=== PATIENT | female | born 1935 | race Caucasian/White ===

== ENCOUNTER 2018-09-28 20:28 | Inpatient (IN) | payer OTHER ==
[2018-09-28] MEDS ORDERED: ALBUTEROL SO4 2.5/IPRATROPIUM 0.5 INH SOL 3 ML VIAL.NEB. NEB ONE (21:10)
--- NOTE | 2018-09-28 21:12 | PDOC ---
History of Present Illness - General Chief Complaint: Respiratory Stated Complaint: DIFFICULTY BREATHING/CELLULITUS Time Seen by Provider: 09/28/18 20:50 History Source: Patient, Family Exam Limitations: No Limitations - History of Present Illness Initial Comments: 09/28/18 21:08 83YOF with h/o COPD, ?CHF (on Lasix 40 mg once every 2 days but states she does not recall the diagnosis of HF), ACS s/p stent 2 years ago, HTN, HLD, hypothyroidism, hip replacement, current bronchitis, and recently diagnosed leg cellulitis (states she is on amoxicillin for the cellulitis) who p/w worsening wet cough and SOB for the past 2 weeks, particularly worse tonight. She has had chills but denies any measured fever, nausea, vomiting, constipation, n/t/w focally, headache, back pain, neck pain, or other symptoms. Her family expresses concern her legs are so swollen she is unable to lift them or even walk. The patient notes her legs are only painful when she tries to weight bear. Past History - Past Medical History Allergies/Adverse Reactions: Allergies Allergy/AdvReac Type Severity Reaction Status Date / Time Penicillins Allergy Verified 09/28/18 22:12 Home Medications: Ambulatory Orders Aspirin [ASA -] 81 mg PO DAILY 11/04/14 Amlodipine Besylate 10 mg PO DAILY 05/04/16 Clopidogrel Bisulfate [Plavix -] 75 mg PO DAILY 05/04/16 L.acidoph,Paracasei, B.lactis [Probiotic] 1 each PO DAILY 05/04/16 Cephalexin [Keflex] 250 mg PO TID 09/28/18 Cholecalciferol (Vitamin D3) [Vitamin D3 -] 50,000 unit PO WEEKLY 09/28/18 Ferrous Sulfate [Feosol] 325 mg PO BID 09/28/18 Levothyroxine [Synthroid -] 50 mcg PO DAILY 09/28/18 Anemia: No Asthma: No Cancer: No Cardiac Disorders: Yes (NE 2014-STENT PLACED) CVA: No COPD: No CHF: No Dementia: No Diabetes: No (STATES HAD DIABETES AND LOST WEIGHT AND WATCHED DIET, NOW WNL) GI Disorders: Yes (HX DIVERTICULOSIS) Disorders: No HTN: Yes Hypercholesterolemia: Yes Liver Disease: No Seizures: No Thyroid Disease: No - Surgical History Abdominal Surgery: Yes Appendectomy: No Cardiac Surgery: Yes (STENT PLACED AFTER NE) Cholecystectomy: Yes (1995) Lung Surgery: No Neurologic Surgery: No Orthopedic Surgery: Yes (TOTAL HIP REPLACEMENT 25 YEARS AGO) - Immunization History Td Vaccination: No - Suicide/Smoking/Psychosocial Hx Smoking Status: Yes Smoking History: Never smoked Have you smoked in the past 12 months: No Number of Cigarettes Smoked Daily: 10 Information on smoking cessation initiated: No Hx Alcohol Use: No Drug/Substance Use Hx: No Substance Use Type: None Hx Substance Use Treatment: No Review of Systems - Review of Systems Able to Perform ROS?: Yes Comments:: 09/28/18 21:13 GEN: chills, malaise, generalized weakness, no fever, or weight change HEENT: no ear pain, sore throat, vision change, or eye pain CV: no chest pain, palpitations, lightheadedness, syncope, or edema RESP: cough, SOB, wheezing GI: decreased appetite, no abdominal pain, nausea, vomiting, constipation, or white/black/bloody stool : no dysuria, hematuria, incontinence, retention, bleeding, or discharge MSK: no neck/back pain, muscle weakness/pain, or joint swelling/pain NEURO: no headache, seizure, vertigo, numbness, tingling, or focal weakness PSYCH: no substance use, no behavior change SKIN: no jaundice, no rash ROS otherwise negative except as noted in HPI *Physical Exam - Vital Signs Last Vital Signs Temp Pulse Resp BP Pulse Ox 97.1 F L 78 22 H 168/57 L 95 09/28/18 20:28 09/28/18 20:28 09/28/18 20:28 09/28/18 20:28 09/28/18 20:28 - Physical Exam Comments: 09/28/18 21:15 GENERAL: alert, very pleasant elderly female, smell of cigarette smoke, a bit ill-appearing, A/Ox4, no distress, answers questions appropriately HEENT: PERRLA, EOMI, moist mucous membranes NECK/BACK: no midline ttp, no spinal stepoff or deformity, no hematoma, full ROM , neck supple CARDIOVASCULAR: regular rate/rhythm, normal S1S2, no MGR, strong peripheral pulses, capillary refill <2 seconds, extremities wwp, 3+ BLE pitting edema and 1 + LUE pitting edema LUNGS/RESPIRATORY: tachypneic, using accessory muscles, lungs with marked diffuse crackles from bases up to apices, diffusely decreased breath sounds GI/ABDOMEN: symmetric [id number], normoactive BS, soft, no ttp, no midline pulsatile masses : no CVA tenderness EXTREMITIES: no muscle atrophy, no acute deformity, edema as noted on CV section, no e/o cellulitis BLE at this time SKIN: warm and dry, no pallor, no jaundice, no rash, no bruising, no skin breakdown, no cuts, no lesions NEUROLOGICAL: GCS 15, CN II-XII grossly intact, 5/5 strength proximally and distally, no facial droop Moderate Sedation - Procedure Monitoring Vital Signs: Procedure Monitoring Vital Signs Temperature 97.1 F L 09/28/18 20:28 Pulse Rate 78 09/28/18 20:28 Respiratory Rate 22 H 09/28/18 20:28 Blood Pressure 168/57 L 09/28/18 20:28 O2 Sat by Pulse Oximetry (%) 95 09/28/18 20:28 Heart Score/ECG Review #1 09/28/18 21:24 NSR, rate 77, TWI in V456 (TWI in V45 are old compared with EKG from 11/03/14), no additional ST-T changes ED Treatment Course - LABORATORY CBC & Chemistry Diagram: 09/28/18 21:20 09/28/18 21:20 - RADIOLOGY Radiology Studies Ordered: Category Date Time Status CXRPORT [CHEST X-RAY PORTABLE*] [RAD] Stat Radiology 09/28/18 21:05 Ordered Medical Decision Making - Medical Decision Making 09/28/18 21:17 Pt with h/o CHF who p/w SOB, cough, orthopnea same as their prior CHF. Initial Vital Signs Temp Pulse Resp BP Pulse Ox 97.1 F L 78 22 H 168/57 L 95 09/28/18 20:28 09/28/18 20:28 09/28/18 20:28 09/28/18 20:28 09/28/18 20:28 Exam: As noted in Physical Exam section. DDX IBNLT: Most likely CHF exacerbation given crackles on lung auscultation, combined with COPD exacerbation picture given the patient's recently diagnosed bronchitis. Other possibilities pulmonary edema (e.g. from ACS), PNA, much less likely any of the following: pericarditis, tamponade, AD, PE, PTX, allergic reaction, malignancy (e.g. causing pericardial effusion or vascular shunt), other infection, pulmonary HTN, etc. W/U ordered: CBCD CMP Mg Phos Troponin CK CKMB BNP Blood Gas UA UCx EKG CXR TX ordered: Lasix IV push, O2, BiPAP, Pt positioned with head of bed up 09/28/18 21:30 Dr. Costa is in the department and sees the patient, has already placed orders. He states that the patient will be admitted to his services. I have placed Decision to Admit order to Dr. Costa. [facility] Will follow w/u then contact [facility] for admitting procedures. EKG: Reviewed; results as noted in ECG Review section. CXR: Pulmonary vascular congestion, small L>R pleural effusions, possible RLL consolidation Laboratory Tests 09/28/18 09/28/18 09/28/18 21:08 21:20 21:20 WBC 8.2 RBC 2.55 L Hgb 8.1 L Hct 24.0 L D MCV 94.3 MCH 31.9 MCHC 33.8 RDW 17.2 H Plt Count 393 D MPV 8.2 D Absolute Neuts (auto) 6.6 Neutrophils % 81.4 Lymphocytes % 7.0 L D Monocytes % 6.9 Eosinophils % 3.9 Basophils % 0.8 Nucleated RBC % 0 VBG pH 7.21 L* POC VBG pCO2 43.1 POC VBG pO2 63.8 H Mixed VBG HCO3 16.7 L Sodium Potassium Chloride Carbon Dioxide Anion Gap BUN Creatinine Creat Clearance w eGFR Random Glucose Hemoglobin A1c % Calcium Phosphorus Magnesium Total Bilirubin AST ALT Alkaline Phosphatase Creatine Kinase Troponin I B-Natriuretic Peptide Total Protein Albumin Influenza A (Rapid) Negative Influenza B (Rapid) Negative 09/28/18 09/28/18 21:20 21:20 WBC RBC Hgb Hct MCV MCH MCHC RDW Plt Count MPV Absolute Neuts (auto) Neutrophils % Lymphocytes % Monocytes % Eosinophils % Basophils % Nucleated RBC % VBG pH POC VBG pCO2 POC VBG pO2 Mixed VBG HCO3 Sodium 137 Potassium 5.7 H Chloride 110 H Carbon Dioxide 18 L Anion Gap 9 BUN 52 H Creatinine 2.7 H Creat Clearance w eGFR 16.87 Random Glucose 175 H Hemoglobin A1c % 5.4 Calcium 7.8 L Phosphorus 5.6 H Magnesium 2.3 Total Bilirubin 0.2 AST 28 ALT 23 Alkaline Phosphatase 105 Creatine Kinase 56 Troponin I 0.03 B-Natriuretic Peptide 9620.8 H Total Protein 6.5 Albumin 2.9 L Influenza A (Rapid) Influenza B (Rapid) Vital Signs Temperature 97.1 F L 09/28/18 20:28 Pulse Rate 81 09/28/18 22:03 Respiratory Rate 19 09/28/18 22:03 Blood Pressure 160/53 L 09/28/18 22:03 O2 Sat by Pulse Oximetry (%) 100 09/28/18 22:03 09/28/18 22:36 Reassessment: Patient less tachypneic on BiPAP. ADMIT The Pt is unsafe for discharge at this time. They require further hospital observation, workup, and treatment. Pt needs IV meds 2/2 likely bowel edema as PO medications likely less effective. Microblog sent to [facility]. 09/28/18 23:17 The patient has been given ceftriaxone instead of Zosyn. She is noting PCN allergy in 1961 which she cannot remember well but states her lips swelled immediately. In 1961 the PCN needed to be stopped. She has tolerated amoxicillin well per her report but there is less cross- reactivity with ceftriaxone. Thus ceftriaxone is given, patient monitored closely. I spoke with Dr. Cooper; H&P to be completed by [facility]. Decision to admit order previously placed to Dr. Costa. 09/28/18 23:25 I have placed order for blood cultures and these are sent. *DC/Admit/Observation/Transfer Diagnosis at time of Disposition: Bilateral lower leg cellulitis CHF exacerbation Qualifiers: Heart failure type: unspecified Qualified Code(s): I50.9 - Heart failure, unspecified COPD (chronic obstructive pulmonary disease) Qualifiers: COPD type: unspecified COPD Qualified Code(s): J44.9 - Chronic obstructive pulmonary disease, unspecified Pneumonia Qualifiers: Pneumonia type: due to unspecified organism Laterality: unspecified laterality Lung location: unspecified part of lung Qualified Code(s): J18.9 - Pneumonia, unspecified organism - Discharge Dispostion Condition at time of disposition: Guarded Decision to Admit order: Yes - Referrals - Patient Instructions - Post Discharge Activity
[2018-09-28] MEDS ORDERED: PIPERACILLIN/TAZOB 3.375 GM 3.375 GM in DEXTROSE 5%-WATER - 50 ML IVPB ONE (21:26)
[2018-09-28] MEDS ORDERED: ACETAMINOPHEN 325 MG TABLET (FP) PO PRN (21:26)
[2018-09-28] MEDS: ALBUTEROL SO4 2.5/IPRATROPIUM 0.5 INH SOL 3 ML VIAL.NEB. NEB PRN (21:29)
[2018-09-28 21:41] LABS: BASO % 0.8 % (0-2.0); EOS % 3.9 % (0-4.5); HEMOGLOBIN 8.1 GM/dL (10.7-15.3); MCH 31.9 pg (25.7-33.7); MCHC 33.8 g/dl (32.0-36.0); MEAN CELL VOLUME 94.3 fl (80-96); MEAN PLT VOLUME 8.2 fl (7.5-11.1); MONO % 6.9 % (3.8-10.2); NEUT % 81.4 % (42.8-82.8); PLATELET COUNT 393 K/MM3 (134-434); RBC 2.55 M/mm3 (3.60-5.2); RDW 17.2 % (11.6-15.6); WHITE BLOOD COUNT 8.2 K/mm3 (4.0-10.0)
[2018-09-28 21:43] LABS: VENOUS PC02 43.1 mmHg (38-52); VENOUS PO2 63.8 mmHg (28-48)
[2018-09-28 21:45] LABS: VENOUS PH 7.21 (7.32-7.42)
[2018-09-28] MEDS ORDERED: FUROSEMIDE 40 MG/4 ML INJECTABLE VIAL ONE (21:47)
[2018-09-28] MEDS: FUROSEMIDE 40 MG/4 ML INJECTABLE VIAL IVPUSH SCH (21:50)
[2018-09-28] MEDS ORDERED: PIPERACILLIN/TAZOB 3.375 GM 3.375 GM/50 ML BAG IVPB ONE (22:04)
[2018-09-28 22:07] LABS: ALBUMIN 2.9 g/dl (3.4-5.0); ALK PHOS 105 U/L (45-117); ANION GAP 9 MMOL/L (8-16); BILIRUBIN,TOTAL 0.2 mg/dL (0.2-1); BLOOD UREA NITROGEN 52 mg/dL (7-18); CALCIUM 7.8 mg/dL (8.5-10.1); CHLORIDE 110 mmol/L (98-107); CO2 18 mmol/L (21-32); CREATININE 2.7 mg/dL (0.55-1.3); GLUCOSE,RANDOM 175 mg/dL (74-106); MAGNESIUM 2.3 mg/dL (1.8-2.4); N-TERMINAL BNP 9620.8 pg/ml (5-450); PHOSPHOROUS 5.6 mg/dL (2.5-4.9); POTASSIUM 5.7 mmol/L (3.5-5.1); SGOT/AST 28 U/L (15-37); SGPT/ALT 23 U/L (13-61); SODIUM 137 mmol/L (136-145); TOT PROT 6.5 g/dl (6.4-8.2)
[2018-09-28 22:16] LABS: URINE APPEARANCE CLOUDY; URINE BILIRUBIN NEGATIVE (<2.0 mg/dL); URINE COLOR YELLOW; URINE GLUCOSE (UA) 2+ (NEGATIVE); URINE KETONE NEGATIVE (NEGATIVE); URINE LEUK ESTERASE NEGATIVE (NEGATIVE); URINE NITRITE NEGATIVE (NEGATIVE); URINE PROTEIN 3+ (NEGATIVE); URINE UROBILINOGEN NEGATIVE mg/dL (0.2-1.0)
[2018-09-28] MEDS ORDERED: CEFTRIAXONE 1,000 MG in DEXTROSE 5%-WATER - 50 ML IVPB ONE ×2 (22:35→22:48)
[2018-09-28 22:47] LABS: URINE BACTERIA FEW /hpf (NONE SEEN); URINE MUCUS RARE
[2018-09-28] MEDS ORDERED: CEFTRIAXONE 1 GM/50 ML BAG ONE (22:55)
--- NOTE | 2018-09-28 23:06 | PDOC ---
Attending Attestation - HPI HPI: 09/28/18 23:12 The patient is an 83 year old female with a past medical history of COPD, possible CHF (patient does not recall diagnosis but takes lasix), polycystic kidneys, HTN, ACS, hypothyroidism, bronchitis, and cellulitis here today for evaluation of worsening shortness of breath and bilateral lower extremity edema. The patient reports that her shortness of breath began 2 weeks ago, has been getting worse, and notes an associated wet cough. The patients family reports that her edema is worst it has ever been and that she has trouble walking and the patient reports that she has leg pain when weight bearing. She also notes chills. Patient denies headache, lightheadedness. Denies fever. Denies chest pain, shortness of breath. Denies nausea, vomiting, diarrhea, abdominal pain. Allergies: penicillins Social history: Patient denies drug and alcohol use but confirms long time tobacco use. Surgical history: hip replacement PCP: Marcus Costa - Medical Decision Making 09/28/18 23:13 Documentation prepared by SVETA Reeder, acting as medical imaging specialist for Kat Sharma MD. <Wayne Jimenes - Last Filed: 09/28/18 23:12> - Resident Resident Name: Jennie Membreno - ED Attending Attestation I have performed the following: I have examined & evaluated the patient, The case was reviewed & discussed with the resident, I agree w/resident's findings & plan, Exceptions are as noted - HPI HPI: 09/28/18 23:06 83 yo female p/w shortness of breath - Physicial Exam PE: 09/28/18 23:41 83 yo female brought in for respiratory distress with accessory muscle use, increased respiratory rate head ncat neck supple cvs tachycardia lung++crackles abd soft,nontender extremities +3 BLE pitting edema neuro aleert psych anxious - Medical Decision Making 09/28/18 23:48 imp pt has chf exacerbation and Dr Marcus Costa wrote orders, pt given lasix IV, started on BIPAP in ER setting 06/20, rr=14 09/28/18 23:50 <Kat Sharma - Last Filed: 09/28/18 23:52>
--- NOTE | 2018-09-28 23:12 | HP ---
CHIEF COMPLAINT: PCP: HISTORY OF PRESENT ILLNESS: ER course was notable for: (1) (2) (3) Recent Travel: PAST MEDICAL HISTORY: PAST SURGICAL HISTORY: Social History: Smoking: Alcohol: Drugs: Family History: Allergies Penicillins Allergy (Verified 09/28/18 22:12) HOME MEDICATIONS: Home Medications Medication Instructions Recorded Aspirin [ASA -] 81 mg PO DAILY 11/04/14 Amlodipine Besylate 10 mg PO DAILY 05/04/16 Clopidogrel Bisulfate [Plavix -] 75 mg PO DAILY 05/04/16 L.acidoph,Paracasei, B.lactis 1 each PO DAILY 05/04/16 [Probiotic] Cephalexin [Keflex] 250 mg PO TID 09/28/18 Cholecalciferol (Vitamin D3) 50,000 unit PO WEEKLY 09/28/18 [Vitamin D3 -] Ferrous Sulfate [Feosol] 325 mg PO BID 09/28/18 Levothyroxine [Synthroid -] 50 mcg PO DAILY 09/28/18 REVIEW OF SYSTEMS CONSTITUTIONAL: Absent: fever, chills, diaphoresis, generalized weakness, malaise, loss of appetite, weight change HEENT: Absent: rhinorrhea, nasal congestion, throat pain, throat swelling, difficulty swallowing, mouth swelling, ear pain, eye pain, visual changes CARDIOVASCULAR: Absent: chest pain, syncope, palpitations, irregular heart rate, lightheadedness , peripheral edema RESPIRATORY: Absent: cough, shortness of breath, dyspnea with exertion, orthopnea, wheezing, stridor, hemoptysis GASTROINTESTINAL: Absent: abdominal pain, abdominal distension, nausea, vomiting, diarrhea, constipation, melena, hematochezia GENITOURINARY: Absent: dysuria, frequency, urgency, hesitancy, hematuria, flank pain, genital pain MUSCULOSKELETAL: Absent: myalgia, arthralgia, joint swelling, back pain, neck pain SKIN: Absent: rash, itching, pallor HEMATOLOGIC/IMMUNOLOGIC: Absent: easy bleeding, easy bruising, lymphadenopathy, frequent infections ENDOCRINE: Absent: unexplained weight gain, unexplained weight loss, heat intolerance, cold intolerance NEUROLOGIC: Absent: headache, focal weakness or paresthesias, dizziness, unsteady gait, seizure, mental status changes, bladder or bowel incontinence PSYCHIATRIC: Absent: anxiety, depression, suicidal or homicidal ideation, hallucinations. PHYSICAL EXAMINATION Vital Signs - 24 hr 09/28/18 09/28/18 09/28/18 20:28 21:50 22:03 Temperature 97.1 F L Pulse Rate 78 Pulse Rate [ 81 Apical] Respiratory 22 H 19 Rate Blood Pressure 168/57 L Blood Pressure 160/53 L [Right Arm] O2 Sat by Pulse 95 100 100 Oximetry (%) GENERAL: Awake, alert, and fully oriented, in no acute distress. HEAD: Normal with no signs of trauma. EYES: Pupils equal, round and reactive to light, extraocular movements intact, sclera anicteric, conjunctiva clear. No lid lag. EARS, NOSE, THROAT: Ears normal, nares patent, oropharynx clear without exudates. Moist mucous membranes. NECK: Normal range of motion, supple without lymphadenopathy, JVD, or masses. LUNGS: Breath sounds equal, clear to auscultation bilaterally. No wheezes, and no crackles. No accessory muscle use. HEART: Regular rate and rhythm, normal S1 and S2 without murmur, rub or gallop. ABDOMEN: Soft, nontender, not distended, normoactive bowel sounds, no guarding, no rebound, no masses. No hepatomegaly or splenomegaly. MUSCULOSKELETAL: Normal range of motion at all joints. No bony deformities or tenderness. No CVA tenderness. UPPER EXTREMITIES: 2+ pulses, warm, well-perfused. No cyanosis. No clubbing. No peripheral edema. LOWER EXTREMITIES: 2+ pulses, warm, well-perfused. No calf tenderness. No peripheral edema. NEUROLOGICAL: Cranial nerves II-XII intact. Normal speech. Normal gait. PSYCHIATRIC: Cooperative. Good eye contact. Appropriate mood and affect. SKIN: Warm, dry, normal turgor, no rashes or lesions noted, normal capillary refill. Laboratory Results - last 24 hr 09/28/18 09/28/18 09/28/18 21:08 21:20 21:20 WBC 8.2 RBC 2.55 L Hgb 8.1 L Hct 24.0 L D MCV 94.3 MCH 31.9 MCHC 33.8 RDW 17.2 H Plt Count 393 D MPV 8.2 D Absolute Neuts (auto) 6.6 Neutrophils % 81.4 Lymphocytes % 7.0 L D Monocytes % 6.9 Eosinophils % 3.9 Basophils % 0.8 Nucleated RBC % 0 VBG pH 7.21 L* POC VBG pCO2 43.1 POC VBG pO2 63.8 H Mixed VBG HCO3 16.7 L Sodium Potassium Chloride Carbon Dioxide Anion Gap BUN Creatinine Creat Clearance w eGFR Random Glucose Hemoglobin A1c % Calcium Phosphorus Magnesium Total Bilirubin AST ALT Alkaline Phosphatase Creatine Kinase Troponin I B-Natriuretic Peptide Total Protein Albumin Urine Color Urine Appearance Urine pH Ur Specific [place] Urine Protein Urine Glucose (UA) Urine Ketones Urine Blood Urine Nitrite Urine Bilirubin Urine Urobilinogen Ur Leukocyte Esterase Urine WBC (Auto) Urine RBC (Auto) Urine Bacteria Urine Mucus Influenza A (Rapid) Negative Influenza B (Rapid) Negative 09/28/18 09/28/18 09/28/18 21:20 21:20 22:00 WBC RBC Hgb Hct MCV MCH MCHC RDW Plt Count MPV Absolute Neuts (auto) Neutrophils % Lymphocytes % Monocytes % Eosinophils % Basophils % Nucleated RBC % VBG pH POC VBG pCO2 POC VBG pO2 Mixed VBG HCO3 Sodium 137 Potassium 5.7 H Chloride 110 H Carbon Dioxide 18 L Anion Gap 9 BUN 52 H Creatinine 2.7 H Creat Clearance w eGFR 16.87 Random Glucose 175 H Hemoglobin A1c % 5.4 Calcium 7.8 L Phosphorus 5.6 H Magnesium 2.3 Total Bilirubin 0.2 AST 28 ALT 23 Alkaline Phosphatase 105 Creatine Kinase 56 Troponin I 0.03 B-Natriuretic Peptide 9620.8 H Total Protein 6.5 Albumin 2.9 L Urine Color Yellow Urine Appearance Cloudy Urine pH 5.0 Ur Specific [place] 1.016 Urine Protein 3+ H Urine Glucose (UA) 2+ H Urine Ketones Negative Urine Blood 1+ H Urine Nitrite Negative Urine Bilirubin Negative Urine Urobilinogen Negative Ur Leukocyte Esterase Negative Urine WBC (Auto) None Urine RBC (Auto) 2 Urine Bacteria Few Urine Mucus Rare Influenza A (Rapid) Influenza B (Rapid) ASSESSMENT/PLAN:
[2018-09-28] MEDS ORDERED: HEPARIN NA (PORCINE) 5,000 UNITS/ML 1ML VIAL ONE (23:31)
[2018-09-28] MEDS: HEPARIN NA (PORCINE) 5,000 UNITS/ML 1ML VIAL SQ SCH (23:35)
--- NOTE | 2018-09-29 01:15 | HP ---
CHIEF COMPLAINT: shortness of breath PCP: Igor HISTORY OF PRESENT ILLNESS: 83 year old woman with chf, chronic cough with whitish sputum c/o worsening SOB and cough for the past several days, associated with + orthopnea and swelling of legs. Denied fever, chills, or bloody sputum. No sick contacts or recent travels. ER course was notable for: (1) bipap (2) Iv furosemide (3) Recent Travel: no PAST MEDICAL HISTORY: COPD, CHF, polycystic kidneys, HTN, cad s/p stent PAST SURGICAL HISTORY: cardiax stent, Cholecystectomy Social History: Smoking: yes, current Alcohol:no Drugs: no Family History: none reported Allergies Penicillins Allergy (Verified 09/28/18 22:12) HOME MEDICATIONS: Home Medications Medication Instructions Recorded Aspirin [ASA -] 81 mg PO DAILY 11/04/14 Amlodipine Besylate 10 mg PO DAILY 05/04/16 Clopidogrel Bisulfate [Plavix -] 75 mg PO DAILY 05/04/16 L.acidoph,Paracasei, B.lactis 1 each PO DAILY 05/04/16 [Probiotic] Cephalexin [Keflex] 250 mg PO TID 09/28/18 Cholecalciferol (Vitamin D3) 50,000 unit PO WEEKLY 09/28/18 [Vitamin D3 -] Ferrous Sulfate [Feosol] 325 mg PO BID 09/28/18 Levothyroxine [Synthroid -] 50 mcg PO DAILY 09/28/18 REVIEW OF SYSTEMS CONSTITUTIONAL: Absent: fever, chills, diaphoresis, generalized weakness, malaise, loss of appetite, weight change HEENT: Absent: rhinorrhea, nasal congestion, throat pain, throat swelling, difficulty swallowing, mouth swelling, ear pain, eye pain, visual changes CARDIOVASCULAR: Absent: chest pain, syncope, palpitations, irregular heart rate, lightheadedness , present- peripheral edema RESPIRATORY: Absent: wheezing, stridor, hemoptysis present- cough, shortness of breath, dyspnea with exertion, orthopnea, GASTROINTESTINAL: Absent: abdominal pain, abdominal distension, nausea, vomiting, diarrhea, constipation, melena, hematochezia GENITOURINARY: Absent: dysuria, frequency, urgency, hesitancy, hematuria, flank pain, genital pain MUSCULOSKELETAL: Absent: myalgia, arthralgia, joint swelling, back pain, neck pain Present- pain in lower ext b/l SKIN: Absent: rash, itching, pallor HEMATOLOGIC/IMMUNOLOGIC: Absent: easy bleeding, easy bruising, lymphadenopathy, frequent infections ENDOCRINE: Absent: unexplained weight gain, unexplained weight loss, heat intolerance, cold intolerance NEUROLOGIC: Absent: headache, focal weakness or paresthesias, dizziness, unsteady gait, seizure, mental status changes, bladder or bowel incontinence PSYCHIATRIC: Absent: anxiety, depression, suicidal or homicidal ideation, hallucinations. PHYSICAL EXAMINATION Vital Signs - 24 hr 09/28/18 09/28/18 09/28/18 20:28 21:50 22:03 Temperature 97.1 F L Pulse Rate 78 Pulse Rate [ 81 Apical] Respiratory 22 H 19 Rate Blood Pressure 168/57 L Blood Pressure 160/53 L [Right Arm] O2 Sat by Pulse 95 100 100 Oximetry (%) 09/28/18 09/29/18 09/29/18 23:29 00:05 00:15 Temperature 98.2 F Pulse Rate 74 Pulse Rate [ 77 Apical] Respiratory 21 H Rate Blood Pressure 145/51 L Blood Pressure [Right Arm] O2 Sat by Pulse 98 100 Oximetry (%) GENERAL: Awake, alert, and fully oriented, in no acute distress, frail, elderly , on bipap HEAD: Normal with no signs of trauma. EYES: Pupils equal, round and reactive to light, extraocular movements intact, sclera anicteric, conjunctiva clear. No lid lag. EARS, NOSE, THROAT: Ears normal, nares patent, oropharynx clear without exudates. Moist mucous membranes. NECK: Normal range of motion, supple without lymphadenopathy, + JVD b/l LUNGS: coarse breath sounds with expiratory wheezing appreciated b/l HEART: Regular rate and rhythm, normal S1 and S2 without murmur, rub or gallop. ABDOMEN: Soft, nontender, not distended, normoactive bowel sounds, no guarding, no rebound, no masses. No hepatomegaly or splenomegaly. MUSCULOSKELETAL: Normal range of motion at all joints. No bony deformities or tenderness. No CVA tenderness. UPPER EXTREMITIES: 2+ pulses, warm, well-perfused. No cyanosis. No clubbing. No peripheral edema. LOWER EXTREMITIES: 3+ pitting edema in b/l lower ext up to knees NEUROLOGICAL: Cranial nerves II-XII intact. Normal speech. Normal gait. PSYCHIATRIC: Cooperative. Good eye contact. Appropriate mood and affect. SKIN: Warm, dry, normal turgor, no rashes or lesions noted, normal capillary refill. Laboratory Results - last 24 hr 09/28/18 09/28/18 09/28/18 21:08 21:20 21:20 WBC 8.2 RBC 2.55 L Hgb 8.1 L Hct 24.0 L D MCV 94.3 MCH 31.9 MCHC 33.8 RDW 17.2 H Plt Count 393 D MPV 8.2 D Absolute Neuts (auto) 6.6 Neutrophils % 81.4 Lymphocytes % 7.0 L D Monocytes % 6.9 Eosinophils % 3.9 Basophils % 0.8 Nucleated RBC % 0 VBG pH 7.21 L* POC VBG pCO2 43.1 POC VBG pO2 63.8 H Mixed VBG HCO3 16.7 L Sodium Potassium Chloride Carbon Dioxide Anion Gap BUN Creatinine Creat Clearance w eGFR Random Glucose Hemoglobin A1c % Calcium Phosphorus Magnesium Total Bilirubin AST ALT Alkaline Phosphatase Creatine Kinase Troponin I B-Natriuretic Peptide Total Protein Albumin Urine Color Urine Appearance Urine pH Ur Specific [place] Urine Protein Urine Glucose (UA) Urine Ketones Urine Blood Urine Nitrite Urine Bilirubin Urine Urobilinogen Ur Leukocyte Esterase Urine WBC (Auto) Urine RBC (Auto) Urine Bacteria Urine Mucus Influenza A (Rapid) Negative Influenza B (Rapid) Negative 09/28/18 09/28/18 09/28/18 21:20 21:20 22:00 WBC RBC Hgb Hct MCV MCH MCHC RDW Plt Count MPV Absolute Neuts (auto) Neutrophils % Lymphocytes % Monocytes % Eosinophils % Basophils % Nucleated RBC % VBG pH POC VBG pCO2 POC VBG pO2 Mixed VBG HCO3 Sodium 137 Potassium 5.7 H Chloride 110 H Carbon Dioxide 18 L Anion Gap 9 BUN 52 H Creatinine 2.7 H Creat Clearance w eGFR 16.87 Random Glucose 175 H Hemoglobin A1c % 5.4 Calcium 7.8 L Phosphorus 5.6 H Magnesium 2.3 Total Bilirubin 0.2 AST 28 ALT 23 Alkaline Phosphatase 105 Creatine Kinase 56 Troponin I 0.03 B-Natriuretic Peptide 9620.8 H Total Protein 6.5 Albumin 2.9 L Urine Color Yellow Urine Appearance Cloudy Urine pH 5.0 Ur Specific [place] 1.016 Urine Protein 3+ H Urine Glucose (UA) 2+ H Urine Ketones Negative Urine Blood 1+ H Urine Nitrite Negative Urine Bilirubin Negative Urine Urobilinogen Negative Ur Leukocyte Esterase Negative Urine WBC (Auto) None Urine RBC (Auto) 2 Urine Bacteria Few Urine Mucus Rare Influenza A (Rapid) Influenza B (Rapid) imaging studies reviewed- ekg, cxr ASSESSMENT/PLAN: #CHF exacerbation - high bnp, pedal edema, orthopnea, JVD -admit to telemetry -cardiac consult -lasix 40mg IV daily -i/o -daily weights -trend troponin -salt restriction -1 liter daily fluid restriction -bblocker -acei #COPD/asthma exacerbation - exp wheezing, -[id number] iv q8hrs ordered -duonebs q6hrs prn if wheezing -smoking cessation -c/w bipap for now #ANASTASIA -avoid nephrotoxins -renal u/s #Lower ext swelling- exam not suggestive of cellulitis but rather chronic venous stasis changes on skin -duplex u/ to r/o dvt -no abx #HYperkalemia - no ekg changes, should improve after lasix and albuterol -monitor K -on cardiac monitoring #metabolic acidosis- uncertain etiology- low bicarb -repeat vbg #high TSH but normal T4 -may be reactive from acute CHF exac -c/w home dose levothyroxine for now -consider endocrine input dvt ppx- heparin sc Visit type - Emergency Visit Emergency Visit: Yes ED Registration Date: 09/28/18 Care time: The patient presented to the Emergency Department on the above date and was hospitalized for further evaluation of their emergent condition. - New Patient This patient is new to me today: Yes Date on this admission: 09/29/18 - Critical Care Critical Care patient: No
[2018-09-29] MEDS: methylPREDNISolone NA SUCC 40 MG/1 ML VIAL IVPUSH SCH ×3 (02:14→17:31)
[2018-09-29] MEDS: ALBUTEROL SO4 2.5/IPRATROPIUM 0.5 INH SOL 3 ML VIAL.NEB. NEB PRN ×2 (06:05→10:41)
[2018-09-29] MEDS: LEVOTHYROXINE NA 75 MCG TABLET (FP) PO SCH (06:35)
[2018-09-29 07:50] LABS: CHOLESTEROL 212 mg/dL (50-200); HDL CHOLESTEROL 78 mg/dL (40-60); TRIGLYCERIDES 108 mg/dL (0-150)
--- NOTE | 2018-09-29 09:50 | EKG ---
Test Reason : Blood Pressure : / mmHG Vent. Rate : 077 BPM Atrial Rate : 077 BPM P-R Int : 140 ms QRS Dur : 088 ms QT Int : 384 ms P-R-T Axes : 077 -24 107 degrees QTc Int : 434 ms NORMAL SINUS RHYTHM POSSIBLE LEFT ATRIAL ENLARGEMENT T WAVE ABNORMALITY, CONSIDER LATERAL ISCHEMIA ABNORMAL ECG WHEN COMPARED WITH ECG OF 03-NOV-2014 23:39, T WAVE VARIATION Confirmed by HERNANDEZ GOETZ, EFREM ([id number]) on 09/29/2018 9:50:03 AM Referred By: Confirmed By:EFREM NG MD
[2018-09-29 10:50] LABS: BASO % 0.4 % (0-2.0); EOS % 0.2 % (0-4.5); HEMATOCRIT 22.8 % (32.4-45.2); HEMOGLOBIN 7.6 GM/dL (10.7-15.3); MCH 31.8 pg (25.7-33.7); MCHC 33.2 g/dl (32.0-36.0); MEAN CELL VOLUME 95.6 fl (80-96); MEAN PLT VOLUME 8.6 fl (7.5-11.1); NEUT % 95.4 % (42.8-82.8); PLATELET COUNT 366 K/MM3 (134-434); RBC 2.38 M/mm3 (3.60-5.2); RDW 17.2 % (11.6-15.6); WHITE BLOOD COUNT 6.7 K/mm3 (4.0-10.0)
[2018-09-29 10:59] LABS: ARTERIAL BLD GAS O2 SATURATION 92.7 % (90-98.9); ARTERIAL BLOOD GAS BASE EXCESS -11.1 meq/l (-2-2); ARTERIAL BLOOD GAS PCO2 32.8 mmHg (35-45); ARTERIAL BLOOD GAS PO2 71.2 mmHg (68-100); ARTERIAL BLOOD GAS pH 7.27 (7.35-7.45)
[2018-09-29 11:01] LABS: ALLENS TEST POSITIVE
[2018-09-29] MEDS: ASPIRIN COATED 81 MG TABLET.EC PO SCH (11:15)
[2018-09-29] MEDS: CLOPIDOGREL BISULFATE 75 MG TABLET (FP) PO SCH (11:15)
[2018-09-29] MEDS: FUROSEMIDE 40 MG/4 ML INJECTABLE VIAL IVPUSH SCH (11:15)
[2018-09-29] MEDS: HEPARIN NA (PORCINE) 5,000 UNITS/ML 1ML VIAL SQ SCH ×2 (11:15→22:02)
--- NOTE | 2018-09-29 11:22 | PN ---
Progress Note (short form) - Note Progress Note: PULMONARY CONSULTATION DICTATED 09/29/18 IMP ACUTE HYPOXEMIC RESPIRATORY FAILURE CHF COPD EXACERBATION ? PNEUMONIA ASHD S/P STENT ACUTE ON CHRONIC KIDNEY DISEASE ANEMIA HTN DM TOBACCO ABUSE PLAN IV LASIX O2/BIPAP ABX STEROIDS INHALED BRONCHODILATORS CHEST CT ECHO NORMAL TRANSFUSION THRESHOLD MONITOR LYES,RENAL FUNCTION,H+H DR MCKENZIE Problem List - Problems (1) Acute hypoxemic respiratory failure Code(s): J96.01 - ACUTE RESPIRATORY FAILURE WITH HYPOXIA (2) Bilateral lower leg cellulitis Code(s): L03.116 - CELLULITIS OF LEFT LOWER LIMB; L03.115 - CELLULITIS OF RIGHT LOWER LIMB (3) CHF exacerbation Code(s): I50.9 - HEART FAILURE, UNSPECIFIED Qualifiers: Heart failure type: unspecified Qualified Code(s): I50.9 - Heart failure, unspecified (4) COPD (chronic obstructive pulmonary disease) Code(s): J44.9 - CHRONIC OBSTRUCTIVE PULMONARY DISEASE, UNSPECIFIED Qualifiers: COPD type: unspecified COPD Qualified Code(s): J44.9 - Chronic obstructive pulmonary disease, unspecified (5) Pneumonia Code(s): J18.9 - PNEUMONIA, UNSPECIFIED ORGANISM Qualifiers: Pneumonia type: due to unspecified organism Laterality: unspecified laterality Lung location: unspecified part of lung Qualified Code(s): J18.9 - Pneumonia, unspecified organism (6) Acute coronary syndrome Code(s): I24.9 - ACUTE ISCHEMIC HEART DISEASE, UNSPECIFIED (7) Anemia Code(s): D64.9 - ANEMIA, UNSPECIFIED (8) Diabetes Code(s): E11.9 - TYPE 2 DIABETES MELLITUS WITHOUT COMPLICATIONS (9) Tobacco abuse Code(s): Z72.0 - TOBACCO USE (10) Tobacco abuse counseling Code(s): Z71.6 - TOBACCO ABUSE COUNSELING
[2018-09-29 11:26] LABS: CREATININE 2.8 mg/dL (0.55-1.3)
[2018-09-29 11:27] LABS: CO2 16 mmol/L (21-32)
[2018-09-29 11:30] LABS: ALBUMIN 2.8 g/dl (3.4-5.0); ALK PHOS 89 U/L (45-117); ANION GAP 9 MMOL/L (8-16); BILIRUBIN,TOTAL 0.2 mg/dL (0.2-1); BLOOD UREA NITROGEN 54 mg/dL (7-18); CHLORIDE 111 mmol/L (98-107); GLUCOSE,RANDOM 118 mg/dL (74-106); SGOT/AST 27 U/L (15-37); SGPT/ALT 24 U/L (13-61); SODIUM 136 mmol/L (136-145); TOT PROT 6.3 g/dl (6.4-8.2)
--- NOTE | 2018-09-29 11:31 | PN ---
Progress Note, Physician Chief Complaint: patient seen and examined dyspneic was off the bipap ,audible wheezing used bipap last night per daughter the leg edema has significantly decreased - Current Medication List Current Medications: Active Medications Acetaminophen (Tylenol -) 650 mg PO Q6H PRN PRN Reason: PAIN OR FEVER Albuterol/Ipratropium (Duoneb -) 1 amp NEB Q6H PRN PRN Reason: SHORTNESS OF BREATH Last Admin: 09/29/18 10:41 Dose: 1 amp Aspirin (Ecotrin -) 81 mg PO DAILY [facility] Last Admin: 09/29/18 11:15 Dose: 81 mg Clopidogrel Bisulfate (Plavix -) 75 mg PO DAILY [facility] Last Admin: 09/29/18 11:15 Dose: 75 mg Furosemide (Lasix Injection -) 40 mg IVPUSH DAILY [facility] Last Admin: 09/29/18 11:15 Dose: 40 mg Heparin Sodium (Porcine) (Heparin -) 5,000 unit SQ BID [facility] Last Admin: 09/29/18 11:15 Dose: 5,000 unit Levothyroxine Sodium (Synthroid -) 75 mcg PO DAILY@0700 [facility] Last Admin: 09/29/18 06:35 Dose: Not Given Methylprednisolone Sodium Succinate (Solu-Medrol -) 40 mg IVPUSH Q8H-IV [facility] Last Admin: 09/29/18 11:15 Dose: 40 mg - Objective Vital Signs: Vital Signs Temperature 98 F 09/29/18 05:53 Pulse Rate 83 09/29/18 10:32 Respiratory Rate 24 H 09/29/18 10:32 Blood Pressure 148/72 09/29/18 10:32 O2 Sat by Pulse Oximetry (%) 95 09/29/18 11:09 Constitutional: Yes: Thin Cardiovascular: Yes: Regular Rate and Rhythm, S1, S2 Respiratory: Yes: Rales, Tachypnea Gastrointestinal: Yes: Normal Bowel Sounds, Soft Edema: Yes Edema: LLE: 2+, RLE: 2+ Neurological: Yes: Alert, Oriented Labs: CBC, BMP 09/29/18 05:30 Problem List - Problems (1) Acute hypoxemic respiratory failure Assessment/Plan: bipap lasix pulm steroids iv Code(s): J96.01 - ACUTE RESPIRATORY FAILURE WITH HYPOXIA (2) CHF exacerbation Assessment/Plan: lasix Code(s): I50.9 - HEART FAILURE, UNSPECIFIED Qualifiers: Heart failure type: unspecified Qualified Code(s): I50.9 - Heart failure, unspecified (3) Anemia Assessment/Plan: check iron panel Code(s): D64.9 - ANEMIA, UNSPECIFIED (4) Hypothyroid Assessment/Plan: tsh is 45 synthroid dose increase from 50 to 75 Code(s): E03.9 - HYPOTHYROIDISM, UNSPECIFIED (5) Hyperkalemia Assessment/Plan: kayxelate renal eval Code(s): E87.5 - HYPERKALEMIA (6) ANASTASIA (acute kidney injury) Assessment/Plan: renal eval renal sono bicarbonate Code(s): N17.9 - ACUTE KIDNEY FAILURE, UNSPECIFIED Assessment/Plan acute CHF bilateral effusion on cxr iv lasix chest ct and abdominal ct ordered i/o acosta in place venous doppler bipap hypothyroid tsh synthroid copd on iv steroids pulm consult anemia check iron panel stool occult
--- NOTE | 2018-09-29 11:32 | PN ---
Progress Note (short form) - Note Progress Note: PULMONARY CONSULTATION DICTATED 09/29/18 IMP ACUTE HYPOXEMIC RESPIRATORY FAILURE CHF COPD EXACERBATION ? PNEUMONIA ASHD S/P STENT ACUTE ON CHRONIC KIDNEY DISEASE PULMONARY HTN ANEMIA HTN DM TOBACCO ABUSE PLAN IV LASIX O2/BIPAP ABX STEROIDS INHALED BRONCHODILATORS CHEST CT ECHO NORMAL TRANSFUSION THRESHOLD MONITOR LYTES,RENAL FUNCTION,H+H SMOKING CESSATION COUNSELED DR MCKENZIE Problem List - Problems (1) Acute hypoxemic respiratory failure Code(s): J96.01 - ACUTE RESPIRATORY FAILURE WITH HYPOXIA (2) Bilateral lower leg cellulitis Code(s): L03.116 - CELLULITIS OF LEFT LOWER LIMB; L03.115 - CELLULITIS OF RIGHT LOWER LIMB (3) CHF exacerbation Code(s): I50.9 - HEART FAILURE, UNSPECIFIED Qualifiers: Heart failure type: unspecified Qualified Code(s): I50.9 - Heart failure, unspecified (4) COPD (chronic obstructive pulmonary disease) Code(s): J44.9 - CHRONIC OBSTRUCTIVE PULMONARY DISEASE, UNSPECIFIED Qualifiers: COPD type: unspecified COPD Qualified Code(s): J44.9 - Chronic obstructive pulmonary disease, unspecified (5) Pneumonia Code(s): J18.9 - PNEUMONIA, UNSPECIFIED ORGANISM Qualifiers: Pneumonia type: due to unspecified organism Laterality: unspecified laterality Lung location: unspecified part of lung Qualified Code(s): J18.9 - Pneumonia, unspecified organism (6) Acute coronary syndrome Code(s): I24.9 - ACUTE ISCHEMIC HEART DISEASE, UNSPECIFIED (7) Anemia Code(s): D64.9 - ANEMIA, UNSPECIFIED (8) Diabetes Code(s): E11.9 - TYPE 2 DIABETES MELLITUS WITHOUT COMPLICATIONS (9) Tobacco abuse Code(s): Z72.0 - TOBACCO USE (10) Tobacco abuse counseling Code(s): Z71.6 - TOBACCO ABUSE COUNSELING
[2018-09-29 11:43] LABS: POTASSIUM 6.2 mmol/L (3.5-5.1)
--- NOTE | 2018-09-29 12:33 | CONS ---
DATE OF CONSULTATION: 09/29/2018 REFERRING PHYSICIAN: Marcus Costa MD HISTORY: The patient is an 83-year-old white female with extensive past medical history, which includes ASHD status post stents, chronic kidney disease, polycystic kidneys, hypertension, hypothyroidism, bronchitis, cellulitis, COPD, possible CHF admitted to [facility] with the complaint of a [id number] of increasing shortness of breath, chest congestion, and lower extremity edema. The patient states that approximately 2 weeks ago she started developing increasing shortness of breath with exertion. It has been progressively getting worse associated with wet cough, productive white-yellow sputum. Denies any hemoptysis. Denies any fever but states that she had chills. Over the past week or so, she started developing increasing lower extremity edema and getting markedly dyspneic with minimal exertion at which time she presented to the emergency room. In the ER, she was noted to be in acute respiratory distress. She was started on supplemental O2, administered Lasix, bronchodilators, and placed on BiPAP, and transferred up to medical floor for further management. The patient denies any recent travel. There is no history of occupational exposure to chemicals or fumes. She has a history of tobacco use for many years and still smokes a few cigarettes a day. There is no history of DVT or pulmonary emboli in the past. PAST MEDICAL HISTORY: Again includes COPD, possible CHF, ASHD status post stents, chronic kidney disease, polycystic kidneys, hypertension, hypothyroidism, and cellulitis. SOCIAL HISTORY: Positive tobacco. No ETOH. No occupational exposures. REVIEW OF SYSTEMS: Positive orthopnea, positive dyspnea, positive chest congestion, positive cough, positive chills. No fever, no hemoptysis, no abdominal pain. Positive lower extremity edema. CURRENT MEDICATIONS: Include Solu-Medrol 40 q.8, Tylenol, heparin, DuoNeb, Lasix, Ecotrin, Plavix, and Synthroid. PHYSICAL EXAMINATION: General: The patient is an elderly white female thin, well developed, awake, alert in moderate respiratory distress, dyspneic, and mildly tachypneic. Vital Signs: Blood pressure is 148/72, respiratory rate is 24, heart rate is 83, O2 saturation is 95% on 2 L. HEENT: Normocephalic and atraumatic. Neck: Supple. Heart: Regular with S1, S2. Chest: Diffuse bilateral rhonchi. Abdomen: Soft. Bowel sounds are positive. Extremities: Bilateral extremity edema. LABORATORIES: Potassium 5.7, BUN 52, creatinine 2.7, PMB 9620, WBC 6.7, hemoglobin 7.6, hematocrit 22.8, platelet count 366,000. There are 95 polys, 3 lymphocytes, and 1 monocyte. Blood gas: PH 7.27, PCO2 of 32, PO2 of 71, bicarbonate of 14, and saturation of 92. That is on 3 L nasal cannula. Chest x-ray: Normal cardiac silhouette, bilateral pleural effusions left greater than right with mild pulmonary vascular congestion. IMPRESSION: 1. Acute hypoxemic respiratory failure most likely secondary to multiple factors. 2. Chronic congestive heart failure. 3. Chronic obstructive pulmonary disease with acute exacerbation. 4. Rule out possible pneumonia. 5. Arteriosclerotic heart disease status post stents. 6. Acute on chronic kidney disease. 7. Anemia. 8. Hypertension. 9. Diabetes. 10. Tobacco abuse. PLAN: IV Lasix. Supplemental O2 alternating with BiPAP to reduced work of breathing. Antibiotic therapy. IV steroids. Inhaled bronchodilators. Follow up chest CT. Echocardiogram. Normal transfusion threshold. Monitor electrolytes, renal function, and hemoglobin and hematocrit. KAI MCKENZIE M.D. [id number]
[2018-09-29 12:37] LABS: ACANTHOCYTES 2+; ANISOCYTOSIS 2+; MACROCYTOSIS 0; OVALOCYTE 2+; PLATELET ESTIMATE NORMAL; TEAR DROP CELLS 1+; TOXIC GRANULATION 1+
[2018-09-29 14:17] LABS: ALBUMIN 2.6 g/dl (3.4-5.0); ALK PHOS 85 U/L (45-117); ANION GAP 10 MMOL/L (8-16); BILIRUBIN,TOTAL 0.2 mg/dL (0.2-1); BLOOD UREA NITROGEN 53 mg/dL (7-18); CALCIUM 8.2 mg/dL (8.5-10.1); CHLORIDE 109 mmol/L (98-107); CO2 16 mmol/L (21-32); CREATININE 2.8 mg/dL (0.55-1.3); GLUCOSE,RANDOM 141 mg/dL (74-106); SGOT/AST 23 U/L (15-37); SGPT/ALT 21 U/L (13-61); SODIUM 135 mmol/L (136-145); TOT PROT 6.4 g/dl (6.4-8.2)
[2018-09-29 14:20] LABS: POTASSIUM 6.1 mmol/L (3.5-5.1)
[2018-09-29] MEDS ORDERED: SODIUM POLYSTYRENE SULFONATE 15 GM/60 ML BOTTLE PO ONE (14:31)
--- NOTE | 2018-09-29 15:39 | ECHO ---
Name: MARISOL ABRAHAM Exam:Adult Echocardiogram Study Date: 09/29/2018 02:27 PM Age: 83 yrs Reason For Study: CHECK EF% Height: 61 in Weight: 102 lb BSA: 1.4 m2 MMode/2D Measurements & Calculations IVSd: 1.3 cm Ao root diam: 2.9 cm LVIDd: 4.4 cm LA dimension: 4.6 cm LVIDs: 2.4 cm ACS: 0.70 cm LVPWd: 0.89 cm IVSs: 1.3 cm LVPWs: 1.2 cm EDV(Teich): 89.8 ml ESV(Teich): 20.9 ml LVOT diam: 1.9 cm Doppler Measurements & Calculations MV E max robbin: 140.4 cm/sec Ao V2 max: 355.8 cm/sec MV A max robbin: 177.9 cm/sec Ao max P.7 mmHg MV E/A: 0.79 Ao V2 mean: 288.5 cm/sec Ao mean P.3 mmHg Ao V2 VTI: 88.3 cm DINA(I,D): 0.64 cm2 AI P1/2t: 318.8 msec DINA(V,D): 0.59 cm2 AI max robbin: 329.1 cm/sec LV V1 max P.4 mmHg AI max P.5 mmHg LV V1 mean P.7 mmHg AI dec slope: 302.3 cm/sec2 LV V1 max: 77.1 cm/sec LV V1 mean: 63.0 cm/sec LV V1 VTI: 20.6 cm MR max robbin: 552.5 cm/sec SV(LVOT): 56.2 ml MR max P.1 mmHg TR max robbin: 296.2 cm/sec Med Peak E' Robbin: 2.8 cm/sec TR max P.1 mmHg Med E/e': 49.7 Lat Peak E' Robbin: 2.6 cm/sec Lat E/e': 53.4 Procedure A complete two-dimensional transthoracic echocardiogram was performed (2D, M-mode, Doppler and color flow Doppler). Left Ventricle The left ventricle is normal in size. There is mild concentric left ventricular hypertrophy. Left shaye tricular systolic function is normal. Ejection Fraction = 65-70%. No regional wall motion abnormalities noted. Right Ventricle The right ventricle is normal size. The right ventricular systolic function is normal. Atria The left atrium is moderately dilated. Right atrial size is normal. Mitral Valve There is severe mitral annular calcification. There is moderate mitral valve thickening. There is mil d to moderate mitral regurgitation. Tricuspid Valve The tricuspid valve is normal in structure and function. Pulmonary artery systolic pressure is at [address] st 40 mmHg assuming RA pressure of 3 mmHg. Aortic Valve There is severe aortic valve thickening. Severe valvular aortic stenosis. The calculated aortic valve area using the continuity equation is 0.6 cm2. Aortic max pressure gradient= 35. DI (dimensionless index) is 0.25. Mild aortic regurgitation. Pulmonic Valve The pulmonic valve is not well visualized. Great Vessels The aortic root is normal size. Pericardium/Pleura There is no pericardial effusion. Interpretation Summary The left ventricle is normal in size. There is mild concentric left ventricular hypertrophy. Left ventricular systolic function is normal. No regional wall motion abnormalities noted. Ejection Fraction = 65-70%. The right ventricular systolic function is normal. The left atrium is moderately dilated. Right atrial size is normal. There is severe mitral annular calcification. There is moderate mitral valve thickening. There is mild to moderate mitral regurgitation. Pulmonary artery systolic pressure is at least 40 mmHg assuming RA pressure of 3 mmHg There is severe aortic valve thickening. Severe valvular aortic stenosis. The calculated aortic valve area using the continuity equation is 0.6 cm2. Aortic max pressure gradient= 35 DI (dimensionless index) is 0.25 Mild aortic regurgitation. There is no pericardial effusion. Liban Lewis MD 09/29/2018 03:39 PM
--- NOTE | 2018-09-29 15:41 | PN ---
Progress Note (short form) - Note Progress Note: ID consult dictated imp/reccd cellulitis chf valvular heart disease ckd pen allergy received ceftriaxone in Ed without problems legs are warm and red would continue short course of rocephin for cellulitis Problem List - Problems (1) Bilateral lower leg cellulitis Code(s): L03.116 - CELLULITIS OF LEFT LOWER LIMB; L03.115 - CELLULITIS OF RIGHT LOWER LIMB (2) CHF exacerbation Code(s): I50.9 - HEART FAILURE, UNSPECIFIED Qualifiers: Heart failure type: unspecified Qualified Code(s): I50.9 - Heart failure, unspecified (3) Aortic stenosis Code(s): I35.0 - NONRHEUMATIC AORTIC (VALVE) STENOSIS (4) Penicillin allergy Code(s): Z88.0 - ALLERGY STATUS TO PENICILLIN
--- NOTE | 2018-09-29 16:07 | CON.CARD ---
Consult Consult Specialty:: Cardiology Reason for Consultation:: SOB and worsening lower extremity edema - History of Present Illness Chief Complaint: Cough and SOB History of Present Illness: This is an 83 year old female with a PMH of COPD, CAD with a coranary stent placed at [facility] 2015, HTN, HLD, hypothyroidism hip replacement, current bronchitis, and recently diagnosed leg cellulitis. She presents with cough with white sputum, SOB, and lower extremity edema. Presently on BiPAP. - Past Medical History Cardio/Vascular: Yes: HTN Pulmonary: Yes: COPD Musculoskeletal: Yes: Osteoarthritis - Past Surgical History Past Surgical History: Yes: Cholecystectomy - Alcohol/Substance Use Hx Alcohol Use: No - Smoking History Smoking history: Never smoked Have you smoked in the past 12 months: No Aproximately how many cigarettes per day: 6 Home Medications - Allergies Allergies/Adverse Reactions: Allergies Allergy/AdvReac Type Severity Reaction Status Date / Time Penicillins Allergy Verified 09/28/18 22:12 - Home Medications Home Medications: Ambulatory Orders Aspirin [ASA -] 81 mg PO DAILY 11/04/14 Amlodipine Besylate 10 mg PO DAILY 05/04/16 Clopidogrel Bisulfate [Plavix -] 75 mg PO DAILY 05/04/16 L.acidoph,Paracasei, B.lactis [Probiotic] 1 each PO DAILY 05/04/16 Cephalexin [Keflex] 250 mg PO TID 09/28/18 Cholecalciferol (Vitamin D3) [Vitamin D3 -] 50,000 unit PO WEEKLY 09/28/18 Ferrous Sulfate [Feosol] 325 mg PO BID 09/28/18 Levothyroxine [Synthroid -] 50 mcg PO DAILY 09/28/18 Vital Signs: Vital Signs Temperature 98.7 F 09/29/18 14:38 Pulse Rate 84 09/29/18 14:38 Respiratory Rate 22 H 09/29/18 14:38 Blood Pressure 137/54 L 09/29/18 14:38 O2 Sat by Pulse Oximetry (%) 95 09/29/18 13:15 Constitutional: Yes: Mild Distress HENT: Yes: WNL Neck: Yes: WNL Respiratory: Yes: Rhonchi (Bilateral rhonchi) Gastrointestinal: Yes: Normal Bowel Sounds Cardiovascular: Yes: Regular Rate and Rhythm (2/6 SARINA RUSB radiating to the caritids.) JVD: No Edema: LLE: Trace, RLE: Trace Neurological: Yes: Alert, Oriented (x3, grossly nonfocal) - Other Data Labs, Other Data: CBC, BMP 09/29/18 05:30 09/29/18 12:10 Troponin, BNP 09/28/18 21:20 Troponin I 0.03 B-Natriuretic Peptide 9620.8 H Troponin, BNP 09/28/18 21:20 Troponin I 0.03 B-Natriuretic Peptide 9620.8 H Assessment/Plan 83 year old female with a PMH of COPD, CAD with a coronary stent placed at [facility] 2014, HTN, HLD, hypothyroidism hip replacement, current bronchitis , and recently diagnosed leg cellulitis. She presents with cough with white sputum, SOB, and lower extremity edema. Presently on BiPAP. Echocardiogram 09/29/18 LVH Severe with an DINA of 0.6 cm^2, peak gradient 35 mmHg PASP 40 mmHg Nomal LV and RV function MAC EKG with NSR and NSSTTW changes similar to 2015 CHF Diastolic acute on chronic secondary to Severe aortic Stenosis, DINA 0.6 cm^2, peak gradient 35 mmHg Continue IV Lasix 40 mg IVSS daily Follow I's/O's/Wt's/Lytes BNP 9620 Hyperkalemic - Renal consult is planned CAD Continue ASA and Plavix Hypothyroidism noted, TSH ^^ Would replete thyroid hormone slowly in this patient given history of CAD and aortic stenosis Aortic Stenosis When medically stable, would favor an evaluation for TAVR which we can arrange
[2018-09-29] MEDS ORDERED: FUROSEMIDE 40 MG/4 ML INJECTABLE VIAL ONE (18:19)
--- NOTE | 2018-09-29 18:19 | CONSULT ---
Consult Consult Specialty:: Nephrology Reason for Consultation:: CKD - History of Present Illness Chief Complaint: cough and shortness of breath. History of Present Illness: Pt is an 83 year old female with pmhx of CKD, COPD, CHF, HTN, and CAD who presents to the ER with worsening shortness of breath. She was found to have elevated creatinine and I was called to evaluate her. She also complains of lower ext edema. She was on abx for cullulitis. She was also found to be hyperkalemic. She denies chest pain or palpitations. She denies nausea or vomiting. - History Source History Provided By: Patient, Medical Record - Past Medical History Cardio/Vascular: Yes: CAD, HTN Pulmonary: Yes: COPD Renal/: Yes: Renal Inusuff Musculoskeletal: Yes: Osteoarthritis - Past Surgical History Past Surgical History: Yes: Cholecystectomy - Alcohol/Substance Use Hx Alcohol Use: No - Smoking History Smoking history: Never smoked Have you smoked in the past 12 months: No Aproximately how many cigarettes per day: 6 Home Medications - Allergies Allergies/Adverse Reactions: Allergies Allergy/AdvReac Type Severity Reaction Status Date / Time Penicillins Allergy Verified 09/28/18 22:12 - Home Medications Home Medications: Ambulatory Orders Aspirin [ASA -] 81 mg PO DAILY 11/04/14 Amlodipine Besylate 10 mg PO DAILY 05/04/16 Clopidogrel Bisulfate [Plavix -] 75 mg PO DAILY 05/04/16 L.acidoph,Paracasei, B.lactis [Probiotic] 1 each PO DAILY 05/04/16 Cephalexin [Keflex] 250 mg PO TID 09/28/18 Cholecalciferol (Vitamin D3) [Vitamin D3 -] 50,000 unit PO WEEKLY 09/28/18 Ferrous Sulfate [Feosol] 325 mg PO BID 09/28/18 Levothyroxine [Synthroid -] 50 mcg PO DAILY 09/28/18 Family Disease History - Family Disease History Family History: Denies Review of Systems - Review of Systems Constitutional: reports: Malaise Eyes: reports: No Symptoms HENT: reports: No Symptoms Neck: reports: No Symptoms Cardiovascular: reports: Edema Respiratory: reports: Cough, SOB Genitourinary: reports: No Symptoms Musculoskeletal: reports: No Symptoms Integumentary: reports: Erythema Endocrine: reports: No Symptoms Hematology/Lymphatic: reports: No Symptoms Psychiatric: reports: No Symptoms Physical Exam Vital Signs: Vital Signs Temperature 98.7 F 09/29/18 14:38 Pulse Rate 84 09/29/18 14:38 Respiratory Rate 22 H 09/29/18 14:38 Blood Pressure 137/54 L 09/29/18 14:38 O2 Sat by Pulse Oximetry (%) 95 09/29/18 13:15 Constitutional: Yes: Calm Eyes: Yes: Conjunctiva Clear HENT: Yes: Atraumatic Neck: Yes: Supple Cardiovascular: Yes: S1, S2 Respiratory: Yes: On BiPap, Rhonchi Gastrointestinal: Yes: Soft Renal/: Yes: Huizar Present Musculoskeletal: Yes: Muscle Weakness Edema: Yes Edema: LLE: 2+, RLE: 2+ Neurological: Yes: Oriented Psychiatric: Yes: Oriented Labs: CBC, BMP 09/29/18 05:30 09/29/18 12:10 Imaging - Results Chest X-ray: Report Reviewed Problem List - Problems (1) Acute hypoxemic respiratory failure Code(s): J96.01 - ACUTE RESPIRATORY FAILURE WITH HYPOXIA (2) Anemia Code(s): D64.9 - ANEMIA, UNSPECIFIED (3) CHF exacerbation Code(s): I50.9 - HEART FAILURE, UNSPECIFIED Qualifiers: Heart failure type: unspecified Qualified Code(s): I50.9 - Heart failure, unspecified (4) COPD (chronic obstructive pulmonary disease) Code(s): J44.9 - CHRONIC OBSTRUCTIVE PULMONARY DISEASE, UNSPECIFIED Qualifiers: COPD type: unspecified COPD Qualified Code(s): J44.9 - Chronic obstructive pulmonary disease, unspecified (5) Hyperkalemia Code(s): E87.5 - HYPERKALEMIA (6) Tobacco abuse Code(s): Z72.0 - TOBACCO USE Assessment/Plan Current Medications Generic Name Dose Route Start Last Admin Trade Name Freq PRN Reason Stop Dose Admin Acetaminophen 650 mg 09/28/18 21:26 Tylenol - PO Q6H PRN PAIN OR FEVER Albuterol/Ipratropium 1 amp 09/28/18 21:26 09/29/18 10:41 Duoneb - NEB 1 amp Q6H PRN Administration SHORTNESS OF BREATH Aspirin 81 mg 09/29/18 10:00 09/29/18 11:15 Ecotrin - PO 81 mg DAILY HARRY Administration Clopidogrel Bisulfate 75 mg 09/29/18 10:00 09/29/18 11:15 Plavix - PO 75 mg DAILY HARRY Administration Furosemide 40 mg 09/28/18 21:30 09/29/18 11:15 Lasix Injection - IVPUSH 40 mg DAILY HARRY Administration Heparin Sodium (Porcine) 5,000 unit 09/28/18 22:00 09/29/18 11:15 Heparin - SQ 5,000 unit BID HARRY Administration Levothyroxine Sodium 75 mcg 09/29/18 07:00 09/29/18 06:35 Synthroid - PO Not Given DAILY@0700 [facility] Methylprednisolone Sodium Succinate 40 mg 09/29/18 02:00 09/29/18 17:31 Solu-Medrol - IVPUSH 40 mg Q8H-IV HARRY Administration Impression 1. hyperkalemia 2. CKD 3. CAD 4. COPD 5. hypothyroidism 6. CHF Plan - pto given kayexylate for hyperkalemia - will order more lasix - will give bicarb - calcium gluconate - keep on tele - monitor urine output Dr Smith
[2018-09-29] MEDS ORDERED: ALBUTEROL SO4 0.083% IH SOL 2.5 MG/3 ML VIAL.NEB. NEB PRN (18:20)
[2018-09-29] MEDS ORDERED: SODIUM BICARBONATE 8.4% 50 MEQ/50 ML VIAL ONE (18:20)
[2018-09-29] MEDS ORDERED: CALCIUM GLUCONATE 10% - 1,000 MG/10 ML VIAL IVPB ONE (18:30)
[2018-09-29] MEDS ORDERED: SODIUM BICARBONATE 8.4% 50 MEQ/50 ML VIAL IVPUSH ONE ×2 (18:30→21:30)
[2018-09-29] MEDS ORDERED: DEXTROSE 50%-WATER - 25 GM/50 ML VIAL IVPUSH ONE (18:30)
[2018-09-29] MEDS ORDERED: INSULIN REGULAR HUMAN 100 UNITS/ML *VIAL SQ ONE (18:30)
[2018-09-29] MEDS ORDERED: FUROSEMIDE 100 MG/10 ML INJECTABLE VIAL IVPB ONE (18:30)
[2018-09-29] MEDS ORDERED: DEXTROSE 50%-WATER 25 GM/50 ML DISP.SYRIN ONE (18:33)
--- NOTE | 2018-09-29 19:40 | CONS ---
INFECTIOUS DISEASE CONSULTATION DATE OF CONSULTATION: DATE OF DICTATION: 09/29/2018 REQUESTING PHYSICIAN: Marcus Costa MD This is an 83-year-old woman who presents to the emergency room with worsening cough and worsening shortness of breath for the last 2 weeks. She has had worsening edema of her legs. She is having trouble walking, and she is unable to sleep because her shortness of breath is so bad. She has no fever. She denies chest pain. She denies nausea, vomiting, diarrhea, or abdominal pain. ALLERGIES: She is allergic to PENICILLIN. PAST MEDICAL HISTORY: Notable for COPD, hypertension, osteoarthritis. SURGICAL HISTORY: Notable for cholecystectomy, total hip replacement in 1994, and she has had a stent placed in 2014 at [facility]. She was recently on antibiotics for cellulitis of the legs. MEDICATIONS AT HOME: Include vitamin D, Synthroid, Feosol, probiotics, Plavix, Keflex, aspirin, amlodipine. FAMILY HISTORY: Noncontributory. SOCIAL HISTORY: She has never smoked. She has 7 kids. She lives with her . She walks with a cane. REVIEW OF SYSTEMS: Notable for worsening leg edema, worsening shortness of breath. PHYSICAL EXAMINATION: General: She is currently on BiPAP. She is alert. Vital Signs: Temperature is 98.7, pulse of 84, blood pressure 137/54, respiratory rate is 22, saturating 95% on 40% FiO2. HEENT: She is normocephalic. Her eyes are anicteric. Neck: Supple. Lungs: Diminished breath sounds at the bases. Heart: She has a harsh 3/6 systolic murmur heard throughout the precordium, most prominently in the upper sternal border. Abdomen: Soft, nontender. Extremities: Notable for bilateral pitting edema with erythema and warmth of both of her legs, extending up to her knees, which she says has been new in the last 2 weeks. DIAGNOSTIC DATA: White count is 6.7, hemoglobin 7.6, platelets are 366. BUN is 53 and creatinine 2.8. LFTs are normal. Urinalysis is negative. Influenza screen is negative. Chest x-ray reveals bilateral effusions, left greater than right. EMERGENCY ROOM COURSE: She had blood cultures drawn and received ceftriaxone without any side effects. In summary, this is an 83-year-old woman with: 1. Cellulitis, CHF, valvular heart disease (echo is pending), , and PENICILLIN allergy. She received ceftriaxone in the ER without any problems. Her legs are warm and red. I would continue a short course of Rocephin at this time for cellulitis. 2. Congestive heart failure and valvular heart disease. Management per Cardiology. VANIA GOODRICH M.D. MONTRELL/[id number]
[2018-09-29] MEDS ORDERED: CEFTRIAXONE 1 GM in DEXTROSE 5%-WATER - 50 ML IVPB SCH (20:00)
[2018-09-29] MEDS ORDERED: METOLAZONE 5 MG TABLET PO ONE (20:30)
[2018-09-29] MEDS ORDERED: cefTRIAXone SODIUM 1 GM VIAL ONE (20:49)
[2018-09-29] MEDS ORDERED: DEXTROSE 5%-WATER - 50 ML IVPB ONE (20:49)
[2018-09-29] MEDS: CEFTRIAXONE 1 GM in DEXTROSE 5%-WATER - 50 ML IVPB SCH (20:52)
[2018-09-29 21:07] LABS: ANION GAP 11 MMOL/L (8-16); BLOOD UREA NITROGEN 59 mg/dL (7-18); CALCIUM 8.6 mg/dL (8.5-10.1); CHLORIDE 109 mmol/L (98-107); CO2 17 mmol/L (21-32); CREATININE 3.4 mg/dL (0.55-1.3); GLUCOSE,RANDOM 169 mg/dL (74-106); POTASSIUM 5.6 mmol/L (3.5-5.1); SODIUM 137 mmol/L (136-145)
[2018-09-29] MEDS: SODIUM BICARBONATE 650 MG TABLET PO SCH (22:02)
[2018-09-30] MEDS: methylPREDNISolone NA SUCC 40 MG/1 ML VIAL IVPUSH SCH ×3 (01:10→17:42)
[2018-09-30] MEDS: LEVOTHYROXINE NA 75 MCG TABLET (FP) PO SCH (06:41)
[2018-09-30] MEDS: SODIUM BICARBONATE 650 MG TABLET PO SCH ×3 (06:41→23:04)
[2018-09-30] MEDS: ALBUTEROL SO4 2.5/IPRATROPIUM 0.5 INH SOL 3 ML VIAL.NEB. NEB PRN (07:28)
[2018-09-30] MEDS ORDERED: cefTRIAXone SODIUM 1 GM VIAL ONE (07:51)
[2018-09-30] MEDS ORDERED: DEXTROSE 5%-WATER - 50 ML IVPB ONE (07:51)
[2018-09-30 08:10] LABS: ALBUMIN 2.4 g/dl (3.4-5.0); ALK PHOS 72 U/L (45-117); ANION GAP 8 MMOL/L (8-16); BILIRUBIN,TOTAL 0.1 mg/dL (0.2-1); BLOOD UREA NITROGEN 63 mg/dL (7-18); CALCIUM 8.3 mg/dL (8.5-10.1); CHLORIDE 108 mmol/L (98-107); CO2 21 mmol/L (21-32); CREATININE 3.3 mg/dL (0.55-1.3); GLUCOSE,RANDOM 141 mg/dL (74-106); POTASSIUM 5.8 mmol/L (3.5-5.1); SGOT/AST 24 U/L (15-37); SGPT/ALT 28 U/L (13-61); SODIUM 138 mmol/L (136-145); TOT PROT 5.6 g/dl (6.4-8.2)
[2018-09-30] MEDS ORDERED: SODIUM POLYSTYRENE SULFONATE 15 GM/60 ML BOTTLE PO ONE ×2 (08:30→10:00)
[2018-09-30] MEDS: CEFTRIAXONE 1 GM in DEXTROSE 5%-WATER - 50 ML IVPB SCH (08:59)
[2018-09-30] MEDS: FUROSEMIDE 40 MG/4 ML INJECTABLE VIAL IVPUSH SCH (08:59)
[2018-09-30] MEDS: CLOPIDOGREL BISULFATE 75 MG TABLET (FP) PO SCH (08:59)
[2018-09-30] MEDS: ASPIRIN COATED 81 MG TABLET.EC PO SCH (09:00)
[2018-09-30] MEDS: HEPARIN NA (PORCINE) 5,000 UNITS/ML 1ML VIAL SQ SCH (09:00)
--- NOTE | 2018-09-30 09:04 | PN ---
Progress Note, Physician - Current Medication List Current Medications: Active Medications Acetaminophen (Tylenol -) 650 mg PO Q6H PRN PRN Reason: PAIN OR FEVER Albuterol/Ipratropium (Duoneb -) 1 amp NEB Q6H PRN PRN Reason: SHORTNESS OF BREATH Last Admin: 09/30/18 07:28 Dose: 1 amp Aspirin (Ecotrin -) 81 mg PO DAILY [facility] Last Admin: 09/29/18 11:15 Dose: 81 mg Clopidogrel Bisulfate (Plavix -) 75 mg PO DAILY [facility] Last Admin: 09/29/18 11:15 Dose: 75 mg Furosemide (Lasix Injection -) 40 mg IVPUSH DAILY [facility] Last Admin: 09/29/18 11:15 Dose: 40 mg Heparin Sodium (Porcine) (Heparin -) 5,000 unit SQ BID [facility] Last Admin: 09/29/18 22:02 Dose: 5,000 unit Ceftriaxone Sodium 1 gm/ (Dextrose) 50 mls @ 100 mls/hr IVPB DAILY [facility]; Protocol Last Admin: 09/29/18 20:52 Dose: 100 mls/hr Levothyroxine Sodium (Synthroid -) 75 mcg PO DAILY@0700 [facility] Last Admin: 09/30/18 06:41 Dose: 75 mcg Methylprednisolone Sodium Succinate (Solu-Medrol -) 40 mg IVPUSH Q8H-IV [facility] Last Admin: 09/30/18 01:10 Dose: 40 mg Sodium Bicarbonate (Sodium Bicarbonate -) 650 mg PO TID [facility] Last Admin: 09/30/18 06:41 Dose: 650 mg - Objective Vital Signs: Vital Signs Temperature 98 F 09/30/18 05:56 Pulse Rate 77 09/30/18 05:56 Respiratory Rate 22 H 09/30/18 05:56 Blood Pressure 133/66 09/30/18 05:56 O2 Sat by Pulse Oximetry (%) 94 L 09/30/18 07:31 Cardiovascular: Yes: S1, S2 Respiratory: Yes: On Nasal O2, Rales Gastrointestinal: Yes: Normal Bowel Sounds, Soft. No: Tenderness Edema: Yes Integumentary: Yes: Venous Stasis Changes Labs: CBC, BMP 09/29/18 05:30 09/30/18 06:18 Assessment/Plan - Problems (1) Acute hypoxemic respiratory failure Assessment/Plan: bipap lasix pulm steroids iv Code(s): J96.01 - ACUTE RESPIRATORY FAILURE WITH HYPOXIA (2) CHF exacerbation Assessment/Plan: monitor labs and wt bilateral effusion on cxr iv lasix chest ct and abdominal ct ordered i/o acosta in place venous doppler Code(s): I50.9 - HEART FAILURE, UNSPECIFIED Qualifiers: Heart failure type: unspecified Qualified Code(s): I50.9 - Heart failure, unspecified (3) Anemia Assessment/Plan: check iron panel check cbc stool for blood may need prbc Code(s): D64.9 - ANEMIA, UNSPECIFIED (4) Hypothyroid Assessment/Plan: tsh is 45 synthroid dose increase from 50 to 75 Code(s): E03.9 - HYPOTHYROIDISM, UNSPECIFIED (5) Hyperkalemia Assessment/Plan: kayxelate renal eval Code(s): E87.5 - HYPERKALEMIA (6) ANASTASIA (acute kidney injury) Assessment/Plan: renal eval renal sono bicarbonate Code(s): N17.9 - ACUTE KIDNEY FAILURE, UNSPECIFIED
[2018-09-30] MEDS ORDERED: guaiFENesin/D-M SUGAR-FREE/ACLHOL-FREE 118 ML BOTTLE PO PRN (11:15)
[2018-09-30] MEDS: ALBUTEROL SO4 2.5/IPRATROPIUM 0.5 INH SOL 3 ML VIAL.NEB. NEB SCH ×4 (11:29→20:40)
[2018-09-30 11:38] LABS: HEMATOCRIT 20.9 % (32.4-45.2); LYMPH % 4.4 % (8-40); MCHC 32.7 g/dl (32.0-36.0); MEAN PLT VOLUME 8.5 fl (7.5-11.1); MONO % 3.1 % (3.8-10.2); NEUT % 92.5 % (42.8-82.8); PLATELET COUNT 295 K/MM3 (134-434); RDW 16.6 % (11.6-15.6)
[2018-09-30 11:40] LABS: HEMOGLOBIN 6.8 GM/dL (10.7-15.3)
--- NOTE | 2018-09-30 11:47 | PN ---
Progress Note, Physician History of Present Illness: pulmonary alert,feeling better,less dyspneic,on nasal cannula,-resp distress - Current Medication List Current Medications: Active Medications Acetaminophen (Tylenol -) 650 mg PO Q6H PRN PRN Reason: PAIN OR FEVER Albuterol/Ipratropium (Duoneb -) 1 amp NEB RQID [facility] Last Admin: 09/30/18 11:29 Dose: 1 amp Aspirin (Ecotrin -) 81 mg PO DAILY [facility] Last Admin: 09/30/18 09:00 Dose: 81 mg Clopidogrel Bisulfate (Plavix -) 75 mg PO DAILY [facility] Last Admin: 09/30/18 08:59 Dose: 75 mg Furosemide (Lasix Injection -) 40 mg IVPUSH DAILY [facility] Last Admin: 09/30/18 08:59 Dose: 40 mg Guaifenesin (Diabetic Tussin Dm -) 10 ml PO Q4H PRN PRN Reason: COUGH Heparin Sodium (Porcine) (Heparin -) 5,000 unit SQ BID [facility] Last Admin: 09/30/18 09:00 Dose: 5,000 unit Ceftriaxone Sodium 1 gm/ (Dextrose) 50 mls @ 100 mls/hr IVPB DAILY [facility]; Protocol Last Admin: 09/30/18 08:59 Dose: 100 mls/hr Levothyroxine Sodium (Synthroid -) 75 mcg PO DAILY@0700 [facility] Last Admin: 09/30/18 06:41 Dose: 75 mcg Methylprednisolone Sodium Succinate (Solu-Medrol -) 40 mg IVPUSH Q8H-IV [facility] Last Admin: 09/30/18 08:59 Dose: 40 mg Sodium Bicarbonate (Sodium Bicarbonate -) 650 mg PO TID [facility] Last Admin: 09/30/18 06:41 Dose: 650 mg - Objective Vital Signs: Vital Signs Temperature 98 F 09/30/18 10:00 Pulse Rate 88 09/30/18 10:00 Respiratory Rate 24 H 09/30/18 10:00 Blood Pressure 136/60 09/30/18 10:00 O2 Sat by Pulse Oximetry (%) 94 L 09/30/18 07:31 Constitutional: Yes: Calm, Thin Eyes: Yes: WNL HENT: Yes: WNL Neck: Yes: WNL Cardiovascular: Yes: Regular Rate and Rhythm, S1, S2 Respiratory: Yes: Rales, Wheezes (few scattered wheezes,and crackles) Gastrointestinal: Yes: Normal Bowel Sounds, Soft Extremities: Yes: WNL Edema: No Labs: CBC, BMP 09/30/18 11:10 09/30/18 06:18 Problem List - Problems (1) Acute hypoxemic respiratory failure Code(s): J96.01 - ACUTE RESPIRATORY FAILURE WITH HYPOXIA (2) Bilateral lower leg cellulitis Code(s): L03.116 - CELLULITIS OF LEFT LOWER LIMB; L03.115 - CELLULITIS OF RIGHT LOWER LIMB (3) CHF exacerbation Code(s): I50.9 - HEART FAILURE, UNSPECIFIED Qualifiers: Heart failure type: unspecified Qualified Code(s): I50.9 - Heart failure, unspecified (4) COPD (chronic obstructive pulmonary disease) Code(s): J44.9 - CHRONIC OBSTRUCTIVE PULMONARY DISEASE, UNSPECIFIED Qualifiers: COPD type: unspecified COPD Qualified Code(s): J44.9 - Chronic obstructive pulmonary disease, unspecified (5) Pneumonia Code(s): J18.9 - PNEUMONIA, UNSPECIFIED ORGANISM Qualifiers: Pneumonia type: due to unspecified organism Laterality: unspecified laterality Lung location: unspecified part of lung Qualified Code(s): J18.9 - Pneumonia, unspecified organism (6) Acute coronary syndrome Code(s): I24.9 - ACUTE ISCHEMIC HEART DISEASE, UNSPECIFIED (7) Anemia Code(s): D64.9 - ANEMIA, UNSPECIFIED (8) Diabetes Code(s): E11.9 - TYPE 2 DIABETES MELLITUS WITHOUT COMPLICATIONS (9) Tobacco abuse Code(s): Z72.0 - TOBACCO USE (10) Tobacco abuse counseling Code(s): Z71.6 - TOBACCO ABUSE COUNSELING Assessment/Plan IMP ACUTE HYPOXEMIC RESPIRATORY FAILURE IMPROVING CHF COPD EXACERBATION ? PNEUMONIA ASHD S/P STENT ACUTE ON CHRONIC KIDNEY DISEASE PULMONARY HTN ANEMIA HTN DM TOBACCO ABUSE PLAN IV LASIX O2/BIPAP ABX STEROID TAPER INHALED BRONCHODILATORS CHEST CT NORMAL TRANSFUSION THRESHOLD MONITOR LYTES,RENAL FUNCTION,H+H SMOKING CESSATION COUNSELED DR MCKENZIE Problem List - Problems (1) Acute hypoxemic respiratory failure Code(s): J96.01 - ACUTE RESPIRATORY FAILURE WITH HYPOXIA (2) Bilateral lower leg cellulitis Code(s): L03.116 - CELLULITIS OF LEFT LOWER LIMB; L03.115 - CELLULITIS OF RIGHT LOWER LIMB (3) CHF exacerbation Code(s): I50.9 - HEART FAILURE, UNSPECIFIED Qualifiers: Heart failure type: unspecified Qualified Code(s): I50.9 - Heart failure, unspecified (4) COPD (chronic obstructive pulmonary disease) Code(s): J44.9 - CHRONIC OBSTRUCTIVE PULMONARY DISEASE, UNSPECIFIED Qualifiers: COPD type: unspecified COPD Qualified Code(s): J44.9 - Chronic obstructive pulmonary disease, unspecified (5) Pneumonia Code(s): J18.9 - PNEUMONIA, UNSPECIFIED ORGANISM Qualifiers: Pneumonia type: due to unspecified organism Laterality: unspecified laterality Lung location: unspecified part of lung Qualified Code(s): J18.9 - Pneumonia, unspecified organism (6) Acute coronary syndrome Code(s): I24.9 - ACUTE ISCHEMIC HEART DISEASE, UNSPECIFIED (7) Anemia Code(s): D64.9 - ANEMIA, UNSPECIFIED (8) Diabetes Code(s): E11.9 - TYPE 2 DIABETES MELLITUS WITHOUT COMPLICATIONS (9) Tobacco abuse Code(s): Z72.0 - TOBACCO USE (10) Tobacco abuse counseling Code(s): Z71.6 - TOBACCO ABUSE COUNSELING
[2018-09-30] MEDS ORDERED: FUROSEMIDE 40 MG/4 ML INJECTABLE VIAL IVPUSH SCH (12:30)
[2018-09-30 12:43] LABS: ANISOCYTOSIS 1+; MACROCYTOSIS 1+; OVALOCYTE 1+; PLATELET ESTIMATE NORMAL
[2018-09-30] MEDS ORDERED: FUROSEMIDE 40 MG/4 ML INJECTABLE VIAL IVPUSH ONE (12:58)
--- NOTE | 2018-09-30 12:58 | PN ---
Progress Note, Physician History of Present Illness: Pt seen and examined at bedside. She is awake and alert. She feels that her breathing is improving. - Current Medication List Current Medications: Active Medications Acetaminophen (Tylenol -) 650 mg PO Q6H PRN PRN Reason: PAIN OR FEVER Albuterol/Ipratropium (Duoneb -) 1 amp NEB RQID [facility] Last Admin: 09/30/18 11:57 Dose: Not Given Aspirin (Ecotrin -) 81 mg PO DAILY [facility] Last Admin: 09/30/18 09:00 Dose: 81 mg Clopidogrel Bisulfate (Plavix -) 75 mg PO DAILY [facility] Last Admin: 09/30/18 08:59 Dose: 75 mg Furosemide (Lasix Injection -) 40 mg IVPUSH DAILY [facility] Last Admin: 09/30/18 08:59 Dose: 40 mg Furosemide (Lasix Injection -) 40 mg IVPUSH ADMINISTRATIVE ASSISTANT COORDINATOR [facility] Stop: 09/30/18 18:00 Guaifenesin (Diabetic Tussin Dm -) 10 ml PO Q4H PRN PRN Reason: COUGH Heparin Sodium (Porcine) (Heparin -) 5,000 unit SQ BID [facility] Last Admin: 09/30/18 09:00 Dose: 5,000 unit Ceftriaxone Sodium 1 gm/ (Dextrose) 50 mls @ 100 mls/hr IVPB DAILY [facility]; Protocol Last Admin: 09/30/18 08:59 Dose: 100 mls/hr Levothyroxine Sodium (Synthroid -) 75 mcg PO DAILY@0700 [facility] Last Admin: 09/30/18 06:41 Dose: 75 mcg Methylprednisolone Sodium Succinate (Solu-Medrol -) 40 mg IVPUSH Q8H-IV [facility] Last Admin: 09/30/18 08:59 Dose: 40 mg Sodium Bicarbonate (Sodium Bicarbonate -) 650 mg PO TID [facility] Last Admin: 09/30/18 06:41 Dose: 650 mg - Objective Vital Signs: Vital Signs Temperature 98 F 09/30/18 10:00 Pulse Rate 88 09/30/18 10:00 Respiratory Rate 24 H 09/30/18 10:00 Blood Pressure 136/60 09/30/18 10:00 O2 Sat by Pulse Oximetry (%) 94 L 09/30/18 07:31 Constitutional: Yes: Calm Neck: Yes: WNL Cardiovascular: Yes: S1, S2 Respiratory: Yes: On Nasal O2, Rhonchi Gastrointestinal: Yes: Soft Genitourinary: Yes: WNL Musculoskeletal: Yes: WNL Edema: Yes Edema: LLE: 2+, RLE: 2+ Neurological: Yes: Oriented Psychiatric: Yes: Oriented Labs: CBC, BMP 09/30/18 11:10 09/30/18 06:18 Problem List - Problems (1) Acute hypoxemic respiratory failure Code(s): J96.01 - ACUTE RESPIRATORY FAILURE WITH HYPOXIA (2) Anemia Code(s): D64.9 - ANEMIA, UNSPECIFIED (3) CHF exacerbation Code(s): I50.9 - HEART FAILURE, UNSPECIFIED Qualifiers: Heart failure type: unspecified Qualified Code(s): I50.9 - Heart failure, unspecified (4) COPD (chronic obstructive pulmonary disease) Code(s): J44.9 - CHRONIC OBSTRUCTIVE PULMONARY DISEASE, UNSPECIFIED Qualifiers: COPD type: unspecified COPD Qualified Code(s): J44.9 - Chronic obstructive pulmonary disease, unspecified (5) Hyperkalemia Code(s): E87.5 - HYPERKALEMIA (6) Tobacco abuse Code(s): Z72.0 - TOBACCO USE Assessment/Plan Current Medications Generic Name Dose Route Start Last Admin Trade Name Freq PRN Reason Stop Dose Admin Acetaminophen 650 mg 09/28/18 21:26 Tylenol - PO Q6H PRN PAIN OR FEVER Albuterol/Ipratropium 1 amp 09/30/18 11:16 09/30/18 11:57 Duoneb - NEB Not Given RQID [facility] Aspirin 81 mg 09/29/18 10:00 09/30/18 09:00 Ecotrin - PO 81 mg DAILY [facility] Administration Clopidogrel Bisulfate 75 mg 09/29/18 10:00 09/30/18 08:59 Plavix - PO 75 mg DAILY [facility] Administration Furosemide 40 mg 09/28/18 21:30 09/30/18 08:59 Lasix Injection - IVPUSH 40 mg DAILY [facility] Administration Furosemide 40 mg 09/30/18 12:30 Lasix Injection - IVPUSH 09/30/18 18:00 ADMINISTRATIVE ASSISTANT COORDINATOR [facility] Guaifenesin 10 ml 09/30/18 11:15 Diabetic Tussin Dm - PO Q4H PRN COUGH Heparin Sodium (Porcine) 5,000 unit 09/28/18 22:00 09/30/18 09:00 Heparin - SQ 5,000 unit BID [facility] Administration Ceftriaxone Sodium 1 gm/ 50 mls @ 100 mls/hr 09/29/18 21:00 09/30/18 08:59 Dextrose IVPB 100 mls/hr DAILY [facility] Administration Protocol Levothyroxine Sodium 75 mcg 09/29/18 07:00 09/30/18 06:41 Synthroid - PO 75 mcg DAILY@0700 [facility] Administration Methylprednisolone Sodium Succinate 40 mg 09/29/18 02:00 09/30/18 08:59 Solu-Medrol - IVPUSH 40 mg Q8H-IV [facility] Administration Sodium Bicarbonate 650 mg 09/29/18 22:00 09/30/18 06:41 Sodium Bicarbonate - PO 650 mg TID [facility] Administration Impression 1. hyperkalemia 2. CKD 3. CAD 4. COPD 5. hypothyroidism 6. CHF Plan - kayexylate for hyperkalemia - pt does not want HD therapy - will give another dose of lasix - low potassium diet - monitor renal function - discussed with family - keep on tele - monitor urine output - keep acosta in place Dr Smith
[2018-09-30 14:33] LABS: ANION GAP 11 MMOL/L (8-16); BLOOD UREA NITROGEN 66 mg/dL (7-18); CALCIUM 8.3 mg/dL (8.5-10.1); CHLORIDE 103 mmol/L (98-107); CO2 20 mmol/L (21-32); CREATININE 3.5 mg/dL (0.55-1.3); GLUCOSE,RANDOM 266 mg/dL (74-106); SODIUM 134 mmol/L (136-145)
--- NOTE | 2018-09-30 16:39 | PN ---
Progress Note (short form) - Note Progress Note: Renal Follow up Laboratory Tests 09/30/18 13:40 Potassium 5.0 repeat potassium normalized Problem List - Problems (1) Acute hypoxemic respiratory failure Code(s): J96.01 - ACUTE RESPIRATORY FAILURE WITH HYPOXIA (2) Anemia Code(s): D64.9 - ANEMIA, UNSPECIFIED (3) CHF exacerbation Code(s): I50.9 - HEART FAILURE, UNSPECIFIED Qualifiers: Heart failure type: unspecified Qualified Code(s): I50.9 - Heart failure, unspecified (4) COPD (chronic obstructive pulmonary disease) Code(s): J44.9 - CHRONIC OBSTRUCTIVE PULMONARY DISEASE, UNSPECIFIED Qualifiers: COPD type: unspecified COPD Qualified Code(s): J44.9 - Chronic obstructive pulmonary disease, unspecified (5) Hyperkalemia Code(s): E87.5 - HYPERKALEMIA (6) Tobacco abuse Code(s): Z72.0 - TOBACCO USE
--- NOTE | 2018-09-30 17:05 | PN ---
Progress Note (short form) - Note Progress Note: feels improved less sob, off bipap alert Vital Signs Period Temp Pulse Resp BP Sys/Boyer Pulse Ox Last 24 Hr 97.7 F-98.2 F 77-88 22-24 133-147/60-66 94-98 cor-rrr +nevaeh lungs crackles at bases abd soft,nt ext less erythema, less edema CBC, BMP 09/30/18 11:10 09/30/18 13:40 Microbiology 09/28/18 22:00 Urine - Urine Clean Catch Urine Culture - Final NO GROWTH OBTAINED 09/28/18 23:30 Blood - Peripheral Venous Blood Culture - Preliminary NO GROWTH OBTAINED AFTER 24 HOURS, INCUBATION TO CONTINUE FOR 4 DAYS. 09/28/18 23:30 Blood - Peripheral Venous Blood Culture - Preliminary NO GROWTH OBTAINED AFTER 24 HOURS, INCUBATION TO CONTINUE FOR 4 DAYS. a/p cellulitis chf aortic stenosis ckd anemia- receiving transfusion pen allergy day #2 rocephin for cellulitis Problem List - Problems (1) Bilateral lower leg cellulitis Code(s): L03.116 - CELLULITIS OF LEFT LOWER LIMB; L03.115 - CELLULITIS OF RIGHT LOWER LIMB (2) CHF exacerbation Code(s): I50.9 - HEART FAILURE, UNSPECIFIED Qualifiers: Heart failure type: unspecified Qualified Code(s): I50.9 - Heart failure, unspecified (3) Aortic stenosis Code(s): I35.0 - NONRHEUMATIC AORTIC (VALVE) STENOSIS (4) Penicillin allergy Code(s): Z88.0 - ALLERGY STATUS TO PENICILLIN
[2018-09-30 22:19] LABS: ANION GAP 11 MMOL/L (8-16); BLOOD UREA NITROGEN 74 mg/dL (7-18); CALCIUM 8.2 mg/dL (8.5-10.1); CHLORIDE 102 mmol/L (98-107); CO2 21 mmol/L (21-32); CREATININE 3.5 mg/dL (0.55-1.3); GLUCOSE,RANDOM 156 mg/dL (74-106); POTASSIUM 5.1 mmol/L (3.5-5.1); SODIUM 135 mmol/L (136-145)
[2018-10-01] MEDS: HEPARIN NA (PORCINE) 5,000 UNITS/ML 1ML VIAL SQ SCH ×3 (01:47→21:27)
--- NOTE | 2018-10-01 02:16 | PN ---
Progress Note, Physician Chief Complaint: Pt A&Ox3; dyspneic on minimal exertion;legs swollen and red; no chest pain. Daughter at bedside. History of Present Illness: 83 yr old white woman with h/o COPD, diastolic CHF, severe aortic stenosis, ACS s/p stent 2014 (denies hx [place]), HTN, HLD, hypothyroidism, hip replacement, current bronchitis, and recently diagnosed leg cellulitis (states she is on amoxicillin for the cellulitis) who p/w worsening wet cough and SOB for the past 2 weeks, particularly worse tonight. She has had chills but denies any measured fever, nausea, vomiting, constipation, n/t/w focally, headache, back pain, neck pain, or other symptoms. Her family expresses concern her legs are so swollen she is unable to lift them or even walk. The patient notes her legs are only painful when she tries to weight bear. - Current Medication List Current Medications: Active Medications Acetaminophen (Tylenol -) 650 mg PO Q6H PRN PRN Reason: PAIN OR FEVER Albuterol Sulfate (Ventolin 0.083% Nebulizer Soln -) 1 amp NEB Q4H PRN PRN Reason: SHORT OF BREATH/WHEEZING Albuterol/Ipratropium (Duoneb -) 1 amp NEB RQID [facility] Last Admin: 09/30/18 20:40 Dose: 1 amp Aspirin (Ecotrin -) 81 mg PO DAILY [facility] Last Admin: 09/30/18 09:00 Dose: 81 mg Clopidogrel Bisulfate (Plavix -) 75 mg PO DAILY [facility] Last Admin: 09/30/18 08:59 Dose: 75 mg Furosemide (Lasix Injection -) 40 mg IVPUSH DAILY [facility] Last Admin: 09/30/18 08:59 Dose: 40 mg Guaifenesin (Diabetic Tussin Dm -) 10 ml PO Q4H PRN PRN Reason: COUGH Heparin Sodium (Porcine) (Heparin -) 5,000 unit SQ BID [facility] Last Admin: 10/01/18 01:47 Dose: Not Given Ceftriaxone Sodium 1 gm/ (Dextrose) 50 mls @ 100 mls/hr IVPB DAILY [facility]; Protocol Last Admin: 09/30/18 08:59 Dose: 100 mls/hr Levothyroxine Sodium (Synthroid -) 75 mcg PO DAILY@0700 [facility] Last Admin: 09/30/18 06:41 Dose: 75 mcg Methylprednisolone Sodium Succinate (Solu-Medrol -) 40 mg IVPUSH Q8H-IV [facility] Last Admin: 09/30/18 17:42 Dose: 40 mg Sodium Bicarbonate (Sodium Bicarbonate -) 650 mg PO TID [facility] Last Admin: 09/30/18 23:04 Dose: 650 mg - Objective Vital Signs: Vital Signs Temperature 98.2 F 10/01/18 01:19 Pulse Rate 90 10/01/18 01:19 Respiratory Rate 20 10/01/18 01:19 Blood Pressure 142/56 L 10/01/18 01:19 O2 Sat by Pulse Oximetry (%) 94 L 09/30/18 21:00 Constitutional: Yes: Mild Distress, Thin Eyes: Yes: WNL HENT: Yes: WNL Neck: Yes: WNL Cardiovascular: Yes: Murmur (4/6 SARIAN, RSB-->apex), S1 (decrease in intensity), S2, S4 Respiratory: Yes: Diminished, Poor Air Entry, Rhonchi (expiratory), SOB, Tachypnea Gastrointestinal: Yes: Soft ...Rectal Exam: Yes: Deferred Genitourinary: No: Anuria Breast(s): Yes: WNL Musculoskeletal: Yes: Muscle Weakness Extremities: Yes: Erythema Edema: Yes Edema: LLE: 1+, RLE: 1+ Peripheral Pulses WNL: Yes Integumentary: Yes: Erythema Neurological: Yes: Alert, Oriented, Weakness Psychiatric: Yes: Other (anxiety) Labs: CBC, BMP 09/30/18 11:10 09/30/18 21:45 - ....Imaging Chest X-ray: Image Reviewed Ultrasound: Report Reviewed EKG: Image Reviewed Problem List - Problems (1) Severe aortic stenosis Assessment/Plan: ECHO 09/29/2018: normal LVEF; mild LVH; abnormal diatolic compliance; severe aortic stenosis (), mild AR, moderate pulmonary HTN; severe MAC and aortic valve calcification; moderate LAE. The potential benefits (symptoms; mortality) from TAVR were discussed with pt and family. Presently, worsening renal status makes this option problematic. Pt is against undergoing dialysis. Avoid excessive diuresis/dehydration. Pt to receiv PRBCs for anemia. Code(s): I35.0 - NONRHEUMATIC AORTIC (VALVE) STENOSIS (2) HTN (hypertension) Code(s): I10 - ESSENTIAL (PRIMARY) HYPERTENSION (3) CAD (coronary artery disease) Assessment/Plan: hx CAD-->coronary stent 2014. EKG: Twave changes: consider lateral ischemia. If TAVR is contemplated, will have coronary angiogram (problematic at present due to worsening renal function). Code(s): I25.10 - ATHSCL HEART DISEASE OF [place] CORONARY ARTERY W/O ANG PCTRS (4) Diastolic CHF Code(s): I50.30 - UNSPECIFIED DIASTOLIC (CONGESTIVE) HEART FAILURE (5) ANASTASIA (acute kidney injury) Assessment/Plan: f/u with hop farm worker. Code(s): N17.9 - ACUTE KIDNEY FAILURE, UNSPECIFIED (6) Anemia Assessment/Plan: For PRBCs F/u etiology of blood loss. Code(s): D64.9 - ANEMIA, UNSPECIFIED (7) COPD (chronic obstructive pulmonary disease) Assessment/Plan: Quit cigarettes only a few years ago, after many years smoking. Pt could not tolerate undergoing CT scan. Code(s): J44.9 - CHRONIC OBSTRUCTIVE PULMONARY DISEASE, UNSPECIFIED Qualifiers: COPD type: unspecified COPD Qualified Code(s): J44.9 - Chronic obstructive pulmonary disease, unspecified (8) Acute diastolic CHF (congestive heart failure) Assessment/Plan: + JVD Markedly elevated BNP. CXR: pleural effusion. Exacerbated by severe , anemia. Code(s): I50.31 - ACUTE DIASTOLIC (CONGESTIVE) HEART FAILURE
[2018-10-01] MEDS: methylPREDNISolone NA SUCC 40 MG/1 ML VIAL IVPUSH SCH ×3 (02:37→17:40)
[2018-10-01] MEDS: ALBUTEROL SO4 0.083% IH SOL 2.5 MG/3 ML VIAL.NEB. NEB PRN (04:39)
[2018-10-01 06:14] LABS: BASO % 0.1 % (0-2.0); HEMATOCRIT 28.8 % (32.4-45.2); LYMPH % 2.1 % (8-40); MCH 31.2 pg (25.7-33.7); MCHC 34.7 g/dl (32.0-36.0); MEAN PLT VOLUME 8.6 fl (7.5-11.1); MONO % 2.4 % (3.8-10.2); NEUT % 95.4 % (42.8-82.8); PLATELET COUNT 253 K/MM3 (134-434); RDW 16.2 % (11.6-15.6); WHITE BLOOD COUNT 7.4 K/mm3 (4.0-10.0)
[2018-10-01] MEDS: SODIUM BICARBONATE 650 MG TABLET PO SCH ×3 (06:14→21:36)
[2018-10-01] MEDS: LEVOTHYROXINE NA 75 MCG TABLET (FP) PO SCH (06:14)
[2018-10-01 06:41] LABS: ALK PHOS 82 U/L (45-117); ANION GAP 13 MMOL/L (8-16); BILIRUBIN,TOTAL 0.5 mg/dL (0.2-1); BLOOD UREA NITROGEN 74 mg/dL (7-18); CALCIUM 8.1 mg/dL (8.5-10.1); CHLORIDE 101 mmol/L (98-107); CO2 20 mmol/L (21-32); CREATININE 3.4 mg/dL (0.55-1.3); GLUCOSE,RANDOM 162 mg/dL (74-106); POTASSIUM 4.4 mmol/L (3.5-5.1); SGOT/AST 36 U/L (15-37); SGPT/ALT 40 U/L (13-61); SODIUM 134 mmol/L (136-145); TOT PROT 6.3 g/dl (6.4-8.2)
[2018-10-01] MEDS: ALBUTEROL SO4 2.5/IPRATROPIUM 0.5 INH SOL 3 ML VIAL.NEB. NEB SCH ×4 (07:57→20:47)
[2018-10-01 08:06] LABS: SERUM IRON SATURATION 40 % (15-55); TOTAL IRON BINDING CAPACITY 216 ug/dL (250-450); UIBC 129 ug/dL (118-369)
[2018-10-01] MEDS ORDERED: cefTRIAXone SODIUM 1 GM VIAL ONE (09:28)
[2018-10-01] MEDS ORDERED: DEXTROSE 5%-WATER - 50 ML IVPB ONE (09:29)
[2018-10-01] MEDS: ASPIRIN COATED 81 MG TABLET.EC PO SCH (09:47)
[2018-10-01] MEDS: CEFTRIAXONE 1 GM in DEXTROSE 5%-WATER - 50 ML IVPB SCH (09:47)
[2018-10-01] MEDS: CLOPIDOGREL BISULFATE 75 MG TABLET (FP) PO SCH (09:47)
[2018-10-01] MEDS: FUROSEMIDE 40 MG/4 ML INJECTABLE VIAL IVPUSH SCH (09:48)
--- NOTE | 2018-10-01 09:52 | PN ---
Progress Note (short form) - Note Progress Note: alert on nasal canulla Vital Signs Period Temp Pulse Resp BP Sys/Boyer Pulse Ox Last 24 Hr 97.3 F-98.2 F 82-92 20-24 125-151/52-99 94-95 cor-rrr lungs decreased bs at bases abd soft,nt ext much less red, decreased warmth karla CBC, BMP 10/01/18 05:30 10/01/18 05:30 Microbiology 09/28/18 23:30 Blood - Peripheral Venous Blood Culture - Preliminary NO GROWTH OBTAINED AFTER 48 HOURS, INCUBATION TO CONTINUE FOR 3 DAYS. 09/28/18 23:30 Blood - Peripheral Venous Blood Culture - Preliminary NO GROWTH OBTAINED AFTER 48 HOURS, INCUBATION TO CONTINUE FOR 3 DAYS. 09/28/18 22:00 Urine - Urine Clean Catch Urine Culture - Final NO GROWTH OBTAINED a/p cellulitis chf aortic stenosis ckd anemia- receiving transfusion pen allergy day #3 rocephin for cellulitis-complete 5 to 7 days please call back if needed Problem List - Problems (1) Bilateral lower leg cellulitis Code(s): L03.116 - CELLULITIS OF LEFT LOWER LIMB; L03.115 - CELLULITIS OF RIGHT LOWER LIMB (2) CHF exacerbation Code(s): I50.9 - HEART FAILURE, UNSPECIFIED Qualifiers: Heart failure type: unspecified Qualified Code(s): I50.9 - Heart failure, unspecified (3) Aortic stenosis Code(s): I35.0 - NONRHEUMATIC AORTIC (VALVE) STENOSIS (4) Penicillin allergy Code(s): Z88.0 - ALLERGY STATUS TO PENICILLIN
--- NOTE | 2018-10-01 10:02 | PN ---
Progress Note, Physician Chief Complaint: AWAKE ALERT IN MODERATE DISTRESS DYSPNEA/COUGH WITH ACHEY PAINS - Current Medication List Current Medications: Active Medications Acetaminophen (Tylenol -) 650 mg PO Q6H PRN PRN Reason: PAIN OR FEVER Albuterol Sulfate (Ventolin 0.083% Nebulizer Soln -) 1 amp NEB Q4H PRN PRN Reason: SHORT OF BREATH/WHEEZING Last Admin: 10/01/18 04:39 Dose: 1 amp Albuterol/Ipratropium (Duoneb -) 1 amp NEB RQID [facility] Last Admin: 10/01/18 07:57 Dose: 1 amp Aspirin (Ecotrin -) 81 mg PO DAILY [facility] Last Admin: 10/01/18 09:47 Dose: 81 mg Clopidogrel Bisulfate (Plavix -) 75 mg PO DAILY [facility] Last Admin: 10/01/18 09:47 Dose: 75 mg Furosemide (Lasix Injection -) 40 mg IVPUSH DAILY [facility] Last Admin: 10/01/18 09:48 Dose: 40 mg Guaifenesin (Diabetic Tussin Dm -) 10 ml PO Q4H PRN PRN Reason: COUGH Heparin Sodium (Porcine) (Heparin -) 5,000 unit SQ BID [facility] Last Admin: 10/01/18 01:47 Dose: Not Given Ceftriaxone Sodium 1 gm/ (Dextrose) 50 mls @ 100 mls/hr IVPB DAILY [facility]; Protocol Last Admin: 10/01/18 09:47 Dose: 100 mls/hr Levothyroxine Sodium (Synthroid -) 75 mcg PO DAILY@0700 [facility] Last Admin: 10/01/18 06:14 Dose: 75 mcg Methylprednisolone Sodium Succinate (Solu-Medrol -) 40 mg IVPUSH Q8H-IV [facility] Last Admin: 10/01/18 09:48 Dose: 40 mg Sodium Bicarbonate (Sodium Bicarbonate -) 650 mg PO TID [facility] Last Admin: 10/01/18 06:14 Dose: 650 mg - Objective Vital Signs: Vital Signs Temperature 98.0 F 10/01/18 08:38 Pulse Rate 92 H 10/01/18 08:38 Respiratory Rate 22 H 10/01/18 08:38 Blood Pressure 151/71 10/01/18 08:38 O2 Sat by Pulse Oximetry (%) 95 10/01/18 08:36 Constitutional: Yes: Mild Distress Eyes: Yes: WNL HENT: Yes: WNL Neck: Yes: WNL Cardiovascular: Yes: Tachycardia Respiratory: Yes: Cough, Diminished, On Nasal O2 Gastrointestinal: Yes: WNL Genitourinary: Yes: WNL Musculoskeletal: Yes: Back Pain, Muscle Weakness Extremities: Yes: WNL Edema: Yes Edema: LLE: 2+, RLE: 2+ Integumentary: Yes: Erythema, Rash, Venous Stasis Changes Wound/Incision: Yes: Open to air ...Motor Strength: LLE Psychiatric: Yes: WNL Labs: CBC, BMP 10/01/18 05:30 10/01/18 05:30 Problem List - Problems (1) ANASTASIA (acute kidney injury) Code(s): N17.9 - ACUTE KIDNEY FAILURE, UNSPECIFIED (2) Acute diastolic CHF (congestive heart failure) Code(s): I50.31 - ACUTE DIASTOLIC (CONGESTIVE) HEART FAILURE (3) Acute hypoxemic respiratory failure Code(s): J96.01 - ACUTE RESPIRATORY FAILURE WITH HYPOXIA (4) Anemia Code(s): D64.9 - ANEMIA, UNSPECIFIED (5) Aortic stenosis Code(s): I35.0 - NONRHEUMATIC AORTIC (VALVE) STENOSIS (6) Bilateral lower leg cellulitis Code(s): L03.116 - CELLULITIS OF LEFT LOWER LIMB; L03.115 - CELLULITIS OF RIGHT LOWER LIMB (7) CAD (coronary artery disease) Code(s): I25.10 - ATHSCL HEART DISEASE OF [place] CORONARY ARTERY W/O ANG PCTRS (8) CHF exacerbation Code(s): I50.9 - HEART FAILURE, UNSPECIFIED Qualifiers: Heart failure type: unspecified Qualified Code(s): I50.9 - Heart failure, unspecified (9) Diastolic CHF Code(s): I50.30 - UNSPECIFIED DIASTOLIC (CONGESTIVE) HEART FAILURE (10) HTN (hypertension) Code(s): I10 - ESSENTIAL (PRIMARY) HYPERTENSION (11) Hypothyroid Code(s): E03.9 - HYPOTHYROIDISM, UNSPECIFIED Assessment/Plan ADDING CARDIZEM IV X 1 FOR TACHYCARDIA CARDIOLOGY EVAL PULM EVAL STEROIDS NEBS LASIX MONITOR RENAL FUNCTION NEPHROLOGY EVAL 02 THERAPY POOR OVERALL PROGNOSIS PATIENT CHRONIC TOBACCO SMOKER HAS NOT STOPPED AND REFUSES SMOKING CESSATION INADHERENT AND NON-COMPLIANT TO MEDICATIONS STOPPED HER SYNTHROID THERAPY FOR HYPOTHYROIDISM I SPOKE TO HER FAMILY MULTIPLE TIMES HOWEVER THEY CAN GET THEIR MOM (THE PATIENT) TO BE COMPLIANT.
[2018-10-01] MEDS ORDERED: guaiFENesin/CODEINE 5 ML UNIT-DOSE CUPS PO PRN (10:03)
[2018-10-01] MEDS ORDERED: dilTIAZem HCL 25 MG/5 ML - 5 ML VIAL IVPUSH PRN (10:05)
--- NOTE | 2018-10-01 10:42 | PN ---
Progress Note, Physician History of Present Illness: PULMONARY ALERT,C/O WEAKNESS,+ HEMOPTYSIS,LESS DYSPNEIC - Current Medication List Current Medications: Active Medications Acetaminophen (Tylenol -) 650 mg PO Q6H PRN PRN Reason: PAIN OR FEVER Albuterol Sulfate (Ventolin 0.083% Nebulizer Soln -) 1 amp NEB Q4H PRN PRN Reason: SHORT OF BREATH/WHEEZING Last Admin: 10/01/18 04:39 Dose: 1 amp Albuterol/Ipratropium (Duoneb -) 1 amp NEB RQID [facility] Last Admin: 10/01/18 07:57 Dose: 1 amp Aspirin (Ecotrin -) 81 mg PO DAILY [facility] Last Admin: 10/01/18 09:47 Dose: 81 mg Clopidogrel Bisulfate (Plavix -) 75 mg PO DAILY [facility] Last Admin: 10/01/18 09:47 Dose: 75 mg Diltiazem HCl (Cardizem Injection -) 5 mg IVPUSH Q4H PRN PRN Reason: TACHYCARDIA Furosemide (Lasix Injection -) 40 mg IVPUSH DAILY [facility] Last Admin: 10/01/18 09:48 Dose: 40 mg Guaifenesin/Codeine Phosphate (Robitussin Ac -) 5 ml PO TID PRN PRN Reason: COUGH Heparin Sodium (Porcine) (Heparin -) 5,000 unit SQ BID [facility] Last Admin: 10/01/18 01:47 Dose: Not Given Ceftriaxone Sodium 1 gm/ (Dextrose) 50 mls @ 100 mls/hr IVPB DAILY [facility]; Protocol Last Admin: 10/01/18 09:47 Dose: 100 mls/hr Levothyroxine Sodium (Synthroid -) 75 mcg PO DAILY@0700 [facility] Last Admin: 10/01/18 06:14 Dose: 75 mcg Lidocaine (Lidoderm Patch -) 1 patch TP DAILY [facility] Methyl Salicylate (David-Trinh -) 1 applic TP BID [facility] Methylprednisolone Sodium Succinate (Solu-Medrol -) 40 mg IVPUSH Q8H-IV [facility] Last Admin: 10/01/18 09:48 Dose: 40 mg Miscellaneous (Lidoderm Patch Removal) 1 each MC DAILY@2200 [facility] Sodium Bicarbonate (Sodium Bicarbonate -) 650 mg PO TID [facility] Last Admin: 10/01/18 06:14 Dose: 650 mg - Objective Vital Signs: Vital Signs Temperature 98.0 F 10/01/18 08:38 Pulse Rate 92 H 10/01/18 08:38 Respiratory Rate 22 H 10/01/18 08:38 Blood Pressure 151/71 10/01/18 08:38 O2 Sat by Pulse Oximetry (%) 95 10/01/18 08:36 Constitutional: Yes: Calm, Thin Eyes: Yes: WNL HENT: Yes: WNL Neck: Yes: WNL Cardiovascular: Yes: Regular Rate and Rhythm, S1, S2 Respiratory: Yes: Rhonchi (SCATTERED PATTI RHONCHI) Gastrointestinal: Yes: Normal Bowel Sounds, Soft Extremities: Yes: WNL Edema: No Labs: CBC, BMP 10/01/18 05:30 10/01/18 05:30 - ....Imaging Chest X-ray: Report Reviewed, Image Reviewed Problem List - Problems (1) Acute hypoxemic respiratory failure Code(s): J96.01 - ACUTE RESPIRATORY FAILURE WITH HYPOXIA (2) Bilateral lower leg cellulitis Code(s): L03.116 - CELLULITIS OF LEFT LOWER LIMB; L03.115 - CELLULITIS OF RIGHT LOWER LIMB (3) CHF exacerbation Code(s): I50.9 - HEART FAILURE, UNSPECIFIED Qualifiers: Heart failure type: unspecified Qualified Code(s): I50.9 - Heart failure, unspecified (4) COPD (chronic obstructive pulmonary disease) Code(s): J44.9 - CHRONIC OBSTRUCTIVE PULMONARY DISEASE, UNSPECIFIED Qualifiers: COPD type: unspecified COPD Qualified Code(s): J44.9 - Chronic obstructive pulmonary disease, unspecified (5) Pneumonia Code(s): J18.9 - PNEUMONIA, UNSPECIFIED ORGANISM Qualifiers: Pneumonia type: due to unspecified organism Laterality: unspecified laterality Lung location: unspecified part of lung Qualified Code(s): J18.9 - Pneumonia, unspecified organism (6) Acute coronary syndrome Code(s): I24.9 - ACUTE ISCHEMIC HEART DISEASE, UNSPECIFIED (7) Anemia Code(s): D64.9 - ANEMIA, UNSPECIFIED (8) Diabetes Code(s): E11.9 - TYPE 2 DIABETES MELLITUS WITHOUT COMPLICATIONS (9) Tobacco abuse Code(s): Z72.0 - TOBACCO USE (10) Tobacco abuse counseling Code(s): Z71.6 - TOBACCO ABUSE COUNSELING Assessment/Plan IMP ACUTE HYPOXEMIC RESPIRATORY FAILURE IMPROVING CHF COPD EXACERBATION ? PNEUMONIA ASHD S/P STENT ACUTE ON CHRONIC KIDNEY DISEASE PULMONARY HTN ANEMIA HTN DM TOBACCO ABUSE HEMOPTYSIS PLAN IV LASIX O2/BIPAP NEEDED ABX STEROIDS SAME DOSE INHALED BRONCHODILATORS CHEST CT NORMAL TRANSFUSION THRESHOLD MONITOR LYTES,RENAL FUNCTION,H+H QUANTIFY HEMOPTYSIS DR MCKENZIE Problem List - Problems (1) Acute hypoxemic respiratory failure Code(s): J96.01 - ACUTE RESPIRATORY FAILURE WITH HYPOXIA (2) Bilateral lower leg cellulitis Code(s): L03.116 - CELLULITIS OF LEFT LOWER LIMB; L03.115 - CELLULITIS OF RIGHT LOWER LIMB (3) CHF exacerbation Code(s): I50.9 - HEART FAILURE, UNSPECIFIED Qualifiers: Heart failure type: unspecified Qualified Code(s): I50.9 - Heart failure, unspecified (4) COPD (chronic obstructive pulmonary disease) Code(s): J44.9 - CHRONIC OBSTRUCTIVE PULMONARY DISEASE, UNSPECIFIED Qualifiers: COPD type: unspecified COPD Qualified Code(s): J44.9 - Chronic obstructive pulmonary disease, unspecified (5) Pneumonia Code(s): J18.9 - PNEUMONIA, UNSPECIFIED ORGANISM Qualifiers: Pneumonia type: due to unspecified organism Laterality: unspecified laterality Lung location: unspecified part of lung Qualified Code(s): J18.9 - Pneumonia, unspecified organism (6) Acute coronary syndrome Code(s): I24.9 - ACUTE ISCHEMIC HEART DISEASE, UNSPECIFIED (7) Anemia Code(s): D64.9 - ANEMIA, UNSPECIFIED (8) Diabetes Code(s): E11.9 - TYPE 2 DIABETES MELLITUS WITHOUT COMPLICATIONS (9) Tobacco abuse Code(s): Z72.0 - TOBACCO USE (10) Tobacco abuse counseling Code(s): Z71.6 - TOBACCO ABUSE COUNSELING
[2018-10-01 10:45] LABS: ACANTHOCYTES 0; ANISOCYTOSIS 0; HELMET CELLS 0; HOWELL-JOLLY BODIES 0; MACROCYTOSIS 0; OVALOCYTE 0; PLATELET ESTIMATE NORMAL; ROULEAU 0; SICKELED CELLS 0; TARGET CELLS 0; TEAR DROP CELLS 0; TOXIC GRANULATION 0
--- NOTE | 2018-10-01 11:06 | PN ---
Progress Note, Physician History of Present Illness: 83 yr old white woman with h/o COPD, diastolic CHF, severe aortic stenosis, ACS s/p stent 2014 (denies hx CT), HTN, HLD, hypothyroidism, hip replacement, current bronchitis, and recently diagnosed leg cellulitis (states she is on amoxicillin for the cellulitis) who p/w worsening wet cough and SOB for the past 2 weeks, particularly worse tonight. She has had chills but denies any measured fever, nausea, vomiting, constipation, n/t/w focally, headache, back pain, neck pain, or other symptoms. Her family expresses concern her legs are so swollen she is unable to lift them or even walk. The patient notes her legs are only painful when she tries to weight bear. - Current Medication List Current Medications: Active Medications Acetaminophen (Tylenol -) 650 mg PO Q6H PRN PRN Reason: PAIN OR FEVER Albuterol Sulfate (Ventolin 0.083% Nebulizer Soln -) 1 amp NEB Q4H PRN PRN Reason: SHORT OF BREATH/WHEEZING Last Admin: 10/01/18 04:39 Dose: 1 amp Albuterol/Ipratropium (Duoneb -) 1 amp NEB RQID [facility] Last Admin: 10/01/18 07:57 Dose: 1 amp Aspirin (Ecotrin -) 81 mg PO DAILY [facility] Last Admin: 10/01/18 09:47 Dose: 81 mg Clopidogrel Bisulfate (Plavix -) 75 mg PO DAILY [facility] Last Admin: 10/01/18 09:47 Dose: 75 mg Diltiazem HCl (Cardizem Injection -) 5 mg IVPUSH Q4H PRN PRN Reason: TACHYCARDIA Furosemide (Lasix Injection -) 40 mg IVPUSH DAILY [facility] Last Admin: 10/01/18 09:48 Dose: 40 mg Guaifenesin/Codeine Phosphate (Robitussin Ac -) 5 ml PO TID PRN PRN Reason: COUGH Heparin Sodium (Porcine) (Heparin -) 5,000 unit SQ BID [facility] [place] Last Admin: 10/01/18 01:47 Dose: Not Given Ceftriaxone Sodium 1 gm/ (Dextrose) 50 mls @ 100 mls/hr IVPB DAILY [facility]; Protocol Last Admin: 10/01/18 09:47 Dose: 100 mls/hr Levothyroxine Sodium (Synthroid -) 75 mcg PO DAILY@0700 [facility] Last Admin: 10/01/18 06:14 Dose: 75 mcg Lidocaine (Lidoderm Patch -) 1 patch TP DAILY [facility] [place] Methyl Salicylate (David-Trinh -) 1 applic TP BID [facility] [place] Methylprednisolone Sodium Succinate (Solu-Medrol -) 40 mg IVPUSH Q8H-IV [facility] Last Admin: 10/01/18 09:48 Dose: 40 mg Miscellaneous (Lidoderm Patch Removal) 1 each MC DAILY@2200 [facility] Sodium Bicarbonate (Sodium Bicarbonate -) 650 mg PO TID [facility] Last Admin: 10/01/18 06:14 Dose: 650 mg - Objective Vital Signs: Vital Signs Temperature 98.0 F 10/01/18 08:38 Pulse Rate 92 H 10/01/18 08:38 Respiratory Rate 22 H 10/01/18 08:38 Blood Pressure 151/71 10/01/18 08:38 O2 Sat by Pulse Oximetry (%) 95 10/01/18 08:36 Eyes: Yes: WNL, Conjunctiva Clear, EOM Intact HENT: Yes: WNL, Atraumatic, Normocephalic Neck: Yes: WNL, Supple, Trachea Midline Cardiovascular: Yes: Tachycardia, Murmur, S1, S2 Respiratory: Yes: Diminished Gastrointestinal: Yes: WNL, Normal Bowel Sounds Genitourinary: Yes: WNL Musculoskeletal: Yes: WNL Extremities: Yes: WNL Edema: Yes Integumentary: Yes: WNL Neurological: Yes: WNL, Alert, Oriented ...Motor Strength: WNL Psychiatric: Yes: WNL Labs: CBC, BMP 10/01/18 05:30 10/01/18 05:30 Assessment/Plan (1) Severe aortic stenosis Assessment/Plan: ECHO 09/29/2018: normal LVEF; mild LVH; abnormal diatolic compliance; severe aortic stenosis (), mild AR, moderate pulmonary HTN; severe MAC and aortic valve calcification; moderate LAE. The potential benefits (symptoms; mortality) from TAVR were discussed with pt and family. Presently, worsening renal status makes this option problematic. Pt is against undergoing dialysis. Avoid excessive diuresis/dehydration. Pt to receiv PRBCs for anemia. Code(s): I35.0 - NONRHEUMATIC AORTIC (VALVE) STENOSIS (2) HTN (hypertension) Code(s): I10 - ESSENTIAL (PRIMARY) HYPERTENSION (3) CAD (coronary artery disease) Assessment/Plan: hx CAD-->coronary stent 2014. EKG: Twave changes: consider lateral ischemia. If TAVR is contemplated, will have coronary angiogram (problematic at present due to worsening renal function). Code(s): I25.10 - ATHSCL HEART DISEASE OF [place] CORONARY ARTERY W/O ANG PCTRS (4) Diastolic CHF Code(s): I50.30 - UNSPECIFIED DIASTOLIC (CONGESTIVE) HEART FAILURE (5) ANASTASIA (acute kidney injury) Assessment/Plan: f/u with multi craft maintenance technician. Code(s): N17.9 - ACUTE KIDNEY FAILURE, UNSPECIFIED (6) Anemia Assessment/Plan: For PRBCs F/u etiology of blood loss. Code(s): D64.9 - ANEMIA, UNSPECIFIED (7) COPD (chronic obstructive pulmonary disease) Assessment/Plan: Quit cigarettes only a few years ago, after many years smoking. Pt could not tolerate undergoing CT scan. Code(s): J44.9 - CHRONIC OBSTRUCTIVE PULMONARY DISEASE, UNSPECIFIED Qualifiers: COPD type: unspecified COPD Qualified Code(s): J44.9 - Chronic obstructive pulmonary disease, unspecified (8) Acute diastolic CHF (congestive heart failure) Assessment/Plan: + JVD Markedly elevated BNP. CXR: pleural effusion. Exacerbated by severe , anemia. Code(s): I50.31 - ACUTE DIASTOLIC (CONGESTIVE) HEART FAILURE
--- NOTE | 2018-10-01 11:30 | PN ---
Progress Note, Physician History of Present Illness: Pt seen and examined at bedside. SHe is awake and alert. She feels that her breathing is improved from yesterday. - Current Medication List Current Medications: Active Medications Acetaminophen (Tylenol -) 650 mg PO Q6H PRN PRN Reason: PAIN OR FEVER Albuterol Sulfate (Ventolin 0.083% Nebulizer Soln -) 1 amp NEB Q4H PRN PRN Reason: SHORT OF BREATH/WHEEZING Last Admin: 10/01/18 04:39 Dose: 1 amp Albuterol/Ipratropium (Duoneb -) 1 amp NEB RQID [facility] Last Admin: 10/01/18 07:57 Dose: 1 amp Aspirin (Ecotrin -) 81 mg PO DAILY [facility] Last Admin: 10/01/18 09:47 Dose: 81 mg Clopidogrel Bisulfate (Plavix -) 75 mg PO DAILY [facility] Last Admin: 10/01/18 09:47 Dose: 75 mg Diltiazem HCl (Cardizem Injection -) 5 mg IVPUSH Q4H PRN PRN Reason: TACHYCARDIA Furosemide (Lasix Injection -) 40 mg IVPUSH DAILY [facility] Last Admin: 10/01/18 09:48 Dose: 40 mg Guaifenesin/Codeine Phosphate (Robitussin Ac -) 5 ml PO TID PRN PRN Reason: COUGH Heparin Sodium (Porcine) (Heparin -) 5,000 unit SQ BID [facility] Last Admin: 10/01/18 10:06 Dose: Not Given Ceftriaxone Sodium 1 gm/ (Dextrose) 50 mls @ 100 mls/hr IVPB DAILY [facility]; Protocol Last Admin: 10/01/18 09:47 Dose: 100 mls/hr Levothyroxine Sodium (Synthroid -) 75 mcg PO DAILY@0700 [facility] Last Admin: 10/01/18 06:14 Dose: 75 mcg Lidocaine (Lidoderm Patch -) 1 patch TP DAILY [facility] Methyl Salicylate (David-Trinh -) 1 applic TP BID [facility] Methylprednisolone Sodium Succinate (Solu-Medrol -) 40 mg IVPUSH Q8H-IV [facility] Last Admin: 10/01/18 09:48 Dose: 40 mg Miscellaneous (Lidoderm Patch Removal) 1 each MC DAILY@2200 [facility] Sodium Bicarbonate (Sodium Bicarbonate -) 650 mg PO TID [facility] Last Admin: 10/01/18 06:14 Dose: 650 mg - Objective Vital Signs: Vital Signs Temperature 98.0 F 10/01/18 08:38 Pulse Rate 92 H 10/01/18 08:38 Respiratory Rate 22 H 10/01/18 08:38 Blood Pressure 151/71 10/01/18 08:38 O2 Sat by Pulse Oximetry (%) 95 10/01/18 08:36 Constitutional: Yes: Calm Eyes: Yes: Conjunctiva Clear HENT: Yes: Atraumatic Neck: Yes: Supple Cardiovascular: Yes: S1, S2 Respiratory: Yes: On Nasal O2, Rhonchi Gastrointestinal: Yes: Soft Genitourinary: Yes: [place] Present Edema: Yes Edema: LLE: 2+, RLE: 2+ Neurological: Yes: Oriented Psychiatric: Yes: Oriented Labs: CBC, BMP 10/01/18 05:30 10/01/18 05:30 Problem List - Problems (1) Acute hypoxemic respiratory failure Code(s): J96.01 - ACUTE RESPIRATORY FAILURE WITH HYPOXIA (2) Anemia Code(s): D64.9 - ANEMIA, UNSPECIFIED (3) CHF exacerbation Code(s): I50.9 - HEART FAILURE, UNSPECIFIED Qualifiers: Heart failure type: unspecified Qualified Code(s): I50.9 - Heart failure, unspecified (4) COPD (chronic obstructive pulmonary disease) Code(s): J44.9 - CHRONIC OBSTRUCTIVE PULMONARY DISEASE, UNSPECIFIED Qualifiers: COPD type: unspecified COPD Qualified Code(s): J44.9 - Chronic obstructive pulmonary disease, unspecified (5) Hyperkalemia Code(s): E87.5 - HYPERKALEMIA (6) Tobacco abuse Code(s): Z72.0 - TOBACCO USE Assessment/Plan Current Medications Generic Name Dose Route Start Last Admin Trade Name Freq PRN Reason Stop Dose Admin Acetaminophen 650 mg 09/28/18 21:26 Tylenol - PO Q6H PRN PAIN OR FEVER Albuterol Sulfate 1 amp 10/01/18 01:58 10/01/18 04:39 Ventolin 0.083% Nebulizer Soln - NEB 1 amp Q4H PRN Administration SHORT OF BREATH/WHEEZING Albuterol/Ipratropium 1 amp 09/30/18 11:16 10/01/18 07:57 Duoneb - NEB 1 amp RQID [facility] Administration Aspirin 81 mg 09/29/18 10:00 10/01/18 09:47 Ecotrin - PO 81 mg DAILY [facility] Administration Clopidogrel Bisulfate 75 mg 09/29/18 10:00 10/01/18 09:47 Plavix - PO 75 mg DAILY [facility] Administration Diltiazem HCl 5 mg 10/01/18 10:05 Cardizem Injection - IVPUSH Q4H PRN TACHYCARDIA Furosemide 40 mg 09/28/18 21:30 10/01/18 09:48 Lasix Injection - IVPUSH 40 mg DAILY [facility] Administration Guaifenesin/Codeine Phosphate 5 ml 10/01/18 10:03 Robitussin Ac - PO TID PRN COUGH Heparin Sodium (Porcine) 5,000 unit 09/28/18 22:00 10/01/18 10:06 Heparin - SQ Not Given BID [facility] Ceftriaxone Sodium 1 gm/ 50 mls @ 100 mls/hr 09/29/18 21:00 10/01/18 09:47 Dextrose IVPB 100 mls/hr DAILY [facility] Administration Protocol Levothyroxine Sodium 75 mcg 09/29/18 07:00 10/01/18 06:14 Synthroid - PO 75 mcg DAILY@0700 [facility] Administration Lidocaine 1 patch 10/01/18 10:15 Lidoderm Patch - TP DAILY [facility] Methyl Salicylate 1 applic 10/01/18 22:00 David-Trinh - TP BID [facility] Methylprednisolone Sodium Succinate 40 mg 09/29/18 02:00 10/01/18 09:48 Solu-Medrol - IVPUSH 40 mg Q8H-IV [facility] Administration Miscellaneous 1 each 10/01/18 22:00 Lidoderm Patch Removal MC DAILY@2200 [facility] Sodium Bicarbonate 650 mg 09/29/18 22:00 10/01/18 06:14 Sodium Bicarbonate - PO 650 mg TID [facility] Administration Impression 1. hyperkalemia 2. CKD 3. CAD 4. COPD 5. hypothyroidism 6. CHF Plan - cont with lasix - monitor renal function - potassium has stabilizes - repeat labs in am - cardio input appreciated - discussed with family - keep on tele - monitor urine output - keep acosta in place Dr Smith
[2018-10-01] MEDS: LIDOCAINE 5% TOPICAL PATCH TP SCH (11:44)
[2018-10-01] MEDS: METHYL SALICYLATE/MENTHOL OINT 30 GM TUBE TP SCH (21:25)
[2018-10-01] MEDS: LIDOCAINE PATCH REMOVAL MC SCH (21:27)
[2018-10-02] MEDS: ALBUTEROL SO4 0.083% IH SOL 2.5 MG/3 ML VIAL.NEB. NEB PRN (00:04)
[2018-10-02] MEDS: methylPREDNISolone NA SUCC 40 MG/1 ML VIAL IVPUSH SCH ×3 (02:18→17:11)
[2018-10-02] MEDS: LEVOTHYROXINE NA 75 MCG TABLET (FP) PO SCH (06:07)
[2018-10-02] MEDS: SODIUM BICARBONATE 650 MG TABLET PO SCH ×2 (06:07→13:39)
[2018-10-02] MEDS: ALBUTEROL SO4 2.5/IPRATROPIUM 0.5 INH SOL 3 ML VIAL.NEB. NEB SCH ×4 (07:35→21:05)
[2018-10-02] MEDS ORDERED: cefTRIAXone SODIUM 1 GM VIAL ONE (07:56)
[2018-10-02] MEDS ORDERED: DEXTROSE 5%-WATER - 50 ML IVPB ONE (07:56)
[2018-10-02] MEDS: CEFTRIAXONE 1 GM in DEXTROSE 5%-WATER - 50 ML IVPB SCH (09:28)
[2018-10-02] MEDS: HEPARIN NA (PORCINE) 5,000 UNITS/ML 1ML VIAL SQ SCH ×2 (09:29→21:48)
[2018-10-02] MEDS: CLOPIDOGREL BISULFATE 75 MG TABLET (FP) PO SCH (09:29)
[2018-10-02] MEDS: METHYL SALICYLATE/MENTHOL OINT 30 GM TUBE TP SCH ×2 (09:29→21:49)
[2018-10-02] MEDS: FUROSEMIDE 40 MG/4 ML INJECTABLE VIAL IVPUSH SCH (09:29)
[2018-10-02] MEDS: LIDOCAINE 5% TOPICAL PATCH TP SCH (09:30)
[2018-10-02] MEDS: ASPIRIN COATED 81 MG TABLET.EC PO SCH (09:30)
[2018-10-02 09:54] LABS: BASO % 0.2 % (0-2.0); HEMATOCRIT 28.8 % (32.4-45.2); HEMOGLOBIN 9.9 GM/dL (10.7-15.3); LYMPH % 2.9 % (8-40); MCH 30.9 pg (25.7-33.7); MCHC 34.6 g/dl (32.0-36.0); MEAN CELL VOLUME 89.5 fl (80-96); MEAN PLT VOLUME 8.7 fl (7.5-11.1); MONO % 2.6 % (3.8-10.2); NEUT % 94.3 % (42.8-82.8); PLATELET COUNT 232 K/MM3 (134-434); RBC 3.21 M/mm3 (3.60-5.2); RDW 16.8 % (11.6-15.6); WHITE BLOOD COUNT 6.3 K/mm3 (4.0-10.0)
[2018-10-02 10:44] LABS: ANION GAP 16 MMOL/L (8-16); BLOOD UREA NITROGEN 87 mg/dL (7-18); CALCIUM 7.4 mg/dL (8.5-10.1); CHLORIDE 95 mmol/L (98-107); CO2 22 mmol/L (21-32); CREATININE 3.8 mg/dL (0.55-1.3); GLUCOSE,RANDOM 255 mg/dL (74-106); POTASSIUM 3.5 mmol/L (3.5-5.1); SODIUM 133 mmol/L (136-145)
--- NOTE | 2018-10-02 11:39 | PN ---
Progress Note, Physician Chief Complaint: AWAKE ALERT FEELING BETTER TODAY - Current Medication List Current Medications: Active Medications Acetaminophen (Tylenol -) 650 mg PO Q6H PRN PRN Reason: PAIN OR FEVER Albuterol Sulfate (Ventolin 0.083% Nebulizer Soln -) 1 amp NEB Q4H PRN PRN Reason: SHORT OF BREATH/WHEEZING Last Admin: 10/02/18 00:04 Dose: 1 amp Albuterol/Ipratropium (Duoneb -) 1 amp NEB RQID [facility] Last Admin: 10/02/18 11:19 Dose: 1 amp Aspirin (Ecotrin -) 81 mg PO DAILY [facility] Last Admin: 10/02/18 09:30 Dose: 81 mg Clopidogrel Bisulfate (Plavix -) 75 mg PO DAILY [facility] Last Admin: 10/02/18 09:29 Dose: 75 mg Diltiazem HCl (Cardizem Injection -) 5 mg IVPUSH Q4H PRN PRN Reason: TACHYCARDIA Furosemide (Lasix Injection -) 40 mg IVPUSH DAILY [facility] Last Admin: 10/02/18 09:29 Dose: 40 mg Guaifenesin/Codeine Phosphate (Robitussin Ac -) 5 ml PO TID PRN PRN Reason: COUGH Last Admin: 10/01/18 21:40 Dose: 5 ml Heparin Sodium (Porcine) (Heparin -) 5,000 unit SQ BID [facility] Last Admin: 10/02/18 09:29 Dose: 5,000 unit Ceftriaxone Sodium 1 gm/ (Dextrose) 50 mls @ 100 mls/hr IVPB DAILY [facility]; Protocol Last Admin: 10/02/18 09:28 Dose: 100 mls/hr Levothyroxine Sodium (Synthroid -) 75 mcg PO DAILY@0700 [facility] Last Admin: 10/02/18 06:07 Dose: 75 mcg Lidocaine (Lidoderm Patch -) 1 patch TP DAILY [facility] Last Admin: 10/02/18 09:30 Dose: 1 patch Methyl Salicylate (David-Trinh -) 1 applic TP BID [facility] Last Admin: 10/02/18 09:29 Dose: 1 applic Methylprednisolone Sodium Succinate (Solu-Medrol -) 40 mg IVPUSH Q8H-IV [facility] Last Admin: 10/02/18 09:28 Dose: 40 mg Miscellaneous (Lidoderm Patch Removal) 1 each MC DAILY@2200 [facility] Last Admin: 10/01/18 21:27 Dose: 1 each Sodium Bicarbonate (Sodium Bicarbonate -) 650 mg PO TID [facility] Last Admin: 10/02/18 06:07 Dose: 650 mg - Objective Vital Signs: Vital Signs Temperature 98.0 F 10/02/18 10:00 Pulse Rate 89 10/02/18 10:00 Respiratory Rate 22 H 10/02/18 10:00 Blood Pressure 138/77 10/02/18 10:00 O2 Sat by Pulse Oximetry (%) 94 L 10/02/18 09:00 Constitutional: Yes: Mild Distress Cardiovascular: Yes: Regular Rate and Rhythm Respiratory: Yes: Cough, Diminished, On Nasal O2, SOB Gastrointestinal: Yes: WNL Genitourinary: Yes: WNL Edema: Yes Integumentary: Yes: Erythema Wound/Incision: Yes: Open to air Neurological: Yes: Pre-Existing Deficit ...Motor Strength: LLE, RLE Labs: CBC, BMP 10/02/18 09:42 10/02/18 09:42 Problem List - Problems (1) ANASTASIA (acute kidney injury) Code(s): N17.9 - ACUTE KIDNEY FAILURE, UNSPECIFIED (2) Acute diastolic CHF (congestive heart failure) Code(s): I50.31 - ACUTE DIASTOLIC (CONGESTIVE) HEART FAILURE (3) Acute hypoxemic respiratory failure Code(s): J96.01 - ACUTE RESPIRATORY FAILURE WITH HYPOXIA (4) Anemia Code(s): D64.9 - ANEMIA, UNSPECIFIED (5) Aortic stenosis Code(s): I35.0 - NONRHEUMATIC AORTIC (VALVE) STENOSIS (6) Bilateral lower leg cellulitis Code(s): L03.116 - CELLULITIS OF LEFT LOWER LIMB; L03.115 - CELLULITIS OF RIGHT LOWER LIMB (7) CAD (coronary artery disease) Code(s): I25.10 - ATHSCL HEART DISEASE OF [place] CORONARY ARTERY W/O ANG PCTRS (8) CHF exacerbation Code(s): I50.9 - HEART FAILURE, UNSPECIFIED Qualifiers: Heart failure type: unspecified Qualified Code(s): I50.9 - Heart failure, unspecified (9) Diastolic CHF Code(s): I50.30 - UNSPECIFIED DIASTOLIC (CONGESTIVE) HEART FAILURE (10) HTN (hypertension) Code(s): I10 - ESSENTIAL (PRIMARY) HYPERTENSION (11) Hypothyroid Code(s): E03.9 - HYPOTHYROIDISM, UNSPECIFIED Assessment/Plan ADDING CARDIZEM IV X 1 FOR TACHYCARDIA CARDIOLOGY EVAL PULM EVAL STEROIDS NEBS LASIX MONITOR RENAL FUNCTION NEPHROLOGY EVAL 02 THERAPY POOR OVERALL PROGNOSIS PATIENT CHRONIC TOBACCO SMOKER HAS NOT STOPPED AND REFUSES SMOKING CESSATION INADHERENT AND NON-COMPLIANT TO MEDICATIONS STOPPED HER SYNTHROID THERAPY FOR HYPOTHYROIDISM I SPOKE TO HER FAMILY MULTIPLE TIMES HOWEVER THEY CAN GET THEIR MOM (THE PATIENT) TO BE COMPLIANT.
[2018-10-02 12:00] LABS: ACANTHOCYTES 0; ANISOCYTOSIS 0; HELMET CELLS 0; HOWELL-JOLLY BODIES 0; MACROCYTOSIS 0; OVALOCYTE 0; PLATELET ESTIMATE NORMAL; ROULEAU 0; SICKELED CELLS 0; TARGET CELLS 0; TEAR DROP CELLS 0; TOXIC GRANULATION 0
[2018-10-02] MEDS ORDERED: POTASSIUM CHLORIDE ORAL LIQUID 20 MEQ/15 ML PO ONE (12:21)
--- NOTE | 2018-10-02 12:39 | PN ---
Progress Note (short form) - Note Progress Note: PULMONARY Hemoptysis better. Still some shortness of breath. +nonproductive cough. CT chest with R apical nodule vs scarring. Vital Signs Period Temp Pulse Resp BP Sys/Boyer Pulse Ox Last 24 Hr 97.8 F-98.1 F 76-89 20-24 133-153/58-90 91-94 Intake & Output 09/29/18 09/30/18 10/01/18 10/02/18 23:59 23:59 23:59 23:59 Intake Total 190 420 590 250 Output Total 450 444 6940 500 Balance -510 -280 -1110 -250 Weight 49.079 kg 48.081 kg 47.809 kg 49.033 kg Gen: NAD in chair Heart: RRR, +systolic murmur RUSB Lung: bibasilar rales, rhonchi Abd: soft, nontender Ext: + edema CBC, BMP 10/02/18 09:42 10/02/18 09:42 Active Medications Acetaminophen (Tylenol -) 650 mg PO Q6H PRN PRN Reason: PAIN OR FEVER Albuterol Sulfate (Ventolin 0.083% Nebulizer Soln -) 1 amp NEB Q4H PRN PRN Reason: SHORT OF BREATH/WHEEZING Last Admin: 10/02/18 00:04 Dose: 1 amp Albuterol/Ipratropium (Duoneb -) 1 amp NEB RQID [facility] Last Admin: 10/02/18 11:19 Dose: 1 amp Aspirin (Ecotrin -) 81 mg PO DAILY [facility] Last Admin: 10/02/18 09:30 Dose: 81 mg Benzocaine/Menthol (Cepacol Lozenge -) 1 each MM PRN PRN PRN Reason: SORE THROAT Clopidogrel Bisulfate (Plavix -) 75 mg PO DAILY [facility] Last Admin: 10/02/18 09:29 Dose: 75 mg Diltiazem HCl (Cardizem Injection -) 5 mg IVPUSH Q4H PRN PRN Reason: TACHYCARDIA Furosemide (Lasix Injection -) 40 mg IVPUSH DAILY [facility] Last Admin: 10/02/18 09:29 Dose: 40 mg Guaifenesin/Codeine Phosphate (Robitussin Ac -) 5 ml PO TID PRN PRN Reason: COUGH Last Admin: 10/01/18 21:40 Dose: 5 ml Heparin Sodium (Porcine) (Heparin -) 5,000 unit SQ BID [facility] Last Admin: 10/02/18 09:29 Dose: 5,000 unit Ceftriaxone Sodium 1 gm/ (Dextrose) 50 mls @ 100 mls/hr IVPB DAILY [facility]; Protocol Last Admin: 10/02/18 09:28 Dose: 100 mls/hr Levothyroxine Sodium (Synthroid -) 75 mcg PO DAILY@0700 [facility] Last Admin: 10/02/18 06:07 Dose: 75 mcg Lidocaine (Lidoderm Patch -) 1 patch TP DAILY [facility] Last Admin: 10/02/18 09:30 Dose: 1 patch Methyl Salicylate (David-Trinh -) 1 applic TP BID [facility] Last Admin: 10/02/18 09:29 Dose: 1 applic Methylprednisolone Sodium Succinate (Solu-Medrol -) 40 mg IVPUSH Q8H-IV [facility] Last Admin: 10/02/18 09:28 Dose: 40 mg Miscellaneous (Lidoderm Patch Removal) 1 each MC DAILY@2200 [facility] Last Admin: 10/01/18 21:27 Dose: 1 each Phenol/Menthol (Chloraseptic -) 1 spray MM Q6HPO PRN PRN Reason: SORE THROAT Sodium Bicarbonate (Sodium Bicarbonate -) 650 mg PO TID [facility] Last Admin: 10/02/18 06:07 Dose: 650 mg Sodium Chloride ([place]al [place] -) 2 spray NS TID PRN PRN Reason: NASAL CONGESTION A/P Acute on Chronic Diastolic Heart Failure Severe Aortic Stenosis Acute COPD Exacerbation Lung Nodule r/o Pneumonia Pulmonary HTN Hemoptysis Acute on Chronic Renal Failure HTN DM Smoker - continue lasix - monitor urine output, creatinine - continue medrol - inhaled bronchodilators - O2 to keep SpO2 >90% - monitor hemoptysis - continue antibiotics - will need outpt f/u of lung nodule - DVT prophylaxis
[2018-10-02] MEDS: PHENOL 177 ML SPRAY BOTTLE MM PRN ×2 (13:40→21:50)
[2018-10-02] MEDS: BENZOCAINE/MENTH/CETYLPYRD CL 1 EACH LOZENGE MM PRN (13:40)
[2018-10-02] MEDS: SODIUM CHLORIDE NASAL SPRAY 44 ML BOTTLE NS PRN ×2 (13:41→21:50)
--- NOTE | 2018-10-02 14:43 | CON.GI ---
Consult Consult Specialty:: GI Referred by:: Dr. Marcus Costa Reason for Consultation:: Anemia - History of Present Illness Chief Complaint: "I was short of breath" History of Present Illness: 83F admitted 09/28/18 for evaluation of increasing SOB and LE swelling. Called to evaluate anemia. Hgb on admission was 8.1, on the 15th was 6.8. She received 2 U PRBC. She states taking iron at home. She has not had a BM since admission. She was noted to be guaiac negative on specimens sent to lab. She has never had an upper endoscopy or colonoscopy but alludes to having had stool cologuard testing performed last year that was negative. She denies abdominal pain, rectal bleeding or melena. She is maintained on ASA/Plavix and is receiving SC heparin as well as IV corticosteroid during current admission. - History Source History Provided By: Patient - Past Medical History Cardio/Vascular: Yes: CAD (Stent, ? 2014), HTN Pulmonary: Yes: COPD Renal/: Yes: Renal Inusuff, Other (PCKD per chart) Musculoskeletal: Yes: Osteoarthritis Endocrine: Yes: Hypothyroidism - Past Surgical History Past Surgical History: Yes: Cataract Removal (bilaterally), Cholecystectomy ( Laparoscopic cholecystectomy), Joint Replacement (Left THR) - Alcohol/Substance Use Hx Alcohol Use: No History of Substance Use: reports: None - Smoking History Smoking history: Current every day smoker Have you smoked in the past 12 months: Yes Aproximately how many cigarettes per day: 6 - Social History Usual Living Arrangement: With Spouse ADL: Independent Occupation: Retired: worked in [employer] Place of : [facility] History of Recent Travel: No Home Medications - Allergies Allergies/Adverse Reactions: Allergies Allergy/AdvReac Type Severity Reaction Status Date / Time Penicillins Allergy Verified 09/28/18 22:12 - Home Medications Home Medications: Ambulatory Orders Aspirin [ASA -] 81 mg PO DAILY 11/04/14 Amlodipine Besylate 10 mg PO DAILY 05/04/16 Clopidogrel Bisulfate [Plavix -] 75 mg PO DAILY 05/04/16 L.acidoph,Paracasei, B.lactis [Probiotic] 1 each PO DAILY 05/04/16 Cephalexin [Keflex] 250 mg PO TID 09/28/18 Cholecalciferol (Vitamin D3) [Vitamin D3 -] 50,000 unit PO WEEKLY 09/28/18 Ferrous Sulfate [Feosol] 325 mg PO BID 09/28/18 Levothyroxine [Synthroid -] 50 mcg PO DAILY 09/28/18 Family Disease History - Family Disease History Family Disease History: Other: Father (: 70: [place]), Mother (: 77: CVA), Brother (1: : CVA), Sister (4, 2 : 1 from DM II complications, 1 from Lung Ca), Son (6, healthy), Daughter (1, healthy) Other Family History: No family history of colorectal cancer Review of Systems - Review of Systems Cardiovascular: denies: Chest Pain Respiratory: reports: Cough, SOB, SOB on Exertion, Wheezing Gastrointestinal: reports: Constipation. denies: Abdominal Pain, Bloating, Diarrhea, Melena, Rectal Bleeding, Vomiting, Vomiting Blood Physical Exam-GI Vital Signs: Vital Signs Temperature 98.0 F 10/02/18 10:00 Pulse Rate 89 10/02/18 10:00 Respiratory Rate 22 H 10/02/18 10:00 Blood Pressure 138/77 10/02/18 10:00 O2 Sat by Pulse Oximetry (%) 94 L 10/02/18 09:00 Constitutional: Yes: Calm Eyes: No: Sclera Icterus Cardiovascular: Yes: Regular Rate and Rhythm, Murmur (+2/6 holosystolic murmur at the RSB) Respiratory: Yes: Wheezes Gastrointestinal Inspection: Yes: Scars (periumbilical). No: Distention ...Auscultate: Yes: Normoactive Bowel Sounds ...Palpate: Yes: Soft. No: Hepatomegaly, Splenomegaly, Tenderness ...Percussion: No: Tympanitic ...Rectal Exam: Yes: Other (No external lesions, no masses, iron stained stool, guaiac negative) Edema: Yes Edema: LLE: 2+ (w/ stasis), RLE: 2+ (w/ stasis) Neurological: Yes: Alert Labs: CBC, BMP 10/02/18 09:42 10/02/18 09:42 Problem List - Problems (1) Anemia Assessment/Plan: Normocytic anemia, occult blood negative and with appropriate response to transfusion. Dark bowel movements reflecting iron staining. No GI interventions planned and Ms. Pool requesting not to have any invasive testing performed citing her age and medical problems Added Protonix 40mg once daily to her daily regimen in the setting of ASA/Plavix /SC heparin and IV corticosteroid use. ? if the need for continued plavix can be revisited by her physical ther. Added MiraLAX 17g daily Consider heme eval Recall as needed Code(s): D64.9 - ANEMIA, UNSPECIFIED
[2018-10-02 15:01] LABS: MAGNESIUM 2.1 mg/dL (1.8-2.4)
--- NOTE | 2018-10-02 15:07 | PN ---
Progress Note, Physician History of Present Illness: Pt seen and examined at bedside. She feels that her breathing is improved. - Current Medication List Current Medications: Active Medications Acetaminophen (Tylenol -) 650 mg PO Q6H PRN PRN Reason: PAIN OR FEVER Albuterol Sulfate (Ventolin 0.083% Nebulizer Soln -) 1 amp NEB Q4H PRN PRN Reason: SHORT OF BREATH/WHEEZING Last Admin: 10/02/18 00:04 Dose: 1 amp Albuterol/Ipratropium (Duoneb -) 1 amp NEB RQID [facility] Last Admin: 10/02/18 11:19 Dose: 1 amp Aspirin (Ecotrin -) 81 mg PO DAILY [facility] Last Admin: 10/02/18 09:30 Dose: 81 mg Benzocaine/Menthol (Cepacol Lozenge -) 1 each MM PRN PRN PRN Reason: SORE THROAT Last Admin: 10/02/18 13:40 Dose: 1 each Clopidogrel Bisulfate (Plavix -) 75 mg PO DAILY [facility] Last Admin: 10/02/18 09:29 Dose: 75 mg Diltiazem HCl (Cardizem Injection -) 5 mg IVPUSH Q4H PRN PRN Reason: TACHYCARDIA Furosemide (Lasix Injection -) 40 mg IVPUSH DAILY [facility] Last Admin: 10/02/18 09:29 Dose: 40 mg Guaifenesin/Codeine Phosphate (Robitussin Ac -) 5 ml PO TID PRN PRN Reason: COUGH Last Admin: 10/01/18 21:40 Dose: 5 ml Heparin Sodium (Porcine) (Heparin -) 5,000 unit SQ BID [facility] Last Admin: 10/02/18 09:29 Dose: 5,000 unit Ceftriaxone Sodium 1 gm/ (Dextrose) 50 mls @ 100 mls/hr IVPB DAILY [facility]; Protocol Last Admin: 10/02/18 09:28 Dose: 100 mls/hr Levothyroxine Sodium (Synthroid -) 75 mcg PO DAILY@0700 [facility] Last Admin: 10/02/18 06:07 Dose: 75 mcg Lidocaine (Lidoderm Patch -) 1 patch TP DAILY [facility] Last Admin: 10/02/18 09:30 Dose: 1 patch Methyl Salicylate (David-Trinh -) 1 applic TP BID [facility] Last Admin: 10/02/18 09:29 Dose: 1 applic Methylprednisolone Sodium Succinate (Solu-Medrol -) 40 mg IVPUSH Q8H-IV [facility] Last Admin: 10/02/18 09:28 Dose: 40 mg Miscellaneous (Lidoderm Patch Removal) 1 each MC DAILY@2200 [facility] Last Admin: 10/01/18 21:27 Dose: 1 each Pantoprazole Sodium (Protonix -) 40 mg PO DAILY [facility] Phenol/Menthol (Chloraseptic -) 1 spray MM Q6HPO PRN PRN Reason: SORE THROAT Last Admin: 10/02/18 13:40 Dose: 1 spray Polyethylene Glycol (Miralax (For Daily Use) -) 17 gm PO DAILY [facility] Sodium Bicarbonate (Sodium Bicarbonate -) 650 mg PO TID [facility] Last Admin: 10/02/18 13:39 Dose: 650 mg Sodium Chloride ([place] Nasal [place] -) 2 spray NS TID PRN PRN Reason: NASAL CONGESTION Last Admin: 10/02/18 13:41 Dose: 2 spray - Objective Vital Signs: Vital Signs Temperature 97.7 F 10/02/18 14:00 Pulse Rate 134 H 10/02/18 14:00 Respiratory Rate 22 H 10/02/18 10:00 Blood Pressure 134/73 10/02/18 14:00 O2 Sat by Pulse Oximetry (%) 94 L 10/02/18 09:00 Constitutional: Yes: Calm Eyes: Yes: Conjunctiva Clear HENT: Yes: Atraumatic Neck: Yes: Supple Cardiovascular: Yes: S1, S2 Respiratory: Yes: On Nasal O2, Rhonchi Gastrointestinal: Yes: Soft Genitourinary: Yes: WNL Musculoskeletal: Yes: WNL Edema: Yes Edema: LLE: 1+, RLE: 1+ Neurological: Yes: Oriented Psychiatric: Yes: Oriented Labs: CBC, BMP 10/02/18 09:42 10/02/18 09:42 Problem List - Problems (1) Acute hypoxemic respiratory failure Code(s): J96.01 - ACUTE RESPIRATORY FAILURE WITH HYPOXIA (2) Anemia Code(s): D64.9 - ANEMIA, UNSPECIFIED (3) CHF exacerbation Code(s): I50.9 - HEART FAILURE, UNSPECIFIED Qualifiers: Heart failure type: unspecified Qualified Code(s): I50.9 - Heart failure, unspecified (4) COPD (chronic obstructive pulmonary disease) Code(s): J44.9 - CHRONIC OBSTRUCTIVE PULMONARY DISEASE, UNSPECIFIED Qualifiers: COPD type: unspecified COPD Qualified Code(s): J44.9 - Chronic obstructive pulmonary disease, unspecified (5) Hyperkalemia Code(s): E87.5 - HYPERKALEMIA (6) Tobacco abuse Code(s): Z72.0 - TOBACCO USE Assessment/Plan Current Medications Generic Name Dose Route Start Last Admin Trade Name Freq PRN Reason Stop Dose Admin Acetaminophen 650 mg 09/28/18 21:26 Tylenol - PO Q6H PRN PAIN OR FEVER Albuterol Sulfate 1 amp 10/01/18 01:58 10/02/18 00:04 Ventolin 0.083% Nebulizer Soln - NEB 1 amp Q4H PRN Administration SHORT OF BREATH/WHEEZING Albuterol/Ipratropium 1 amp 09/30/18 11:16 10/02/18 11:19 Duoneb - NEB 1 amp RQID [facility] Administration Aspirin 81 mg 09/29/18 10:00 10/02/18 09:30 Ecotrin - PO 81 mg DAILY [facility] Administration Benzocaine/Menthol 1 each 10/02/18 12:05 10/02/18 13:40 Cepacol Lozenge - MM 1 each PRN PRN Administration SORE THROAT Clopidogrel Bisulfate 75 mg 09/29/18 10:00 10/02/18 09:29 Plavix - PO 75 mg DAILY [facility] Administration Diltiazem HCl 5 mg 10/01/18 10:05 Cardizem Injection - IVPUSH Q4H PRN TACHYCARDIA Furosemide 40 mg 09/28/18 21:30 10/02/18 09:29 Lasix Injection - IVPUSH 40 mg DAILY [facility] Administration Guaifenesin/Codeine Phosphate 5 ml 10/01/18 10:03 10/01/18 21:40 Robitussin Ac - PO 5 ml TID PRN Administration COUGH Heparin Sodium (Porcine) 5,000 unit 09/28/18 22:00 10/02/18 09:29 Heparin - SQ 5,000 unit BID [facility] Administration Ceftriaxone Sodium 1 gm/ 50 mls @ 100 mls/hr 09/29/18 21:00 10/02/18 09:28 Dextrose IVPB 100 mls/hr DAILY [facility] Administration Protocol Levothyroxine Sodium 75 mcg 09/29/18 07:00 10/02/18 06:07 Synthroid - PO 75 mcg DAILY@0700 [facility] Administration Lidocaine 1 patch 10/01/18 10:15 10/02/18 09:30 Lidoderm Patch - TP 1 patch DAILY [facility] Administration Methyl Salicylate 1 applic 10/01/18 22:00 10/02/18 09:29 David-Trinh - TP 1 applic BID [facility] Administration Methylprednisolone Sodium Succinate 40 mg 09/29/18 02:00 10/02/18 09:28 Solu-Medrol - IVPUSH 40 mg Q8H-IV [facility] Administration Miscellaneous 1 each 10/01/18 22:00 10/01/18 21:27 Lidoderm Patch Removal MC 1 each DAILY@2200 [facility] Administration Pantoprazole Sodium 40 mg 10/02/18 14:00 Protonix - PO DAILY [facility] Phenol/Menthol 1 spray 10/02/18 12:05 10/02/18 13:40 Chloraseptic - MM 1 spray Q6HPO PRN Administration SORE THROAT Polyethylene Glycol 17 gm 10/02/18 15:00 Miralax (For Daily Use) - PO DAILY HARRY Sodium Bicarbonate 650 mg 09/29/18 22:00 10/02/18 13:39 Sodium Bicarbonate - PO 650 mg TID HARRY Administration Sodium Chloride 2 spray 10/02/18 12:04 10/02/18 13:41 Beltrami Clyde Nasal Clyde - NS 2 spray TID PRN Administration NASAL CONGESTION Impression 1. hyperkalemia 2. CKD 3. CAD 4. COPD 5. hypothyroidism 6. CHF Plan - cont lasix - decrease bicarb dose - monitor renal function - pt still need diuresis - discussed with family - keep on tele - monitor urine output - keep acosta in place Dr Smith
--- NOTE | 2018-10-02 16:16 | PN ---
Progress Note, Physician Chief Complaint: Pt A&Ox3; ; OOB in chair; easily dyspneic; feels weak. History of Present Illness: 83 yr old white woman with h/o COPD, diastolic CHF, severe aortic stenosis, ACS s/p stent 2014 (denies hx [place]), HTN, HLD, hypothyroidism, hip replacement, current bronchitis, and recently diagnosed leg cellulitis (states she is on amoxicillin for the cellulitis) who p/w worsening wet cough and SOB for the past 2 weeks, particularly worse tonight. She has had chills but denies any measured fever, nausea, vomiting, constipation, n/t/w focally, headache, back pain, neck pain, or other symptoms. Her family expresses concern her legs are so swollen she is unable to lift them or even walk. The patient notes her legs are only painful when she tries to weight bear. - Current Medication List Current Medications: Active Medications Acetaminophen (Tylenol -) 650 mg PO Q6H PRN PRN Reason: PAIN OR FEVER Albuterol Sulfate (Ventolin 0.083% Nebulizer Soln -) 1 amp NEB Q4H PRN PRN Reason: SHORT OF BREATH/WHEEZING Last Admin: 10/02/18 00:04 Dose: 1 amp Albuterol/Ipratropium (Duoneb -) 1 amp NEB RQID [facility] Last Admin: 10/02/18 11:19 Dose: 1 amp Aspirin (Ecotrin -) 81 mg PO DAILY [facility] Last Admin: 10/02/18 09:30 Dose: 81 mg Benzocaine/Menthol (Cepacol Lozenge -) 1 each MM PRN PRN PRN Reason: SORE THROAT Last Admin: 10/02/18 13:40 Dose: 1 each Clopidogrel Bisulfate (Plavix -) 75 mg PO DAILY [facility] Last Admin: 10/02/18 09:29 Dose: 75 mg Diltiazem HCl (Cardizem Injection -) 5 mg IVPUSH Q4H PRN PRN Reason: TACHYCARDIA Furosemide (Lasix Injection -) 40 mg IVPUSH DAILY [facility] Last Admin: 10/02/18 09:29 Dose: 40 mg Guaifenesin/Codeine Phosphate (Robitussin Ac -) 5 ml PO TID PRN PRN Reason: COUGH Last Admin: 10/01/18 21:40 Dose: 5 ml Heparin Sodium (Porcine) (Heparin -) 5,000 unit SQ BID [facility] Last Admin: 10/02/18 09:29 Dose: 5,000 unit Ceftriaxone Sodium 1 gm/ (Dextrose) 50 mls @ 100 mls/hr IVPB DAILY [facility]; Protocol Last Admin: 10/02/18 09:28 Dose: 100 mls/hr Levothyroxine Sodium (Synthroid -) 75 mcg PO DAILY@0700 [facility] Last Admin: 10/02/18 06:07 Dose: 75 mcg Lidocaine (Lidoderm Patch -) 1 patch TP DAILY [facility] Last Admin: 10/02/18 09:30 Dose: 1 patch Methyl Salicylate (David-Trinh -) 1 applic TP BID [facility] Last Admin: 10/02/18 09:29 Dose: 1 applic Methylprednisolone Sodium Succinate (Solu-Medrol -) 40 mg IVPUSH Q8H-IV [facility] Last Admin: 10/02/18 09:28 Dose: 40 mg Miscellaneous (Lidoderm Patch Removal) 1 each MC DAILY@2200 [facility] Last Admin: 10/01/18 21:27 Dose: 1 each Pantoprazole Sodium (Protonix -) 40 mg PO DAILY [facility] Phenol/Menthol (Chloraseptic -) 1 spray MM Q6HPO PRN PRN Reason: SORE THROAT Last Admin: 10/02/18 13:40 Dose: 1 spray Polyethylene Glycol (Miralax (For Daily Use) -) 17 gm PO DAILY [facility] Sodium Bicarbonate (Sodium Bicarbonate -) 325 mg PO BID [facility] Sodium Chloride ([place] Nasal [place] -) 2 spray NS TID PRN PRN Reason: NASAL CONGESTION Last Admin: 10/02/18 13:41 Dose: 2 spray - Objective Vital Signs: Vital Signs Temperature 97.7 F 10/02/18 14:00 Pulse Rate 134 H 10/02/18 14:00 Respiratory Rate 22 H 10/02/18 10:00 Blood Pressure 134/73 10/02/18 14:00 O2 Sat by Pulse Oximetry (%) 94 L 10/02/18 09:00 Constitutional: Yes: Anxious Eyes: Yes: WNL HENT: Yes: WNL Neck: Yes: WNL Cardiovascular: Yes: Murmur (4/6 SARINA, RSB--> left axilla), S1, S2 Respiratory: Yes: Diminished, SOB Gastrointestinal: Yes: Soft ...Rectal Exam: Yes: Deferred Genitourinary: No: Anuria Breast(s): Yes: WNL Musculoskeletal: Yes: Muscle Weakness Extremities: Yes: Erythema Edema: Yes Edema: LLE: Trace, RLE: Trace Peripheral Pulses WNL: Yes Integumentary: Yes: Erythema Neurological: Yes: Alert, Oriented, Weakness Psychiatric: Yes: Other (anxeity) Labs: CBC, BMP 10/02/18 09:42 10/02/18 09:42 Abnormal Lab Results 10/04/18 10/04/18 10/04/18 07:20 07:20 12:37 RBC 3.44 L Hct 31.5 L RDW 15.9 H Sodium 128 L Chloride 89 L BUN 100 H Creatinine 3.7 H Random Glucose 162 H Calcium 7.6 L Troponin I 0.30 H B-Natriuretic Peptide 59995.1 H Total Protein 6.0 L Albumin 2.9 L - ....Imaging Cat Scan: Image Reviewed Problem List - Problems (1) Severe aortic stenosis Assessment/Plan: ECHO 09/29/2018: normal LVEF; mild LVH; abnormal diatolic compliance; severe aortic stenosis (), mild AR, moderate pulmonary HTN; severe MAC and aortic valve calcification; moderate LAE. The potential benefits (symptoms; mortality) from TAVR were discussed with pt and family. Presently, worsening renal status makes this option problematic. Pt is against undergoing dialysis. Avoid excessive diuresis/dehydration. Code(s): I35.0 - NONRHEUMATIC AORTIC (VALVE) STENOSIS (2) HTN (hypertension) Code(s): I10 - ESSENTIAL (PRIMARY) HYPERTENSION (3) CAD (coronary artery disease) Assessment/Plan: hx CAD-->coronary stent 2014. EKG: T wave changes: consider lateral ischemia. If TAVR is contemplated, will also have coronary angiogram (both are problematic at present due to worsening renal function). Code(s): I25.10 - ATHSCL HEART DISEASE OF [place] CORONARY ARTERY W/O ANG PCTRS (4) Diastolic CHF Code(s): I50.30 - UNSPECIFIED DIASTOLIC (CONGESTIVE) HEART FAILURE (5) ANASTASIA (acute kidney injury) Assessment/Plan: f/u with conveyor loader. Code(s): N17.9 - ACUTE KIDNEY FAILURE, UNSPECIFIED (6) Anemia Assessment/Plan: s/p PRBCs F/u etiology of blood loss. Code(s): D64.9 - ANEMIA, UNSPECIFIED (7) COPD (chronic obstructive pulmonary disease) Assessment/Plan: Quit cigarettes only a few years ago, after many years smoking. CT chest: RUL lung nodule (recommended f/u CT/PET in 3 months. Dense coronary artery calcification; moderate bilateral pleural effusions. Code(s): J44.9 - CHRONIC OBSTRUCTIVE PULMONARY DISEASE, UNSPECIFIED Qualifiers: COPD type: unspecified COPD Qualified Code(s): J44.9 - Chronic obstructive pulmonary disease, unspecified (8) Acute diastolic CHF (congestive heart failure) Assessment/Plan: + JVD Markedly elevated BNP. CXR and CT chest: moderate pleural effusion bilaterally. CHF exacerbated by severe , anemia. On furosemide. F/u BUN/Cr, electrolytes, daily weight, Is and Os. Code(s): I50.31 - ACUTE DIASTOLIC (CONGESTIVE) HEART FAILURE (9) Lung nodule Assessment/Plan: RUL apex; r/o malignancy. Code(s): R91.1 - SOLITARY PULMONARY NODULE (10) Coronary atherosclerosis due to calcified coronary lesion of [place] artery Assessment/Plan: dense calcification of coronary arteries on CT. If pt's overall condition stabilizes, and renal status is addressed, would benefit from coronary angiogram and evaluation for TAVR. Code(s): I25.10 - ATHSCL HEART DISEASE OF [place] CORONARY ARTERY W/O ANG PCTRS; I25.84 - CORONARY ATHEROSCLEROSIS DUE TO CALCIFIED CORONARY LESION
[2018-10-02] MEDS: PANTOPRAZOLE 40 MG TABLET (FP) PO SCH (17:11)
[2018-10-02] MEDS: POLYETHYLENE GLYCOL 3350 119 GM BTL PO SCH (17:13)
[2018-10-02] MEDS: LIDOCAINE PATCH REMOVAL MC SCH (21:49)
[2018-10-02] MEDS: SODIUM BICARBONATE 325 MG TABLET PO SCH (21:49)
[2018-10-03] MEDS: methylPREDNISolone NA SUCC 40 MG/1 ML VIAL IVPUSH SCH ×3 (03:43→17:18)
[2018-10-03] MEDS: LEVOTHYROXINE NA 75 MCG TABLET (FP) PO SCH (06:43)
--- NOTE | 2018-10-03 07:03 | PN ---
Progress Note, Physician History of Present Illness: PULMONARY ALERT,FEELING BETTER,LESS DYSPNEIC - Current Medication List Current Medications: Active Medications Acetaminophen (Tylenol -) 650 mg PO Q6H PRN PRN Reason: PAIN OR FEVER Albuterol Sulfate (Ventolin 0.083% Nebulizer Soln -) 1 amp NEB Q4H PRN PRN Reason: SHORT OF BREATH/WHEEZING Last Admin: 10/02/18 00:04 Dose: 1 amp Albuterol/Ipratropium (Duoneb -) 1 amp NEB RQID [facility] [place] Last Admin: 10/02/18 21:05 Dose: 1 amp Aspirin (Ecotrin -) 81 mg PO DAILY [facility] [place] Last Admin: 10/02/18 09:30 Dose: 81 mg Benzocaine/Menthol (Cepacol Lozenge -) 1 each MM PRN PRN PRN Reason: SORE THROAT Last Admin: 10/02/18 13:40 Dose: 1 each Clopidogrel Bisulfate (Plavix -) 75 mg PO DAILY [facility] [place] Last Admin: 10/02/18 09:29 Dose: 75 mg Diltiazem HCl (Cardizem Injection -) 5 mg IVPUSH Q4H PRN PRN Reason: TACHYCARDIA Furosemide (Lasix Injection -) 40 mg IVPUSH DAILY [facility] [place] Last Admin: 10/02/18 09:29 Dose: 40 mg Guaifenesin/Codeine Phosphate (Robitussin Ac -) 5 ml PO TID PRN PRN Reason: COUGH Last Admin: 10/01/18 21:40 Dose: 5 ml Heparin Sodium (Porcine) (Heparin -) 5,000 unit SQ BID [facility] [place] Last Admin: 10/02/18 21:48 Dose: 5,000 unit Ceftriaxone Sodium 1 gm/ (Dextrose) 50 mls @ 100 mls/hr IVPB DAILY [facility] [place]; Protocol Last Admin: 10/02/18 09:28 Dose: 100 mls/hr Levothyroxine Sodium (Synthroid -) 75 mcg PO DAILY@0700 [facility] [place] Last Admin: 10/03/18 06:43 Dose: 75 mcg Lidocaine (Lidoderm Patch -) 1 patch TP DAILY [facility] [place] Last Admin: 10/02/18 09:30 Dose: 1 patch Methyl Salicylate (David-Trinh -) 1 applic TP BID [facility] [place] Last Admin: 10/02/18 21:49 Dose: 1 applic Methylprednisolone Sodium Succinate (Solu-Medrol -) 40 mg IVPUSH Q8H-IV [facility] [place] Last Admin: 10/03/18 03:43 Dose: 40 mg Miscellaneous (Lidoderm Patch Removal) 1 each MC DAILY@2200 [facility] [place] Last Admin: 10/02/18 21:49 Dose: 1 each Pantoprazole Sodium (Protonix -) 40 mg PO DAILY [facility] [place] Last Admin: 10/02/18 17:11 Dose: 40 mg Phenol/Menthol (Chloraseptic -) 1 spray MM Q6HPO PRN PRN Reason: SORE THROAT Last Admin: 10/02/18 21:50 Dose: 1 spray Polyethylene Glycol (Miralax (For Daily Use) -) 17 gm PO DAILY [facility] [place] Last Admin: 10/02/18 17:13 Dose: 17 grams Sodium Bicarbonate (Sodium Bicarbonate -) 325 mg PO BID [facility] [place] Last Admin: 10/02/18 21:49 Dose: 325 mg Sodium Chloride ([place] Nasal [place] -) 2 spray NS TID PRN PRN Reason: NASAL CONGESTION Last Admin: 10/02/18 21:50 Dose: 2 spray - Objective Vital Signs: Vital Signs Temperature 97.8 F 10/03/18 05:46 Pulse Rate 87 10/03/18 05:46 Respiratory Rate 20 10/03/18 05:46 Blood Pressure 152/68 10/03/18 05:46 O2 Sat by Pulse Oximetry (%) 98 10/03/18 00:02 Constitutional: Yes: Calm, Thin Eyes: Yes: WNL HENT: Yes: WNL Neck: Yes: WNL Cardiovascular: Yes: Regular Rate and Rhythm, S1, S2 Respiratory: Yes: Rales (BILATERAL RALES AND WHEEZES) Gastrointestinal: Yes: Normal Bowel Sounds, Soft Extremities: Yes: WNL Edema: Yes Labs: Problem List - Problems (1) Acute hypoxemic respiratory failure Code(s): J96.01 - ACUTE RESPIRATORY FAILURE WITH HYPOXIA (2) Bilateral lower leg cellulitis Code(s): L03.116 - CELLULITIS OF LEFT LOWER LIMB; L03.115 - CELLULITIS OF RIGHT LOWER LIMB (3) CHF exacerbation Code(s): I50.9 - HEART FAILURE, UNSPECIFIED Qualifiers: Heart failure type: unspecified Qualified Code(s): I50.9 - Heart failure, unspecified (4) COPD (chronic obstructive pulmonary disease) Code(s): J44.9 - CHRONIC OBSTRUCTIVE PULMONARY DISEASE, UNSPECIFIED Qualifiers: COPD type: unspecified COPD Qualified Code(s): J44.9 - Chronic obstructive pulmonary disease, unspecified (5) Pneumonia Code(s): J18.9 - PNEUMONIA, UNSPECIFIED ORGANISM Qualifiers: Pneumonia type: due to unspecified organism Laterality: unspecified laterality Lung location: unspecified part of lung Qualified Code(s): J18.9 - Pneumonia, unspecified organism (6) Acute coronary syndrome Code(s): I24.9 - ACUTE ISCHEMIC HEART DISEASE, UNSPECIFIED (7) Anemia Code(s): D64.9 - ANEMIA, UNSPECIFIED (8) Diabetes Code(s): E11.9 - TYPE 2 DIABETES MELLITUS WITHOUT COMPLICATIONS (9) Tobacco abuse Code(s): Z72.0 - TOBACCO USE (10) Tobacco abuse counseling Code(s): Z71.6 - TOBACCO ABUSE COUNSELING Assessment/Plan IMP ACUTE HYPOXEMIC RESPIRATORY FAILURE IMPROVING CHF SEVERE AORTIC STENOSIS COPD EXACERBATION ? PNEUMONIA ASHD S/P STENT ACUTE ON CHRONIC KIDNEY DISEASE PULMONARY HTN ANEMIA HTN DM TOBACCO ABUSE HEMOPTYSIS RESOLVED R APICAL NODULE PLAN IV LASIX O2/BIPAP NEEDED ABX STEROIDS INHALED BRONCHODILATORS NORMAL TRANSFUSION THRESHOLD MONITOR LYTES,RENAL FUNCTION,H+H QUANTIFY HEMOPTYSIS DR MCKENZIE Problem List - Problems (1) Acute hypoxemic respiratory failure Code(s): J96.01 - ACUTE RESPIRATORY FAILURE WITH HYPOXIA (2) Bilateral lower leg cellulitis Code(s): L03.116 - CELLULITIS OF LEFT LOWER LIMB; L03.115 - CELLULITIS OF RIGHT LOWER LIMB (3) CHF exacerbation Code(s): I50.9 - HEART FAILURE, UNSPECIFIED Qualifiers: Heart failure type: unspecified Qualified Code(s): I50.9 - Heart failure, unspecified (4) COPD (chronic obstructive pulmonary disease) Code(s): J44.9 - CHRONIC OBSTRUCTIVE PULMONARY DISEASE, UNSPECIFIED Qualifiers: COPD type: unspecified COPD Qualified Code(s): J44.9 - Chronic obstructive pulmonary disease, unspecified (5) Pneumonia Code(s): J18.9 - PNEUMONIA, UNSPECIFIED ORGANISM Qualifiers: Pneumonia type: due to unspecified organism Laterality: unspecified laterality Lung location: unspecified part of lung Qualified Code(s): J18.9 - Pneumonia, unspecified organism (6) Acute coronary syndrome Code(s): I24.9 - ACUTE ISCHEMIC HEART DISEASE, UNSPECIFIED (7) Anemia Code(s): D64.9 - ANEMIA, UNSPECIFIED (8) Diabetes Code(s): E11.9 - TYPE 2 DIABETES MELLITUS WITHOUT COMPLICATIONS (9) Tobacco abuse Code(s): Z72.0 - TOBACCO USE (10) Tobacco abuse counseling Code(s): Z71.6 - TOBACCO ABUSE COUNSELING
[2018-10-03 07:58] LABS: BASO % 0.1 % (0-2.0); HEMATOCRIT 27.9 % (32.4-45.2); HEMOGLOBIN 9.6 GM/dL (10.7-15.3); LYMPH % 2.1 % (8-40); MCH 31.3 pg (25.7-33.7); MCHC 34.5 g/dl (32.0-36.0); MEAN CELL VOLUME 90.9 fl (80-96); MEAN PLT VOLUME 9.1 fl (7.5-11.1); MONO % 5.5 % (3.8-10.2); NEUT % 92.3 % (42.8-82.8); PLATELET COUNT 218 K/MM3 (134-434); RBC 3.07 M/mm3 (3.60-5.2); RDW 16.2 % (11.6-15.6); WHITE BLOOD COUNT 7.9 K/mm3 (4.0-10.0)
[2018-10-03 08:28] LABS: ALBUMIN 2.7 g/dl (3.4-5.0); ALK PHOS 88 U/L (45-117); ANION GAP 16 MMOL/L (8-16); BILIRUBIN,TOTAL 0.3 mg/dL (0.2-1); BLOOD UREA NITROGEN 94 mg/dL (7-18); CALCIUM 7.4 mg/dL (8.5-10.1); CHLORIDE 94 mmol/L (98-107); CO2 23 mmol/L (21-32); CREATININE 3.6 mg/dL (0.55-1.3); GLUCOSE,RANDOM 196 mg/dL (74-106); POTASSIUM 4.1 mmol/L (3.5-5.1); SGOT/AST 43 U/L (15-37); SGPT/ALT 55 U/L (13-61); SODIUM 133 mmol/L (136-145); TOT PROT 5.6 g/dl (6.4-8.2)
[2018-10-03] MEDS: ALBUTEROL SO4 2.5/IPRATROPIUM 0.5 INH SOL 3 ML VIAL.NEB. NEB SCH ×4 (08:39→21:45)
[2018-10-03] MEDS ORDERED: DEXTROSE 5%-WATER - 50 ML IVPB ONE (09:13)
[2018-10-03] MEDS ORDERED: cefTRIAXone SODIUM 1 GM VIAL ONE (09:13)
[2018-10-03] MEDS: CEFTRIAXONE 1 GM in DEXTROSE 5%-WATER - 50 ML IVPB SCH (09:24)
[2018-10-03] MEDS: ASPIRIN COATED 81 MG TABLET.EC PO SCH (09:24)
[2018-10-03] MEDS: HEPARIN NA (PORCINE) 5,000 UNITS/ML 1ML VIAL SQ SCH ×2 (09:24→21:55)
[2018-10-03] MEDS: PANTOPRAZOLE 40 MG TABLET (FP) PO SCH (09:24)
[2018-10-03] MEDS: FUROSEMIDE 40 MG/4 ML INJECTABLE VIAL IVPUSH SCH (09:24)
[2018-10-03] MEDS: CLOPIDOGREL BISULFATE 75 MG TABLET (FP) PO SCH (09:24)
[2018-10-03] MEDS: POLYETHYLENE GLYCOL 3350 119 GM BTL PO SCH (09:25)
[2018-10-03] MEDS: LIDOCAINE 5% TOPICAL PATCH TP SCH (09:25)
[2018-10-03] MEDS: METHYL SALICYLATE/MENTHOL OINT 30 GM TUBE TP SCH ×3 (09:26→21:56)
[2018-10-03] MEDS: SODIUM BICARBONATE 325 MG TABLET PO SCH ×2 (09:26→21:56)
[2018-10-03 09:39] LABS: ACANTHOCYTES 1+; ANISOCYTOSIS 0; MACROCYTOSIS 0; PLATELET ESTIMATE NORMAL
--- NOTE | 2018-10-03 12:47 | PN ---
Progress Note, Physician History of Present Illness: Pt seen and examined at bedside. She feels that her breathing is improved. She denies chest pain. - Current Medication List Current Medications: Active Medications Acetaminophen (Tylenol -) 650 mg PO Q6H PRN PRN Reason: PAIN OR FEVER Albuterol Sulfate (Ventolin 0.083% Nebulizer Soln -) 1 amp NEB Q4H PRN PRN Reason: SHORT OF BREATH/WHEEZING Last Admin: 10/02/18 00:04 Dose: 1 amp Albuterol/Ipratropium (Duoneb -) 1 amp NEB RQID [facility] Last Admin: 10/03/18 12:08 Dose: 1 amp Aspirin (Ecotrin -) 81 mg PO DAILY [facility] Last Admin: 10/03/18 09:24 Dose: 81 mg Benzocaine/Menthol (Cepacol Lozenge -) 1 each MM PRN PRN PRN Reason: SORE THROAT Last Admin: 10/02/18 13:40 Dose: 1 each Clopidogrel Bisulfate (Plavix -) 75 mg PO DAILY [facility] 234 [facility] Last Admin: 10/03/18 09:24 Dose: 75 mg Diltiazem HCl (Cardizem Injection -) 5 mg IVPUSH Q4H PRN PRN Reason: TACHYCARDIA Furosemide (Lasix Injection -) 40 mg IVPUSH DAILY [facility] 234 [facility] Last Admin: 10/03/18 09:24 Dose: 40 mg Guaifenesin/Codeine Phosphate (Robitussin Ac -) 5 ml PO TID PRN PRN Reason: COUGH Last Admin: 10/01/18 21:40 Dose: 5 ml Heparin Sodium (Porcine) (Heparin -) 5,000 unit SQ BID [facility] Last Admin: 10/03/18 09:24 Dose: 5,000 unit Ceftriaxone Sodium 1 gm/ (Dextrose) 50 mls @ 100 mls/hr IVPB DAILY [facility] 234 [facility]; Protocol Last Admin: 10/03/18 09:24 Dose: 100 mls/hr Levothyroxine Sodium (Synthroid -) 75 mcg PO DAILY@0700 [facility] 234 [facility] Last Admin: 10/03/18 06:43 Dose: 75 mcg Methyl Salicylate (David-Trinh -) 1 applic TP BID [facility] 234 [facility] Last Admin: 10/03/18 09:29 Dose: Not Given Methylprednisolone Sodium Succinate (Solu-Medrol -) 40 mg IVPUSH Q8H-IV [facility] 234 [facility]S [facility] Last Admin: 10/03/18 09:24 Dose: 40 mg Miscellaneous (Lidoderm Patch Removal) 1 each MC DAILY@2200 [facility] 234 [facility]S [facility] Last Admin: 10/02/18 21:49 Dose: 1 each Pantoprazole Sodium (Protonix -) 40 mg PO DAILY [facility] 234 [facility] Last Admin: 10/03/18 09:24 Dose: 40 mg Phenol/Menthol (Chloraseptic -) 1 spray MM Q6HPO PRN PRN Reason: SORE THROAT Last Admin: 10/02/18 21:50 Dose: 1 spray Polyethylene Glycol (Miralax (For Daily Use) -) 17 gm PO DAILY [facility] 234 [facility] Last Admin: 10/03/18 09:25 Dose: 17 grams Sodium Bicarbonate (Sodium Bicarbonate -) 325 mg PO BID [facility] 234 [facility] Last Admin: 10/03/18 09:26 Dose: 325 mg Sodium Chloride ([place] Nasal [place] -) 2 spray NS TID PRN PRN Reason: NASAL CONGESTION Last Admin: 10/02/18 21:50 Dose: 2 spray - Objective Vital Signs: Vital Signs Temperature 98.0 F 10/03/18 10:00 Pulse Rate 90 10/03/18 10:00 Respiratory Rate 20 10/03/18 10:00 Blood Pressure 149/63 10/03/18 10:00 O2 Sat by Pulse Oximetry (%) 93 L 10/03/18 09:00 Constitutional: Yes: Calm Eyes: Yes: Conjunctiva Clear HENT: Yes: Atraumatic Cardiovascular: Yes: S1, S2 Respiratory: Yes: On Nasal O2, Rhonchi Gastrointestinal: Yes: Soft Genitourinary: Yes: [place] Present Musculoskeletal: Yes: Muscle Weakness Edema: Yes Edema: LLE: 2+, RLE: 2+ Neurological: Yes: Oriented Psychiatric: Yes: Oriented Labs: CBC, BMP 10/03/18 05:30 10/03/18 05:30 Problem List - Problems (1) Acute hypoxemic respiratory failure Code(s): J96.01 - ACUTE RESPIRATORY FAILURE WITH HYPOXIA (2) Anemia Code(s): D64.9 - ANEMIA, UNSPECIFIED (3) CHF exacerbation Code(s): I50.9 - HEART FAILURE, UNSPECIFIED Qualifiers: Heart failure type: unspecified Qualified Code(s): I50.9 - Heart failure, unspecified (4) COPD (chronic obstructive pulmonary disease) Code(s): J44.9 - CHRONIC OBSTRUCTIVE PULMONARY DISEASE, UNSPECIFIED Qualifiers: COPD type: unspecified COPD Qualified Code(s): J44.9 - Chronic obstructive pulmonary disease, unspecified (5) Hyperkalemia Code(s): E87.5 - HYPERKALEMIA (6) Tobacco abuse Code(s): Z72.0 - TOBACCO USE Assessment/Plan Current Medications Generic Name Dose Route Start Last Admin Trade Name Freq PRN Reason Stop Dose Admin Acetaminophen 650 mg 09/28/18 21:26 Tylenol - PO Q6H PRN PAIN OR FEVER Albuterol Sulfate 1 amp 10/01/18 01:58 10/02/18 00:04 Ventolin 0.083% Nebulizer Soln - NEB 1 amp Q4H PRN Administration SHORT OF BREATH/WHEEZING Albuterol/Ipratropium 1 amp 09/30/18 11:16 10/03/18 12:08 Duoneb - NEB 1 amp RQID [facility] Administration Aspirin 81 mg 09/29/18 10:00 10/03/18 09:24 Ecotrin - PO 81 mg DAILY [facility] Administration Benzocaine/Menthol 1 each 10/02/18 12:05 10/02/18 13:40 Cepacol Lozenge - MM 1 each PRN PRN Administration SORE THROAT Clopidogrel Bisulfate 75 mg 09/29/18 10:00 10/03/18 09:24 Plavix - PO 75 mg DAILY [facility] Administration Diltiazem HCl 5 mg 10/01/18 10:05 Cardizem Injection - IVPUSH Q4H PRN TACHYCARDIA Furosemide 40 mg 09/28/18 21:30 10/03/18 09:24 Lasix Injection - IVPUSH 40 mg DAILY [facility] Administration Guaifenesin/Codeine Phosphate 5 ml 10/01/18 10:03 10/01/18 21:40 Robitussin Ac - PO 5 ml TID PRN Administration COUGH Heparin Sodium (Porcine) 5,000 unit 09/28/18 22:00 10/03/18 09:24 Heparin - SQ 5,000 unit BID [facility] Administration Ceftriaxone Sodium 1 gm/ 50 mls @ 100 mls/hr 09/29/18 21:00 10/03/18 09:24 Dextrose IVPB 100 mls/hr DAILY [facility] Administration Protocol Levothyroxine Sodium 75 mcg 09/29/18 07:00 10/03/18 06:43 Synthroid - PO 75 mcg DAILY@0700 [facility] Administration Methyl Salicylate 1 applic 10/01/18 22:00 10/03/18 09:29 David-Trinh - TP Not Given BID COUNTS INCLUDE 234 BEDS AT [facility] Methylprednisolone Sodium Succinate 40 mg 09/29/18 02:00 10/03/18 09:24 Solu-Medrol - IVPUSH 40 mg Q8H-IV [facility] Administration Miscellaneous 1 each 10/01/18 22:00 10/02/18 21:49 Lidoderm Patch Removal MC 1 each DAILY@2200 [facility] Administration Pantoprazole Sodium 40 mg 10/02/18 14:00 10/03/18 09:24 Protonix - PO 40 mg DAILY [facility] Administration Phenol/Menthol 1 spray 10/02/18 12:05 10/02/18 21:50 Chloraseptic - MM 1 spray Q6HPO PRN Administration SORE THROAT Polyethylene Glycol 17 gm 10/02/18 15:00 10/03/18 09:25 Miralax (For Daily Use) - PO 17 grams DAILY [facility] Administration Sodium Bicarbonate 325 mg 10/02/18 22:00 10/03/18 09:26 Sodium Bicarbonate - PO 325 mg BID [facility] Administration Sodium Chloride 2 spray 10/02/18 12:04 10/02/18 21:50 [place] Nasal [place] - NS 2 spray TID PRN Administration NASAL CONGESTION Impression 1. hyperkalemia 2. CKD 3. CAD 4. COPD 5. hypothyroidism 6. CHF Plan - cont to monitor renal function - cont with lasix - repeat labs in am - potassium stable - will need a higher dose of lasix once discharged - will decrease po bicarb further Dr Smith
[2018-10-03] MEDS: SODIUM CHLORIDE NASAL SPRAY 44 ML BOTTLE NS PRN (13:43)
--- NOTE | 2018-10-03 15:21 | PN ---
Progress Note, Physician Chief Complaint: CHF Acute hypoxemic respiratory failure Anemia History of Present Illness: Previous notes and events reviewed awake and alert NAD denies chest pain, dizziness complain of dyspnea on exertion - Current Medication List Current Medications: Active Medications Acetaminophen (Tylenol -) 650 mg PO Q6H PRN PRN Reason: PAIN OR FEVER Albuterol Sulfate (Ventolin 0.083% Nebulizer Soln -) 1 amp NEB Q4H PRN PRN Reason: SHORT OF BREATH/WHEEZING Last Admin: 10/02/18 00:04 Dose: 1 amp Albuterol/Ipratropium (Duoneb -) 1 amp NEB RQID [facility] Last Admin: 10/03/18 12:08 Dose: 1 amp Aspirin (Ecotrin -) 81 mg PO DAILY [facility] Last Admin: 10/03/18 09:24 Dose: 81 mg Benzocaine/Menthol (Cepacol Lozenge -) 1 each MM PRN PRN PRN Reason: SORE THROAT Last Admin: 10/02/18 13:40 Dose: 1 each Clopidogrel Bisulfate (Plavix -) 75 mg PO DAILY [facility] Last Admin: 10/03/18 09:24 Dose: 75 mg Diltiazem HCl (Cardizem Injection -) 5 mg IVPUSH Q4H PRN PRN Reason: TACHYCARDIA Furosemide (Lasix Injection -) 40 mg IVPUSH DAILY [facility] Last Admin: 10/03/18 09:24 Dose: 40 mg Guaifenesin/Codeine Phosphate (Robitussin Ac -) 5 ml PO TID PRN PRN Reason: COUGH Last Admin: 10/01/18 21:40 Dose: 5 ml Heparin Sodium (Porcine) (Heparin -) 5,000 unit SQ BID [facility] Last Admin: 10/03/18 09:24 Dose: 5,000 unit Ceftriaxone Sodium 1 gm/ (Dextrose) 50 mls @ 100 mls/hr IVPB DAILY [facility]; Protocol Last Admin: 10/03/18 09:24 Dose: 100 mls/hr Levothyroxine Sodium (Synthroid -) 75 mcg PO DAILY@0700 [facility] Last Admin: 10/03/18 06:43 Dose: 75 mcg Methyl Salicylate (David-Trinh -) 1 applic TP BID [facility] Last Admin: 10/03/18 09:29 Dose: Not Given Methylprednisolone Sodium Succinate (Solu-Medrol -) 40 mg IVPUSH Q8H-IV [facility] Last Admin: 10/03/18 09:24 Dose: 40 mg Miscellaneous (Lidoderm Patch Removal) 1 each MC DAILY@2200 [facility] Last Admin: 10/02/18 21:49 Dose: 1 each Pantoprazole Sodium (Protonix -) 40 mg PO DAILY [facility] Last Admin: 10/03/18 09:24 Dose: 40 mg Phenol/Menthol (Chloraseptic -) 1 spray MM Q6HPO PRN PRN Reason: SORE THROAT Last Admin: 10/02/18 21:50 Dose: 1 spray Polyethylene Glycol (Miralax (For Daily Use) -) 17 gm PO DAILY [facility] Last Admin: 10/03/18 09:25 Dose: 17 grams Sodium Bicarbonate (Sodium Bicarbonate -) 325 mg PO BID [facility] Last Admin: 10/03/18 09:26 Dose: 325 mg Sodium Chloride ([place] Nasal [place] -) 2 spray NS TID PRN PRN Reason: NASAL CONGESTION Last Admin: 10/03/18 13:43 Dose: 2 spray - Objective Vital Signs: Vital Signs Temperature 97.4 F L 10/03/18 14:00 Pulse Rate 84 10/03/18 14:00 Respiratory Rate 20 10/03/18 14:00 Blood Pressure 149/73 10/03/18 14:00 O2 Sat by Pulse Oximetry (%) 93 L 10/03/18 09:00 Constitutional: Yes: Calm, Mild Distress Eyes: Yes: Conjunctiva Clear Neck: Yes: Supple Cardiovascular: Yes: Regular Rate and Rhythm Respiratory: Yes: Wheezes Gastrointestinal: Yes: Normal Bowel Sounds, Soft Genitourinary: Yes: Huizar Present Musculoskeletal: Yes: Muscle Weakness Edema: Yes Edema: LLE: 2+, RLE: 2+ Integumentary: Yes: WNL Neurological: Yes: Alert Psychiatric: Yes: Alert Labs: CBC, BMP 10/03/18 05:30 10/03/18 05:30 <Emily Dasilva - Last Filed: 10/03/18 15:14> - Current Medication List Current Medications: Active Medications Acetaminophen (Tylenol -) 650 mg PO Q6H PRN PRN Reason: PAIN OR FEVER Albuterol Sulfate (Ventolin 0.083% Nebulizer Soln -) 1 amp NEB Q4H PRN PRN Reason: SHORT OF BREATH/WHEEZING Last Admin: 10/02/18 00:04 Dose: 1 amp Albuterol/Ipratropium (Duoneb -) 1 amp NEB RQID [facility] Last Admin: 10/03/18 16:08 Dose: 1 amp Aspirin (Ecotrin -) 81 mg PO DAILY [facility] Last Admin: 10/03/18 09:24 Dose: 81 mg Benzocaine/Menthol (Cepacol Lozenge -) 1 each MM PRN PRN PRN Reason: SORE THROAT Last Admin: 10/02/18 13:40 Dose: 1 each Clopidogrel Bisulfate (Plavix -) 75 mg PO DAILY [facility] Last Admin: 10/03/18 09:24 Dose: 75 mg Diltiazem HCl (Cardizem Injection -) 5 mg IVPUSH Q4H PRN PRN Reason: TACHYCARDIA Furosemide (Lasix Injection -) 40 mg IVPUSH DAILY [facility] Last Admin: 10/03/18 09:24 Dose: 40 mg Guaifenesin/Codeine Phosphate (Robitussin Ac -) 5 ml PO TID PRN PRN Reason: COUGH Last Admin: 10/01/18 21:40 Dose: 5 ml Heparin Sodium (Porcine) (Heparin -) 5,000 unit SQ BID [facility] Last Admin: 10/03/18 09:24 Dose: 5,000 unit Ceftriaxone Sodium 1 gm/ (Dextrose) 50 mls @ 100 mls/hr IVPB DAILY [facility]; Protocol Last Admin: 10/03/18 09:24 Dose: 100 mls/hr Levothyroxine Sodium (Synthroid -) 75 mcg PO DAILY@0700 [facility] Last Admin: 10/03/18 06:43 Dose: 75 mcg Methyl Salicylate (David-Trinh -) 1 applic TP BID [facility] Last Admin: 10/03/18 09:29 Dose: Not Given Methylprednisolone Sodium Succinate (Solu-Medrol -) 40 mg IVPUSH Q8H-IV [facility] Last Admin: 10/03/18 17:18 Dose: 40 mg Miscellaneous (Lidoderm Patch Removal) 1 each MC DAILY@2200 [facility] Last Admin: 10/02/18 21:49 Dose: 1 each Pantoprazole Sodium (Protonix -) 40 mg PO DAILY [facility] Last Admin: 10/03/18 09:24 Dose: 40 mg Phenol/Menthol (Chloraseptic -) 1 spray MM Q6HPO PRN PRN Reason: SORE THROAT Last Admin: 10/02/18 21:50 Dose: 1 spray Polyethylene Glycol (Miralax (For Daily Use) -) 17 gm PO DAILY [facility] Last Admin: 10/03/18 09:25 Dose: 17 grams Sodium Bicarbonate (Sodium Bicarbonate -) 325 mg PO BID [facility] Last Admin: 10/03/18 09:26 Dose: 325 mg Sodium Chloride ([place] Nasal [place] -) 2 spray NS TID PRN PRN Reason: NASAL CONGESTION Last Admin: 10/03/18 13:43 Dose: 2 spray - Objective Vital Signs: Vital Signs Temperature 97.7 F 10/03/18 17:05 Pulse Rate 84 10/03/18 17:05 Respiratory Rate 18 10/03/18 17:05 Blood Pressure 142/61 10/03/18 17:05 O2 Sat by Pulse Oximetry (%) 94 L 10/03/18 17:07 Labs: CBC, BMP 10/03/18 05:30 10/03/18 05:30 <Marcus Costa - Last Filed: 10/03/18 21:04> Problem List - Problems (1) ANASTASIA (acute kidney injury) Code(s): N17.9 - ACUTE KIDNEY FAILURE, UNSPECIFIED (2) Acute diastolic CHF (congestive heart failure) Code(s): I50.31 - ACUTE DIASTOLIC (CONGESTIVE) HEART FAILURE (3) Acute hypoxemic respiratory failure Code(s): J96.01 - ACUTE RESPIRATORY FAILURE WITH HYPOXIA (4) Anemia Code(s): D64.9 - ANEMIA, UNSPECIFIED (5) CAD (coronary artery disease) Code(s): I25.10 - ATHSCL HEART DISEASE OF [place] CORONARY ARTERY W/O ANG PCTRS (6) HTN (hypertension) Code(s): I10 - ESSENTIAL (PRIMARY) HYPERTENSION (7) Lung nodule Code(s): R91.1 - SOLITARY PULMONARY NODULE <Emily Dasilva - Last Filed: 10/03/18 15:14> - Problems (1) ANASTASIA (acute kidney injury) Code(s): N17.9 - ACUTE KIDNEY FAILURE, UNSPECIFIED (2) Acute diastolic CHF (congestive heart failure) Code(s): I50.31 - ACUTE DIASTOLIC (CONGESTIVE) HEART FAILURE (3) Acute hypoxemic respiratory failure Code(s): J96.01 - ACUTE RESPIRATORY FAILURE WITH HYPOXIA (4) Anemia Code(s): D64.9 - ANEMIA, UNSPECIFIED (5) Aortic stenosis Code(s): I35.0 - NONRHEUMATIC AORTIC (VALVE) STENOSIS (6) Bilateral lower leg cellulitis Code(s): L03.116 - CELLULITIS OF LEFT LOWER LIMB; L03.115 - CELLULITIS OF RIGHT LOWER LIMB (7) CAD (coronary artery disease) Code(s): I25.10 - ATHSCL HEART DISEASE OF [place] CORONARY ARTERY W/O ANG PCTRS (8) CHF exacerbation Code(s): I50.9 - HEART FAILURE, UNSPECIFIED Qualifiers: Heart failure type: unspecified Qualified Code(s): I50.9 - Heart failure, unspecified (9) Diastolic CHF Code(s): I50.30 - UNSPECIFIED DIASTOLIC (CONGESTIVE) HEART FAILURE (10) HTN (hypertension) Code(s): I10 - ESSENTIAL (PRIMARY) HYPERTENSION (11) Hypothyroid Code(s): E03.9 - HYPOTHYROIDISM, UNSPECIFIED <Marcus Costa - Last Filed: 10/03/18 21:04> Assessment/Plan -cardio on board -cont with lasix IV -cont with plavix -tele monitoring -daily weights -strict I&O -pulm on board -cont with neb tx PRN -methyprednisone IVPB -O2 via NC, keep SpO2 >90% -ID on board, cont IV ABT -dvt ppx -low sodium diet -Na level 133, cont with NaBicarb PO BID, monitor sodium level -H/H stable, will continue to monitor for downward trend -BNP elev, will monitor for downward trend <Emily Dasilva - Last Filed: 10/03/18 15:14> I HAVE EXAMINED THE PATIENT AND I AGREE WITH THE ABOVE NOTE <Marcus Costa - Last Filed: 10/03/18 21:04>
[2018-10-03] MEDS: LIDOCAINE PATCH REMOVAL MC SCH (21:56)
[2018-10-04] MEDS: methylPREDNISolone NA SUCC 40 MG/1 ML VIAL IVPUSH SCH ×3 (03:34→17:16)
[2018-10-04] MEDS: LEVOTHYROXINE NA 75 MCG TABLET (FP) PO SCH (06:05)
[2018-10-04 08:01] LABS: HEMATOCRIT 31.5 % (32.4-45.2); HEMOGLOBIN 10.8 GM/dL (10.7-15.3); MCH 31.2 pg (25.7-33.7); MCHC 34.2 g/dl (32.0-36.0); MEAN CELL VOLUME 91.4 fl (80-96); MEAN PLT VOLUME 8.9 fl (7.5-11.1); PLATELET COUNT 230 K/MM3 (134-434); RBC 3.44 M/mm3 (3.60-5.2); RDW 15.9 % (11.6-15.6)
[2018-10-04 08:56] LABS: ALBUMIN 2.9 g/dl (3.4-5.0); ALK PHOS 82 U/L (45-117); ANION GAP 15 MMOL/L (8-16); BILIRUBIN,TOTAL 0.4 mg/dL (0.2-1); BLOOD UREA NITROGEN 100 mg/dL (7-18); CALCIUM 7.6 mg/dL (8.5-10.1); CHLORIDE 89 mmol/L (98-107); CO2 24 mmol/L (21-32); CREATININE 3.7 mg/dL (0.55-1.3); GLUCOSE,RANDOM 162 mg/dL (74-106); N-TERMINAL BNP 30610.1 pg/ml (5-450); POTASSIUM 4.6 mmol/L (3.5-5.1); SGOT/AST 27 U/L (15-37); SGPT/ALT 49 U/L (13-61); SODIUM 128 mmol/L (136-145)
[2018-10-04] MEDS: ALBUTEROL SO4 2.5/IPRATROPIUM 0.5 INH SOL 3 ML VIAL.NEB. NEB SCH ×4 (09:00→20:05)
[2018-10-04] MEDS: POLYETHYLENE GLYCOL 3350 119 GM BTL PO SCH (10:16)
[2018-10-04] MEDS: METHYL SALICYLATE/MENTHOL OINT 30 GM TUBE TP SCH ×2 (10:17→22:00)
[2018-10-04] MEDS ORDERED: cefTRIAXone SODIUM 1 GM VIAL ONE (10:27)
[2018-10-04] MEDS ORDERED: DEXTROSE 5%-WATER - 50 ML IVPB ONE (10:27)
[2018-10-04] MEDS: CEFTRIAXONE 1 GM in DEXTROSE 5%-WATER - 50 ML IVPB SCH (10:35)
[2018-10-04] MEDS: PANTOPRAZOLE 40 MG TABLET (FP) PO SCH (10:36)
[2018-10-04] MEDS: FUROSEMIDE 40 MG/4 ML INJECTABLE VIAL IVPUSH SCH (10:36)
[2018-10-04] MEDS: CLOPIDOGREL BISULFATE 75 MG TABLET (FP) PO SCH (10:36)
[2018-10-04] MEDS: SODIUM BICARBONATE 325 MG TABLET PO SCH ×2 (10:37→22:02)
[2018-10-04] MEDS: ASPIRIN COATED 81 MG TABLET.EC PO SCH (10:37)
[2018-10-04] MEDS: HEPARIN NA (PORCINE) 5,000 UNITS/ML 1ML VIAL SQ SCH ×2 (10:37→22:01)
--- NOTE | 2018-10-04 13:01 | PN ---
Progress Note, Physician Chief Complaint: Pt A&Ox3; c/o strong right anterior chest pressure that began suddenly, has lasted for the past minutes. No prior episodes of this nature. Anxious; BP found to be 180 mmHg systolic. History of Present Illness: 83 yr old white woman with h/o COPD, diastolic CHF, severe aortic stenosis, ACS s/p stent 2014 (denies hx VT), HTN, HLD, hypothyroidism, hip replacement, current bronchitis, and recently diagnosed leg cellulitis (states she is on amoxicillin for the cellulitis) who p/w worsening wet cough and SOB for the past 2 weeks, particularly worse tonight. She has had chills but denies any measured fever, nausea, vomiting, constipation, n/t/w focally, headache, back pain, neck pain, or other symptoms. Her family expresses concern her legs are so swollen she is unable to lift them or even walk. The patient notes her legs are only painful when she tries to weight bear. - Current Medication List Current Medications: Active Medications Acetaminophen (Tylenol -) 650 mg PO Q6H PRN PRN Reason: PAIN OR FEVER Albuterol Sulfate (Ventolin 0.083% Nebulizer Soln -) 1 amp NEB Q4H PRN PRN Reason: SHORT OF BREATH/WHEEZING Last Admin: 10/02/18 00:04 Dose: 1 amp Albuterol/Ipratropium (Duoneb -) 1 amp NEB RQID [facility] Last Admin: 10/04/18 09:00 Dose: 1 amp Aspirin (Ecotrin -) 81 mg PO DAILY [facility] Last Admin: 10/04/18 10:37 Dose: 81 mg Benzocaine/Menthol (Cepacol Lozenge -) 1 each MM PRN PRN PRN Reason: SORE THROAT Last Admin: 10/02/18 13:40 Dose: 1 each Clopidogrel Bisulfate (Plavix -) 75 mg PO DAILY [facility] Last Admin: 10/04/18 10:36 Dose: 75 mg Diltiazem HCl (Cardizem Injection -) 5 mg IVPUSH Q4H PRN PRN Reason: TACHYCARDIA Furosemide (Lasix Injection -) 40 mg IVPUSH DAILY [facility] Last Admin: 10/04/18 10:36 Dose: 40 mg Guaifenesin/Codeine Phosphate (Robitussin Ac -) 5 ml PO TID PRN PRN Reason: COUGH Last Admin: 10/01/18 21:40 Dose: 5 ml Heparin Sodium (Porcine) (Heparin -) 5,000 unit SQ BID [facility] Last Admin: 10/04/18 10:37 Dose: 5,000 unit Ceftriaxone Sodium 1 gm/ (Dextrose) 50 mls @ 100 mls/hr IVPB DAILY [facility]; Protocol Last Admin: 10/04/18 10:35 Dose: 100 mls/hr Levothyroxine Sodium (Synthroid -) 75 mcg PO DAILY@0700 [facility] Last Admin: 10/04/18 06:05 Dose: 75 mcg Methyl Salicylate (David-Trinh -) 1 applic TP BID [facility] Last Admin: 10/03/18 21:56 Dose: Not Given Methylprednisolone Sodium Succinate (Solu-Medrol -) 40 mg IVPUSH Q8H-IV [facility] Last Admin: 10/04/18 10:36 Dose: 40 mg Miscellaneous (Lidoderm Patch Removal) 1 each MC DAILY@2200 [facility] Last Admin: 10/03/18 21:56 Dose: 1 each Pantoprazole Sodium (Protonix -) 40 mg PO DAILY [facility] Last Admin: 10/04/18 10:36 Dose: 40 mg Phenol/Menthol (Chloraseptic -) 1 spray MM Q6HPO PRN PRN Reason: SORE THROAT Last Admin: 10/02/18 21:50 Dose: 1 spray Polyethylene Glycol (Miralax (For Daily Use) -) 17 gm PO DAILY [facility] Last Admin: 10/03/18 09:25 Dose: 17 grams Sodium Bicarbonate (Sodium Bicarbonate -) 325 mg PO BID [facility] Last Admin: 10/04/18 10:37 Dose: 325 mg Sodium Chloride ([place] Nasal [place] -) 2 spray NS TID PRN PRN Reason: NASAL CONGESTION Last Admin: 10/03/18 13:43 Dose: 2 spray - Objective Vital Signs: Vital Signs Temperature 98.2 F 10/04/18 10:00 Pulse Rate 92 H 10/04/18 10:00 Respiratory Rate 18 10/04/18 10:00 Blood Pressure 147/70 10/04/18 10:00 O2 Sat by Pulse Oximetry (%) 96 10/04/18 11:03 Constitutional: Yes: Anxious Eyes: Yes: WNL HENT: Yes: WNL Neck: Yes: WNL Cardiovascular: Yes: Murmur, S1, S2, S4 Respiratory: Yes: Diminished, SOB, Tachypnea Gastrointestinal: Yes: Soft ...Rectal Exam: Yes: Deferred Genitourinary: No: Anuria Breast(s): Yes: WNL Musculoskeletal: Yes: Muscle Weakness Extremities: Yes: Erythema Edema: Yes Edema: LLE: 1+, RLE: 1+ Peripheral Pulses WNL: Yes Integumentary: Yes: WNL Neurological: Yes: Alert, Oriented, Weakness Labs: CBC, BMP 10/04/18 07:20 10/04/18 07:20 Abnormal Lab Results 10/04/18 10/04/18 10/04/18 07:20 07:20 12:37 RBC 3.44 L Hct 31.5 L RDW 15.9 H Sodium 128 L Chloride 89 L BUN 100 H Creatinine 3.7 H Random Glucose 162 H Calcium 7.6 L Troponin I 0.30 H B-Natriuretic Peptide 88591.1 H Total Protein 6.0 L Albumin 2.9 L Problem List - Problems (1) Severe aortic stenosis Assessment/Plan: ECHO 09/29/2018: normal LVEF; mild LVH; abnormal diatolic compliance; severe aortic stenosis (), mild AR, moderate pulmonary HTN; severe MAC and aortic valve calcification; moderate LAE. The potential benefits (symptoms; mortality) from TAVR were discussed with pt and family. Presently, worsening renal status makes this option problematic. Pt is against undergoing dialysis. Avoid excessive diuresis/dehydration. Code(s): I35.0 - NONRHEUMATIC AORTIC (VALVE) STENOSIS (2) HTN (hypertension) Code(s): I10 - ESSENTIAL (PRIMARY) HYPERTENSION (3) CAD (coronary artery disease) Assessment/Plan: hx CAD-->coronary stent 2014. EKG: T wave changes: consider lateral ischemia. If TAVR is contemplated, will also have coronary angiogram (both are problematic at present due to worsening renal function). Code(s): I25.10 - ATHSCL HEART DISEASE OF [place] CORONARY ARTERY W/O ANG PCTRS (4) Diastolic CHF Code(s): I50.30 - UNSPECIFIED DIASTOLIC (CONGESTIVE) HEART FAILURE (5) ANASTASIA (acute kidney injury) Assessment/Plan: worsening hyponatremia. As discussed with lead ramp agent, furosemide held, with restart to be determined on a daily basis (problematic holding it from CHF standpoint). Code(s): N17.9 - ACUTE KIDNEY FAILURE, UNSPECIFIED (6) Anemia Assessment/Plan: s/p PRBCs F/u etiology of blood loss. Code(s): D64.9 - ANEMIA, UNSPECIFIED (7) COPD (chronic obstructive pulmonary disease) Assessment/Plan: Quit cigarettes only a few years ago, after many years smoking. CT chest: RUL lung nodule. Code(s): J44.9 - CHRONIC OBSTRUCTIVE PULMONARY DISEASE, UNSPECIFIED Qualifiers: COPD type: unspecified COPD Qualified Code(s): J44.9 - Chronic obstructive pulmonary disease, unspecified (8) Acute diastolic CHF (congestive heart failure) Assessment/Plan: + JVD Markedly elevated BNP. CXR and CT chest: pleural effusion gbilaterally. Exacerbated by severe , anemia. Code(s): I50.31 - ACUTE DIASTOLIC (CONGESTIVE) HEART FAILURE (9) Lung nodule Assessment/Plan: RUL apex; r/o malignancy; for f/u studies within 3 months. Code(s): R91.1 - SOLITARY PULMONARY NODULE (10) Coronary atherosclerosis due to calcified coronary lesion of [place] artery Assessment/Plan: dense calcification of coronary arteries on CT. If pt's overall condition stabilizes, and renal status is addressed, would benefit from coronary angiogram and evaluation for TAVR. Code(s): I25.10 - ATHSCL HEART DISEASE OF [place] CORONARY ARTERY W/O ANG PCTRS; I25.84 - CORONARY ATHEROSCLEROSIS DUE TO CALCIFIED CORONARY LESION (11) Acute chest pain Assessment/Plan: EKG: no significant change. TNI pending; f/u serially. Pt receiving bronchodilator Rx; chest discomfort reduced, but not completely resolved. On ASA, clopidogrel, sc heparin. NTG (though caution against excessive preload reduction with severe ). F/u BP serially. Consider anxiolytic. Code(s): R07.9 - CHEST PAIN, UNSPECIFIED
--- NOTE | 2018-10-04 13:28 | PN ---
Progress Note, Physician History of Present Illness: Pt seen and examined at bedside. She had chest pain earlier today. She was evaluated by cardiology. She denies worsening shortness of breath. - Current Medication List Current Medications: Active Medications Acetaminophen (Tylenol -) 650 mg PO Q6H PRN PRN Reason: PAIN OR FEVER Albuterol Sulfate (Ventolin 0.083% Nebulizer Soln -) 1 amp NEB Q4H PRN PRN Reason: SHORT OF BREATH/WHEEZING Last Admin: 10/02/18 00:04 Dose: 1 amp Albuterol/Ipratropium (Duoneb -) 1 amp NEB RQID [facility] Last Admin: 10/04/18 13:07 Dose: 1 amp Aspirin (Ecotrin -) 81 mg PO DAILY [facility] Last Admin: 10/04/18 10:37 Dose: 81 mg Benzocaine/Menthol (Cepacol Lozenge -) 1 each MM PRN PRN PRN Reason: SORE THROAT Last Admin: 10/02/18 13:40 Dose: 1 each Clopidogrel Bisulfate (Plavix -) 75 mg PO DAILY [facility] Last Admin: 10/04/18 10:36 Dose: 75 mg Diltiazem HCl (Cardizem Injection -) 5 mg IVPUSH Q4H PRN PRN Reason: TACHYCARDIA Guaifenesin/Codeine Phosphate (Robitussin Ac -) 5 ml PO TID PRN PRN Reason: COUGH Last Admin: 10/01/18 21:40 Dose: 5 ml Heparin Sodium (Porcine) (Heparin -) 5,000 unit SQ BID [facility] Last Admin: 10/04/18 10:37 Dose: 5,000 unit Ceftriaxone Sodium 1 gm/ (Dextrose) 50 mls @ 100 mls/hr IVPB DAILY [facility]; Protocol Last Admin: 10/04/18 10:35 Dose: 100 mls/hr Levothyroxine Sodium (Synthroid -) 75 mcg PO DAILY@0700 [facility] Last Admin: 10/04/18 06:05 Dose: 75 mcg Methyl Salicylate (David-Trinh -) 1 applic TP BID [facility] Last Admin: 10/03/18 21:56 Dose: Not Given Methylprednisolone Sodium Succinate (Solu-Medrol -) 40 mg IVPUSH Q8H-IV [facility] Last Admin: 10/04/18 10:36 Dose: 40 mg Miscellaneous (Lidoderm Patch Removal) 1 each MC DAILY@2200 [facility] Last Admin: 10/03/18 21:56 Dose: 1 each Pantoprazole Sodium (Protonix -) 40 mg PO DAILY [facility] Last Admin: 10/04/18 10:36 Dose: 40 mg Phenol/Menthol (Chloraseptic -) 1 spray MM Q6HPO PRN PRN Reason: SORE THROAT Last Admin: 10/02/18 21:50 Dose: 1 spray Polyethylene Glycol (Miralax (For Daily Use) -) 17 gm PO DAILY [facility] Last Admin: 10/03/18 09:25 Dose: 17 grams Sodium Bicarbonate (Sodium Bicarbonate -) 325 mg PO BID [facility] Last Admin: 10/04/18 10:37 Dose: 325 mg Sodium Chloride ([place] Nasal [place] -) 2 spray NS TID PRN PRN Reason: NASAL CONGESTION Last Admin: 10/03/18 13:43 Dose: 2 spray - Objective Vital Signs: Vital Signs Temperature 98.2 F 10/04/18 10:00 Pulse Rate 92 H 10/04/18 10:00 Respiratory Rate 18 10/04/18 10:00 Blood Pressure 147/70 10/04/18 10:00 O2 Sat by Pulse Oximetry (%) 96 10/04/18 11:03 Constitutional: Yes: Calm Eyes: Yes: Conjunctiva Clear HENT: Yes: Atraumatic Cardiovascular: Yes: Murmur, S1, S2 Respiratory: Yes: On Nasal O2, Rhonchi Gastrointestinal: Yes: Soft Genitourinary: Yes: Huizar Present Musculoskeletal: Yes: Muscle Weakness Edema: Yes Edema: LLE: 2+, RLE: 2+ Neurological: Yes: Oriented Psychiatric: Yes: Oriented Labs: CBC, BMP 10/04/18 07:20 10/04/18 07:20 Problem List - Problems (1) Acute hypoxemic respiratory failure Code(s): J96.01 - ACUTE RESPIRATORY FAILURE WITH HYPOXIA (2) Anemia Code(s): D64.9 - ANEMIA, UNSPECIFIED (3) CHF exacerbation Code(s): I50.9 - HEART FAILURE, UNSPECIFIED Qualifiers: Heart failure type: unspecified Qualified Code(s): I50.9 - Heart failure, unspecified (4) COPD (chronic obstructive pulmonary disease) Code(s): J44.9 - CHRONIC OBSTRUCTIVE PULMONARY DISEASE, UNSPECIFIED Qualifiers: COPD type: unspecified COPD Qualified Code(s): J44.9 - Chronic obstructive pulmonary disease, unspecified (5) Hyperkalemia Code(s): E87.5 - HYPERKALEMIA (6) Tobacco abuse Code(s): Z72.0 - TOBACCO USE Assessment/Plan Current Medications Generic Name Dose Route Start Last Admin Trade Name Freq PRN Reason Stop Dose Admin Acetaminophen 650 mg 09/28/18 21:26 Tylenol - PO Q6H PRN PAIN OR FEVER Albuterol Sulfate 1 amp 10/01/18 01:58 10/02/18 00:04 Ventolin 0.083% Nebulizer Soln - NEB 1 amp Q4H PRN Administration SHORT OF BREATH/WHEEZING Albuterol/Ipratropium 1 amp 09/30/18 11:16 10/04/18 13:07 Duoneb - NEB 1 amp RQID [facility] Administration Aspirin 81 mg 09/29/18 10:00 10/04/18 10:37 Ecotrin - PO 81 mg DAILY [facility] Administration Benzocaine/Menthol 1 each 10/02/18 12:05 10/02/18 13:40 Cepacol Lozenge - MM 1 each PRN PRN Administration SORE THROAT Clopidogrel Bisulfate 75 mg 09/29/18 10:00 10/04/18 10:36 Plavix - PO 75 mg DAILY [facility] Administration Diltiazem HCl 5 mg 10/01/18 10:05 Cardizem Injection - IVPUSH Q4H PRN TACHYCARDIA Guaifenesin/Codeine Phosphate 5 ml 10/01/18 10:03 10/01/18 21:40 Robitussin Ac - PO 5 ml TID PRN Administration COUGH Heparin Sodium (Porcine) 5,000 unit 09/28/18 22:00 10/04/18 10:37 Heparin - SQ 5,000 unit BID [facility] Administration Ceftriaxone Sodium 1 gm/ 50 mls @ 100 mls/hr 09/29/18 21:00 10/04/18 10:35 Dextrose IVPB 100 mls/hr DAILY [facility] Administration Protocol Levothyroxine Sodium 75 mcg 09/29/18 07:00 10/04/18 06:05 Synthroid - PO 75 mcg DAILY@0700 [facility] Administration Methyl Salicylate 1 applic 10/01/18 22:00 10/03/18 21:56 David-Trinh - TP Not Given BID [facility] Methylprednisolone Sodium Succinate 40 mg 09/29/18 02:00 10/04/18 10:36 Solu-Medrol - IVPUSH 40 mg Q8H-IV [facility] Administration Miscellaneous 1 each 10/01/18 22:00 10/03/18 21:56 Lidoderm Patch Removal MC 1 each DAILY@2200 [facility] Administration Pantoprazole Sodium 40 mg 10/02/18 14:00 10/04/18 10:36 Protonix - PO 40 mg DAILY [facility] Administration Phenol/Menthol 1 spray 10/02/18 12:05 10/02/18 21:50 Chloraseptic - MM 1 spray Q6HPO PRN Administration SORE THROAT Polyethylene Glycol 17 gm 10/02/18 15:00 10/03/18 09:25 Miralax (For Daily Use) - PO 17 grams DAILY [facility] Administration Sodium Bicarbonate 325 mg 10/02/18 22:00 10/04/18 10:37 Sodium Bicarbonate - PO 325 mg BID [facility] Administration Sodium Chloride 2 spray 10/02/18 12:04 10/03/18 13:43 [place] Nasal [place] - NS 2 spray TID PRN Administration NASAL CONGESTION Impression 1. hyperkalemia 2. CKD 3. CAD 4. COPD 5. hypothyroidism 6. CHF Plan - discussed with cardio, agree with holding lasix as sodium is dropping - pt has significant valvular disease - restrict free water intake - cont with po bicarb at a daily dose for now - will follow Dr Smith
--- NOTE | 2018-10-04 15:05 | PN ---
Progress Note (short form) - Note Progress Note: PULMONARY Still some shortness of breath. +nonproductive cough. Vital Signs Period Temp Pulse Resp BP Sys/Boyer Pulse Ox Last 24 Hr 97.7 F-98.2 F 82-92 18-20 126-147/58-70 92-96 Gen: NAD in chair Heart: RRR, +systolic murmur RUSB Lung: bibasilar rales, rhonchi Abd: soft, nontender Ext: + edema CBC, BMP 10/04/18 07:20 10/04/18 07:20 Active Medications Acetaminophen (Tylenol -) 650 mg PO Q6H PRN PRN Reason: PAIN OR FEVER Albuterol Sulfate (Ventolin 0.083% Nebulizer Soln -) 1 amp NEB Q4H PRN PRN Reason: SHORT OF BREATH/WHEEZING Last Admin: 10/02/18 00:04 Dose: 1 amp Albuterol/Ipratropium (Duoneb -) 1 amp NEB RQID [facility] Last Admin: 10/04/18 13:07 Dose: 1 amp Aspirin (Ecotrin -) 81 mg PO DAILY [facility] Last Admin: 10/04/18 10:37 Dose: 81 mg Benzocaine/Menthol (Cepacol Lozenge -) 1 each MM PRN PRN PRN Reason: SORE THROAT Last Admin: 10/02/18 13:40 Dose: 1 each Clopidogrel Bisulfate (Plavix -) 75 mg PO DAILY [facility] Last Admin: 10/04/18 10:36 Dose: 75 mg Diltiazem HCl (Cardizem Injection -) 5 mg IVPUSH Q4H PRN PRN Reason: TACHYCARDIA Guaifenesin/Codeine Phosphate (Robitussin Ac -) 5 ml PO TID PRN PRN Reason: COUGH Last Admin: 10/01/18 21:40 Dose: 5 ml Heparin Sodium (Porcine) (Heparin -) 5,000 unit SQ BID [facility] Last Admin: 10/04/18 10:37 Dose: 5,000 unit Ceftriaxone Sodium 1 gm/ (Dextrose) 50 mls @ 100 mls/hr IVPB DAILY [facility]; Protocol Last Admin: 10/04/18 10:35 Dose: 100 mls/hr Levothyroxine Sodium (Synthroid -) 75 mcg PO DAILY@0700 [facility] Last Admin: 01/19/19 06:05 Dose: 75 mcg Methyl Salicylate (David-Trinh -) 1 applic TP BID [facility] Last Admin: 10/03/18 21:56 Dose: Not Given Methylprednisolone Sodium Succinate (Solu-Medrol -) 40 mg IVPUSH Q8H-IV [facility] Last Admin: 10/04/18 10:36 Dose: 40 mg Miscellaneous (Lidoderm Patch Removal) 1 each MC DAILY@2200 [facility] Last Admin: 10/03/18 21:56 Dose: 1 each Pantoprazole Sodium (Protonix -) 40 mg PO DAILY [facility] Last Admin: 10/04/18 10:36 Dose: 40 mg Phenol/Menthol (Chloraseptic -) 1 spray MM Q6HPO PRN PRN Reason: SORE THROAT Last Admin: 10/02/18 21:50 Dose: 1 spray Polyethylene Glycol (Miralax (For Daily Use) -) 17 gm PO DAILY [facility] Last Admin: 10/03/18 09:25 Dose: 17 grams Sodium Bicarbonate (Sodium Bicarbonate -) 325 mg PO BID [facility] Last Admin: 10/04/18 10:37 Dose: 325 mg Sodium Chloride ([place] Nas[place] -) 2 spray NS TID PRN PRN Reason: NASAL CONGESTION Last Admin: 10/03/18 13:43 Dose: 2 spray A/P Acute on Chronic Diastolic Heart Failure Severe Aortic Stenosis Acute COPD Exacerbation Lung Nodule r/o Pneumonia Pulmonary HTN Hemoptysis Acute on Chronic Renal Failure HTN DM Smoker - monitor urine output, creatinine - continue medrol - inhaled bronchodilators - O2 to keep SpO2 >90% - monitor hemoptysis - continue antibiotics - will need outpt f/u of lung nodule - DVT prophylaxis
--- NOTE | 2018-10-04 19:39 | PN ---
Progress Note, Physician Chief Complaint: Acute on Chronic Diastolic Heart Failure Severe Aortic Stenosis Acute COPD Exacerbation Lung Nodule r/o Pneumonia Pulmonary HTN Hemoptysis Acute on Chronic Renal Failure HTN DM Smoker History of Present Illness: Extremely SOB, even when turning in bed, feeling worse today Furosemide held due to hyponatremia On Nasal O2 @ 4 lpm with Spo2 of 93% - Current Medication List Current Medications: Active Medications Acetaminophen (Tylenol -) 650 mg PO Q6H PRN PRN Reason: PAIN OR FEVER Albuterol Sulfate (Ventolin 0.083% Nebulizer Soln -) 1 amp NEB Q4H PRN PRN Reason: SHORT OF BREATH/WHEEZING Last Admin: 10/02/18 00:04 Dose: 1 amp Albuterol/Ipratropium (Duoneb -) 1 amp NEB RQID [facility] Last Admin: 10/04/18 16:00 Dose: 1 amp Aspirin (Ecotrin -) 81 mg PO DAILY [facility] Last Admin: 10/04/18 10:37 Dose: 81 mg Benzocaine/Menthol (Cepacol Lozenge -) 1 each MM PRN PRN PRN Reason: SORE THROAT Last Admin: 10/02/18 13:40 Dose: 1 each Clopidogrel Bisulfate (Plavix -) 75 mg PO DAILY [facility] Last Admin: 10/04/18 10:36 Dose: 75 mg Diltiazem HCl (Cardizem Injection -) 5 mg IVPUSH Q4H PRN PRN Reason: TACHYCARDIA Guaifenesin/Codeine Phosphate (Robitussin Ac -) 5 ml PO TID PRN PRN Reason: COUGH Last Admin: 10/01/18 21:40 Dose: 5 ml Heparin Sodium (Porcine) (Heparin -) 5,000 unit SQ BID [facility] Last Admin: 10/04/18 10:37 Dose: 5,000 unit Ceftriaxone Sodium 1 gm/ (Dextrose) 50 mls @ 100 mls/hr IVPB DAILY [facility]; Protocol Last Admin: 10/04/18 10:35 Dose: 100 mls/hr Levothyroxine Sodium (Synthroid -) 75 mcg PO DAILY@0700 [facility] Last Admin: 10/04/18 06:05 Dose: 75 mcg Methyl Salicylate (David-Trinh -) 1 applic TP BID [facility] Last Admin: 10/04/18 10:17 Dose: Not Given Methylprednisolone Sodium Succinate (Solu-Medrol -) 40 mg IVPUSH Q8H-IV [facility] Last Admin: 10/04/18 17:16 Dose: 40 mg Miscellaneous (Lidoderm Patch Removal) 1 each MC DAILY@2200 [facility] Last Admin: 10/03/18 21:56 Dose: 1 each Pantoprazole Sodium (Protonix -) 40 mg PO DAILY [facility] Last Admin: 10/04/18 10:36 Dose: 40 mg Phenol/Menthol (Chloraseptic -) 1 spray MM Q6HPO PRN PRN Reason: SORE THROAT Last Admin: 10/02/18 21:50 Dose: 1 spray Polyethylene Glycol (Miralax (For Daily Use) -) 17 gm PO DAILY [facility] Last Admin: 10/04/18 10:16 Dose: 17 grams Sodium Bicarbonate (Sodium Bicarbonate -) 325 mg PO BID [facility] Last Admin: 10/04/18 10:37 Dose: 325 mg Sodium Chloride ([place] Nasal [place] -) 2 spray NS TID PRN PRN Reason: NASAL CONGESTION Last Admin: 10/03/18 13:43 Dose: 2 spray - Objective Vital Signs: Vital Signs Temperature 97.8 F 10/04/18 15:27 Pulse Rate 83 10/04/18 15:27 Respiratory Rate 18 10/04/18 10:00 Blood Pressure 145/68 10/04/18 15:27 O2 Sat by Pulse Oximetry (%) 96 10/04/18 11:03 Constitutional: Yes: Well Nourished, No Distress, Calm Cardiovascular: Yes: Regular Rate and Rhythm, Murmur (grade IV/) Respiratory: Yes: Diminished, On Nasal O2, SOB, SOB on Exertion Genitourinary: Yes: Huizar Present Musculoskeletal: Yes: Muscle Weakness Extremities: Yes: WNL Edema: Yes (much improved) Edema: LLE: Trace, RLE: Trace Peripheral Pulses WNL: Yes Neurological: Yes: Alert, Oriented Psychiatric: Yes: Alert, Oriented Labs: CBC, BMP 10/04/18 07:20 10/04/18 07:20 Problem List - Problems (1) ANASTASIA (acute kidney injury) Assessment/Plan: -Seen by nephrology -Cr trending up Code(s): N17.9 - ACUTE KIDNEY FAILURE, UNSPECIFIED (2) Acute diastolic CHF (congestive heart failure) Assessment/Plan: -Cardiology+ nephrology on board -IV furosemide 40 mg once today, then as per renal -daily weights -I&O Code(s): I50.31 - ACUTE DIASTOLIC (CONGESTIVE) HEART FAILURE (3) Anemia Assessment/Plan: -H/H stable -hypothyroidism being corrected -Iron stores normal -Stool OB negative Code(s): D64.9 - ANEMIA, UNSPECIFIED (4) COPD (chronic obstructive pulmonary disease) Assessment/Plan: -Nasal O2 4 lpm -Seen by pulmonary -bronchodilators -IV medrol Code(s): J44.9 - CHRONIC OBSTRUCTIVE PULMONARY DISEASE, UNSPECIFIED Qualifiers: COPD type: unspecified COPD Qualified Code(s): J44.9 - Chronic obstructive pulmonary disease, unspecified (5) Pneumonia Assessment/Plan: -Nasal O2 4 lpm -Seen by pulmonary -bronchodilators -IV medrol -IV abx Code(s): J18.9 - PNEUMONIA, UNSPECIFIED ORGANISM Qualifiers: Pneumonia type: due to unspecified organism Laterality: unspecified laterality Lung location: unspecified part of lung Qualified Code(s): J18.9 - Pneumonia, unspecified organism (6) Severe aortic stenosis Assessment/Plan: -Cardiology on board - Code(s): I35.0 - NONRHEUMATIC AORTIC (VALVE) STENOSIS (7) Hyponatremia Assessment/Plan: -improving -nephrology on board Code(s): E87.1 - HYPO-OSMOLALITY AND HYPONATREMIA (8) CAD (coronary artery disease) Assessment/Plan: -Plavix,asa,statin Code(s): I25.10 - ATHSCL HEART DISEASE OF [place] CORONARY ARTERY W/O ANG PCTRS (9) Hypothyroid Assessment/Plan: -levothyroxine increased to 75 mcg po daily -repeat thyroid profile in 4 weeks Code(s): E03.9 - HYPOTHYROIDISM, UNSPECIFIED (10) Lung nodule Assessment/Plan: -seen by pulmonary -not emergent, can be followed up outpatient Code(s): R91.1 - SOLITARY PULMONARY NODULE Assessment/Plan see problem list unable to tolerate PT at this time
[2018-10-04] MEDS: LIDOCAINE PATCH REMOVAL MC SCH (22:01)
--- NOTE | 2018-10-05 00:47 | PN ---
Progress Note, Physician Chief Complaint: Pt A&Ox3; ; lying in bed; fatigued. History of Present Illness: 83 yr old white woman with h/o COPD, diastolic CHF, severe aortic stenosis, ACS s/p stent 2014 (denies hx [place]), HTN, HLD, hypothyroidism, hip replacement, current bronchitis, and recently diagnosed leg cellulitis (states she is on amoxicillin for the cellulitis) who p/w worsening wet cough and SOB for the past 2 weeks, particularly worse tonight. She has had chills but denies any measured fever, nausea, vomiting, constipation, n/t/w focally, headache, back pain, neck pain, or other symptoms. Her family expresses concern her legs are so swollen she is unable to lift them or even walk. The patient notes her legs are only painful when she tries to weight bear. - Current Medication List Current Medications: Active Medications Acetaminophen (Tylenol -) 650 mg PO Q6H PRN PRN Reason: PAIN OR FEVER Albuterol Sulfate (Ventolin 0.083% Nebulizer Soln -) 1 amp NEB Q4H PRN PRN Reason: SHORT OF BREATH/WHEEZING Last Admin: 10/02/18 00:04 Dose: 1 amp Albuterol/Ipratropium (Duoneb -) 1 amp NEB RQID [facility] Last Admin: 10/04/18 20:05 Dose: 1 amp Aspirin (Ecotrin -) 81 mg PO DAILY [facility] Last Admin: 10/04/18 10:37 Dose: 81 mg Benzocaine/Menthol (Cepacol Lozenge -) 1 each MM PRN PRN PRN Reason: SORE THROAT Last Admin: 10/02/18 13:40 Dose: 1 each Clopidogrel Bisulfate (Plavix -) 75 mg PO DAILY [facility] Last Admin: 10/04/18 10:36 Dose: 75 mg Diltiazem HCl (Cardizem Injection -) 5 mg IVPUSH Q4H PRN PRN Reason: TACHYCARDIA Guaifenesin/Codeine Phosphate (Robitussin Ac -) 5 ml PO TID PRN PRN Reason: COUGH Last Admin: 10/01/18 21:40 Dose: 5 ml Heparin Sodium (Porcine) (Heparin -) 5,000 unit SQ BID [facility] Last Admin: 10/04/18 22:01 Dose: 5,000 unit Ceftriaxone Sodium 1 gm/ (Dextrose) 50 mls @ 100 mls/hr IVPB DAILY [facility]; Protocol Last Admin: 10/04/18 10:35 Dose: 100 mls/hr Levothyroxine Sodium (Synthroid -) 75 mcg PO DAILY@0700 [facility] Last Admin: 10/04/18 06:05 Dose: 75 mcg Methyl Salicylate (David-Trinh -) 1 applic TP BID [facility] Last Admin: 10/04/18 22:00 Dose: Not Given Methylprednisolone Sodium Succinate (Solu-Medrol -) 40 mg IVPUSH Q8H-IV [facility] Last Admin: 10/04/18 17:16 Dose: 40 mg Miscellaneous (Lidoderm Patch Removal) 1 each MC DAILY@2200 [facility] Last Admin: 10/04/18 22:01 Dose: 1 each Pantoprazole Sodium (Protonix -) 40 mg PO DAILY [facility] Last Admin: 10/04/18 10:36 Dose: 40 mg Phenol/Menthol (Chloraseptic -) 1 spray MM Q6HPO PRN PRN Reason: SORE THROAT Last Admin: 10/02/18 21:50 Dose: 1 spray Polyethylene Glycol (Miralax (For Daily Use) -) 17 gm PO DAILY [facility] Last Admin: 10/04/18 10:16 Dose: 17 grams Sodium Bicarbonate (Sodium Bicarbonate -) 325 mg PO BID [facility] Last Admin: 10/04/18 22:02 Dose: 325 mg Sodium Chloride ([place]al [place] -) 2 spray NS TID PRN PRN Reason: NASAL CONGESTION Last Admin: 10/03/18 13:43 Dose: 2 spray - Objective Vital Signs: Vital Signs Temperature 97.8 F 10/04/18 15:27 Pulse Rate 83 10/04/18 15:27 Respiratory Rate 18 10/04/18 10:00 Blood Pressure 145/68 10/04/18 15:27 O2 Sat by Pulse Oximetry (%) 96 10/04/18 11:03 Constitutional: Yes: Anxious, Thin Eyes: Yes: WNL HENT: Yes: WNL Neck: Yes: WNL Cardiovascular: Yes: Regular Rate and Rhythm Respiratory: Yes: Diminished, Rales Gastrointestinal: Yes: Soft ...Rectal Exam: Yes: Deferred Genitourinary: No: Anuria Breast(s): Yes: WNL Musculoskeletal: Yes: Muscle Weakness Extremities: Yes: Erythema Edema: Yes Edema: LLE: 1+, RLE: 1+ Peripheral Pulses WNL: Yes Integumentary: Yes: WNL Neurological: Yes: Alert, Oriented, Weakness Psychiatric: Yes: Other Labs: CBC, BMP 10/04/18 07:20 10/04/18 07:20 Problem List - Problems (1) Severe aortic stenosis Assessment/Plan: ECHO 09/29/2018: normal LVEF; mild LVH; abnormal diatolic compliance; severe aortic stenosis (), mild AR, moderate pulmonary HTN; severe MAC and aortic valve calcification; moderate LAE. The potential benefits (symptoms; mortality) from TAVR were discussed with pt and family. Presently, worsening renal status makes this option problematic. Pt is against undergoing dialysis. Avoid excessive diuresis/dehydration. Code(s): I35.0 - NONRHEUMATIC AORTIC (VALVE) STENOSIS (2) HTN (hypertension) Code(s): I10 - ESSENTIAL (PRIMARY) HYPERTENSION (3) CAD (coronary artery disease) Assessment/Plan: hx CAD-->coronary stent 2014. EKG: T wave changes: consider lateral ischemia. If TAVR is contemplated, will also have coronary angiogram (both are problematic at present due to worsening renal function). Code(s): I25.10 - ATHSCL HEART DISEASE OF [place] CORONARY ARTERY W/O ANG PCTRS (4) ANASTASIA (acute kidney injury) Assessment/Plan: f/u with [employer]. Code(s): N17.9 - ACUTE KIDNEY FAILURE, UNSPECIFIED (5) Anemia Assessment/Plan: s/p PRBCs F/u etiology of blood loss. Code(s): D64.9 - ANEMIA, UNSPECIFIED (6) COPD (chronic obstructive pulmonary disease) Assessment/Plan: Quit cigarettes only a few years ago, after many years smoking. CT chest: RUL lung nodule (recommended f/u CT/PET in 3 months. Dense coronary artery calcification; moderate bilateral pleural effusions. Code(s): J44.9 - CHRONIC OBSTRUCTIVE PULMONARY DISEASE, UNSPECIFIED Qualifiers: COPD type: unspecified COPD Qualified Code(s): J44.9 - Chronic obstructive pulmonary disease, unspecified (7) Acute diastolic CHF (congestive heart failure) Code(s): I50.31 - ACUTE DIASTOLIC (CONGESTIVE) HEART FAILURE (8) Lung nodule Code(s): R91.1 - SOLITARY PULMONARY NODULE (9) Coronary atherosclerosis due to calcified coronary lesion of [place] artery Code(s): I25.10 - ATHSCL HEART DISEASE OF [place] CORONARY ARTERY W/O ANG PCTRS; I25.84 - CORONARY ATHEROSCLEROSIS DUE TO CALCIFIED CORONARY LESION
[2018-10-05] MEDS: methylPREDNISolone NA SUCC 40 MG/1 ML VIAL IVPUSH SCH ×3 (02:20→17:24)
[2018-10-05] MEDS: LEVOTHYROXINE NA 75 MCG TABLET (FP) PO SCH (06:20)
[2018-10-05 07:25] LABS: HEMATOCRIT 31.5 % (32.4-45.2); HEMOGLOBIN 10.8 GM/dL (10.7-15.3); LYMPH % 1.3 % (8-40); MCH 31.1 pg (25.7-33.7); MCHC 34.1 g/dl (32.0-36.0); MEAN CELL VOLUME 91.2 fl (80-96); MEAN PLT VOLUME 9.1 fl (7.5-11.1); NEUT % 95.7 % (42.8-82.8); PLATELET COUNT 233 K/MM3 (134-434); RBC 3.46 M/mm3 (3.60-5.2); RDW 15.6 % (11.6-15.6); WHITE BLOOD COUNT 9.7 K/mm3 (4.0-10.0)
[2018-10-05 08:03] LABS: ALBUMIN 2.7 g/dl (3.4-5.0); ALK PHOS 97 U/L (45-117); ANION GAP 14 MMOL/L (8-16); BILIRUBIN,TOTAL 0.3 mg/dL (0.2-1); BLOOD UREA NITROGEN 103 mg/dL (7-18); CALCIUM 7.4 mg/dL (8.5-10.1); CHLORIDE 91 mmol/L (98-107); CO2 25 mmol/L (21-32); CREATININE 3.6 mg/dL (0.55-1.3); GLUCOSE,RANDOM 175 mg/dL (74-106); POTASSIUM 4.7 mmol/L (3.5-5.1); SGOT/AST 18 U/L (15-37); SGPT/ALT 37 U/L (13-61); SODIUM 130 mmol/L (136-145); TOT PROT 5.6 g/dl (6.4-8.2)
[2018-10-05] MEDS: ALBUTEROL SO4 2.5/IPRATROPIUM 0.5 INH SOL 3 ML VIAL.NEB. NEB SCH ×4 (08:35→20:42)
[2018-10-05] MEDS ORDERED: cefTRIAXone SODIUM 1 GM VIAL ONE (09:26)
[2018-10-05] MEDS ORDERED: PT OWN MED DRAWER 7, Y5N ONE (09:26)
[2018-10-05] MEDS ORDERED: DEXTROSE 5%-WATER - 50 ML IVPB ONE (09:26)
[2018-10-05] MEDS: PANTOPRAZOLE 40 MG TABLET (FP) PO SCH (09:47)
[2018-10-05] MEDS: ASPIRIN COATED 81 MG TABLET.EC PO SCH (09:47)
[2018-10-05] MEDS: CLOPIDOGREL BISULFATE 75 MG TABLET (FP) PO SCH (09:47)
[2018-10-05] MEDS: METHYL SALICYLATE/MENTHOL OINT 30 GM TUBE TP SCH ×2 (09:48→21:16)
[2018-10-05] MEDS: HEPARIN NA (PORCINE) 5,000 UNITS/ML 1ML VIAL SQ SCH ×2 (09:48→21:15)
[2018-10-05] MEDS: POLYETHYLENE GLYCOL 3350 119 GM BTL PO SCH (09:48)
[2018-10-05] MEDS: CEFTRIAXONE 1 GM in DEXTROSE 5%-WATER - 50 ML IVPB SCH (09:48)
[2018-10-05] MEDS: SODIUM BICARBONATE 325 MG TABLET PO SCH ×2 (09:48→21:16)
[2018-10-05 10:35] LABS: ANISOCYTOSIS 1+; MACROCYTOSIS 0; OVALOCYTE 1+; PLATELET ESTIMATE NORMAL
--- NOTE | 2018-10-05 12:11 | PN ---
Progress Note (short form) - Note Progress Note: PULMONARY Still some shortness of breath and chest tightness. +nonproductive cough. Vital Signs Period Temp Pulse Resp BP Sys/Boyer Pulse Ox Last 24 Hr 97.8 F-98.0 F 83-87 20-20 145-172/64-68 95-98 Gen: NAD in chair Heart: RRR, +systolic murmur RUSB Lung: bibasilar rales, rhonchi Abd: soft, nontender Ext: + edema CBC, BMP 10/05/18 06:20 10/05/18 06:20 Active Medications Acetaminophen (Tylenol -) 650 mg PO Q6H PRN PRN Reason: PAIN OR FEVER Albuterol Sulfate (Ventolin 0.083% Nebulizer Soln -) 1 amp NEB Q4H PRN PRN Reason: SHORT OF BREATH/WHEEZING Last Admin: 10/02/18 00:04 Dose: 1 amp Albuterol/Ipratropium (Duoneb -) 1 amp NEB RQID [facility] Last Admin: 10/05/18 08:35 Dose: 1 amp Aspirin (Ecotrin -) 81 mg PO DAILY [facility] Last Admin: 10/05/18 09:47 Dose: 81 mg Benzocaine/Menthol (Cepacol Lozenge -) 1 each MM PRN PRN PRN Reason: SORE THROAT Last Admin: 10/02/18 13:40 Dose: 1 each Clopidogrel Bisulfate (Plavix -) 75 mg PO DAILY [facility] Last Admin: 10/05/18 09:47 Dose: 75 mg Diltiazem HCl (Cardizem Injection -) 5 mg IVPUSH Q4H PRN PRN Reason: TACHYCARDIA Guaifenesin/Codeine Phosphate (Robitussin Ac -) 5 ml PO TID PRN PRN Reason: COUGH Last Admin: 10/01/18 21:40 Dose: 5 ml Heparin Sodium (Porcine) (Heparin -) 5,000 unit SQ BID [facility] Last Admin: 10/05/18 09:48 Dose: 5,000 unit Ceftriaxone Sodium 1 gm/ (Dextrose) 50 mls @ 100 mls/hr IVPB DAILY [facility]; Protocol Last Admin: 10/05/18 09:48 Dose: 100 mls/hr Levothyroxine Sodium (Synthroid -) 75 mcg PO DAILY@0700 [facility] Last Admin: 10/05/18 06:20 Dose: 75 mcg Methyl Salicylate (David-Trinh -) 1 applic TP BID [facility] Last Admin: 10/05/18 09:48 Dose: Not Given Methylprednisolone Sodium Succinate (Solu-Medrol -) 40 mg IVPUSH Q8H-IV [facility] Last Admin: 10/05/18 09:50 Dose: 40 mg Pantoprazole Sodium (Protonix -) 40 mg PO DAILY [facility] Last Admin: 10/05/18 09:47 Dose: 40 mg Phenol/Menthol (Chloraseptic -) 1 spray MM Q6HPO PRN PRN Reason: SORE THROAT Last Admin: 10/02/18 21:50 Dose: 1 spray Polyethylene Glycol (Miralax (For Daily Use) -) 17 gm PO DAILY [facility] Last Admin: 10/05/18 09:48 Dose: Not Given Sodium Bicarbonate (Sodium Bicarbonate -) 325 mg PO BID [facility] Last Admin: 10/05/18 09:48 Dose: 325 mg Sodium Chloride ([place] Nasal [place] -) 2 spray NS TID PRN PRN Reason: NASAL CONGESTION Last Admin: 10/03/18 13:43 Dose: 2 spray A/P Acute on Chronic Diastolic Heart Failure Severe Aortic Stenosis Acute COPD Exacerbation Lung Nodule r/o Pneumonia Pulmonary HTN Hemoptysis Acute on Chronic Renal Failure HTN DM Smoker - monitor urine output, creatinine - continue medrol at current dose - inhaled bronchodilators - O2 to keep SpO2 >90% - monitor hemoptysis - continue antibiotics - will need outpt f/u of lung nodule - DVT prophylaxis
[2018-10-05] MEDS ORDERED: FUROSEMIDE 40 MG/4 ML INJECTABLE VIAL IVPUSH ONE (14:30)
--- NOTE | 2018-10-05 14:34 | PN ---
Progress Note, Physician Chief Complaint: Acute on Chronic Diastolic Heart Failure Severe Aortic Stenosis Acute COPD Exacerbation Lung Nodule r/o Pneumonia Pulmonary HTN Hemoptysis Acute on Chronic Renal Failure HTN DM Smoker History of Present Illness: Extremely SOB, even when turning in bed, feeling worse today Furosemide held due to hyponatremia On Nasal O2 @ 4 lpm with Spo2 of 93% - Current Medication List Current Medications: Active Medications Acetaminophen (Tylenol -) 650 mg PO Q6H PRN PRN Reason: PAIN OR FEVER Albuterol Sulfate (Ventolin 0.083% Nebulizer Soln -) 1 amp NEB Q4H PRN PRN Reason: SHORT OF BREATH/WHEEZING Last Admin: 10/02/18 00:04 Dose: 1 amp Albuterol/Ipratropium (Duoneb -) 1 amp NEB RQID [facility] Last Admin: 10/05/18 08:35 Dose: 1 amp Aspirin (Ecotrin -) 81 mg PO DAILY [facility] Last Admin: 10/05/18 09:47 Dose: 81 mg Benzocaine/Menthol (Cepacol Lozenge -) 1 each MM PRN PRN PRN Reason: SORE THROAT Last Admin: 10/02/18 13:40 Dose: 1 each Clopidogrel Bisulfate (Plavix -) 75 mg PO DAILY [facility] Last Admin: 10/05/18 09:47 Dose: 75 mg Diltiazem HCl (Cardizem Injection -) 5 mg IVPUSH Q4H PRN PRN Reason: TACHYCARDIA Guaifenesin/Codeine Phosphate (Robitussin Ac -) 5 ml PO TID PRN PRN Reason: COUGH Last Admin: 10/01/18 21:40 Dose: 5 ml Heparin Sodium (Porcine) (Heparin -) 5,000 unit SQ BID [facility] Last Admin: 10/05/18 09:48 Dose: 5,000 unit Ceftriaxone Sodium 1 gm/ (Dextrose) 50 mls @ 100 mls/hr IVPB DAILY [facility]; Protocol Last Admin: 10/05/18 09:48 Dose: 100 mls/hr Levothyroxine Sodium (Synthroid -) 75 mcg PO DAILY@0700 [facility] Last Admin: 10/05/18 06:20 Dose: 75 mcg Methyl Salicylate (David-Trinh -) 1 applic TP BID [facility] Last Admin: 10/05/18 09:48 Dose: Not Given Methylprednisolone Sodium Succinate (Solu-Medrol -) 40 mg IVPUSH Q8H-IV [facility] Last Admin: 10/05/18 09:50 Dose: 40 mg Pantoprazole Sodium (Protonix -) 40 mg PO DAILY [facility] Last Admin: 10/05/18 09:47 Dose: 40 mg Phenol/Menthol (Chloraseptic -) 1 spray MM Q6HPO PRN PRN Reason: SORE THROAT Last Admin: 10/02/18 21:50 Dose: 1 spray Polyethylene Glycol (Miralax (For Daily Use) -) 17 gm PO DAILY [facility] Last Admin: 10/05/18 09:48 Dose: Not Given Sodium Bicarbonate (Sodium Bicarbonate -) 325 mg PO BID [facility] Last Admin: 10/05/18 09:48 Dose: 325 mg Sodium Chloride ([place] Nasal [place] -) 2 spray NS TID PRN PRN Reason: NASAL CONGESTION Last Admin: 10/03/18 13:43 Dose: 2 spray - Objective Vital Signs: Vital Signs Temperature 98.0 F 10/05/18 10:00 Pulse Rate 84 10/05/18 10:00 Respiratory Rate 20 10/05/18 10:00 Blood Pressure 149/57 L 10/05/18 10:00 O2 Sat by Pulse Oximetry (%) 98 10/05/18 09:49 Constitutional: Yes: No Distress, Calm, Mild Distress Cardiovascular: Yes: Regular Rate and Rhythm, Murmur (grade IV/) Respiratory: Yes: Regular Gastrointestinal: Yes: Normal Bowel Sounds, Soft Genitourinary: Yes: Huizar Present Musculoskeletal: Yes: Muscle Weakness Edema: Yes Edema: LLE: Trace, RLE: Trace Peripheral Pulses WNL: Yes Neurological: Yes: Alert, Oriented Psychiatric: Yes: Alert, Oriented Labs: CBC, BMP 10/05/18 06:20 10/05/18 06:20 Problem List - Problems (1) ANASTASIA (acute kidney injury) Assessment/Plan: -Seen by nephrology -Cr trending up Code(s): N17.9 - ACUTE KIDNEY FAILURE, UNSPECIFIED (2) Acute diastolic CHF (congestive heart failure) Assessment/Plan: -Cardiology+ nephrology on board -IV furosemide 40 mg once today, then as per renal -daily weights -I&O Code(s): I50.31 - ACUTE DIASTOLIC (CONGESTIVE) HEART FAILURE (3) Anemia Assessment/Plan: -H/H stable -hypothyroidism being corrected -Iron stores normal -Stool OB negative Code(s): D64.9 - ANEMIA, UNSPECIFIED (4) COPD (chronic obstructive pulmonary disease) Assessment/Plan: -Nasal O2 4 lpm -Seen by pulmonary -bronchodilators -IV medrol Code(s): J44.9 - CHRONIC OBSTRUCTIVE PULMONARY DISEASE, UNSPECIFIED Qualifiers: COPD type: unspecified COPD Qualified Code(s): J44.9 - Chronic obstructive pulmonary disease, unspecified (5) Pneumonia Assessment/Plan: -Nasal O2 4 lpm -Seen by pulmonary -bronchodilators -IV medrol -IV abx Code(s): J18.9 - PNEUMONIA, UNSPECIFIED ORGANISM Qualifiers: Pneumonia type: due to unspecified organism Laterality: unspecified laterality Lung location: unspecified part of lung Qualified Code(s): J18.9 - Pneumonia, unspecified organism (6) Severe aortic stenosis Assessment/Plan: -Cardiology on board - Code(s): I35.0 - NONRHEUMATIC AORTIC (VALVE) STENOSIS (7) Hyponatremia Assessment/Plan: -improving -nephrology on board Code(s): E87.1 - HYPO-OSMOLALITY AND HYPONATREMIA (8) CAD (coronary artery disease) Assessment/Plan: -Plavix,asa,statin Code(s): I25.10 - ATHSCL HEART DISEASE OF [place] CORONARY ARTERY W/O ANG PCTRS (9) Hypothyroid Assessment/Plan: -levothyroxine increased to 75 mcg po daily -repeat thyroid profile in 4 weeks Code(s): E03.9 - HYPOTHYROIDISM, UNSPECIFIED (10) Lung nodule Assessment/Plan: -seen by pulmonary -not emergent, can be followed up outpatient Code(s): R91.1 - SOLITARY PULMONARY NODULE Assessment/Plan see problem list unable to tolerate PT at this time
--- NOTE | 2018-10-05 18:09 | PN ---
Progress Note, Physician History of Present Illness: Pt seen and examined at bedside. She developed shortness of breath and was given a dose of lasix. - Current Medication List Current Medications: Active Medications Acetaminophen (Tylenol -) 650 mg PO Q6H PRN PRN Reason: PAIN OR FEVER Albuterol Sulfate (Ventolin 0.083% Nebulizer Soln -) 1 amp NEB Q4H PRN PRN Reason: SHORT OF BREATH/WHEEZING Last Admin: 10/02/18 00:04 Dose: 1 amp Albuterol/Ipratropium (Duoneb -) 1 amp NEB RQID [facility] Last Admin: 10/05/18 08:35 Dose: 1 amp Aspirin (Ecotrin -) 81 mg PO DAILY [facility] Last Admin: 10/05/18 09:47 Dose: 81 mg Benzocaine/Menthol (Cepacol Lozenge -) 1 each MM PRN PRN PRN Reason: SORE THROAT Last Admin: 10/02/18 13:40 Dose: 1 each Clopidogrel Bisulfate (Plavix -) 75 mg PO DAILY [facility] Last Admin: 10/05/18 09:47 Dose: 75 mg Diltiazem HCl (Cardizem Injection -) 5 mg IVPUSH Q4H PRN PRN Reason: TACHYCARDIA Guaifenesin/Codeine Phosphate (Robitussin Ac -) 5 ml PO TID PRN PRN Reason: COUGH Last Admin: 10/01/18 21:40 Dose: 5 ml Heparin Sodium (Porcine) (Heparin -) 5,000 unit SQ BID [facility] Last Admin: 10/05/18 09:48 Dose: 5,000 unit Ceftriaxone Sodium 1 gm/ (Dextrose) 50 mls @ 100 mls/hr IVPB DAILY [facility]; Protocol Last Admin: 10/05/18 09:48 Dose: 100 mls/hr Levothyroxine Sodium (Synthroid -) 75 mcg PO DAILY@0700 [facility] Last Admin: 10/05/18 06:20 Dose: 75 mcg Methyl Salicylate (David-Trinh -) 1 applic TP BID [facility] Last Admin: 10/05/18 09:48 Dose: Not Given Methylprednisolone Sodium Succinate (Solu-Medrol -) 40 mg IVPUSH Q8H-IV [facility] Last Admin: 10/05/18 17:24 Dose: 40 mg Pantoprazole Sodium (Protonix -) 40 mg PO DAILY [facility] Last Admin: 10/05/18 09:47 Dose: 40 mg Phenol/Menthol (Chloraseptic -) 1 spray MM Q6HPO PRN PRN Reason: SORE THROAT Last Admin: 10/02/18 21:50 Dose: 1 spray Polyethylene Glycol (Miralax (For Daily Use) -) 17 gm PO DAILY [facility] Last Admin: 10/05/18 09:48 Dose: Not Given Sodium Bicarbonate (Sodium Bicarbonate -) 325 mg PO BID [facility] Last Admin: 10/05/18 09:48 Dose: 325 mg Sodium Chloride ([place] Nasal [place] -) 2 spray NS TID PRN PRN Reason: NASAL CONGESTION Last Admin: 10/03/18 13:43 Dose: 2 spray - Objective Vital Signs: Vital Signs Temperature 97.8 F 10/05/18 14:00 Pulse Rate 85 10/05/18 14:00 Respiratory Rate 10/05/18 10:00 Blood Pressure 172/70 H 10/05/18 14:00 O2 Sat by Pulse Oximetry (%) 98 10/05/18 09:49 Constitutional: Yes: Anxious Cardiovascular: Yes: Murmur, S1, S2 Respiratory: Yes: On Nasal O2 Gastrointestinal: Yes: Soft Genitourinary: Yes: Hu[place] Present Musculoskeletal: Yes: WNL Edema: Yes Edema: LLE: 2+, RLE: 2+ Integumentary: Yes: Venous Stasis Changes Neurological: Yes: Oriented Psychiatric: Yes: Oriented Labs: CBC, BMP 10/05/18 06:20 10/05/18 06:20 Problem List - Problems (1) Acute hypoxemic respiratory failure Code(s): J96.01 - ACUTE RESPIRATORY FAILURE WITH HYPOXIA (2) Anemia Code(s): D64.9 - ANEMIA, UNSPECIFIED (3) CHF exacerbation Code(s): I50.9 - HEART FAILURE, UNSPECIFIED Qualifiers: Heart failure type: unspecified Qualified Code(s): I50.9 - Heart failure, unspecified (4) COPD (chronic obstructive pulmonary disease) Code(s): J44.9 - CHRONIC OBSTRUCTIVE PULMONARY DISEASE, UNSPECIFIED Qualifiers: COPD type: unspecified COPD Qualified Code(s): J44.9 - Chronic obstructive pulmonary disease, unspecified (5) Hyperkalemia Code(s): E87.5 - HYPERKALEMIA (6) Tobacco abuse Code(s): Z72.0 - TOBACCO USE Assessment/Plan Current Medications Generic Name Dose Route Start Last Admin Trade Name Freq PRN Reason Stop Dose Admin Acetaminophen 650 mg 09/28/18 21:26 Tylenol - PO Q6H PRN PAIN OR FEVER Albuterol Sulfate 1 amp 10/01/18 01:58 10/02/18 00:04 Ventolin 0.083% Nebulizer Soln - NEB 1 amp Q4H PRN Administration SHORT OF BREATH/WHEEZING Albuterol/Ipratropium 1 amp 09/30/18 11:16 10/05/18 08:35 Duoneb - NEB 1 amp RQID [facility] Administration Aspirin 81 mg 09/29/18 10:00 10/05/18 09:47 Ecotrin - PO 81 mg DAILY [facility] Administration Benzocaine/Menthol 1 each 10/02/18 12:05 10/02/18 13:40 Cepacol Lozenge - MM 1 each PRN PRN Administration SORE THROAT Clopidogrel Bisulfate 75 mg 09/29/18 10:00 10/05/18 09:47 Plavix - PO 75 mg DAILY [facility] Administration Diltiazem HCl 5 mg 10/01/18 10:05 Cardizem Injection - IVPUSH Q4H PRN TACHYCARDIA Guaifenesin/Codeine Phosphate 5 ml 10/01/18 10:03 10/01/18 21:40 Robitussin Ac - PO 5 ml TID PRN Administration COUGH Heparin Sodium (Porcine) 5,000 unit 09/28/18 22:00 10/05/18 09:48 Heparin - SQ 5,000 unit BID [facility] Administration Ceftriaxone Sodium 1 gm/ 50 mls @ 100 mls/hr 09/29/18 21:00 10/05/18 09:48 Dextrose IVPB 100 mls/hr DAILY [facility] Administration Protocol Levothyroxine Sodium 75 mcg 09/29/18 07:00 10/05/18 06:20 Synthroid - PO 75 mcg DAILY@0700 [facility] Administration Methyl Salicylate 1 applic 10/01/18 22:00 10/05/18 09:48 David-Trinh - TP Not Given BID [facility] Methylprednisolone Sodium Succinate 40 mg 09/29/18 02:00 10/05/18 17:24 Solu-Medrol - IVPUSH 40 mg Q8H-IV [facility] Administration Pantoprazole Sodium 40 mg 10/02/18 14:00 10/05/18 09:47 Protonix - PO 40 mg DAILY [facility] Administration Phenol/Menthol 1 spray 10/02/18 12:05 10/02/18 21:50 Chloraseptic - MM 1 spray Q6HPO PRN Administration SORE THROAT Polyethylene Glycol 17 gm 10/02/18 15:00 10/05/18 09:48 Miralax (For Daily Use) - PO Not Given DAILY [facility] Sodium Bicarbonate 325 mg 10/02/18 22:00 10/05/18 09:48 Sodium Bicarbonate - PO 325 mg BID [facility] Administration Sodium Chloride 2 spray 10/02/18 12:04 10/03/18 13:43 [place] Nasal Combs - NS 2 spray TID PRN Administration NASAL CONGESTION Impression 1. hyperkalemia 2. CKD 3. CAD 4. COPD 5. hypothyroidism 6. CHF 7. severe aortic stenosis Plan - IV lasix - d/c po bicarb - sodium improving - cardio follow up - pt has significant valvular disease - restrict free water intake - will follow Dr Smith
--- NOTE | 2018-10-05 18:31 | EKG ---
Test Reason : Blood Pressure : / mmHG Vent. Rate : 077 BPM Atrial Rate : 077 BPM P-R Int : 114 ms QRS Dur : 094 ms QT Int : 370 ms P-R-T Axes : 061 -25 096 degrees QTc Int : 418 ms NORMAL SINUS RHYTHM POSSIBLE LEFT ATRIAL ENLARGEMENT NONSPECIFIC T WAVE ABNORMALITY ABNORMAL ECG WHEN COMPARED WITH ECG OF 04-OCT-2018 12:38, PREMATURE ATRIAL COMPLEXES ARE NO LONGER PRESENT Confirmed by HERNANDEZ GOETZ, EFREM ([id number]) on 10/05/2018 6:31:19 PM Referred By: Maira MCALLISTER Confirmed By:EFREM NG MD
--- NOTE | 2018-10-05 19:09 | EKG ---
Test Reason : Blood Pressure : / mmHG Vent. Rate : 081 BPM Atrial Rate : 081 BPM P-R Int : 114 ms QRS Dur : 094 ms QT Int : 362 ms P-R-T Axes : 078 -24 103 degrees QTc Int : 420 ms SINUS RHYTHM WITH PREMATURE ATRIAL COMPLEXES POSSIBLE LEFT ATRIAL ENLARGEMENT T WAVE ABNORMALITY, CONSIDER LATERAL ISCHEMIA ABNORMAL ECG WHEN COMPARED WITH ECG OF 28-SEP-2018 21:24, PREMATURE ATRIAL COMPLEXES ARE NOW PRESENT Confirmed by HERNANDEZ GOETZ, EFREM ([id number]) on 10/05/2018 7:08:56 PM Referred By: Maira MCALLISTER Confirmed By:EFREM NG MD
[2018-10-05] MEDS: PHENOL 177 ML SPRAY BOTTLE MM PRN (21:19)
[2018-10-06] MEDS: methylPREDNISolone NA SUCC 40 MG/1 ML VIAL IVPUSH SCH ×3 (02:10→18:21)
[2018-10-06] MEDS: ALBUTEROL SO4 0.083% IH SOL 2.5 MG/3 ML VIAL.NEB. NEB PRN (05:37)
[2018-10-06] MEDS: LEVOTHYROXINE NA 75 MCG TABLET (FP) PO SCH (06:09)
[2018-10-06 07:39] LABS: BASO % 0.2 % (0-2.0); HEMATOCRIT 31.9 % (32.4-45.2); HEMOGLOBIN 10.9 GM/dL (10.7-15.3); LYMPH % 1.1 % (8-40); MCH 30.8 pg (25.7-33.7); MCHC 34.1 g/dl (32.0-36.0); MEAN CELL VOLUME 90.3 fl (80-96); MEAN PLT VOLUME 9.4 fl (7.5-11.1); MONO % 1.8 % (3.8-10.2); NEUT % 96.9 % (42.8-82.8); PLATELET COUNT 225 K/MM3 (134-434); RBC 3.53 M/mm3 (3.60-5.2); RDW 15.8 % (11.6-15.6); WHITE BLOOD COUNT 11.5 K/mm3 (4.0-10.0)
[2018-10-06] MEDS: ALBUTEROL SO4 2.5/IPRATROPIUM 0.5 INH SOL 3 ML VIAL.NEB. NEB SCH ×4 (08:00→20:59)
[2018-10-06 08:14] LABS: ALBUMIN 2.6 g/dl (3.4-5.0); ALK PHOS 96 U/L (45-117); ANION GAP 13 MMOL/L (8-16); BILIRUBIN,TOTAL 0.3 mg/dL (0.2-1); BLOOD UREA NITROGEN 102 mg/dL (7-18); CALCIUM 7.6 mg/dL (8.5-10.1); CHLORIDE 90 mmol/L (98-107); CO2 26 mmol/L (21-32); CREATININE 3.4 mg/dL (0.55-1.3); GLUCOSE,RANDOM 201 mg/dL (74-106); POTASSIUM 4.5 mmol/L (3.5-5.1); SGOT/AST 14 U/L (15-37); SGPT/ALT 30 U/L (13-61); SODIUM 128 mmol/L (136-145); TOT PROT 5.5 g/dl (6.4-8.2)
--- NOTE | 2018-10-06 09:29 | PN ---
Progress Note, Physician History of Present Illness: 83 yr old white woman with h/o COPD, diastolic CHF, severe aortic stenosis, ACS s/p stent 2014 (denies hx VT), HTN, HLD, hypothyroidism, hip replacement, current bronchitis, and recently diagnosed leg cellulitis (states she is on amoxicillin for the cellulitis) who p/w worsening wet cough and SOB for the past 2 weeks, particularly worse tonight. She has had chills but denies any measured fever, nausea, vomiting, constipation, n/t/w focally, headache, back pain, neck pain, or other symptoms. Her family expresses concern her legs are so swollen she is unable to lift them or even walk. The patient notes her legs are only painful when she tries to weight bear. - Current Medication List Current Medications: Active Medications Acetaminophen (Tylenol -) 650 mg PO Q6H PRN PRN Reason: PAIN OR FEVER Albuterol Sulfate (Ventolin 0.083% Nebulizer Soln -) 1 amp NEB Q4H PRN PRN Reason: SHORT OF BREATH/WHEEZING Last Admin: 10/06/18 05:37 Dose: 1 amp Albuterol/Ipratropium (Duoneb -) 1 amp NEB RQID [facility] Last Admin: 10/06/18 08:00 Dose: 1 amp Aspirin (Ecotrin -) 81 mg PO DAILY [facility] Last Admin: 10/05/18 09:47 Dose: 81 mg Benzocaine/Menthol (Cepacol Lozenge -) 1 each MM PRN PRN PRN Reason: SORE THROAT Last Admin: 10/02/18 13:40 Dose: 1 each Clopidogrel Bisulfate (Plavix -) 75 mg PO DAILY [facility] Last Admin: 10/05/18 09:47 Dose: 75 mg Diltiazem HCl (Cardizem Injection -) 5 mg IVPUSH Q4H PRN PRN Reason: TACHYCARDIA Guaifenesin/Codeine Phosphate (Robitussin Ac -) 5 ml PO TID PRN PRN Reason: COUGH Last Admin: 10/01/18 21:40 Dose: 5 ml Heparin Sodium (Porcine) (Heparin -) 5,000 unit SQ BID [facility] Last Admin: 10/05/18 21:15 Dose: 5,000 unit Ceftriaxone Sodium 1 gm/ (Dextrose) 50 mls @ 100 mls/hr IVPB DAILY [facility]; Protocol Last Admin: 10/05/18 09:48 Dose: 100 mls/hr Levothyroxine Sodium (Synthroid -) 75 mcg PO DAILY@0700 [facility] Last Admin: 10/06/18 06:09 Dose: 75 mcg Methyl Salicylate (David-Trinh -) 1 applic TP BID [facility] Last Admin: 10/05/18 21:16 Dose: Not Given Methylprednisolone Sodium Succinate (Solu-Medrol -) 40 mg IVPUSH Q8H-IV [facility] Last Admin: 10/06/18 02:10 Dose: 40 mg Pantoprazole Sodium (Protonix -) 40 mg PO DAILY [facility] Last Admin: 10/05/18 09:47 Dose: 40 mg Phenol/Menthol (Chloraseptic -) 1 spray MM Q6HPO PRN PRN Reason: SORE THROAT Last Admin: 10/05/18 21:19 Dose: 1 spray Polyethylene Glycol (Miralax (For Daily Use) -) 17 gm PO DAILY [facility] Last Admin: 10/05/18 09:48 Dose: Not Given Sodium Bicarbonate (Sodium Bicarbonate -) 325 mg PO BID [facility] Last Admin: 10/05/18 21:16 Dose: 325 mg Sodium Chloride ([place] -) 2 spray NS TID PRN PRN Reason: NASAL CONGESTION Last Admin: 10/03/18 13:43 Dose: 2 spray - Objective Vital Signs: Vital Signs Temperature 97.7 F 10/06/18 06:00 Pulse Rate 88 10/06/18 06:00 Respiratory Rate 18 10/06/18 06:00 Blood Pressure 156/62 10/06/18 06:00 O2 Sat by Pulse Oximetry (%) 95 10/05/18 21:00 Eyes: Yes: WNL, Conjunctiva Clear, EOM Intact HENT: Yes: WNL, Atraumatic, Normocephalic Neck: Yes: WNL, Supple, Trachea Midline Cardiovascular: Yes: WNL, Regular Rate and Rhythm Respiratory: Yes: Diminished Gastrointestinal: Yes: WNL, Normal Bowel Sounds Genitourinary: Yes: WNL Musculoskeletal: Yes: WNL Extremities: Yes: WNL Edema: Yes Integumentary: Yes: WNL Neurological: Yes: WNL, Alert, Oriented ...Motor Strength: WNL Psychiatric: Yes: WNL Labs: CBC, BMP 10/06/18 07:10 10/06/18 07:10 Assessment/Plan - Problems (1) Severe aortic stenosis Assessment/Plan: ECHO 09/29/2018: normal LVEF; mild LVH; abnormal diatolic compliance; severe aortic stenosis (), mild AR, moderate pulmonary HTN; severe MAC and aortic valve calcification; moderate LAE. The potential benefits (symptoms; mortality) from TAVR were discussed with pt and family. Presently, worsening renal status makes this option problematic. Pt is against undergoing dialysis. Avoid excessive diuresis/dehydration. Code(s): I35.0 - NONRHEUMATIC AORTIC (VALVE) STENOSIS (2) HTN (hypertension) Code(s): I10 - ESSENTIAL (PRIMARY) HYPERTENSION (3) CAD (coronary artery disease) Assessment/Plan: hx CAD-->coronary stent 2014. EKG: T wave changes: consider lateral ischemia. If TAVR is contemplated, will also have coronary angiogram (both are problematic at present due to worsening renal function). Code(s): I25.10 - ATHSCL HEART DISEASE OF [place] CORONARY ARTERY W/O ANG PCTRS (4) Diastolic CHF Code(s): I50.30 - UNSPECIFIED DIASTOLIC (CONGESTIVE) HEART FAILURE (5) ANASTASIA (acute kidney injury) Assessment/Plan: worsening hyponatremia. As discussed with supervisor last model department, furosemide held, with restart to be determined on a daily basis (problematic holding it from CHF standpoint). Code(s): N17.9 - ACUTE KIDNEY FAILURE, UNSPECIFIED (6) Anemia Assessment/Plan: s/p PRBCs F/u etiology of blood loss. Code(s): D64.9 - ANEMIA, UNSPECIFIED (7) COPD (chronic obstructive pulmonary disease) Assessment/Plan: Quit cigarettes only a few years ago, after many years smoking. CT chest: RUL lung nodule. Code(s): J44.9 - CHRONIC OBSTRUCTIVE PULMONARY DISEASE, UNSPECIFIED Qualifiers: COPD type: unspecified COPD Qualified Code(s): J44.9 - Chronic obstructive pulmonary disease, unspecified (8) Acute diastolic CHF (congestive heart failure) Assessment/Plan: + JVD Markedly elevated BNP. CXR and CT chest: pleural effusion gbilaterally. Exacerbated by severe , anemia. Code(s): I50.31 - ACUTE DIASTOLIC (CONGESTIVE) HEART FAILURE (9) Lung nodule Assessment/Plan: RUL apex; r/o malignancy; for f/u studies within 3 months. Code(s): R91.1 - SOLITARY PULMONARY NODULE (10) Coronary atherosclerosis due to calcified coronary lesion of [place] artery Assessment/Plan: dense calcification of coronary arteries on CT. If pt's overall condition stabilizes, and renal status is addressed, would benefit from coronary angiogram and evaluation for TAVR. Code(s): I25.10 - ATHSCL HEART DISEASE OF [place] CORONARY ARTERY W/O ANG PCTRS; I25.84 - CORONARY ATHEROSCLEROSIS DUE TO CALCIFIED CORONARY LESION (11) Acute chest pain Assessment/Plan: EKG: no significant change. TNI pending; f/u serially. Pt receiving bronchodilator Rx; chest discomfort reduced, but not completely resolved. On ASA, clopidogrel, sc heparin. NTG (though caution against excessive preload reduction with severe ). F/u BP serially. Consider anxiolytic. Code(s): R07.9 - CHEST PAIN, UNSPECIFIED
[2018-10-06] MEDS ORDERED: DEXTROSE 5%-WATER - 50 ML IVPB ONE (10:19)
[2018-10-06] MEDS ORDERED: cefTRIAXone SODIUM 1 GM VIAL ONE (10:19)
[2018-10-06] MEDS: CEFTRIAXONE 1 GM in DEXTROSE 5%-WATER - 50 ML IVPB SCH (10:33)
[2018-10-06] MEDS: ASPIRIN COATED 81 MG TABLET.EC PO SCH (10:33)
[2018-10-06] MEDS: PANTOPRAZOLE 40 MG TABLET (FP) PO SCH (10:33)
[2018-10-06] MEDS: CLOPIDOGREL BISULFATE 75 MG TABLET (FP) PO SCH (10:33)
[2018-10-06] MEDS: HEPARIN NA (PORCINE) 5,000 UNITS/ML 1ML VIAL SQ SCH ×2 (10:34→21:11)
[2018-10-06] MEDS: SODIUM BICARBONATE 325 MG TABLET PO SCH (10:35)
--- NOTE | 2018-10-06 10:37 | PN ---
Progress Note, Physician History of Present Illness: PULMONARY ALERT,LESS DYSPNEIC,LESS CONGESTED ,+COUGH - Current Medication List Current Medications: Active Medications Acetaminophen (Tylenol -) 650 mg PO Q6H PRN PRN Reason: PAIN OR FEVER Albuterol Sulfate (Ventolin 0.083% Nebulizer Soln -) 1 amp NEB Q4H PRN PRN Reason: SHORT OF BREATH/WHEEZING Last Admin: 10/06/18 05:37 Dose: 1 amp Albuterol/Ipratropium (Duoneb -) 1 amp NEB RQID [facility] Last Admin: 10/06/18 08:00 Dose: 1 amp Aspirin (Ecotrin -) 81 mg PO DAILY [facility] Last Admin: 10/05/18 09:47 Dose: 81 mg Benzocaine/Menthol (Cepacol Lozenge -) 1 each MM PRN PRN PRN Reason: SORE THROAT Last Admin: 10/02/18 13:40 Dose: 1 each Clopidogrel Bisulfate (Plavix -) 75 mg PO DAILY [facility] Last Admin: 10/05/18 09:47 Dose: 75 mg Diltiazem HCl (Cardizem Injection -) 5 mg IVPUSH Q4H PRN PRN Reason: TACHYCARDIA Guaifenesin/Codeine Phosphate (Robitussin Ac -) 5 ml PO TID PRN PRN Reason: COUGH Last Admin: 10/01/18 21:40 Dose: 5 ml Heparin Sodium (Porcine) (Heparin -) 5,000 unit SQ BID [facility] Last Admin: 10/05/18 21:15 Dose: 5,000 unit Ceftriaxone Sodium 1 gm/ (Dextrose) 50 mls @ 100 mls/hr IVPB DAILY [facility]; Protocol Last Admin: 10/05/18 09:48 Dose: 100 mls/hr Levothyroxine Sodium (Synthroid -) 75 mcg PO DAILY@0700 [facility] Last Admin: 10/06/18 06:09 Dose: 75 mcg Methyl Salicylate (David-Trinh -) 1 applic TP BID [facility] Last Admin: 10/05/18 21:16 Dose: Not Given Methylprednisolone Sodium Succinate (Solu-Medrol -) 40 mg IVPUSH Q8H-IV [facility] Last Admin: 10/06/18 02:10 Dose: 40 mg Pantoprazole Sodium (Protonix -) 40 mg PO DAILY [facility] Last Admin: 10/05/18 09:47 Dose: 40 mg Phenol/Menthol (Chloraseptic -) 1 spray MM Q6HPO PRN PRN Reason: SORE THROAT Last Admin: 10/05/18 21:19 Dose: 1 spray Polyethylene Glycol (Miralax (For Daily Use) -) 17 gm PO DAILY [facility] Last Admin: 10/05/18 09:48 Dose: Not Given Sodium Bicarbonate (Sodium Bicarbonate -) 325 mg PO BID [facility] Last Admin: 10/05/18 21:16 Dose: 325 mg Sodium Chloride ([place] Nasal [place] -) 2 spray NS TID PRN PRN Reason: NASAL CONGESTION Last Admin: 10/03/18 13:43 Dose: 2 spray - Objective Vital Signs: Vital Signs Temperature 97.7 F 10/06/18 06:00 Pulse Rate 88 10/06/18 06:00 Respiratory Rate 18 10/06/18 06:00 Blood Pressure 156/62 10/06/18 06:00 O2 Sat by Pulse Oximetry (%) 95 10/05/18 21:00 Constitutional: Yes: Calm, Thin Eyes: Yes: WNL HENT: Yes: WNL Neck: Yes: WNL Cardiovascular: Yes: Regular Rate and Rhythm, S1, S2 Respiratory: Yes: Rhonchi (SCATTERED PATTI RHONCHI AND RALES) Gastrointestinal: Yes: Normal Bowel Sounds, Soft Extremities: Yes: WNL Edema: Yes Labs: CBC, BMP 10/06/18 07:10 10/06/18 07:10 - ....Imaging Chest X-ray: Report Reviewed, Image Reviewed Problem List - Problems (1) Acute hypoxemic respiratory failure Code(s): J96.01 - ACUTE RESPIRATORY FAILURE WITH HYPOXIA (2) Bilateral lower leg cellulitis Code(s): L03.116 - CELLULITIS OF LEFT LOWER LIMB; L03.115 - CELLULITIS OF RIGHT LOWER LIMB (3) CHF exacerbation Code(s): I50.9 - HEART FAILURE, UNSPECIFIED Qualifiers: Heart failure type: unspecified Qualified Code(s): I50.9 - Heart failure, unspecified (4) COPD (chronic obstructive pulmonary disease) Code(s): J44.9 - CHRONIC OBSTRUCTIVE PULMONARY DISEASE, UNSPECIFIED Qualifiers: COPD type: unspecified COPD Qualified Code(s): J44.9 - Chronic obstructive pulmonary disease, unspecified (5) Pneumonia Code(s): J18.9 - PNEUMONIA, UNSPECIFIED ORGANISM Qualifiers: Pneumonia type: due to unspecified organism Laterality: unspecified laterality Lung location: unspecified part of lung Qualified Code(s): J18.9 - Pneumonia, unspecified organism (6) Acute coronary syndrome Code(s): I24.9 - ACUTE ISCHEMIC HEART DISEASE, UNSPECIFIED (7) Anemia Code(s): D64.9 - ANEMIA, UNSPECIFIED (8) Diabetes Code(s): E11.9 - TYPE 2 DIABETES MELLITUS WITHOUT COMPLICATIONS (9) Tobacco abuse Code(s): Z72.0 - TOBACCO USE (10) Tobacco abuse counseling Code(s): Z71.6 - TOBACCO ABUSE COUNSELING Assessment/Plan IMP ACUTE HYPOXEMIC RESPIRATORY FAILURE SLOWLY IMPROVING CHF SEVERE AORTIC STENOSIS COPD EXACERBATION ? PNEUMONIA ASHD S/P STENT ACUTE ON CHRONIC KIDNEY DISEASE PULMONARY HTN ANEMIA HTN DM TOBACCO ABUSE HEMOPTYSIS RESOLVED R APICAL NODULE PLAN IV LASIX O2/BIPAP NEEDED ABX STEROIDS INHALED BRONCHODILATORS NORMAL TRANSFUSION THRESHOLD MONITOR LYTES,RENAL FUNCTION,H+H DR MCKENZIE Problem List - Problems (1) Acute hypoxemic respiratory failure Code(s): J96.01 - ACUTE RESPIRATORY FAILURE WITH HYPOXIA (2) Bilateral lower leg cellulitis Code(s): L03.116 - CELLULITIS OF LEFT LOWER LIMB; L03.115 - CELLULITIS OF RIGHT LOWER LIMB (3) CHF exacerbation Code(s): I50.9 - HEART FAILURE, UNSPECIFIED Qualifiers: Heart failure type: unspecified Qualified Code(s): I50.9 - Heart failure, unspecified (4) COPD (chronic obstructive pulmonary disease) Code(s): J44.9 - CHRONIC OBSTRUCTIVE PULMONARY DISEASE, UNSPECIFIED Qualifiers: COPD type: unspecified COPD Qualified Code(s): J44.9 - Chronic obstructive pulmonary disease, unspecified (5) Pneumonia Code(s): J18.9 - PNEUMONIA, UNSPECIFIED ORGANISM Qualifiers: Pneumonia type: due to unspecified organism Laterality: unspecified laterality Lung location: unspecified part of lung Qualified Code(s): J18.9 - Pneumonia, unspecified organism (6) Acute coronary syndrome Code(s): I24.9 - ACUTE ISCHEMIC HEART DISEASE, UNSPECIFIED (7) Anemia Code(s): D64.9 - ANEMIA, UNSPECIFIED (8) Diabetes Code(s): E11.9 - TYPE 2 DIABETES MELLITUS WITHOUT COMPLICATIONS (9) Tobacco abuse Code(s): Z72.0 - TOBACCO USE (10) Tobacco abuse counseling Code(s): Z71.6 - TOBACCO ABUSE COUNSELING
[2018-10-06] MEDS: METHYL SALICYLATE/MENTHOL OINT 30 GM TUBE TP SCH ×2 (10:42→21:12)
[2018-10-06] MEDS: POLYETHYLENE GLYCOL 3350 119 GM BTL PO SCH (10:42)
[2018-10-06] MEDS ORDERED: FUROSEMIDE 40 MG/4 ML INJECTABLE VIAL IVPUSH ONE (10:46)
[2018-10-06 11:36] LABS: ACANTHOCYTES 0; ANISOCYTOSIS 0; HELMET CELLS 0; HOWELL-JOLLY BODIES 0; MACROCYTOSIS 0; OVALOCYTE 0; PLATELET ESTIMATE NORMAL; ROULEAU 0; SICKELED CELLS 0; TARGET CELLS 0; TEAR DROP CELLS 0; TOXIC GRANULATION 0
--- NOTE | 2018-10-06 12:41 | PN ---
Progress Note, Physician Chief Complaint: patient seen and examined in bed awake alert less dyspneic - Current Medication List Current Medications: Active Medications Acetaminophen (Tylenol -) 650 mg PO Q6H PRN PRN Reason: PAIN OR FEVER Albuterol Sulfate (Ventolin 0.083% Nebulizer Soln -) 1 amp NEB Q4H PRN PRN Reason: SHORT OF BREATH/WHEEZING Last Admin: 10/06/18 05:37 Dose: 1 amp Albuterol/Ipratropium (Duoneb -) 1 amp NEB RQID [facility] Last Admin: 10/06/18 12:03 Dose: 1 amp Aspirin (Ecotrin -) 81 mg PO DAILY [facility] Last Admin: 10/06/18 10:33 Dose: 81 mg Benzocaine/Menthol (Cepacol Lozenge -) 1 each MM PRN PRN PRN Reason: SORE THROAT Last Admin: 10/02/18 13:40 Dose: 1 each Clopidogrel Bisulfate (Plavix -) 75 mg PO DAILY [facility] Last Admin: 10/06/18 10:33 Dose: 75 mg Diltiazem HCl (Cardizem Injection -) 5 mg IVPUSH Q4H PRN PRN Reason: TACHYCARDIA Guaifenesin/Codeine Phosphate (Robitussin Ac -) 5 ml PO TID PRN PRN Reason: COUGH Last Admin: 10/01/18 21:40 Dose: 5 ml Heparin Sodium (Porcine) (Heparin -) 5,000 unit SQ BID [facility] Last Admin: 10/06/18 10:34 Dose: 5,000 unit Ceftriaxone Sodium 1 gm/ (Dextrose) 50 mls @ 100 mls/hr IVPB DAILY [facility]; Protocol Last Admin: 10/06/18 10:33 Dose: 100 mls/hr Levothyroxine Sodium (Synthroid -) 75 mcg PO DAILY@0700 [facility] Last Admin: 10/06/18 06:09 Dose: 75 mcg Methyl Salicylate (David-Trinh -) 1 applic TP BID [facility] Last Admin: 10/06/18 10:42 Dose: Not Given Methylprednisolone Sodium Succinate (Solu-Medrol -) 40 mg IVPUSH Q8H-IV [facility] Last Admin: 10/06/18 10:33 Dose: 40 mg Pantoprazole Sodium (Protonix -) 40 mg PO DAILY [facility] Last Admin: 10/06/18 10:33 Dose: 40 mg Phenol/Menthol (Chloraseptic -) 1 spray MM Q6HPO PRN PRN Reason: SORE THROAT Last Admin: 10/05/18 21:19 Dose: 1 spray Polyethylene Glycol (Miralax (For Daily Use) -) 17 gm PO DAILY [facility] Last Admin: 10/06/18 10:42 Dose: Not Given Sodium Bicarbonate (Sodium Bicarbonate -) 325 mg PO BID [facility] Last Admin: 10/06/18 10:35 Dose: 325 mg Sodium Chloride ([place] Nasal [place] -) 2 spray NS TID PRN PRN Reason: NASAL CONGESTION Last Admin: 10/03/18 13:43 Dose: 2 spray - Objective Vital Signs: Vital Signs Temperature 98.4 F 10/06/18 10:00 Pulse Rate 85 10/06/18 10:00 Respiratory Rate 18 10/06/18 10:00 Blood Pressure 172/68 H 10/06/18 10:00 O2 Sat by Pulse Oximetry (%) 95 10/05/18 21:00 Constitutional: Yes: Calm Cardiovascular: Yes: Regular Rate and Rhythm, Murmur, S1, S2 Respiratory: Yes: Diminished Gastrointestinal: Yes: Normal Bowel Sounds, Soft Edema: Yes Neurological: Yes: Alert, Oriented Labs: CBC, BMP 10/06/18 07:10 10/06/18 07:10 Problem List - Problems (1) Acute hypoxemic respiratory failure Assessment/Plan: bipap lasix pulm steroids iv Code(s): J96.01 - ACUTE RESPIRATORY FAILURE WITH HYPOXIA (2) CHF exacerbation Assessment/Plan: lasix iv cardiology on board given renal function difficult to get angiogram and TAVR Code(s): I50.9 - HEART FAILURE, UNSPECIFIED Qualifiers: Heart failure type: unspecified Qualified Code(s): I50.9 - Heart failure, unspecified (3) Anemia Assessment/Plan: check iron panel noted h/h ok Code(s): D64.9 - ANEMIA, UNSPECIFIED (4) Hypothyroid Assessment/Plan: tsh is 45 synthroid dose increase from 50 to 75 Code(s): E03.9 - HYPOTHYROIDISM, UNSPECIFIED (5) Hyperkalemia Assessment/Plan: kayxelate renal eval noted improved continue with lasix Code(s): E87.5 - HYPERKALEMIA (6) ANASTASIA (acute kidney injury) Assessment/Plan: renal eval noted for refusal of HD per family 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
--- NOTE | 2018-10-06 14:48 | PN ---
Progress Note, Physician History of Present Illness: Pt seen and examined at bedside. She is awake and alert. She feels that her breathing is better than yesterday however she is short of breath with minimal exertion. - Current Medication List Current Medications: Active Medications Acetaminophen (Tylenol -) 650 mg PO Q6H PRN PRN Reason: PAIN OR FEVER Albuterol Sulfate (Ventolin 0.083% Nebulizer Soln -) 1 amp NEB Q4H PRN PRN Reason: SHORT OF BREATH/WHEEZING Last Admin: 10/06/18 05:37 Dose: 1 amp Albuterol/Ipratropium (Duoneb -) 1 amp NEB RQID [facility] Last Admin: 10/06/18 12:03 Dose: 1 amp Aspirin (Ecotrin -) 81 mg PO DAILY [facility] Last Admin: 10/06/18 10:33 Dose: 81 mg Benzocaine/Menthol (Cepacol Lozenge -) 1 each MM PRN PRN PRN Reason: SORE THROAT Last Admin: 10/02/18 13:40 Dose: 1 each Clopidogrel Bisulfate (Plavix -) 75 mg PO DAILY [facility] Last Admin: 10/06/18 10:33 Dose: 75 mg Diltiazem HCl (Cardizem Injection -) 5 mg IVPUSH Q4H PRN PRN Reason: TACHYCARDIA Guaifenesin/Codeine Phosphate (Robitussin Ac -) 5 ml PO TID PRN PRN Reason: COUGH Last Admin: 10/01/18 21:40 Dose: 5 ml Heparin Sodium (Porcine) (Heparin -) 5,000 unit SQ BID [facility] Last Admin: 10/06/18 10:34 Dose: 5,000 unit Ceftriaxone Sodium 1 gm/ (Dextrose) 50 mls @ 100 mls/hr IVPB DAILY [facility]; Protocol Last Admin: 10/06/18 10:33 Dose: 100 mls/hr Levothyroxine Sodium (Synthroid -) 75 mcg PO DAILY@0700 [facility] Last Admin: 10/06/18 06:09 Dose: 75 mcg Methyl Salicylate (David-Trinh -) 1 applic TP BID [facility] Last Admin: 10/06/18 10:42 Dose: Not Given Methylprednisolone Sodium Succinate (Solu-Medrol -) 40 mg IVPUSH Q8H-IV [facility] Last Admin: 10/06/18 10:33 Dose: 40 mg Pantoprazole Sodium (Protonix -) 40 mg PO DAILY [facility] Last Admin: 10/06/18 10:33 Dose: 40 mg Phenol/Menthol (Chloraseptic -) 1 spray MM Q6HPO PRN PRN Reason: SORE THROAT Last Admin: 10/05/18 21:19 Dose: 1 spray Polyethylene Glycol (Miralax (For Daily Use) -) 17 gm PO DAILY [facility] Last Admin: 10/06/18 10:42 Dose: Not Given Sodium Bicarbonate (Sodium Bicarbonate -) 325 mg PO BID [facility] Last Admin: 10/06/18 10:35 Dose: 325 mg Sodium Chloride ([place] Nasal [place] -) 2 spray NS TID PRN PRN Reason: NASAL CONGESTION Last Admin: 10/03/18 13:43 Dose: 2 spray - Objective Vital Signs: Vital Signs Temperature 98.4 F 10/06/18 10:00 Pulse Rate 85 10/06/18 10:00 Respiratory Rate 18 10/06/18 10:00 Blood Pressure 172/68 H 10/06/18 10:00 O2 Sat by Pulse Oximetry (%) 98 10/06/18 09:00 Constitutional: Yes: Calm Eyes: Yes: Conjunctiva Clear HENT: Yes: Atraumatic Cardiovascular: Yes: S1, S2 Respiratory: Yes: On Nasal O2, Rhonchi Gastrointestinal: Yes: Soft Genitourinary: Yes: Huizar Present Musculoskeletal: Yes: Muscle Weakness Edema: Yes Edema: LLE: 1+, RLE: 1+ Neurological: Yes: Oriented Psychiatric: Yes: Oriented Labs: CBC, BMP 10/06/18 07:10 10/06/18 07:10 Problem List - Problems (1) Acute hypoxemic respiratory failure Code(s): J96.01 - ACUTE RESPIRATORY FAILURE WITH HYPOXIA (2) Anemia Code(s): D64.9 - ANEMIA, UNSPECIFIED (3) CHF exacerbation Code(s): I50.9 - HEART FAILURE, UNSPECIFIED Qualifiers: Heart failure type: unspecified Qualified Code(s): I50.9 - Heart failure, unspecified (4) COPD (chronic obstructive pulmonary disease) Code(s): J44.9 - CHRONIC OBSTRUCTIVE PULMONARY DISEASE, UNSPECIFIED Qualifiers: COPD type: unspecified COPD Qualified Code(s): J44.9 - Chronic obstructive pulmonary disease, unspecified (5) Hyperkalemia Code(s): E87.5 - HYPERKALEMIA (6) Tobacco abuse Code(s): Z72.0 - TOBACCO USE Assessment/Plan Current Medications Generic Name Dose Route Start Last Admin Trade Name Freq PRN Reason Stop Dose Admin Acetaminophen 650 mg 09/28/18 21:26 Tylenol - PO Q6H PRN PAIN OR FEVER Albuterol Sulfate 1 amp 10/01/18 01:58 10/06/18 05:37 Ventolin 0.083% Nebulizer Soln - NEB 1 amp Q4H PRN Administration SHORT OF BREATH/WHEEZING Albuterol/Ipratropium 1 amp 09/30/18 11:16 10/06/18 12:03 Duoneb - NEB 1 amp RQID [facility] Administration Aspirin 81 mg 09/29/18 10:00 10/06/18 10:33 Ecotrin - PO 81 mg DAILY [facility] Administration Benzocaine/Menthol 1 each 10/02/18 12:05 10/02/18 13:40 Cepacol Lozenge - MM 1 each PRN PRN Administration SORE THROAT Clopidogrel Bisulfate 75 mg 09/29/18 10:00 10/06/18 10:33 Plavix - PO 75 mg DAILY [facility] Administration Diltiazem HCl 5 mg 10/01/18 10:05 Cardizem Injection - IVPUSH Q4H PRN TACHYCARDIA Guaifenesin/Codeine Phosphate 5 ml 10/01/18 10:03 10/01/18 21:40 Robitussin Ac - PO 5 ml TID PRN Administration COUGH Heparin Sodium (Porcine) 5,000 unit 09/28/18 22:00 10/06/18 10:34 Heparin - SQ 5,000 unit BID [facility] Administration Ceftriaxone Sodium 1 gm/ 50 mls @ 100 mls/hr 09/29/18 21:00 10/06/18 10:33 Dextrose IVPB 100 mls/hr DAILY [facility] Administration Protocol Levothyroxine Sodium 75 mcg 09/29/18 07:00 10/06/18 06:09 Synthroid - PO 75 mcg DAILY@0700 [facility] Administration Methyl Salicylate 1 applic 10/01/18 22:00 10/06/18 10:42 David-Trinh - TP Not Given BID [facility] Methylprednisolone Sodium Succinate 40 mg 09/29/18 02:00 10/06/18 10:33 Solu-Medrol - IVPUSH 40 mg Q8H-IV [facility] Administration Pantoprazole Sodium 40 mg 10/02/18 14:00 10/06/18 10:33 Protonix - PO 40 mg DAILY [facility] Administration Phenol/Menthol 1 spray 10/02/18 12:05 10/05/18 21:19 Chloraseptic - MM 1 spray Q6HPO PRN Administration SORE THROAT Polyethylene Glycol 17 gm 10/02/18 15:00 10/06/18 10:42 Miralax (For Daily Use) - PO Not Given DAILY [facility] Sodium Bicarbonate 325 mg 10/02/18 22:00 10/06/18 10:35 Sodium Bicarbonate - PO 325 mg BID [facility] Administration Sodium Chloride 2 spray 10/02/18 12:04 10/03/18 13:43 [place] - NS 2 spray TID PRN Administration NASAL CONGESTION Impression 1. hyperkalemia 2. CKD 3. CAD 4. COPD 5. hypothyroidism 6. CHF 7. severe aortic stenosis Plan - cont with lasix - monitor renal function - pt does not want HD therapy - cardiology follow up - pt has significant valvular disease - restrict free water intake - will follow Dr Smith
[2018-10-07] MEDS: methylPREDNISolone NA SUCC 40 MG/1 ML VIAL IVPUSH SCH (01:44)
[2018-10-07] MEDS: LEVOTHYROXINE NA 75 MCG TABLET (FP) PO SCH (06:27)
[2018-10-07 07:10] LABS: BASO % 0.2 % (0-2.0); HEMATOCRIT 34.8 % (32.4-45.2); HEMOGLOBIN 11.8 GM/dL (10.7-15.3); LYMPH % 0.8 % (8-40); MCH 30.8 pg (25.7-33.7); MCHC 33.8 g/dl (32.0-36.0); MEAN CELL VOLUME 91.3 fl (80-96); MEAN PLT VOLUME 9.7 fl (7.5-11.1); MONO % 1.8 % (3.8-10.2); NEUT % 97.2 % (42.8-82.8); PLATELET COUNT 243 K/MM3 (134-434); RBC 3.81 M/mm3 (3.60-5.2); RDW 15.3 % (11.6-15.6); WHITE BLOOD COUNT 12.1 K/mm3 (4.0-10.0)
[2018-10-07 07:38] LABS: ALBUMIN 2.7 g/dl (3.4-5.0); ALK PHOS 112 U/L (45-117); ANION GAP 16 MMOL/L (8-16); BILIRUBIN,TOTAL 0.4 mg/dL (0.2-1); BLOOD UREA NITROGEN 101 mg/dL (7-18); CALCIUM 7.7 mg/dL (8.5-10.1); CHLORIDE 87 mmol/L (98-107); CO2 24 mmol/L (21-32); CREATININE 3.4 mg/dL (0.55-1.3); POTASSIUM 4.8 mmol/L (3.5-5.1); SGOT/AST 16 U/L (15-37); SGPT/ALT 29 U/L (13-61); SODIUM 127 mmol/L (136-145); TOT PROT 5.7 g/dl (6.4-8.2)
[2018-10-07 07:47] LABS: GLUCOSE,RANDOM 312 mg/dL (74-106)
[2018-10-07] MEDS: ALBUTEROL SO4 2.5/IPRATROPIUM 0.5 INH SOL 3 ML VIAL.NEB. NEB SCH ×4 (08:29→21:25)
--- NOTE | 2018-10-07 08:38 | PN ---
Progress Note, Physician - Current Medication List Current Medications: Active Medications Acetaminophen (Tylenol -) 650 mg PO Q6H PRN PRN Reason: PAIN OR FEVER Albuterol Sulfate (Ventolin 0.083% Nebulizer Soln -) 1 amp NEB Q4H PRN PRN Reason: SHORT OF BREATH/WHEEZING Last Admin: 10/06/18 05:37 Dose: 1 amp Albuterol/Ipratropium (Duoneb -) 1 amp NEB RQID [facility] Last Admin: 10/07/18 08:29 Dose: 1 amp Aspirin (Ecotrin -) 81 mg PO DAILY [facility] Last Admin: 10/06/18 10:33 Dose: 81 mg Benzocaine/Menthol (Cepacol Lozenge -) 1 each MM PRN PRN PRN Reason: SORE THROAT Last Admin: 10/02/18 13:40 Dose: 1 each Clopidogrel Bisulfate (Plavix -) 75 mg PO DAILY [facility] Last Admin: 10/06/18 10:33 Dose: 75 mg Diltiazem HCl (Cardizem Injection -) 5 mg IVPUSH Q4H PRN PRN Reason: TACHYCARDIA Furosemide (Lasix Injection -) 40 mg IVPUSH DAILY [facility] Guaifenesin/Codeine Phosphate (Robitussin Ac -) 5 ml PO TID PRN PRN Reason: COUGH Last Admin: 10/01/18 21:40 Dose: 5 ml Heparin Sodium (Porcine) (Heparin -) 5,000 unit SQ BID [facility] Last Admin: 10/06/18 21:11 Dose: 5,000 unit Levothyroxine Sodium (Synthroid -) 75 mcg PO DAILY@0700 [facility] Last Admin: 10/07/18 06:27 Dose: 75 mcg Methyl Salicylate (David-Trinh -) 1 applic TP BID [facility] Last Admin: 10/06/18 21:12 Dose: Not Given Methylprednisolone Sodium Succinate (Solu-Medrol -) 40 mg IVPUSH Q8H-IV [facility] Last Admin: 10/07/18 01:44 Dose: 40 mg Pantoprazole Sodium (Protonix -) 40 mg PO DAILY [facility] Last Admin: 10/06/18 10:33 Dose: 40 mg Phenol/Menthol (Chloraseptic -) 1 spray MM Q6HPO PRN PRN Reason: SORE THROAT Last Admin: 10/05/18 21:19 Dose: 1 spray Polyethylene Glycol (Miralax (For Daily Use) -) 17 gm PO DAILY [facility] Last Admin: 10/06/18 10:42 Dose: Not Given Sodium Chloride ([place] Nasal [place] -) 2 spray NS TID PRN PRN Reason: NASAL CONGESTION Last Admin: 10/03/18 13:43 Dose: 2 spray - Objective Vital Signs: Vital Signs Temperature 97.7 F 10/07/18 06:00 Pulse Rate 90 10/07/18 06:00 Respiratory Rate 18 10/07/18 06:00 Blood Pressure 167/74 10/07/18 06:00 O2 Sat by Pulse Oximetry (%) 97 10/07/18 08:29 Respiratory: Yes: On Nasal O2, Rhonchi Gastrointestinal: Yes: Normal Bowel Sounds, Soft Edema: Yes Integumentary: Yes: Venous Stasis Changes Labs: CBC, BMP 10/07/18 05:30 10/07/18 05:30 Assessment/Plan - Problems (1) Acute hypoxemic respiratory failure Assessment/Plan: bipap lasix pulm steroids iv--po Code(s): J96.01 - ACUTE RESPIRATORY FAILURE WITH HYPOXIA (2) CHF exacerbation Assessment/Plan: lasix iv cardiology on board given renal function difficult to get angiogram and TAVR -cxr Code(s): I50.9 - HEART FAILURE, UNSPECIFIED Qualifiers: Heart failure type: unspecified Qualified Code(s): I50.9 - Heart failure, unspecified (3) Anemia Assessment/Plan: check iron panel noted h/h ok Code(s): D64.9 - ANEMIA, UNSPECIFIED (4) Hypothyroid Assessment/Plan: tsh is 45 synthroid dose increase from 50 to 75 Code(s): E03.9 - HYPOTHYROIDISM, UNSPECIFIED (5) Hyperkalemia Assessment/Plan: kayxelate renal eval noted improved continue with lasix Code(s): E87.5 - HYPERKALEMIA (6) ANASTASIA (acute kidney injury) Assessment/Plan: renal eval noted for refusal of HD per family 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
[2018-10-07] MEDS ORDERED: FUROSEMIDE 40 MG/4 ML INJECTABLE VIAL IVPUSH SCH (10:00)
[2018-10-07] MEDS: METHYL SALICYLATE/MENTHOL OINT 30 GM TUBE TP SCH ×2 (10:01→21:08)
[2018-10-07] MEDS: POLYETHYLENE GLYCOL 3350 119 GM BTL PO SCH (10:02)
[2018-10-07] MEDS: ASPIRIN COATED 81 MG TABLET.EC PO SCH (10:02)
[2018-10-07] MEDS: CLOPIDOGREL BISULFATE 75 MG TABLET (FP) PO SCH (10:02)
[2018-10-07] MEDS: PANTOPRAZOLE 40 MG TABLET (FP) PO SCH (10:03)
[2018-10-07] MEDS: HEPARIN NA (PORCINE) 5,000 UNITS/ML 1ML VIAL SQ SCH ×2 (11:00→21:09)
--- NOTE | 2018-10-07 11:11 | PN ---
Progress Note, Physician History of Present Illness: PULMONARY ALERT,OOB-CHAIR,LESS DYSPNEIC - Current Medication List Current Medications: Active Medications Acetaminophen (Tylenol -) 650 mg PO Q6H PRN PRN Reason: PAIN OR FEVER Albuterol Sulfate (Ventolin 0.083% Nebulizer Soln -) 1 amp NEB Q4H PRN PRN Reason: SHORT OF BREATH/WHEEZING Last Admin: 10/06/18 05:37 Dose: 1 amp Albuterol/Ipratropium (Duoneb -) 1 amp NEB RQID [facility] Last Admin: 10/07/18 08:29 Dose: 1 amp Aspirin (Ecotrin -) 81 mg PO DAILY [facility] Last Admin: 10/07/18 10:02 Dose: 81 mg Benzocaine/Menthol (Cepacol Lozenge -) 1 each MM PRN PRN PRN Reason: SORE THROAT Last Admin: 10/02/18 13:40 Dose: 1 each Clopidogrel Bisulfate (Plavix -) 75 mg PO DAILY [facility] Last Admin: 10/07/18 10:02 Dose: 75 mg Diltiazem HCl (Cardizem Injection -) 5 mg IVPUSH Q4H PRN PRN Reason: TACHYCARDIA Furosemide (Lasix Injection -) 40 mg IVPUSH DAILY [facility] Last Admin: 10/07/18 10:02 Dose: 40 mg Guaifenesin/Codeine Phosphate (Robitussin Ac -) 5 ml PO TID PRN PRN Reason: COUGH Last Admin: 10/01/18 21:40 Dose: 5 ml Heparin Sodium (Porcine) (Heparin -) 5,000 unit SQ BID [facility] Last Admin: 10/06/18 21:11 Dose: 5,000 unit Levothyroxine Sodium (Synthroid -) 75 mcg PO DAILY@0700 [facility] Last Admin: 10/07/18 06:27 Dose: 75 mcg Methyl Salicylate (David-Trinh -) 1 applic TP BID [facility] Last Admin: 10/07/18 10:01 Dose: Not Given Pantoprazole Sodium (Protonix -) 40 mg PO DAILY [facility] Last Admin: 10/07/18 10:03 Dose: 40 mg Phenol/Menthol (Chloraseptic -) 1 spray MM Q6HPO PRN PRN Reason: SORE THROAT Last Admin: 10/05/18 21:19 Dose: 1 spray Polyethylene Glycol (Miralax (For Daily Use) -) 17 gm PO DAILY [facility] Last Admin: 10/07/18 10:02 Dose: Not Given Sodium Chloride ([place] Nasal [place] -) 2 spray NS TID PRN PRN Reason: NASAL CONGESTION Last Admin: 10/03/18 13:43 Dose: 2 spray - Objective Vital Signs: Vital Signs Temperature 97.3 F L 10/07/18 09:02 Pulse Rate 82 10/07/18 09:02 Respiratory Rate 18 10/07/18 09:02 Blood Pressure 144/68 10/07/18 09:02 O2 Sat by Pulse Oximetry (%) 97 10/07/18 09:00 Constitutional: Yes: Calm, Thin Eyes: Yes: WNL HENT: Yes: WNL Neck: Yes: WNL Cardiovascular: Yes: Regular Rate and Rhythm, S1, S2 Respiratory: Yes: Rhonchi (FEW SCATTERED RHONCHI) Gastrointestinal: Yes: Normal Bowel Sounds, Soft Extremities: Yes: WNL Edema: Yes Labs: CBC, BMP 10/07/18 05:30 10/07/18 05:30 Problem List - Problems (1) Acute hypoxemic respiratory failure Code(s): J96.01 - ACUTE RESPIRATORY FAILURE WITH HYPOXIA (2) Bilateral lower leg cellulitis Code(s): L03.116 - CELLULITIS OF LEFT LOWER LIMB; L03.115 - CELLULITIS OF RIGHT LOWER LIMB (3) CHF exacerbation Code(s): I50.9 - HEART FAILURE, UNSPECIFIED Qualifiers: Heart failure type: unspecified Qualified Code(s): I50.9 - Heart failure, unspecified (4) COPD (chronic obstructive pulmonary disease) Code(s): J44.9 - CHRONIC OBSTRUCTIVE PULMONARY DISEASE, UNSPECIFIED Qualifiers: COPD type: unspecified COPD Qualified Code(s): J44.9 - Chronic obstructive pulmonary disease, unspecified (5) Pneumonia Code(s): J18.9 - PNEUMONIA, UNSPECIFIED ORGANISM Qualifiers: Pneumonia type: due to unspecified organism Laterality: unspecified laterality Lung location: unspecified part of lung Qualified Code(s): J18.9 - Pneumonia, unspecified organism (6) Acute coronary syndrome Code(s): I24.9 - ACUTE ISCHEMIC HEART DISEASE, UNSPECIFIED (7) Anemia Code(s): D64.9 - ANEMIA, UNSPECIFIED (8) Diabetes Code(s): E11.9 - TYPE 2 DIABETES MELLITUS WITHOUT COMPLICATIONS (9) Tobacco abuse Code(s): Z72.0 - TOBACCO USE (10) Tobacco abuse counseling Code(s): Z71.6 - TOBACCO ABUSE COUNSELING Assessment/Plan IMP ACUTE HYPOXEMIC RESPIRATORY FAILURE SLOWLY IMPROVING CHF SEVERE AORTIC STENOSIS COPD EXACERBATION ? PNEUMONIA ASHD S/P STENT ACUTE ON CHRONIC KIDNEY DISEASE PULMONARY HTN ANEMIA HTN DM TOBACCO ABUSE HEMOPTYSIS RESOLVED R APICAL NODULE PLAN IV LASIX O2/BIPAP NEEDED ABX STEROID TAPER INHALED BRONCHODILATORS NORMAL TRANSFUSION THRESHOLD MONITOR LYTES,RENAL FUNCTION,H+H DR MCKENZIE Problem List - Problems (1) Acute hypoxemic respiratory failure Code(s): J96.01 - ACUTE RESPIRATORY FAILURE WITH HYPOXIA (2) Bilateral lower leg cellulitis Code(s): L03.116 - CELLULITIS OF LEFT LOWER LIMB; L03.115 - CELLULITIS OF RIGHT LOWER LIMB (3) CHF exacerbation Code(s): I50.9 - HEART FAILURE, UNSPECIFIED Qualifiers: Heart failure type: unspecified Qualified Code(s): I50.9 - Heart failure, unspecified (4) COPD (chronic obstructive pulmonary disease) Code(s): J44.9 - CHRONIC OBSTRUCTIVE PULMONARY DISEASE, UNSPECIFIED Qualifiers: COPD type: unspecified COPD Qualified Code(s): J44.9 - Chronic obstructive pulmonary disease, unspecified (5) Pneumonia Code(s): J18.9 - PNEUMONIA, UNSPECIFIED ORGANISM Qualifiers: Pneumonia type: due to unspecified organism Laterality: unspecified laterality Lung location: unspecified part of lung Qualified Code(s): J18.9 - Pneumonia, unspecified organism (6) Acute coronary syndrome Code(s): I24.9 - ACUTE ISCHEMIC HEART DISEASE, UNSPECIFIED (7) Anemia Code(s): D64.9 - ANEMIA, UNSPECIFIED (8) Diabetes Code(s): E11.9 - TYPE 2 DIABETES MELLITUS WITHOUT COMPLICATIONS (9) Tobacco abuse Code(s): Z72.0 - TOBACCO USE (10) Tobacco abuse counseling Code(s): Z71.6 - TOBACCO ABUSE COUNSELING
[2018-10-07 12:35] LABS: ANISOCYTOSIS 0; MACROCYTOSIS 0; PLATELET ESTIMATE NORMAL; ROULEAU 1+
--- NOTE | 2018-10-07 13:22 | PN ---
Progress Note, Physician History of Present Illness: Pt seen and examined at bedside. She is awake and alert. She feels that her breathing is a little better. She still has edema. - Current Medication List Current Medications: Active Medications Acetaminophen (Tylenol -) 650 mg PO Q6H PRN PRN Reason: PAIN OR FEVER Albuterol Sulfate (Ventolin 0.083% Nebulizer Soln -) 1 amp NEB Q4H PRN PRN Reason: SHORT OF BREATH/WHEEZING Last Admin: 10/06/18 05:37 Dose: 1 amp Albuterol/Ipratropium (Duoneb -) 1 amp NEB RQID [facility] Last Admin: 10/07/18 12:01 Dose: 1 amp Aspirin (Ecotrin -) 81 mg PO DAILY [facility] Last Admin: 10/07/18 10:02 Dose: 81 mg Benzocaine/Menthol (Cepacol Lozenge -) 1 each MM PRN PRN PRN Reason: SORE THROAT Last Admin: 10/02/18 13:40 Dose: 1 each Clopidogrel Bisulfate (Plavix -) 75 mg PO DAILY [facility] Last Admin: 10/07/18 10:02 Dose: 75 mg Diltiazem HCl (Cardizem Injection -) 5 mg IVPUSH Q4H PRN PRN Reason: TACHYCARDIA Furosemide (Lasix Injection -) 40 mg IVPUSH DAILY [facility] Last Admin: 10/07/18 10:02 Dose: 40 mg Guaifenesin/Codeine Phosphate (Robitussin Ac -) 5 ml PO TID PRN PRN Reason: COUGH Last Admin: 10/01/18 21:40 Dose: 5 ml Heparin Sodium (Porcine) (Heparin -) 5,000 unit SQ BID [facility] Last Admin: 10/07/18 11:00 Dose: 5,000 unit Levothyroxine Sodium (Synthroid -) 75 mcg PO DAILY@0700 [facility] Last Admin: 10/07/18 06:27 Dose: 75 mcg Methyl Salicylate (David-Trnih -) 1 applic TP BID [facility] Last Admin: 10/07/18 10:01 Dose: Not Given Pantoprazole Sodium (Protonix -) 40 mg PO DAILY [facility] Last Admin: 10/07/18 10:03 Dose: 40 mg Phenol/Menthol (Chloraseptic -) 1 spray MM Q6HPO PRN PRN Reason: SORE THROAT Last Admin: 10/05/18 21:19 Dose: 1 spray Polyethylene Glycol (Miralax (For Daily Use) -) 17 gm PO DAILY [facility] Last Admin: 10/07/18 10:02 Dose: Not Given Sodium Chloride ([place] Nasal [place] -) 2 spray NS TID PRN PRN Reason: NASAL CONGESTION Last Admin: 10/03/18 13:43 Dose: 2 spray - Objective Vital Signs: Vital Signs Temperature 97.3 F L 10/07/18 09:02 Pulse Rate 82 10/07/18 09:02 Respiratory Rate 18 10/07/18 09:02 Blood Pressure 144/68 10/07/18 09:02 O2 Sat by Pulse Oximetry (%) 98 10/07/18 12:00 Constitutional: Yes: Calm Eyes: Yes: Conjunctiva Clear HENT: Yes: Atraumatic Neck: Yes: Supple Cardiovascular: Yes: S1, S2 Respiratory: Yes: On Nasal O2, Rhonchi Gastrointestinal: Yes: Soft Genitourinary: Yes: Huizar Present Edema: Yes Edema: LLE: 2+, RLE: 2+ Neurological: Yes: Oriented Psychiatric: Yes: Oriented Labs: CBC, BMP 10/07/18 05:30 10/07/18 05:30 Problem List - Problems (1) Acute hypoxemic respiratory failure Code(s): J96.01 - ACUTE RESPIRATORY FAILURE WITH HYPOXIA (2) Anemia Code(s): D64.9 - ANEMIA, UNSPECIFIED (3) CHF exacerbation Code(s): I50.9 - HEART FAILURE, UNSPECIFIED Qualifiers: Heart failure type: unspecified Qualified Code(s): I50.9 - Heart failure, unspecified (4) COPD (chronic obstructive pulmonary disease) Code(s): J44.9 - CHRONIC OBSTRUCTIVE PULMONARY DISEASE, UNSPECIFIED Qualifiers: COPD type: unspecified COPD Qualified Code(s): J44.9 - Chronic obstructive pulmonary disease, unspecified (5) Hyperkalemia Code(s): E87.5 - HYPERKALEMIA (6) Tobacco abuse Code(s): Z72.0 - TOBACCO USE Assessment/Plan Current Medications Generic Name Dose Route Start Last Admin Trade Name Freq PRN Reason Stop Dose Admin Acetaminophen 650 mg 09/28/18 21:26 Tylenol - PO Q6H PRN PAIN OR FEVER Albuterol Sulfate 1 amp 10/01/18 01:58 10/06/18 05:37 Ventolin 0.083% Nebulizer Soln - NEB 1 amp Q4H PRN Administration SHORT OF BREATH/WHEEZING Albuterol/Ipratropium 1 amp 09/30/18 11:16 10/07/18 12:01 Duoneb - NEB 1 amp RQID [facility] Administration Aspirin 81 mg 09/29/18 10:00 10/07/18 10:02 Ecotrin - PO 81 mg DAILY [facility] Administration Benzocaine/Menthol 1 each 10/02/18 12:05 10/02/18 13:40 Cepacol Lozenge - MM 1 each PRN PRN Administration SORE THROAT Clopidogrel Bisulfate 75 mg 09/29/18 10:00 10/07/18 10:02 Plavix - PO 75 mg DAILY [facility] Administration Diltiazem HCl 5 mg 10/01/18 10:05 Cardizem Injection - IVPUSH Q4H PRN TACHYCARDIA Furosemide 40 mg 10/07/18 10:00 10/07/18 10:02 Lasix Injection - IVPUSH 40 mg DAILY [facility] Administration Guaifenesin/Codeine Phosphate 5 ml 10/01/18 10:03 10/01/18 21:40 Robitussin Ac - PO 5 ml TID PRN Administration COUGH Heparin Sodium (Porcine) 5,000 unit 09/28/18 22:00 10/07/18 11:00 Heparin - SQ 5,000 unit BID [facility] Administration Levothyroxine Sodium 75 mcg 09/29/18 07:00 10/07/18 06:27 Synthroid - PO 75 mcg DAILY@0700 [facility] Administration Methyl Salicylate 1 applic 10/01/18 22:00 10/07/18 10:01 David-Trinh - TP Not Given BID [facility] Pantoprazole Sodium 40 mg 10/02/18 14:00 10/07/18 10:03 Protonix - PO 40 mg DAILY [facility] Administration Phenol/Menthol 1 spray 10/02/18 12:05 10/05/18 21:19 Chloraseptic - MM 1 spray Q6HPO PRN Administration SORE THROAT Polyethylene Glycol 17 gm 10/02/18 15:00 10/07/18 10:02 Miralax (For Daily Use) - PO Not Given DAILY [facility] Sodium Chloride 2 spray 10/02/18 12:04 10/03/18 13:43 [place] Nasal [place] - NS 2 spray TID PRN Administration NASAL CONGESTION Impression 1. hyperkalemia 2. CKD 3. CAD 4. COPD 5. hypothyroidism 6. CHF 7. severe aortic stenosis Plan - restrict free water - will need better glucose control - cont lasix - monitor lytes - pt has significant valvular disease - will follow Dr Smith
--- NOTE | 2018-10-07 22:26 | CONSULT ---
Consult Consult Specialty:: endocrine Referred by:: dr.ammir dunlap Reason for Consultation:: hypothyroidism - History of Present Illness Chief Complaint: weak and forgetfull History of Present Illness: 83 year old woman with pmh hypothyroidism,chf, chronic cough with whitish sputum c/o worsening SOB and cough associated with + weakness,orthopnea and swelling of legs. Denied fever, chills,nausea or vomiting.she has had hair loss, dry skin,easy bruising and memory loss. - History Source History Provided By: Patient - Past Medical History Cardio/Vascular: Yes: CAD (Stent, ? 2015), HTN Pulmonary: Yes: COPD Renal/: Yes: Renal Inusuff, Other (PCKD per chart) Musculoskeletal: Yes: Osteoarthritis Endocrine: Yes: Hypothyroidism - Past Surgical History Past Surgical History: Yes: Cataract Removal (bilaterally), Cholecystectomy ( Laparoscopic cholecystectomy), Joint Replacement (Left THR) - Alcohol/Substance Use Hx Alcohol Use: No History of Substance Use: reports: None - Smoking History Smoking history: Current every day smoker Have you smoked in the past 12 months: Yes Aproximately how many cigarettes per day: 6 - Social History Usual Living Arrangement: With Spouse ADL: Independent Occupation: Retired: worked in [employer] History of Recent Travel: No Home Medications - Allergies Allergies/Adverse Reactions: Allergies Allergy/AdvReac Type Severity Reaction Status Date / Time Penicillins Allergy Verified 09/28/18 22:12 - Home Medications Home Medications: Ambulatory Orders Aspirin [ASA -] 81 mg PO DAILY 11/04/14 Amlodipine Besylate 10 mg PO DAILY 05/04/16 Clopidogrel Bisulfate [Plavix -] 75 mg PO DAILY 05/04/16 L.acidoph,Paracasei, B.lactis [Probiotic] 1 each PO DAILY 05/04/16 Cephalexin [Keflex] 250 mg PO TID 09/28/18 Cholecalciferol (Vitamin D3) [Vitamin D3 -] 50,000 unit PO WEEKLY 09/28/18 Ferrous Sulfate [Feosol] 325 mg PO BID 09/28/18 Levothyroxine [Synthroid -] 50 mcg PO DAILY 09/28/18 Family Disease History - Family Disease History Family Disease History: Other: Father (: 70: [place]), Mother (: 77: CVA), Brother (1: : CVA), Sister (4, 2 : 1 from DM II complications, 1 from Lung Ca), Son (6, healthy), Daughter (1, healthy) Other Family History: No family history of colorectal cancer Review of Systems - Review of Systems Constitutional: reports: Lethargy, Loss of Appetite Eyes: reports: Blurred Vision HENT: reports: No Symptoms Neck: reports: Stiffness Cardiovascular: reports: Shortness of Breath Respiratory: reports: Exercise Intolerance, PND, SOB on Exertion Gastrointestinal: reports: Bloating Genitourinary: reports: Frequency Musculoskeletal: reports: Joint Swelling, Muscle Pain, Muscle Cramps, Muscle Weakness Integumentary: reports: Pallor, Rash Neurological: reports: No Symptoms Endocrine: reports: No Symptoms Physical Exam Vital Signs: Vital Signs Temperature 98.0 F 10/07/18 20:09 Pulse Rate 85 10/07/18 20:09 Respiratory Rate 20 10/07/18 21:00 Blood Pressure 151/72 10/07/18 20:09 O2 Sat by Pulse Oximetry (%) 96 10/07/18 21:00 Constitutional: Yes: Calm Eyes: Yes: EOM Intact HENT: Yes: Normocephalic Neck: Yes: Trachea Midline Cardiovascular: Yes: Regular Rate and Rhythm Respiratory: Yes: Rales, Tachypnea Gastrointestinal: Yes: Normal Bowel Sounds ...Rectal Exam: Yes: Deferred Edema: LLE: 2+, RLE: 2+ Integumentary: Yes: Bruising, Onychomycosis, Venous Stasis Changes Wound/Incision: Yes: Dressing Dry and Intact, Other Neurological: Yes: Alert, Oriented, Lethargy, Numbness Labs: CBC, BMP 10/07/18 05:30 10/07/18 05:30 Problem List - Problems (1) Hypothyroid Code(s): E03.9 - HYPOTHYROIDISM, UNSPECIFIED (2) ANASTASIA (acute kidney injury) Code(s): N17.9 - ACUTE KIDNEY FAILURE, UNSPECIFIED (3) Acute hypoxemic respiratory failure Code(s): J96.01 - ACUTE RESPIRATORY FAILURE WITH HYPOXIA (4) Anemia Code(s): D64.9 - ANEMIA, UNSPECIFIED (5) Bilateral lower leg cellulitis Code(s): L03.116 - CELLULITIS OF LEFT LOWER LIMB; L03.115 - CELLULITIS OF RIGHT LOWER LIMB Assessment/Plan Current Active Problems ANASTASIA (acute kidney injury) (Acute) Acute chest pain (Acute) Acute diastolic CHF (congestive heart failure) (Acute) Acute hypoxemic respiratory failure (Acute) Anemia (Acute) Aortic stenosis (Acute) Bilateral lower leg cellulitis (Acute) CAD (coronary artery disease) (Acute) CHF exacerbation (Acute) COPD (chronic obstructive pulmonary disease) (Acute) Coronary atherosclerosis due to calcified coronary lesion of [place] artery ( Acute) Diabetes (Acute) HTN (hypertension) (Acute) Hyperkalemia (Acute) Hyponatremia (Acute) Hypothyroid (Acute) Lung nodule (Acute) Penicillin allergy (Acute) Pneumonia (Acute) Severe aortic stenosis (Acute) Tobacco abuse (Acute) Abnormal Lab Results 10/07/18 10/07/18 05:30 05:30 WBC 12.1 H Absolute Neuts (auto) 11.8 H Neutrophils % 97.2 H Neutrophils % (Manual) 98.0 H Lymphocytes % 0.8 L Lymphocytes % (Manual) 1.0 L D Monocytes % 1.8 L Monocytes % (Manual) 1 L Sodium 127 L Chloride 87 L BUN 101 H Creatinine 3.4 H Random Glucose 312 H* Calcium 7.7 L Total Protein 5.7 L Albumin 2.7 L Laboratory Results - last 24 hr 10/07/18 10/07/18 05:30 05:30 WBC 12.1 H RBC 3.81 Hgb 11.8 Hct 34.8 MCV 91.3 MCH 30.8 MCHC 33.8 RDW 15.3 Plt Count 243 MPV 9.7 Absolute Neuts (auto) 11.8 H Neutrophils % 97.2 H Neutrophils % (Manual) 98.0 H Band Neutrophils % 0.0 Lymphocytes % 0.8 L Lymphocytes % (Manual) 1.0 L D Monocytes % 1.8 L Monocytes % (Manual) 1 L Eosinophils % 0.0 Eosinophils % (Manual) 0.0 Basophils % 0.2 Basophils % (Manual) 0.0 Myelocytes % (Man) 0 Promyelocytes % (Man) 0 Blast Cells % (Manual) 0 Nucleated RBC % 0 Metamyelocytes 0 D Hypochromia 0 Platelet Estimate Normal Polychromasia 0 Poikilocytosis 1+ Anisocytosis 0 Microcytosis 0 Macrocytosis 0 Rouleaux 1+ Sodium 127 L Potassium 4.8 Chloride 87 L Carbon Dioxide 24 Anion Gap 16 BUN 101 H Creatinine 3.4 H Creat Clearance w eGFR 12.93 Random Glucose 312 H* Calcium 7.7 L Total Bilirubin 0.4 AST 16 ALT 29 Alkaline Phosphatase 112 Total Protein 5.7 L Albumin 2.7 L plan: synthroid 75 mcg daily titrate slow given cvd bgm qid novolog scale steroid related hyperglycemia improving Laboratory Tests 09/28/18 09/29/18 09/30/18 21:20 12:10 21:45 Sodium Potassium Chloride Carbon Dioxide Anion Gap BUN Creatinine Creat Clearance w eGFR Random Glucose Hemoglobin A1c % 5.4 B-Natriuretic Peptide TSH 45.20 H Free T4 0.75 L 10/04/18 10/05/18 10/06/18 07:20 06:20 07:10 Sodium Potassium Chloride Carbon Dioxide Anion Gap BUN Creatinine Creat Clearance w eGFR 12.11 Random Glucose 162 H 175 H 201 H Hemoglobin A1c % B-Natriuretic Peptide 98839.1 H TSH Free T4 10/07/18 05:30 Sodium 127 L Potassium 4.8 Chloride 87 L Carbon Dioxide 24 Anion Gap 16 BUN 101 H Creatinine 3.4 H Creat Clearance w eGFR Random Glucose 312 H* Hemoglobin A1c % B-Natriuretic Peptide TSH Free T4
--- NOTE | 2018-10-08 02:03 | PN ---
Progress Note, Physician Chief Complaint: Pt A&Ox3; no furher chest pain. OOB in chair; dyspnea on mild exertion. History of Present Illness: 83 yr old white woman with h/o COPD, diastolic CHF, severe aortic stenosis, ACS s/p stent 2014 (denies hx [place]), HTN, HLD, hypothyroidism, hip replacement, current bronchitis, and recently diagnosed leg cellulitis (states she is on amoxicillin for the cellulitis) who p/w worsening wet cough and SOB for the past 2 weeks, particularly worse tonight. She has had chills but denies any measured fever, nausea, vomiting, constipation, n/t/w focally, headache, back pain, neck pain, or other symptoms. Her family expresses concern her legs are so swollen she is unable to lift them or even walk. The patient notes her legs are only painful when she tries to weight bear. - Current Medication List Current Medications: Active Medications Acetaminophen (Tylenol -) 650 mg PO Q6H PRN PRN Reason: PAIN OR FEVER Albuterol Sulfate (Ventolin 0.083% Nebulizer Soln -) 1 amp NEB Q4H PRN PRN Reason: SHORT OF BREATH/WHEEZING Last Admin: 10/06/18 05:37 Dose: 1 amp Albuterol/Ipratropium (Duoneb -) 1 amp NEB RQID [facility] Last Admin: 10/07/18 21:25 Dose: 1 amp Aspirin (Ecotrin -) 81 mg PO DAILY [facility] Last Admin: 10/07/18 10:02 Dose: 81 mg Benzocaine/Menthol (Cepacol Lozenge -) 1 each MM PRN PRN PRN Reason: SORE THROAT Last Admin: 10/02/18 13:40 Dose: 1 each Clopidogrel Bisulfate (Plavix -) 75 mg PO DAILY [facility] Last Admin: 10/07/18 10:02 Dose: 75 mg Diltiazem HCl (Cardizem Injection -) 5 mg IVPUSH Q4H PRN PRN Reason: TACHYCARDIA Furosemide (Lasix Injection -) 40 mg IVPUSH DAILY [facility] Last Admin: 10/07/18 10:02 Dose: 40 mg Guaifenesin/Codeine Phosphate (Robitussin Ac -) 5 ml PO TID PRN PRN Reason: COUGH Last Admin: 10/01/18 21:40 Dose: 5 ml Heparin Sodium (Porcine) (Heparin -) 5,000 unit SQ BID [facility] Last Admin: 10/07/18 21:09 Dose: 5,000 unit Levothyroxine Sodium (Synthroid -) 75 mcg PO DAILY@0700 [facility] Last Admin: 10/07/18 06:27 Dose: 75 mcg Methyl Salicylate (David-Trinh -) 1 applic TP BID [facility] Last Admin: 10/07/18 21:08 Dose: Not Given Pantoprazole Sodium (Protonix -) 40 mg PO DAILY [facility] Last Admin: 10/07/18 10:03 Dose: 40 mg Phenol/Menthol (Chloraseptic -) 1 spray MM Q6HPO PRN PRN Reason: SORE THROAT Last Admin: 10/05/18 21:19 Dose: 1 spray Polyethylene Glycol (Miralax (For Daily Use) -) 17 gm PO DAILY [facility] Last Admin: 10/07/18 10:02 Dose: Not Given Sodium Chloride ([place] Nasal [place] -) 2 spray NS TID PRN PRN Reason: NASAL CONGESTION Last Admin: 10/03/18 13:43 Dose: 2 spray - Objective Vital Signs: Vital Signs Temperature 98.0 F 10/07/18 22:00 Pulse Rate 85 10/07/18 22:00 Respiratory Rate 20 10/07/18 22:00 Blood Pressure 151/72 10/07/18 22:00 O2 Sat by Pulse Oximetry (%) 96 10/07/18 21:00 Constitutional: Yes: Anxious Eyes: Yes: WNL HENT: Yes: WNL Cardiovascular: Yes: Murmur, S1, S2 Respiratory: Yes: Diminished, Tachypnea Gastrointestinal: Yes: Soft ...Rectal Exam: Yes: Deferred Genitourinary: No: Anuria Breast(s): Yes: WNL Musculoskeletal: Yes: Muscle Weakness Extremities: Yes: Cool Edema: Yes Edema: LLE: Trace, RLE: Trace Peripheral Pulses WNL: No Peripheral Pulses: Left [place] Pedis: 1+, Right Dorsalis Pedis: 1+ Integumentary: Yes: Bruising, Erythema Neurological: Yes: Alert, Oriented, Weakness Labs: CBC, BMP 10/07/18 05:30 10/07/18 05:30 Abnormal Lab Results 10/07/18 10/08/18 10/08/18 05:30 05:30 05:30 WBC 14.2 H Absolute Neuts (auto) 12.6 H Neutrophils % 88.4 H Neutrophils % (Manual) 98.0 H Lymphocytes % 4.9 L D Lymphocytes % (Manual) 1.0 L D Monocytes % (Manual) 1 L Sodium 126 L Chloride 88 L BUN 100 H Creatinine 3.2 H Calcium 7.4 L Total Protein 5.3 L Albumin 2.6 L - ....Imaging Other: Image Reviewed (telemetry: NSR; no arrhythmias) Problem List - Problems (1) Severe aortic stenosis Assessment/Plan: ECHO 09/29/2018: normal LVEF; mild LVH; abnormal diatolic compliance; severe aortic stenosis (), mild AR, moderate pulmonary HTN; severe MAC and aortic valve calcification; moderate LAE. The potential benefits (symptoms; mortality) from TAVR were discussed with pt and family. Presently, worsening renal status makes this option problematic. Pt is against undergoing dialysis. Avoid excessive diuresis/dehydration. Code(s): I35.0 - NONRHEUMATIC AORTIC (VALVE) STENOSIS (2) HTN (hypertension) Code(s): I10 - ESSENTIAL (PRIMARY) HYPERTENSION (3) CAD (coronary artery disease) Code(s): I25.10 - ATHSCL HEART DISEASE OF [place] CORONARY ARTERY W/O ANG PCTRS (4) Diastolic CHF Code(s): I50.30 - UNSPECIFIED DIASTOLIC (CONGESTIVE) HEART FAILURE (5) ANASTASIA (acute kidney injury) Code(s): N17.9 - ACUTE KIDNEY FAILURE, UNSPECIFIED (6) Anemia Code(s): D64.9 - ANEMIA, UNSPECIFIED (7) COPD (chronic obstructive pulmonary disease) Assessment/Plan: Quit cigarettes only a few years ago, after many years smoking. CT chest: RUL lung nodule. Code(s): J44.9 - CHRONIC OBSTRUCTIVE PULMONARY DISEASE, UNSPECIFIED Qualifiers: COPD type: unspecified COPD Qualified Code(s): J44.9 - Chronic obstructive pulmonary disease, unspecified (8) Acute diastolic CHF (congestive heart failure) Assessment/Plan: + JVD Markedly elevated BNP. CXR and CT chest: pleural effusion gbilaterally. Exacerbated by severe , anemia. Code(s): I50.31 - ACUTE DIASTOLIC (CONGESTIVE) HEART FAILURE (9) Lung nodule Assessment/Plan: RUL apex; r/o malignancy; for f/u studies within 3 months. Code(s): R91.1 - SOLITARY PULMONARY NODULE (10) Coronary atherosclerosis due to calcified coronary lesion of [place] artery Assessment/Plan: dense calcification of coronary arteries on CT. If pt's overall condition stabilizes, and renal status is addressed, would benefit from coronary angiogram and evaluation for TAVR. Code(s): I25.10 - ATHSCL HEART DISEASE OF [place] CORONARY ARTERY W/O ANG PCTRS; I25.84 - CORONARY ATHEROSCLEROSIS DUE TO CALCIFIED CORONARY LESION (11) Acute chest pain Assessment/Plan: EKG: no significant change. TNI pending; f/u serially. Pt receiving bronchodilator Rx; chest discomfort reduced, but not completely resolved. On ASA, clopidogrel, sc heparin. NTG (though caution against excessive preload reduction with severe ). F/u BP serially. Consider anxiolytic. Code(s): R07.9 - CHEST PAIN, UNSPECIFIED (12) Hypothyroid Assessment/Plan: elevated TSH; low free T4. Adjust therapy accordingly. Code(s): E03.9 - HYPOTHYROIDISM, UNSPECIFIED
[2018-10-08] MEDS: LEVOTHYROXINE NA 75 MCG TABLET (FP) PO SCH (06:25)
[2018-10-08 06:43] LABS: BASO % 0.3 % (0-2.0); EOS % 0.9 % (0-4.5); HEMATOCRIT 34.2 % (32.4-45.2); HEMOGLOBIN 11.6 GM/dL (10.7-15.3); LYMPH % 4.9 % (8-40); MCH 30.8 pg (25.7-33.7); MCHC 33.8 g/dl (32.0-36.0); MEAN CELL VOLUME 91.2 fl (80-96); MEAN PLT VOLUME 9.9 fl (7.5-11.1); MONO % 5.5 % (3.8-10.2); NEUT % 88.4 % (42.8-82.8); PLATELET COUNT 235 K/MM3 (134-434); RBC 3.75 M/mm3 (3.60-5.2); RDW 15.1 % (11.6-15.6); WHITE BLOOD COUNT 14.2 K/mm3 (4.0-10.0)
[2018-10-08 07:37] LABS: ALBUMIN 2.6 g/dl (3.4-5.0); ALK PHOS 84 U/L (45-117); ANION GAP 14 MMOL/L (8-16); BILIRUBIN,TOTAL 0.5 mg/dL (0.2-1); BLOOD UREA NITROGEN 100 mg/dL (7-18); CALCIUM 7.4 mg/dL (8.5-10.1); CHLORIDE 88 mmol/L (98-107); CO2 24 mmol/L (21-32); CREATININE 3.2 mg/dL (0.55-1.3); GLUCOSE,RANDOM 98 mg/dL (74-106); SGOT/AST 20 U/L (15-37); SGPT/ALT 27 U/L (13-61); SODIUM 126 mmol/L (136-145); TOT PROT 5.3 g/dl (6.4-8.2)
[2018-10-08] MEDS: ALBUTEROL SO4 2.5/IPRATROPIUM 0.5 INH SOL 3 ML VIAL.NEB. NEB SCH ×4 (07:40→20:45)
--- NOTE | 2018-10-08 08:59 | PN ---
Progress Note, Physician - Current Medication List Current Medications: Active Medications Acetaminophen (Tylenol -) 650 mg PO Q6H PRN PRN Reason: PAIN OR FEVER Albuterol Sulfate (Ventolin 0.083% Nebulizer Soln -) 1 amp NEB Q4H PRN PRN Reason: SHORT OF BREATH/WHEEZING Last Admin: 10/06/18 05:37 Dose: 1 amp Albuterol/Ipratropium (Duoneb -) 1 amp NEB RQID [facility] Last Admin: 10/07/18 21:25 Dose: 1 amp Aspirin (Ecotrin -) 81 mg PO DAILY [facility] Last Admin: 10/07/18 10:02 Dose: 81 mg Benzocaine/Menthol (Cepacol Lozenge -) 1 each MM PRN PRN PRN Reason: SORE THROAT Last Admin: 10/02/18 13:40 Dose: 1 each Clopidogrel Bisulfate (Plavix -) 75 mg PO DAILY [facility] Last Admin: 10/07/18 10:02 Dose: 75 mg Diltiazem HCl (Cardizem Injection -) 5 mg IVPUSH Q4H PRN PRN Reason: TACHYCARDIA Furosemide (Lasix Injection -) 40 mg IVPUSH DAILY [facility] Last Admin: 10/07/18 10:02 Dose: 40 mg Guaifenesin/Codeine Phosphate (Robitussin Ac -) 5 ml PO TID PRN PRN Reason: COUGH Last Admin: 10/01/18 21:40 Dose: 5 ml Heparin Sodium (Porcine) (Heparin -) 5,000 unit SQ BID [facility] Last Admin: 10/07/18 21:09 Dose: 5,000 unit Levothyroxine Sodium (Synthroid -) 75 mcg PO DAILY@0700 [facility] Last Admin: 10/08/18 06:25 Dose: 75 mcg Methyl Salicylate (David-Trinh -) 1 applic TP BID [facility] Last Admin: 10/07/18 21:08 Dose: Not Given Pantoprazole Sodium (Protonix -) 40 mg PO DAILY [facility] Last Admin: 10/07/18 10:03 Dose: 40 mg Phenol/Menthol (Chloraseptic -) 1 spray MM Q6HPO PRN PRN Reason: SORE THROAT Last Admin: 10/05/18 21:19 Dose: 1 spray Polyethylene Glycol (Miralax (For Daily Use) -) 17 gm PO DAILY [facility] Last Admin: 10/07/18 10:02 Dose: Not Given Prednisone (Deltasone -) 30 mg PO BID [facility] Sodium Chloride ([place] Nasal [place] -) 2 spray NS TID PRN PRN Reason: NASAL CONGESTION Last Admin: 10/03/18 13:43 Dose: 2 spray - Objective Vital Signs: Vital Signs Temperature 97.9 F 10/08/18 06:00 Pulse Rate 82 10/08/18 06:00 Respiratory Rate 20 10/08/18 06:00 Blood Pressure 148/78 10/08/18 06:00 O2 Sat by Pulse Oximetry (%) 96 10/07/18 21:00 Cardiovascular: Yes: S1, S2 Respiratory: Yes: Diminished, On Nasal O2 Gastrointestinal: Yes: Normal Bowel Sounds, Soft Labs: CBC, BMP 10/08/18 05:30 10/08/18 05:30 Assessment/Plan - Problems (1) Acute hypoxemic respiratory failure Assessment/Plan: bipap lasix pulm steroids iv--po Code(s): J96.01 - ACUTE RESPIRATORY FAILURE WITH HYPOXIA (2) CHF exacerbation Assessment/Plan: lasix iv--to po cardiology on board given renal function difficult to get angiogram and TAVR--pt also refusing -cxr Code(s): I50.9 - HEART FAILURE, UNSPECIFIED Qualifiers: Heart failure type: unspecified Qualified Code(s): I50.9 - Heart failure, unspecified (3) Anemia Assessment/Plan: check iron panel noted h/h ok Code(s): D64.9 - ANEMIA, UNSPECIFIED (4) Hypothyroid Assessment/Plan: tsh is 45 synthroid dose increase from 50 to 75 Code(s): E03.9 - HYPOTHYROIDISM, UNSPECIFIED (5) Hyperkalemia Assessment/Plan: kayxelate renal eval noted improved continue with lasix Code(s): E87.5 - HYPERKALEMIA (6) ANASTASIA (acute kidney injury) Assessment/Plan: renal eval noted for refusal of HD per family 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
--- NOTE | 2018-10-08 09:34 | PN ---
Progress Note, Physician History of Present Illness: Pt seen and examined at bedside. She still has fatigue and shortness of breath. - Current Medication List Current Medications: Active Medications Acetaminophen (Tylenol -) 650 mg PO Q6H PRN PRN Reason: PAIN OR FEVER Albuterol Sulfate (Ventolin 0.083% Nebulizer Soln -) 1 amp NEB Q4H PRN PRN Reason: SHORT OF BREATH/WHEEZING Last Admin: 10/06/18 05:37 Dose: 1 amp Albuterol/Ipratropium (Duoneb -) 1 amp NEB RQID [facility] Last Admin: 10/07/18 21:25 Dose: 1 amp Aspirin (Ecotrin -) 81 mg PO DAILY [facility] Last Admin: 10/07/18 10:02 Dose: 81 mg Benzocaine/Menthol (Cepacol Lozenge -) 1 each MM PRN PRN PRN Reason: SORE THROAT Last Admin: 10/02/18 13:40 Dose: 1 each Clopidogrel Bisulfate (Plavix -) 75 mg PO DAILY [facility] Last Admin: 10/07/18 10:02 Dose: 75 mg Diltiazem HCl (Cardizem Injection -) 5 mg IVPUSH Q4H PRN PRN Reason: TACHYCARDIA Furosemide (Lasix Injection -) 40 mg IVPUSH DAILY [facility] Last Admin: 10/07/18 10:02 Dose: 40 mg Guaifenesin/Codeine Phosphate (Robitussin Ac -) 5 ml PO TID PRN PRN Reason: COUGH Last Admin: 10/01/18 21:40 Dose: 5 ml Heparin Sodium (Porcine) (Heparin -) 5,000 unit SQ BID [facility] Last Admin: 10/07/18 21:09 Dose: 5,000 unit Levothyroxine Sodium (Synthroid -) 75 mcg PO DAILY@0700 [facility] Last Admin: 10/08/18 06:25 Dose: 75 mcg Methyl Salicylate (David-Trinh -) 1 applic TP BID [facility] Last Admin: 10/07/18 21:08 Dose: Not Given Pantoprazole Sodium (Protonix -) 40 mg PO DAILY [facility] Last Admin: 10/07/18 10:03 Dose: 40 mg Phenol/Menthol (Chloraseptic -) 1 spray MM Q6HPO PRN PRN Reason: SORE THROAT Last Admin: 10/05/18 21:19 Dose: 1 spray Polyethylene Glycol (Miralax (For Daily Use) -) 17 gm PO DAILY [facility] Last Admin: 10/07/18 10:02 Dose: Not Given Prednisone (Deltasone -) 30 mg PO BID [facility] Sodium Chloride ([place] Nasal [place] -) 2 spray NS TID PRN PRN Reason: NASAL CONGESTION Last Admin: 10/03/18 13:43 Dose: 2 spray - Objective Vital Signs: Vital Signs Temperature 97.9 F 10/08/18 06:00 Pulse Rate 82 10/08/18 06:00 Respiratory Rate 20 10/08/18 06:00 Blood Pressure 148/78 10/08/18 06:00 O2 Sat by Pulse Oximetry (%) 96 10/07/18 21:00 Constitutional: Yes: Calm Eyes: Yes: Conjunctiva Clear HENT: Yes: Atraumatic Cardiovascular: Yes: S1, S2 Respiratory: Yes: On Nasal O2, Rhonchi Gastrointestinal: Yes: Soft Genitourinary: Yes: WNL Musculoskeletal: Yes: WNL Edema: Yes Edema: LLE: 1+, RLE: 1+ Neurological: Yes: Oriented Psychiatric: Yes: Oriented Labs: CBC, BMP 10/08/18 05:30 10/08/18 05:30 Problem List - Problems (1) Acute hypoxemic respiratory failure Code(s): J96.01 - ACUTE RESPIRATORY FAILURE WITH HYPOXIA (2) Anemia Code(s): D64.9 - ANEMIA, UNSPECIFIED (3) CHF exacerbation Code(s): I50.9 - HEART FAILURE, UNSPECIFIED Qualifiers: Qualified Code(s): I50.9 - Heart failure, unspecified (4) COPD (chronic obstructive pulmonary disease) Code(s): J44.9 - CHRONIC OBSTRUCTIVE PULMONARY DISEASE, UNSPECIFIED Qualifiers: Qualified Code(s): J44.9 - Chronic obstructive pulmonary disease, unspecified (5) Hyperkalemia Code(s): E87.5 - HYPERKALEMIA (6) Tobacco abuse Code(s): Z72.0 - TOBACCO USE Assessment/Plan Current Medications Generic Name Dose Route Start Last Admin Trade Name Freq PRN Reason Stop Dose Admin Acetaminophen 650 mg 09/28/18 21:26 Tylenol - PO Q6H PRN PAIN OR FEVER Albuterol Sulfate 1 amp 10/01/18 01:58 10/06/18 05:37 Ventolin 0.083% Nebulizer Soln - NEB 1 amp Q4H PRN Administration SHORT OF BREATH/WHEEZING Albuterol/Ipratropium 1 amp 09/30/18 11:16 10/07/18 21:25 Duoneb - NEB 1 amp RQID [facility] Administration Aspirin 81 mg 09/29/18 10:00 10/07/18 10:02 Ecotrin - PO 81 mg DAILY [facility] Administration Benzocaine/Menthol 1 each 10/02/18 12:05 10/02/18 13:40 Cepacol Lozenge - MM 1 each PRN PRN Administration SORE THROAT Clopidogrel Bisulfate 75 mg 09/29/18 10:00 10/07/18 10:02 Plavix - PO 75 mg DAILY [facility] Administration Diltiazem HCl 5 mg 10/01/18 10:05 Cardizem Injection - IVPUSH Q4H PRN TACHYCARDIA Furosemide 40 mg 10/07/18 10:00 10/07/18 10:02 Lasix Injection - IVPUSH 40 mg DAILY [facility] Administration Guaifenesin/Codeine Phosphate 5 ml 10/01/18 10:03 10/01/18 21:40 Robitussin Ac - PO 5 ml TID PRN Administration COUGH Heparin Sodium (Porcine) 5,000 unit 09/28/18 22:00 10/07/18 21:09 Heparin - SQ 5,000 unit BID [facility] Administration Levothyroxine Sodium 75 mcg 09/29/18 07:00 10/08/18 06:25 Synthroid - PO 75 mcg DAILY@0700 [facility] Administration Methyl Salicylate 1 applic 10/01/18 22:00 10/07/18 21:08 David-Trinh - TP Not Given BID [facility] Pantoprazole Sodium 40 mg 10/02/18 14:00 10/07/18 10:03 Protonix - PO 40 mg DAILY [facility] Administration Phenol/Menthol 1 spray 10/02/18 12:05 10/05/18 21:19 Chloraseptic - MM 1 spray Q6HPO PRN Administration SORE THROAT Polyethylene Glycol 17 gm 10/02/18 15:00 10/07/18 10:02 Miralax (For Daily Use) - PO Not Given DAILY [facility] Prednisone 30 mg 10/08/18 10:00 Deltasone - PO BID [facility] Sodium Chloride 2 spray 10/02/18 12:04 10/03/18 13:43 [place] Nasal [place] - NS 2 spray TID PRN Administration NASAL CONGESTION Impression 1. hyperkalemia 2. CKD 3. CAD 4. COPD 5. hypothyroidism 6. CHF 7. severe aortic stenosis Plan - can change lasix to PO - switch to PO diet - monitor sodium, restrict free water - pt does not want HD therapy - steroid taper - will follow Dr Smith
[2018-10-08] MEDS ORDERED: FUROSEMIDE 40 MG TABLET (FP) PO SCH (10:00)
[2018-10-08] MEDS: predniSONE 10 MG TABLET (UD) PO SCH ×2 (10:04→21:14)
[2018-10-08] MEDS: HEPARIN NA (PORCINE) 5,000 UNITS/ML 1ML VIAL SQ SCH ×2 (10:05→21:17)
[2018-10-08] MEDS: METHYL SALICYLATE/MENTHOL OINT 30 GM TUBE TP SCH ×2 (10:05→21:14)
[2018-10-08] MEDS: ASPIRIN COATED 81 MG TABLET.EC PO SCH (10:05)
[2018-10-08] MEDS: CLOPIDOGREL BISULFATE 75 MG TABLET (FP) PO SCH (10:05)
[2018-10-08] MEDS: PANTOPRAZOLE 40 MG TABLET (FP) PO SCH (10:06)
[2018-10-08] MEDS: SODIUM CHLORIDE NASAL SPRAY 44 ML BOTTLE NS PRN (10:06)
[2018-10-08] MEDS: POLYETHYLENE GLYCOL 3350 119 GM BTL PO SCH (10:06)
[2018-10-08] MEDS: BENZOCAINE/MENTH/CETYLPYRD CL 1 EACH LOZENGE MM PRN (10:07)
[2018-10-08] MEDS ORDERED: FUROSEMIDE 20 MG TABLET (FP) PO SCH (10:19)
--- NOTE | 2018-10-08 10:56 | PN ---
Progress Note, Physician History of Present Illness: PULMONARY ALERT,FEELING BETTER,LESS DYSPNEIC. - Current Medication List Current Medications: Active Medications Acetaminophen (Tylenol -) 650 mg PO Q6H PRN PRN Reason: PAIN OR FEVER Albuterol Sulfate (Ventolin 0.083% Nebulizer Soln -) 1 amp NEB Q4H PRN PRN Reason: SHORT OF BREATH/WHEEZING Last Admin: 10/06/18 05:37 Dose: 1 amp Albuterol/Ipratropium (Duoneb -) 1 amp NEB RQID [facility] Last Admin: 10/08/18 07:40 Dose: 1 amp Aspirin (Ecotrin -) 81 mg PO DAILY [facility] Last Admin: 10/08/18 10:05 Dose: 81 mg Benzocaine/Menthol (Cepacol Lozenge -) 1 each MM PRN PRN PRN Reason: SORE THROAT Last Admin: 10/08/18 10:07 Dose: 1 each Clopidogrel Bisulfate (Plavix -) 75 mg PO DAILY [facility] Last Admin: 10/08/18 10:05 Dose: 75 mg Diltiazem HCl (Cardizem Injection -) 5 mg IVPUSH Q4H PRN PRN Reason: TACHYCARDIA Furosemide (Lasix -) 60 mg PO DAILY [facility] Guaifenesin/Codeine Phosphate (Robitussin Ac -) 5 ml PO TID PRN PRN Reason: COUGH Last Admin: 10/01/18 21:40 Dose: 5 ml Heparin Sodium (Porcine) (Heparin -) 5,000 unit SQ BID [facility] Last Admin: 10/08/18 10:05 Dose: 5,000 unit Levothyroxine Sodium (Synthroid -) 75 mcg PO DAILY@0700 [facility] Last Admin: 10/08/18 06:25 Dose: 75 mcg Methyl Salicylate (David-Trinh -) 1 applic TP BID [facility] Last Admin: 10/08/18 10:05 Dose: Not Given Pantoprazole Sodium (Protonix -) 40 mg PO DAILY [facility] Last Admin: 10/08/18 10:06 Dose: 40 mg Phenol/Menthol (Chloraseptic -) 1 spray MM Q6HPO PRN PRN Reason: SORE THROAT Last Admin: 10/05/18 21:19 Dose: 1 spray Polyethylene Glycol (Miralax (For Daily Use) -) 17 gm PO DAILY [facility] Last Admin: 10/08/18 10:06 Dose: Not Given Prednisone (Deltasone -) 30 mg PO BID [facility] Last Admin: 10/08/18 10:04 Dose: 30 mg Sodium Chloride ([place] -) 2 spray NS TID PRN PRN Reason: NASAL CONGESTION Last Admin: 10/08/18 10:06 Dose: 2 spray - Objective Vital Signs: Vital Signs Temperature 97.7 F 10/08/18 10:00 Pulse Rate 80 10/08/18 10:00 Respiratory Rate 20 10/08/18 10:00 Blood Pressure 151/59 L 10/08/18 10:00 O2 Sat by Pulse Oximetry (%) 93 L 10/08/18 10:05 Constitutional: Yes: Calm, Thin Eyes: Yes: WNL HENT: Yes: WNL Neck: Yes: WNL Cardiovascular: Yes: Regular Rate and Rhythm, S1, S2 Respiratory: Yes: Rhonchi (FEW SCATTERED RHONCHI) Gastrointestinal: Yes: Normal Bowel Sounds, Soft Extremities: Yes: WNL Edema: Yes Labs: CBC, BMP 10/08/18 05:30 10/08/18 05:30 Problem List - Problems (1) Acute hypoxemic respiratory failure Code(s): J96.01 - ACUTE RESPIRATORY FAILURE WITH HYPOXIA (2) Bilateral lower leg cellulitis Code(s): L03.116 - CELLULITIS OF LEFT LOWER LIMB; L03.115 - CELLULITIS OF RIGHT LOWER LIMB (3) CHF exacerbation Code(s): I50.9 - HEART FAILURE, UNSPECIFIED Qualifiers: Heart failure type: unspecified Qualified Code(s): I50.9 - Heart failure, unspecified (4) COPD (chronic obstructive pulmonary disease) Code(s): J44.9 - CHRONIC OBSTRUCTIVE PULMONARY DISEASE, UNSPECIFIED Qualifiers: COPD type: unspecified COPD Qualified Code(s): J44.9 - Chronic obstructive pulmonary disease, unspecified (5) Pneumonia Code(s): J18.9 - PNEUMONIA, UNSPECIFIED ORGANISM Qualifiers: Pneumonia type: due to unspecified organism Laterality: unspecified laterality Lung location: unspecified part of lung Qualified Code(s): J18.9 - Pneumonia, unspecified organism (6) Acute coronary syndrome Code(s): I24.9 - ACUTE ISCHEMIC HEART DISEASE, UNSPECIFIED (7) Anemia Code(s): D64.9 - ANEMIA, UNSPECIFIED (8) Diabetes Code(s): E11.9 - TYPE 2 DIABETES MELLITUS WITHOUT COMPLICATIONS (9) Tobacco abuse Code(s): Z72.0 - TOBACCO USE (10) Tobacco abuse counseling Code(s): Z71.6 - TOBACCO ABUSE COUNSELING Assessment/Plan IMP ACUTE HYPOXEMIC RESPIRATORY FAILURE SLOWLY IMPROVING CHF SEVERE AORTIC STENOSIS COPD EXACERBATION ? PNEUMONIA ASHD S/P STENT ACUTE ON CHRONIC KIDNEY DISEASE PULMONARY HTN ANEMIA HTN DM TOBACCO ABUSE HEMOPTYSIS RESOLVED R APICAL NODULE HYPONATREMIA PLAN LASIX O2/BIPAP NEEDED ABX STEROID TAPER INHALED BRONCHODILATORS NORMAL TRANSFUSION THRESHOLD MONITOR LYTES,RENAL FUNCTION,H+H,NA DR MCKENZIE Problem List - Problems (1) Acute hypoxemic respiratory failure Code(s): J96.01 - ACUTE RESPIRATORY FAILURE WITH HYPOXIA (2) Bilateral lower leg cellulitis Code(s): L03.116 - CELLULITIS OF LEFT LOWER LIMB; L03.115 - CELLULITIS OF RIGHT LOWER LIMB (3) CHF exacerbation Code(s): I50.9 - HEART FAILURE, UNSPECIFIED Qualifiers: Heart failure type: unspecified Qualified Code(s): I50.9 - Heart failure, unspecified (4) COPD (chronic obstructive pulmonary disease) Code(s): J44.9 - CHRONIC OBSTRUCTIVE PULMONARY DISEASE, UNSPECIFIED Qualifiers: COPD type: unspecified COPD Qualified Code(s): J44.9 - Chronic obstructive pulmonary disease, unspecified (5) Pneumonia Code(s): J18.9 - PNEUMONIA, UNSPECIFIED ORGANISM Qualifiers: Pneumonia type: due to unspecified organism Laterality: unspecified laterality Lung location: unspecified part of lung Qualified Code(s): J18.9 - Pneumonia, unspecified organism (6) Acute coronary syndrome Code(s): I24.9 - ACUTE ISCHEMIC HEART DISEASE, UNSPECIFIED (7) Anemia Code(s): D64.9 - ANEMIA, UNSPECIFIED (8) Diabetes Code(s): E11.9 - TYPE 2 DIABETES MELLITUS WITHOUT COMPLICATIONS (9) Tobacco abuse Code(s): Z72.0 - TOBACCO USE (10) Tobacco abuse counseling Code(s): Z71.6 - TOBACCO ABUSE COUNSELING
--- NOTE | 2018-10-08 11:23 | PN ---
Progress Note, Physician History of Present Illness: 83 yr old white woman with h/o COPD, diastolic CHF, severe aortic stenosis, ACS s/p stent 2014 (denies hx [place]), HTN, HLD, hypothyroidism, hip replacement, current bronchitis, and recently diagnosed leg cellulitis (states she is on amoxicillin for the cellulitis) who p/w worsening wet cough and SOB for the past 2 weeks, particularly worse tonight. She has had chills but denies any measured fever, nausea, vomiting, constipation, n/t/w focally, headache, back pain, neck pain, or other symptoms. Her family expresses concern her legs are so swollen she is unable to lift them or even walk. The patient notes her legs are only painful when she tries to weight bear. - Current Medication List Current Medications: Active Medications Acetaminophen (Tylenol -) 650 mg PO Q6H PRN PRN Reason: PAIN OR FEVER Albuterol Sulfate (Ventolin 0.083% Nebulizer Soln -) 1 amp NEB Q4H PRN PRN Reason: SHORT OF BREATH/WHEEZING Last Admin: 10/06/18 05:37 Dose: 1 amp Albuterol/Ipratropium (Duoneb -) 1 amp NEB RQID [facility] Last Admin: 10/08/18 07:40 Dose: 1 amp Aspirin (Ecotrin -) 81 mg PO DAILY [facility] Last Admin: 10/08/18 10:05 Dose: 81 mg Benzocaine/Menthol (Cepacol Lozenge -) 1 each MM PRN PRN PRN Reason: SORE THROAT Last Admin: 10/08/18 10:07 Dose: 1 each Clopidogrel Bisulfate (Plavix -) 75 mg PO DAILY [facility] Last Admin: 10/08/18 10:05 Dose: 75 mg Diltiazem HCl (Cardizem Injection -) 5 mg IVPUSH Q4H PRN PRN Reason: TACHYCARDIA Furosemide (Lasix -) 60 mg PO DAILY [facility] Guaifenesin/Codeine Phosphate (Robitussin Ac -) 5 ml PO TID PRN PRN Reason: COUGH Last Admin: 10/01/18 21:40 Dose: 5 ml Heparin Sodium (Porcine) (Heparin -) 5,000 unit SQ BID [facility] Last Admin: 10/08/18 10:05 Dose: 5,000 unit Levothyroxine Sodium (Synthroid -) 75 mcg PO DAILY@0700 [facility] Last Admin: 10/08/18 06:25 Dose: 75 mcg Methyl Salicylate (David-Trinh -) 1 applic TP BID [facility] Last Admin: 10/08/18 10:05 Dose: Not Given Pantoprazole Sodium (Protonix -) 40 mg PO DAILY [facility] Last Admin: 10/08/18 10:06 Dose: 40 mg Phenol/Menthol (Chloraseptic -) 1 spray MM Q6HPO PRN PRN Reason: SORE THROAT Last Admin: 10/05/18 21:19 Dose: 1 spray Polyethylene Glycol (Miralax (For Daily Use) -) 17 gm PO DAILY [facility] Last Admin: 10/08/18 10:06 Dose: Not Given Prednisone (Deltasone -) 30 mg PO BID [facility] Last Admin: 10/08/18 10:04 Dose: 30 mg Sodium Chloride ([place] Nasal [place] -) 2 spray NS TID PRN PRN Reason: NASAL CONGESTION Last Admin: 10/08/18 10:06 Dose: 2 spray - Objective Vital Signs: Vital Signs Temperature 97.7 F 10/08/18 10:00 Pulse Rate 80 10/08/18 10:00 Respiratory Rate 20 10/08/18 10:00 Blood Pressure 151/59 L 10/08/18 10:00 O2 Sat by Pulse Oximetry (%) 93 L 10/08/18 10:05 Eyes: Yes: WNL, Conjunctiva Clear, EOM Intact HENT: Yes: WNL, Atraumatic, Normocephalic Neck: Yes: WNL, Supple, Trachea Midline Cardiovascular: Yes: WNL, Regular Rate and Rhythm, Murmur, S1, S2 Respiratory: Yes: WNL, Regular, CTA Bilaterally Gastrointestinal: Yes: WNL, Normal Bowel Sounds Genitourinary: Yes: WNL Musculoskeletal: Yes: WNL Extremities: Yes: WNL Edema: Yes Integumentary: Yes: WNL Neurological: Yes: WNL, Alert, Oriented ...Motor Strength: WNL Psychiatric: Yes: WNL Labs: CBC, BMP 10/08/18 05:30 10/08/18 05:30 Assessment/Plan - Problems (1) Severe aortic stenosis Assessment/Plan: ECHO 09/29/2018: normal LVEF; mild LVH; abnormal diatolic compliance; severe aortic stenosis (), mild AR, moderate pulmonary HTN; severe MAC and aortic valve calcification; moderate LAE. The potential benefits (symptoms; mortality) from TAVR were discussed with pt and family. Presently, worsening renal status makes this option problematic. Pt is against undergoing dialysis. Avoid excessive diuresis/dehydration. Code(s): I35.0 - NONRHEUMATIC AORTIC (VALVE) STENOSIS (2) HTN (hypertension) Code(s): I10 - ESSENTIAL (PRIMARY) HYPERTENSION (3) CAD (coronary artery disease) Code(s): I25.10 - ATHSCL HEART DISEASE OF [place] CORONARY ARTERY W/O ANG PCTRS (4) Diastolic CHF Code(s): I50.30 - UNSPECIFIED DIASTOLIC (CONGESTIVE) HEART FAILURE (5) ANASTASIA (acute kidney injury) Code(s): N17.9 - ACUTE KIDNEY FAILURE, UNSPECIFIED (6) Anemia Code(s): D64.9 - ANEMIA, UNSPECIFIED (7) COPD (chronic obstructive pulmonary disease) Assessment/Plan: Quit cigarettes only a few years ago, after many years smoking. CT chest: RUL lung nodule. Code(s): J44.9 - CHRONIC OBSTRUCTIVE PULMONARY DISEASE, UNSPECIFIED Qualifiers: COPD type: unspecified COPD Qualified Code(s): J44.9 - Chronic obstructive pulmonary disease, unspecified (8) Acute diastolic CHF (congestive heart failure) Assessment/Plan: + JVD Markedly elevated BNP. CXR and CT chest: pleural effusion gbilaterally. Exacerbated by severe , anemia. Code(s): I50.31 - ACUTE DIASTOLIC (CONGESTIVE) HEART FAILURE (9) Lung nodule Assessment/Plan: RUL apex; r/o malignancy; for f/u studies within 3 months. Code(s): R91.1 - SOLITARY PULMONARY NODULE (10) Coronary atherosclerosis due to calcified coronary lesion of [place] artery Assessment/Plan: dense calcification of coronary arteries on CT. If pt's overall condition stabilizes, and renal status is addressed, would benefit from coronary angiogram and evaluation for TAVR. Code(s): I25.10 - ATHSCL HEART DISEASE OF [place] CORONARY ARTERY W/O ANG PCTRS; I25.84 - CORONARY ATHEROSCLEROSIS DUE TO CALCIFIED CORONARY LESION (11) Acute chest pain Assessment/Plan: EKG: no significant change. TNI pending; f/u serially. Pt receiving bronchodilator Rx; chest discomfort reduced, but not completely resolved. On ASA, clopidogrel, sc heparin. F/u BP serially. Consider anxiolytic. Code(s): R07.9 - CHEST PAIN, UNSPECIFIED (12) Hypothyroid Assessment/Plan: elevated TSH; low free T4. Adjust therapy accordingly. Code(s): E03.9 - HYPOTHYROIDISM, UNSPECIFIED
[2018-10-08] MEDS: DULoxetine HCL 20 MG CAPSULE.DR (FP) PO SCH (14:14)
[2018-10-09] MEDS: LEVOTHYROXINE NA 75 MCG TABLET (FP) PO SCH (06:28)
[2018-10-09] MEDS: ALBUTEROL SO4 2.5/IPRATROPIUM 0.5 INH SOL 3 ML VIAL.NEB. NEB SCH ×2 (07:32→11:22)
[2018-10-09 08:08] LABS: BASO % 0.1 % (0-2.0); HEMOGLOBIN 10.1 GM/dL (10.7-15.3); LYMPH % 2.2 % (8-40); MCH 30.7 pg (25.7-33.7); MCHC 33.6 g/dl (32.0-36.0); MEAN CELL VOLUME 91.2 fl (80-96); MEAN PLT VOLUME 9.7 fl (7.5-11.1); MONO % 2.3 % (3.8-10.2); NEUT % 95.4 % (42.8-82.8); PLATELET COUNT 208 K/MM3 (134-434); RBC 3.29 M/mm3 (3.60-5.2); RDW 15.4 % (11.6-15.6); WHITE BLOOD COUNT 7.8 K/mm3 (4.0-10.0)
[2018-10-09 08:28] LABS: ALBUMIN 2.4 g/dl (3.4-5.0); ALK PHOS 72 U/L (45-117); ANION GAP 12 MMOL/L (8-16); BILIRUBIN,TOTAL 0.4 mg/dL (0.2-1); BLOOD UREA NITROGEN 102 mg/dL (7-18); CALCIUM 7.2 mg/dL (8.5-10.1); CHLORIDE 87 mmol/L (98-107); CO2 27 mmol/L (21-32); CREATININE 3.2 mg/dL (0.55-1.3); GLUCOSE,RANDOM 151 mg/dL (74-106); POTASSIUM 4.9 mmol/L (3.5-5.1); SGOT/AST 18 U/L (15-37); SGPT/ALT 23 U/L (13-61); SODIUM 126 mmol/L (136-145)
--- NOTE | 2018-10-09 09:37 | PN ---
Progress Note (short form) - Note Progress Note: Resting in NAD on 4 L NC O2. No acute events overnight. Less dyspneic overall. Intake & Output 10/06/18 10/07/18 10/08/18 10/09/18 23:59 23:59 23:59 23:59 Intake Total 230 550 100 Output Total 900 350 Balance -670 200 100 Weight 113 lb 114 lb 3.2 oz 112 lb Last Vital Signs Temp Pulse Resp BP Pulse Ox 98.1 F 86 22 H 158/67 90 L 10/09/18 09:00 10/09/18 09:00 10/09/18 09:00 10/09/18 09:00 10/09/18 09:00 Active Medications Acetaminophen (Tylenol -) 650 mg PO Q6H PRN PRN Reason: PAIN OR FEVER Albuterol Sulfate (Ventolin 0.083% Nebulizer Soln -) 1 amp NEB Q4H PRN PRN Reason: SHORT OF BREATH/WHEEZING Last Admin: 10/06/18 05:37 Dose: 1 amp Albuterol/Ipratropium (Duoneb -) 1 amp NEB RQID [facility] Last Admin: 10/09/18 07:32 Dose: 1 amp Aspirin (Ecotrin -) 81 mg PO DAILY [facility] Last Admin: 10/08/18 10:05 Dose: 81 mg Benzocaine/Menthol (Cepacol Lozenge -) 1 each MM PRN PRN PRN Reason: SORE THROAT Last Admin: 10/08/18 10:07 Dose: 1 each Clopidogrel Bisulfate (Plavix -) 75 mg PO DAILY [facility] Last Admin: 10/08/18 10:05 Dose: 75 mg Diltiazem HCl (Cardizem Injection -) 5 mg IVPUSH Q4H PRN PRN Reason: TACHYCARDIA Duloxetine HCl (Cymbalta -) 20 mg PO DAILY [facility] Last Admin: 10/08/18 14:14 Dose: 20 mg Furosemide (Lasix -) 60 mg PO DAILY [facility] Heparin Sodium (Porcine) (Heparin -) 5,000 unit SQ BID [facility] Last Admin: 10/08/18 21:17 Dose: 5,000 unit Levothyroxine Sodium (Synthroid -) 75 mcg PO DAILY@0700 [facility] Last Admin: 10/09/18 06:28 Dose: 75 mcg Methyl Salicylate (David-Trinh -) 1 applic TP BID [facility] Last Admin: 10/08/18 21:14 Dose: Not Given Pantoprazole Sodium (Protonix -) 40 mg PO DAILY [facility] Last Admin: 10/08/18 10:06 Dose: 40 mg Phenol/Menthol (Chloraseptic -) 1 spray MM Q6HPO PRN PRN Reason: SORE THROAT Last Admin: 10/05/18 21:19 Dose: 1 spray Polyethylene Glycol (Miralax (For Daily Use) -) 17 gm PO DAILY [facility] Last Admin: 10/08/18 10:06 Dose: Not Given Prednisone (Deltasone -) 30 mg PO BID [facility] Last Admin: 10/08/18 21:14 Dose: 30 mg Sodium Chloride ([place]al [place] -) 2 spray NS TID PRN PRN Reason: NASAL CONGESTION Last Admin: 10/08/18 10:06 Dose: 2 spray Constitutional: Yes: NAD Eyes: Yes: WNL HENT: Yes: WNL Neck: Yes: WNL Cardiovascular: Yes: Regular Rate and Rhythm, S1, S2 Respiratory: Yes: Scattered Rhonchi Gastrointestinal: Yes: Normal Bowel Sounds, Soft Extremities: Yes: WNL Edema: Yes Labs: Laboratory Results - last 24 hr 10/09/18 10/09/18 06:45 06:45 WBC 7.8 RBC 3.29 L Hgb 10.1 L Hct 30.0 L MCV 91.2 MCH 30.7 MCHC 33.6 RDW 15.4 Plt Count 208 MPV 9.7 Absolute Neuts (auto) 7.4 Neutrophils % 95.4 H Lymphocytes % 2.2 L D Monocytes % 2.3 L Eosinophils % 0.0 D Basophils % 0.1 Nucleated RBC % 0 Sodium 126 L Potassium 4.9 Chloride 87 L Carbon Dioxide 27 Anion Gap 12 BUN 102 H Creatinine 3.2 H Creat Clearance w eGFR 13.87 Random Glucose 151 H Calcium 7.2 L Total Bilirubin 0.4 AST 18 ALT 23 Alkaline Phosphatase 72 Total Protein 5.0 L Albumin 2.4 L Problem List - Problems (1) Acute hypoxemic respiratory failure Code(s): J96.01 - ACUTE RESPIRATORY FAILURE WITH HYPOXIA (2) Bilateral lower leg cellulitis Code(s): L03.116 - CELLULITIS OF LEFT LOWER LIMB; L03.115 - CELLULITIS OF RIGHT LOWER LIMB (3) CHF exacerbation Code(s): I50.9 - HEART FAILURE, UNSPECIFIED Qualifiers: Heart failure type: unspecified Qualified Code(s): I50.9 - Heart failure, unspecified (4) COPD (chronic obstructive pulmonary disease) Code(s): J44.9 - CHRONIC OBSTRUCTIVE PULMONARY DISEASE, UNSPECIFIED Qualifiers: COPD type: unspecified COPD Qualified Code(s): J44.9 - Chronic obstructive pulmonary disease, unspecified (5) Pneumonia Code(s): J18.9 - PNEUMONIA, UNSPECIFIED ORGANISM Qualifiers: Pneumonia type: due to unspecified organism Laterality: unspecified laterality Lung location: unspecified part of lung Qualified Code(s): J18.9 - Pneumonia, unspecified organism (6) Acute coronary syndrome Code(s): I24.9 - ACUTE ISCHEMIC HEART DISEASE, UNSPECIFIED (7) Anemia Code(s): D64.9 - ANEMIA, UNSPECIFIED (8) Diabetes Code(s): E11.9 - TYPE 2 DIABETES MELLITUS WITHOUT COMPLICATIONS (9) Tobacco abuse Code(s): Z72.0 - TOBACCO USE (10) Tobacco abuse counseling Code(s): Z71.6 - TOBACCO ABUSE COUNSELING Assessment/Plan IMP ACUTE HYPOXEMIC RESPIRATORY FAILURE SLOWLY IMPROVING CHF SEVERE AORTIC STENOSIS COPD EXACERBATION ? PNEUMONIA ASHD S/P STENT ACUTE ON CHRONIC KIDNEY DISEASE PULMONARY HTN ANEMIA HTN DM TOBACCO ABUSE HEMOPTYSIS RESOLVED R APICAL NODULE HYPONATREMIA PLAN LASIX O2/BIPAP NEEDED ABX PREDNISONE OD INHALED BRONCHODILATORS NORMAL TRANSFUSION THRESHOLD MONITOR LYTES,RENAL FUNCTION,H+H,NA DR LR
[2018-10-09] MEDS: METHYL SALICYLATE/MENTHOL OINT 30 GM TUBE TP SCH ×2 (09:47→22:11)
[2018-10-09] MEDS: ASPIRIN COATED 81 MG TABLET.EC PO SCH (09:48)
[2018-10-09] MEDS: HEPARIN NA (PORCINE) 5,000 UNITS/ML 1ML VIAL SQ SCH ×2 (09:48→22:08)
[2018-10-09] MEDS: PANTOPRAZOLE 40 MG TABLET (FP) PO SCH (09:48)
[2018-10-09] MEDS: DULoxetine HCL 20 MG CAPSULE.DR (FP) PO SCH (09:48)
[2018-10-09] MEDS: POLYETHYLENE GLYCOL 3350 119 GM BTL PO SCH (09:49)
[2018-10-09] MEDS: CLOPIDOGREL BISULFATE 75 MG TABLET (FP) PO SCH (09:49)
[2018-10-09] MEDS ORDERED: predniSONE 20 MG TABLET (UD) PO SCH (10:00)
--- NOTE | 2018-10-09 11:23 | PN ---
Progress Note, Physician Chief Complaint: CHF Acute hypoxemic respiratory failure Anemia History of Present Illness: Previous notes and events reviewed awake and alert NAD denies chest pain, dizziness complain of dyspnea on exertion edema noted to L breast and LUE - Current Medication List Current Medications: Active Medications Acetaminophen (Tylenol -) 650 mg PO Q6H PRN PRN Reason: PAIN OR FEVER Albuterol Sulfate (Ventolin 0.083% Nebulizer Soln -) 1 amp NEB Q4H PRN PRN Reason: SHORT OF BREATH/WHEEZING Last Admin: 10/06/18 05:37 Dose: 1 amp Albuterol/Ipratropium (Duoneb -) 1 amp NEB RQID [facility] Last Admin: 10/09/18 07:32 Dose: 1 amp Aspirin (Ecotrin -) 81 mg PO DAILY [facility] Last Admin: 10/09/18 09:48 Dose: 81 mg Benzocaine/Menthol (Cepacol Lozenge -) 1 each MM PRN PRN PRN Reason: SORE THROAT Last Admin: 10/08/18 10:07 Dose: 1 each Clopidogrel Bisulfate (Plavix -) 75 mg PO DAILY [facility] Last Admin: 10/09/18 09:49 Dose: 75 mg Diltiazem HCl (Cardizem Injection -) 5 mg IVPUSH Q4H PRN PRN Reason: TACHYCARDIA Duloxetine HCl (Cymbalta -) 20 mg PO DAILY [facility] Last Admin: 10/09/18 09:48 Dose: 20 mg Furosemide (Lasix -) 60 mg PO DAILY [facility] Last Admin: 10/09/18 09:48 Dose: 60 mg Heparin Sodium (Porcine) (Heparin -) 5,000 unit SQ BID [facility] Last Admin: 10/09/18 09:48 Dose: 5,000 unit Levothyroxine Sodium (Synthroid -) 75 mcg PO DAILY@0700 [facility] Last Admin: 10/09/18 06:28 Dose: 75 mcg Methyl Salicylate (David-Trinh -) 1 applic TP BID [facility] Last Admin: 10/09/18 09:47 Dose: Not Given Pantoprazole Sodium (Protonix -) 40 mg PO DAILY [facility] Last Admin: 10/09/18 09:48 Dose: 40 mg Phenol/Menthol (Chloraseptic -) 1 spray MM Q6HPO PRN PRN Reason: SORE THROAT Last Admin: 10/05/18 21:19 Dose: 1 spray Polyethylene Glycol (Miralax (For Daily Use) -) 17 gm PO DAILY [facility] Last Admin: 10/09/18 09:49 Dose: Not Given Prednisone (Deltasone -) 40 mg PO DAILY [facility] Last Admin: 10/09/18 10:16 Dose: 40 mg Sodium Chloride ([place] Nasal [place] -) 2 spray NS TID PRN PRN Reason: NASAL CONGESTION Last Admin: 10/08/18 10:06 Dose: 2 spray - Objective Vital Signs: Vital Signs Temperature 98.1 F 10/09/18 09:00 Pulse Rate 86 10/09/18 09:00 Respiratory Rate 22 H 10/09/18 09:00 Blood Pressure 158/67 10/09/18 09:00 O2 Sat by Pulse Oximetry (%) 90 L 10/09/18 09:00 Constitutional: Yes: No Distress, Calm Eyes: Yes: Conjunctiva Clear Cardiovascular: Yes: Regular Rate and Rhythm Respiratory: Yes: On Nasal O2, Rhonchi Gastrointestinal: Yes: Soft Genitourinary: Yes: Incontinence Breast(s): Yes: Other (L breast edema, non tender) Musculoskeletal: Yes: Muscle Weakness Extremities: Yes: Other (edema and erythema to LUE) Edema: Yes Neurological: Yes: Alert Psychiatric: Yes: Alert Labs: CBC, BMP 10/09/18 06:45 10/09/18 06:45 <Emily Dasilva - Last Filed: 10/09/18 11:17> - Current Medication List Current Medications: Active Medications Acetaminophen (Tylenol -) 650 mg PO Q6H PRN PRN Reason: PAIN OR FEVER Last Admin: 10/12/18 09:16 Dose: 650 mg Albuterol Sulfate (Ventolin 0.083% Nebulizer Soln -) 1 amp NEB Q6H PRN PRN Reason: SHORT OF BREATH/WHEEZING Last Admin: 10/12/18 07:53 Dose: 1 amp Aspirin (Ecotrin -) 81 mg PO DAILY [facility] Last Admin: 10/12/18 09:16 Dose: 81 mg Benzocaine/Menthol (Cepacol Lozenge -) 1 each MM PRN PRN PRN Reason: SORE THROAT Last Admin: 10/08/18 10:07 Dose: 1 each Clopidogrel Bisulfate (Plavix -) 75 mg PO DAILY [facility] Last Admin: 10/12/18 09:15 Dose: 75 mg Diltiazem HCl (Cardizem Injection -) 5 mg IVPUSH Q4H PRN PRN Reason: TACHYCARDIA Duloxetine HCl (Cymbalta -) 20 mg PO DAILY [facility] Last Admin: 10/12/18 09:17 Dose: Not Given Levothyroxine Sodium (Synthroid -) 75 mcg PO DAILY@0700 [facility] Last Admin: 10/12/18 06:10 Dose: 75 mcg Methyl Salicylate (David-Trinh -) 1 applic TP BID [facility] Last Admin: 10/12/18 09:17 Dose: Not Given Pantoprazole Sodium (Protonix -) 40 mg PO DAILY [facility] Last Admin: 10/12/18 09:15 Dose: 40 mg Phenol/Menthol (Chloraseptic -) 1 spray MM Q6HPO PRN PRN Reason: SORE THROAT Last Admin: 10/05/18 21:19 Dose: 1 spray Polyethylene Glycol (Miralax (For Daily Use) -) 17 gm PO DAILY [facility] Last Admin: 10/12/18 09:17 Dose: Not Given Prednisone (Deltasone -) 30 mg PO DAILY [facility] Last Admin: 10/12/18 09:15 Dose: 30 mg Sodium Chloride ([place] Nasal [place] -) 2 spray NS TID PRN PRN Reason: NASAL CONGESTION Last Admin: 10/10/18 06:14 Dose: 2 spray - Objective Vital Signs: Vital Signs Temperature 97.7 F 10/12/18 08:14 Pulse Rate 87 10/12/18 08:14 Respiratory Rate 22 H 10/12/18 08:14 Blood Pressure 178/82 H 10/12/18 08:14 O2 Sat by Pulse Oximetry (%) 92 L 10/12/18 08:10 Labs: CBC, BMP 10/12/18 08:00 10/12/18 08:00 <Emma Costamifaraz - Last Filed: 10/12/18 09:19> Problem List - Problems (1) ANASTASIA (acute kidney injury) Code(s): N17.9 - ACUTE KIDNEY FAILURE, UNSPECIFIED (2) Acute diastolic CHF (congestive heart failure) Code(s): I50.31 - ACUTE DIASTOLIC (CONGESTIVE) HEART FAILURE (3) Acute hypoxemic respiratory failure Code(s): J96.01 - ACUTE RESPIRATORY FAILURE WITH HYPOXIA (4) Anemia Code(s): D64.9 - ANEMIA, UNSPECIFIED (5) CAD (coronary artery disease) Code(s): I25.10 - ATHSCL HEART DISEASE OF [place] CORONARY ARTERY W/O ANG PCTRS (6) HTN (hypertension) Code(s): I10 - ESSENTIAL (PRIMARY) HYPERTENSION (7) Lung nodule Code(s): R91.1 - SOLITARY PULMONARY NODULE <Emily Dasilva - Last Filed: 10/09/18 11:17> - Problems (1) ANASTASIA (acute kidney injury) Code(s): N17.9 - ACUTE KIDNEY FAILURE, UNSPECIFIED (2) Acute diastolic CHF (congestive heart failure) Code(s): I50.31 - ACUTE DIASTOLIC (CONGESTIVE) HEART FAILURE (3) Acute hypoxemic respiratory failure Code(s): J96.01 - ACUTE RESPIRATORY FAILURE WITH HYPOXIA (4) Anemia Code(s): D64.9 - ANEMIA, UNSPECIFIED (5) Aortic stenosis Code(s): I35.0 - NONRHEUMATIC AORTIC (VALVE) STENOSIS (6) Bilateral lower leg cellulitis Code(s): L03.116 - CELLULITIS OF LEFT LOWER LIMB; L03.115 - CELLULITIS OF RIGHT LOWER LIMB (7) CAD (coronary artery disease) Code(s): I25.10 - ATHSCL HEART DISEASE OF [place] CORONARY ARTERY W/O ANG PCTRS (8) CHF exacerbation Code(s): I50.9 - HEART FAILURE, UNSPECIFIED Qualifiers: Heart failure type: unspecified Qualified Code(s): I50.9 - Heart failure, unspecified (9) Diastolic CHF Code(s): I50.30 - UNSPECIFIED DIASTOLIC (CONGESTIVE) HEART FAILURE (10) HTN (hypertension) Code(s): I10 - ESSENTIAL (PRIMARY) HYPERTENSION (11) Hypothyroid Code(s): E03.9 - HYPOTHYROIDISM, UNSPECIFIED <Marcus Costa - Last Filed: 10/12/18 09:19> Assessment/Plan -cardio on board -Lasix 60mg PO qd -cont with plavix -daily weights -strict I&O -renal on board -Na 126, free guillen restriction, ordered Sodium Chloride 1g PO x 1 dose -pulm on board -cont with neb tx PRN -prednisone PO -O2 via NC, keep SpO2 >90% -dvt ppx -low sodium diet -H/H stable, will continue to monitor for downward trend -BNP elev, will monitor for downward trend -US of L breast and LUE ordered <Emily Dasilva - Last Filed: 10/09/18 11:17> PATIENT SEEN AND EXAMINED AND I AGREE WITH THE ABOVE NOTE <Marcus Costa - Last Filed: 10/12/18 09:19>
[2018-10-09] MEDS ORDERED: SODIUM CHLORIDE 1 GM TABLET PO ONE (12:00)
[2018-10-09 13:27] LABS: ANISOCYTOSIS 1+; MACROCYTOSIS 1+; PLATELET ESTIMATE NORMAL
--- NOTE | 2018-10-09 15:35 | PN ---
Progress Note, Physician Chief Complaint: Pt A&Ox3; c/o chronic fatigue and shortness of breath. History of Present Illness: 83 yr old white woman with h/o COPD, diastolic CHF, severe aortic stenosis, ACS s/p stent 2014 (denies hx [place]), HTN, HLD, hypothyroidism, hip replacement, current bronchitis, and recently diagnosed leg cellulitis (states she is on amoxicillin for the cellulitis) who p/w worsening wet cough and SOB for the past 2 weeks, particularly worse tonight. She has had chills but denies any measured fever, nausea, vomiting, constipation, n/t/w focally, headache, back pain, neck pain, or other symptoms. Her family expresses concern her legs are so swollen she is unable to lift them or even walk. The patient notes her legs are only painful when she tries to weight bear. - Current Medication List Current Medications: Active Medications Acetaminophen (Tylenol -) 650 mg PO Q6H PRN PRN Reason: PAIN OR FEVER Aspirin (Ecotrin -) 81 mg PO DAILY [facility] Last Admin: 10/09/18 09:48 Dose: 81 mg Benzocaine/Menthol (Cepacol Lozenge -) 1 each MM PRN PRN PRN Reason: SORE THROAT Last Admin: 10/08/18 10:07 Dose: 1 each Clopidogrel Bisulfate (Plavix -) 75 mg PO DAILY [facility] Last Admin: 10/09/18 09:49 Dose: 75 mg Diltiazem HCl (Cardizem Injection -) 5 mg IVPUSH Q4H PRN PRN Reason: TACHYCARDIA Duloxetine HCl (Cymbalta -) 20 mg PO DAILY [facility] Last Admin: 10/09/18 09:48 Dose: 20 mg Furosemide (Lasix -) 60 mg PO DAILY [facility] Last Admin: 10/09/18 09:48 Dose: 60 mg Heparin Sodium (Porcine) (Heparin -) 5,000 unit SQ BID [facility] Last Admin: 10/09/18 09:48 Dose: 5,000 unit Levothyroxine Sodium (Synthroid -) 75 mcg PO DAILY@0700 [facility] Last Admin: 10/09/18 06:28 Dose: 75 mcg Methyl Salicylate (David-Trinh -) 1 applic TP BID [facility] Last Admin: 10/09/18 09:47 Dose: Not Given Pantoprazole Sodium (Protonix -) 40 mg PO DAILY [facility] Last Admin: 10/09/18 09:48 Dose: 40 mg Phenol/Menthol (Chloraseptic -) 1 spray MM Q6HPO PRN PRN Reason: SORE THROAT Last Admin: 10/05/18 21:19 Dose: 1 spray Polyethylene Glycol (Miralax (For Daily Use) -) 17 gm PO DAILY [facility] Last Admin: 10/09/18 09:49 Dose: Not Given Prednisone (Deltasone -) 40 mg PO DAILY [facility] Last Admin: 10/09/18 10:16 Dose: 40 mg Sodium Chloride ([place] Nasal [place] -) 2 spray NS TID PRN PRN Reason: NASAL CONGESTION Last Admin: 10/08/18 10:06 Dose: 2 spray - Objective Vital Signs: Vital Signs Temperature 97.6 F 10/09/18 13:52 Pulse Rate 79 10/09/18 13:52 Respiratory Rate 22 H 10/09/18 09:00 Blood Pressure 159/58 L 10/09/18 13:52 O2 Sat by Pulse Oximetry (%) 90 L 10/09/18 09:00 Constitutional: Yes: Anxious Eyes: Yes: WNL HENT: Yes: WNL Neck: Yes: Trachea Midline Cardiovascular: Yes: Murmur (4/6 SARINA, RSB-->left axilla and posterior thorax), S1, S2, S4 Respiratory: Yes: Diminished, Poor Air Entry Gastrointestinal: Yes: Soft ...Rectal Exam: Yes: Deferred Genitourinary: No: Anuria Breast(s): Yes: WNL Musculoskeletal: Yes: Muscle Weakness Extremities: Yes: Cool Edema: Yes Edema: LLE: Trace, RLE: Trace Peripheral Pulses WNL: No Peripheral Pulses: Left Doralis Pedis: 1+, Right Dorsalis Pedis: 1+ Integumentary: Yes: Bruising Neurological: Yes: Alert, Oriented, Weakness Psychiatric: Yes: Other (axiety) Labs: CBC, BMP 10/09/18 06:45 10/09/18 06:45 Abnormal Lab Results 10/14/18 08:10 Sodium 134 L Chloride 97 L BUN 98 H Creatinine 2.7 H Random Glucose 107 H Calcium 7.7 L Total Protein 5.2 L Albumin 2.5 L Problem List - Problems (1) Severe aortic stenosis Assessment/Plan: ECHO 09/29/2018: normal LVEF; mild LVH; abnormal diastolic compliance; severe aortic stenosis (), mild AR, moderate pulmonary HTN; severe MAC and aortic valve calcification; moderate LAE. The potential benefits (potential decrease in symptoms and mortality) from TAVR were discussed with pt and family. Presently, worsening renal status makes this option problematic. Pt is against undergoing dialysis. Avoid excessive diuresis/dehydration. Code(s): I35.0 - NONRHEUMATIC AORTIC (VALVE) STENOSIS (2) HTN (hypertension) Code(s): I10 - ESSENTIAL (PRIMARY) HYPERTENSION (3) CAD (coronary artery disease) Assessment/Plan: hx CAD-->coronary stent 2014. EKG: T wave changes: consider lateral ischemia. If TAVR is contemplated, will also have coronary angiogram (both are problematic at present due to worsening renal function). Code(s): I25.10 - ATHSCL HEART DISEASE OF [place] CORONARY ARTERY W/O ANG PCTRS (4) Diastolic CHF Code(s): I50.30 - UNSPECIFIED DIASTOLIC (CONGESTIVE) HEART FAILURE (5) ANASTASIA (acute kidney injury) Assessment/Plan: worsening hyponatremia. As discussed with concaving machine operator, furosemide held, with restart to be determined on a daily basis (problematic holding it from CHF standpoint). Code(s): N17.9 - ACUTE KIDNEY FAILURE, UNSPECIFIED (6) Anemia Assessment/Plan: s/p PRBCs F/u etiology of blood loss. Code(s): D64.9 - ANEMIA, UNSPECIFIED (7) COPD (chronic obstructive pulmonary disease) Assessment/Plan: Quit cigarettes only a few years ago, after many years smoking. CT chest: RUL lung nodule. Code(s): J44.9 - CHRONIC OBSTRUCTIVE PULMONARY DISEASE, UNSPECIFIED Qualifiers: COPD type: unspecified COPD Qualified Code(s): J44.9 - Chronic obstructive pulmonary disease, unspecified (8) Acute diastolic CHF (congestive heart failure) Assessment/Plan: + JVD Markedly elevated BNP. CXR and CT chest: pleural effusion bilaterally. Exacerbated by severe , anemia. Code(s): I50.31 - ACUTE DIASTOLIC (CONGESTIVE) HEART FAILURE (9) Lung nodule Assessment/Plan: RUL apex; r/o malignancy; for f/u studies within 3 months. Code(s): R91.1 - SOLITARY PULMONARY NODULE (10) Coronary atherosclerosis due to calcified coronary lesion of [place] artery Assessment/Plan: dense calcification of coronary arteries on CT. If pt's overall condition stabilizes, and renal status is addressed, would benefit from coronary angiogram and evaluation for TAVR. Code(s): I25.10 - ATHSCL HEART DISEASE OF [place] CORONARY ARTERY W/O ANG PCTRS; I25.84 - CORONARY ATHEROSCLEROSIS DUE TO CALCIFIED CORONARY LESION (11) Acute chest pain Assessment/Plan: EKG: no significant change. TNI 0.03-->0.30-->0.25. Pt receiving bronchodilator Rx; chest discomfort reduced, but not completely resolved. On ASA, clopidogrel, sc heparin. NTG (though caution against excessive preload reduction with severe ). F/u BP serially. Consider anxiolytic. Code(s): R07.9 - CHEST PAIN, UNSPECIFIED (12) Hypothyroid Assessment/Plan: elevated TSH; low free T4. Adjust therapy accordingly. Code(s): E03.9 - HYPOTHYROIDISM, UNSPECIFIED
--- NOTE | 2018-10-09 18:53 | PN ---
Progress Note, Physician History of Present Illness: Pt seen and examined at bedside. She feels that her breathing is improved. She complains of lower ext edema. - Current Medication List Current Medications: Active Medications Acetaminophen (Tylenol -) 650 mg PO Q6H PRN PRN Reason: PAIN OR FEVER Aspirin (Ecotrin -) 81 mg PO DAILY [facility] Last Admin: 10/09/18 09:48 Dose: 81 mg Benzocaine/Menthol (Cepacol Lozenge -) 1 each MM PRN PRN PRN Reason: SORE THROAT Last Admin: 10/08/18 10:07 Dose: 1 each Clopidogrel Bisulfate (Plavix -) 75 mg PO DAILY [facility] Last Admin: 10/09/18 09:49 Dose: 75 mg Diltiazem HCl (Cardizem Injection -) 5 mg IVPUSH Q4H PRN PRN Reason: TACHYCARDIA Duloxetine HCl (Cymbalta -) 20 mg PO DAILY [facility] Last Admin: 10/09/18 09:48 Dose: 20 mg Furosemide (Lasix -) 60 mg PO DAILY [facility] Last Admin: 10/09/18 09:48 Dose: 60 mg Heparin Sodium (Porcine) (Heparin -) 5,000 unit SQ BID [facility] Last Admin: 10/09/18 09:48 Dose: 5,000 unit Levothyroxine Sodium (Synthroid -) 75 mcg PO DAILY@0700 [facility] Last Admin: 10/09/18 06:28 Dose: 75 mcg Methyl Salicylate (David-Trinh -) 1 applic TP BID [facility] Last Admin: 10/09/18 09:47 Dose: Not Given Pantoprazole Sodium (Protonix -) 40 mg PO DAILY [facility] Last Admin: 10/09/18 09:48 Dose: 40 mg Phenol/Menthol (Chloraseptic -) 1 spray MM Q6HPO PRN PRN Reason: SORE THROAT Last Admin: 10/05/18 21:19 Dose: 1 spray Polyethylene Glycol (Miralax (For Daily Use) -) 17 gm PO DAILY [facility] Last Admin: 10/09/18 09:49 Dose: Not Given Prednisone (Deltasone -) 40 mg PO DAILY [facility] Last Admin: 10/09/18 10:16 Dose: 40 mg Sodium Chloride ([place] Nasal [place] -) 2 spray NS TID PRN PRN Reason: NASAL CONGESTION Last Admin: 10/08/18 10:06 Dose: 2 spray - Objective Vital Signs: Vital Signs Temperature 97.6 F 10/09/18 13:52 Pulse Rate 79 10/09/18 13:52 Respiratory Rate 22 H 10/09/18 09:00 Blood Pressure 159/58 L 10/09/18 13:52 O2 Sat by Pulse Oximetry (%) 90 L 10/09/18 09:00 Constitutional: Yes: Calm Eyes: Yes: Conjunctiva Clear HENT: Yes: Atraumatic Cardiovascular: Yes: S1, S2 Respiratory: Yes: On Nasal O2 Genitourinary: Yes: WNL Musculoskeletal: Yes: WNL Edema: Yes Edema: LLE: 2+, RLE: 2+ Neurological: Yes: Oriented Psychiatric: Yes: Oriented Labs: CBC, BMP 10/09/18 06:45 10/09/18 06:45 Problem List - Problems (1) Acute hypoxemic respiratory failure Code(s): J96.01 - ACUTE RESPIRATORY FAILURE WITH HYPOXIA (2) Anemia Code(s): D64.9 - ANEMIA, UNSPECIFIED (3) CHF exacerbation Code(s): I50.9 - HEART FAILURE, UNSPECIFIED Qualifiers: Heart failure type: unspecified Qualified Code(s): I50.9 - Heart failure, unspecified (4) COPD (chronic obstructive pulmonary disease) Code(s): J44.9 - CHRONIC OBSTRUCTIVE PULMONARY DISEASE, UNSPECIFIED Qualifiers: COPD type: unspecified COPD Qualified Code(s): J44.9 - Chronic obstructive pulmonary disease, unspecified (5) Hyperkalemia Code(s): E87.5 - HYPERKALEMIA (6) Tobacco abuse Code(s): Z72.0 - TOBACCO USE Assessment/Plan Current Medications Generic Name Dose Route Start Last Admin Trade Name Freq PRN Reason Stop Dose Admin Acetaminophen 650 mg 09/28/18 21:26 Tylenol - PO Q6H PRN PAIN OR FEVER Aspirin 81 mg 09/29/18 10:00 10/09/18 09:48 Ecotrin - PO 81 mg DAILY [facility] Administration Benzocaine/Menthol 1 each 10/02/18 12:05 10/08/18 10:07 Cepacol Lozenge - MM 1 each PRN PRN Administration SORE THROAT Clopidogrel Bisulfate 75 mg 09/29/18 10:00 10/09/18 09:49 Plavix - PO 75 mg DAILY [facility] Administration Diltiazem HCl 5 mg 10/01/18 10:05 Cardizem Injection - IVPUSH Q4H PRN TACHYCARDIA Duloxetine HCl 20 mg 10/08/18 13:30 10/09/18 09:48 Cymbalta - PO 20 mg DAILY [facility] Administration Furosemide 60 mg 10/08/18 10:19 10/09/18 09:48 Lasix - PO 60 mg DAILY [facility] Administration Heparin Sodium (Porcine) 5,000 unit 09/28/18 22:00 10/09/18 09:48 Heparin - SQ 5,000 unit BID [facility] Administration Levothyroxine Sodium 75 mcg 09/29/18 07:00 10/09/18 06:28 Synthroid - PO 75 mcg DAILY@0700 [facility] Administration Methyl Salicylate 1 applic 10/01/18 22:00 10/09/18 09:47 David-Trinh - TP Not Given BID [facility] Pantoprazole Sodium 40 mg 10/02/18 14:00 10/09/18 09:48 Protonix - PO 40 mg DAILY [facility] Administration Phenol/Menthol 1 spray 10/02/18 12:05 10/05/18 21:19 Chloraseptic - MM 1 spray Q6HPO PRN Administration SORE THROAT Polyethylene Glycol 17 gm 10/02/18 15:00 10/09/18 09:49 Miralax (For Daily Use) - PO Not Given DAILY [facility] Prednisone 40 mg 10/09/18 10:00 10/09/18 10:16 Deltasone - PO 40 mg DAILY [facility] Administration Sodium Chloride 2 spray 10/02/18 12:04 10/08/18 10:06 [place] Nasal [place] - NS 2 spray TID PRN Administration NASAL CONGESTION Impression 1. hyperkalemia 2. CKD 3. CAD 4. COPD 5. hypothyroidism 6. CHF 7. severe aortic stenosis 8. hyponatremia Plan - taper steroids - hold lasix dose tomorrow until labs reviewed - sodium is worse, will give a salt tab as po intake is poor - restrict fluids - check urine and plasma osm - will follow Dr Smith
--- NOTE | 2018-10-10 01:17 | PN ---
Progress Note, Physician Chief Complaint: no complaint breathing better tolerating synthroid dose History of Present Illness: hypothyroidism medication compliance chf,ashd,dm likely stress related - Current Medication List Current Medications: Active Medications Acetaminophen (Tylenol -) 650 mg PO Q6H PRN PRN Reason: PAIN OR FEVER Aspirin (Ecotrin -) 81 mg PO DAILY [facility] Last Admin: 10/09/18 09:48 Dose: 81 mg Benzocaine/Menthol (Cepacol Lozenge -) 1 each MM PRN PRN PRN Reason: SORE THROAT Last Admin: 10/08/18 10:07 Dose: 1 each Clopidogrel Bisulfate (Plavix -) 75 mg PO DAILY [facility] Last Admin: 10/09/18 09:49 Dose: 75 mg Diltiazem HCl (Cardizem Injection -) 5 mg IVPUSH Q4H PRN PRN Reason: TACHYCARDIA Duloxetine HCl (Cymbalta -) 20 mg PO DAILY [facility] Last Admin: 10/09/18 09:48 Dose: 20 mg Heparin Sodium (Porcine) (Heparin -) 5,000 unit SQ BID [facility] Last Admin: 10/09/18 22:08 Dose: 5,000 unit Levothyroxine Sodium (Synthroid -) 75 mcg PO DAILY@0700 [facility] Last Admin: 10/09/18 06:28 Dose: 75 mcg Methyl Salicylate (David-Trinh -) 1 applic TP BID [facility] Last Admin: 10/09/18 22:11 Dose: Not Given Pantoprazole Sodium (Protonix -) 40 mg PO DAILY [facility] Last Admin: 10/09/18 09:48 Dose: 40 mg Phenol/Menthol (Chloraseptic -) 1 spray MM Q6HPO PRN PRN Reason: SORE THROAT Last Admin: 10/05/18 21:19 Dose: 1 spray Polyethylene Glycol (Miralax (For Daily Use) -) 17 gm PO DAILY [facility] Last Admin: 10/09/18 09:49 Dose: Not Given Prednisone (Deltasone -) 30 mg PO DAILY [facility] Sodium Chloride ([place] Nasal [place] -) 2 spray NS TID PRN PRN Reason: NASAL CONGESTION Last Admin: 10/08/18 10:06 Dose: 2 spray - Objective Vital Signs: Vital Signs Temperature 97.8 F 10/09/18 21:22 Pulse Rate 78 10/09/18 21:22 Respiratory Rate 20 10/09/18 21:22 Blood Pressure 128/54 L 10/09/18 21:22 O2 Sat by Pulse Oximetry (%) 96 10/09/18 21:00 Constitutional: Yes: Calm Eyes: Yes: EOM Intact HENT: Yes: Normocephalic Neck: Yes: Trachea Midline Cardiovascular: Yes: Murmur Respiratory: Yes: On Nasal O2, SOB Gastrointestinal: Yes: Normal Bowel Sounds ...Rectal Exam: Yes: Deferred Extremities: Yes: Delayed Capillary Refill Edema: LLE: 1+, RLE: 1+ Psychiatric: Yes: Alert, Oriented Labs: CBC, BMP 10/09/18 06:45 10/09/18 06:45 Problem List - Problems (1) Hypothyroid Code(s): E03.9 - HYPOTHYROIDISM, UNSPECIFIED (2) ANASTASIA (acute kidney injury) Code(s): N17.9 - ACUTE KIDNEY FAILURE, UNSPECIFIED (3) Acute hypoxemic respiratory failure Code(s): J96.01 - ACUTE RESPIRATORY FAILURE WITH HYPOXIA (4) Anemia Code(s): D64.9 - ANEMIA, UNSPECIFIED (5) Bilateral lower leg cellulitis Code(s): L03.116 - CELLULITIS OF LEFT LOWER LIMB; L03.115 - CELLULITIS OF RIGHT LOWER LIMB Assessment/Plan Current Active Problems ANASTASIA (acute kidney injury) (Acute) Acute chest pain (Acute) Acute diastolic CHF (congestive heart failure) (Acute) Acute hypoxemic respiratory failure (Acute) Anemia (Acute) Aortic stenosis (Acute) Bilateral lower leg cellulitis (Acute) CAD (coronary artery disease) (Acute) CHF exacerbation (Acute) COPD (chronic obstructive pulmonary disease) (Acute) Coronary atherosclerosis due to calcified coronary lesion of [place] artery ( Acute) Diabetes (Acute) HTN (hypertension) (Acute) Hyperkalemia (Acute) Hyponatremia (Acute) Hypothyroid (Acute) Hypothyroid (Acute) Lung nodule (Acute) Penicillin allergy (Acute) Pneumonia (Acute) Severe aortic stenosis (Acute) Tobacco abuse (Acute) Tobacco abuse counseling (Acute) Laboratory Results - last 24 hr 10/09/18 10/09/18 06:45 06:45 WBC 7.8 RBC 3.29 L Hgb 10.1 L Hct 30.0 L MCV 91.2 MCH 30.7 MCHC 33.6 RDW 15.4 Plt Count 208 MPV 9.7 Absolute Neuts (auto) 7.4 Neutrophils % 95.4 H Neutrophils % (Manual) 97.0 H Band Neutrophils % 0.0 Lymphocytes % 2.2 L D Lymphocytes % (Manual) 2.0 L D Monocytes % 2.3 L Monocytes % (Manual) 1 L Eosinophils % 0.0 D Eosinophils % (Manual) 0.0 Basophils % 0.1 Basophils % (Manual) 0.0 Myelocytes % (Man) 0 Promyelocytes % (Man) 0 Blast Cells % (Manual) 0 Nucleated RBC % 0 Metamyelocytes 0 Hypochromia 0 Platelet Estimate Normal Polychromasia 0 Poikilocytosis 0 Anisocytosis 1+ Microcytosis 1+ Macrocytosis 1+ Sodium 126 L Potassium 4.9 Chloride 87 L Carbon Dioxide 27 Anion Gap 12 BUN 102 H Creatinine 3.2 H Creat Clearance w eGFR 13.87 Random Glucose 151 H Calcium 7.2 L Total Bilirubin 0.4 AST 18 ALT 23 Alkaline Phosphatase 72 Total Protein 5.0 L Albumin 2.4 L plan: synthroid 75mcg alone q am repeat tft in 4 weeks outpatient may need synthroid 100mcg
[2018-10-10] MEDS: LEVOTHYROXINE NA 75 MCG TABLET (FP) PO SCH (06:13)
[2018-10-10] MEDS: SODIUM CHLORIDE NASAL SPRAY 44 ML BOTTLE NS PRN (06:14)
[2018-10-10 07:04] LABS: HEMATOCRIT 29.2 % (32.4-45.2); HEMOGLOBIN 10.1 GM/dL (10.7-15.3); MCH 31.5 pg (25.7-33.7); MCHC 34.6 g/dl (32.0-36.0); MEAN PLT VOLUME 9.5 fl (7.5-11.1); PLATELET COUNT 210 K/MM3 (134-434); RBC 3.21 M/mm3 (3.60-5.2); RDW 15.1 % (11.6-15.6); WHITE BLOOD COUNT 11.2 K/mm3 (4.0-10.0)
[2018-10-10 08:02] LABS: ALBUMIN 2.5 g/dl (3.4-5.0); ALK PHOS 74 U/L (45-117); ANION GAP 13 MMOL/L (8-16); BILIRUBIN,TOTAL 0.5 mg/dL (0.2-1); BLOOD UREA NITROGEN 104 mg/dL (7-18); CALCIUM 7.2 mg/dL (8.5-10.1); CHLORIDE 89 mmol/L (98-107); CO2 25 mmol/L (21-32); CREATININE 3.1 mg/dL (0.55-1.3); GLUCOSE,RANDOM 98 mg/dL (74-106); POTASSIUM 4.6 mmol/L (3.5-5.1); SGOT/AST 15 U/L (15-37); SGPT/ALT 23 U/L (13-61); SODIUM 127 mmol/L (136-145); TOT PROT 5.1 g/dl (6.4-8.2)
[2018-10-10] MEDS: predniSONE 10 MG TABLET (UD) PO SCH (10:18)
[2018-10-10] MEDS: ASPIRIN COATED 81 MG TABLET.EC PO SCH (10:18)
[2018-10-10] MEDS: PANTOPRAZOLE 40 MG TABLET (FP) PO SCH (10:18)
[2018-10-10] MEDS: CLOPIDOGREL BISULFATE 75 MG TABLET (FP) PO SCH (10:18)
[2018-10-10] MEDS: DULoxetine HCL 20 MG CAPSULE.DR (FP) PO SCH (10:18)
[2018-10-10] MEDS: POLYETHYLENE GLYCOL 3350 119 GM BTL PO SCH (10:24)
[2018-10-10] MEDS: HEPARIN NA (PORCINE) 5,000 UNITS/ML 1ML VIAL SQ SCH ×2 (10:24→22:49)
[2018-10-10] MEDS: METHYL SALICYLATE/MENTHOL OINT 30 GM TUBE TP SCH ×2 (10:24→22:49)
[2018-10-10] MEDS ORDERED: FUROSEMIDE 40 MG/4 ML INJECTABLE VIAL IVPUSH ONE (13:11)
--- NOTE | 2018-10-10 13:11 | PN ---
Progress Note, Physician History of Present Illness: Pt seen and examined at bedside. She is awake and alert. She complains of shortness of breath. - Current Medication List Current Medications: Active Medications Acetaminophen (Tylenol -) 650 mg PO Q6H PRN PRN Reason: PAIN OR FEVER Aspirin (Ecotrin -) 81 mg PO DAILY [facility] Last Admin: 10/10/18 10:18 Dose: 81 mg Benzocaine/Menthol (Cepacol Lozenge -) 1 each MM PRN PRN PRN Reason: SORE THROAT Last Admin: 10/08/18 10:07 Dose: 1 each Clopidogrel Bisulfate (Plavix -) 75 mg PO DAILY [facility] Last Admin: 10/10/18 10:18 Dose: 75 mg Diltiazem HCl (Cardizem Injection -) 5 mg IVPUSH Q4H PRN PRN Reason: TACHYCARDIA Duloxetine HCl (Cymbalta -) 20 mg PO DAILY [facility] Last Admin: 10/10/18 10:18 Dose: 20 mg Heparin Sodium (Porcine) (Heparin -) 5,000 unit SQ BID [facility] Last Admin: 10/10/18 10:24 Dose: 5,000 unit Levothyroxine Sodium (Synthroid -) 75 mcg PO DAILY@0700 [facility] Last Admin: 10/10/18 06:13 Dose: 75 mcg Methyl Salicylate (David-Trinh -) 1 applic TP BID [facility] Last Admin: 10/10/18 10:24 Dose: Not Given Pantoprazole Sodium (Protonix -) 40 mg PO DAILY [facility] Last Admin: 10/10/18 10:18 Dose: 40 mg Phenol/Menthol (Chloraseptic -) 1 spray MM Q6HPO PRN PRN Reason: SORE THROAT Last Admin: 10/05/18 21:19 Dose: 1 spray Polyethylene Glycol (Miralax (For Daily Use) -) 17 gm PO DAILY [facility] Last Admin: 10/10/18 10:24 Dose: Not Given Prednisone (Deltasone -) 30 mg PO DAILY [facility] Last Admin: 10/10/18 10:18 Dose: 30 mg Sodium Chloride ([place] Nasal [place] -) 2 spray NS TID PRN PRN Reason: NASAL CONGESTION Last Admin: 10/10/18 06:14 Dose: 2 spray - Objective Vital Signs: Vital Signs Temperature 97.6 F 10/10/18 10:00 Pulse Rate 83 10/10/18 10:00 Respiratory Rate 20 10/10/18 10:00 Blood Pressure 177/98 H 10/10/18 10:00 O2 Sat by Pulse Oximetry (%) 95 10/10/18 09:00 Constitutional: Yes: Calm Eyes: Yes: Conjunctiva Clear HENT: Yes: Atraumatic Cardiovascular: Yes: S1, S2 Respiratory: Yes: On Nasal O2, Rhonchi Gastrointestinal: Yes: Soft Genitourinary: Yes: WNL Musculoskeletal: Yes: WNL Edema: Yes Edema: LLE: 2+, RLE: 2+ Neurological: Yes: Oriented Psychiatric: Yes: Oriented Labs: CBC, BMP 10/10/18 06:00 10/10/18 06:00 Problem List - Problems (1) Acute hypoxemic respiratory failure Code(s): J96.01 - ACUTE RESPIRATORY FAILURE WITH HYPOXIA (2) Anemia Code(s): D64.9 - ANEMIA, UNSPECIFIED (3) CHF exacerbation Code(s): I50.9 - HEART FAILURE, UNSPECIFIED Qualifiers: Heart failure type: unspecified Qualified Code(s): I50.9 - Heart failure, unspecified (4) COPD (chronic obstructive pulmonary disease) Code(s): J44.9 - CHRONIC OBSTRUCTIVE PULMONARY DISEASE, UNSPECIFIED Qualifiers: COPD type: unspecified COPD Qualified Code(s): J44.9 - Chronic obstructive pulmonary disease, unspecified (5) Hyperkalemia Code(s): E87.5 - HYPERKALEMIA (6) Tobacco abuse Code(s): Z72.0 - TOBACCO USE Assessment/Plan Current Medications Generic Name Dose Route Start Last Admin Trade Name Freq PRN Reason Stop Dose Admin Acetaminophen 650 mg 09/28/18 21:26 Tylenol - PO Q6H PRN PAIN OR FEVER Aspirin 81 mg 09/29/18 10:00 10/10/18 10:18 Ecotrin - PO 81 mg DAILY [facility] Administration Benzocaine/Menthol 1 each 10/02/18 12:05 10/08/18 10:07 Cepacol Lozenge - MM 1 each PRN PRN Administration SORE THROAT Clopidogrel Bisulfate 75 mg 09/29/18 10:00 10/10/18 10:18 Plavix - PO 75 mg DAILY [facility] Administration Diltiazem HCl 5 mg 10/01/18 10:05 Cardizem Injection - IVPUSH Q4H PRN TACHYCARDIA Duloxetine HCl 20 mg 10/08/18 13:30 10/10/18 10:18 Cymbalta - PO 20 mg DAILY [facility] Administration Heparin Sodium (Porcine) 5,000 unit 09/28/18 22:00 10/10/18 10:24 Heparin - SQ 5,000 unit BID [facility] Administration Levothyroxine Sodium 75 mcg 09/29/18 07:00 10/10/18 06:13 Synthroid - PO 75 mcg DAILY@0700 [facility] Administration Methyl Salicylate 1 applic 10/01/18 22:00 10/10/18 10:24 David-Trinh - TP Not Given BID [facility] Pantoprazole Sodium 40 mg 10/02/18 14:00 10/10/18 10:18 Protonix - PO 40 mg DAILY [facility] Administration Phenol/Menthol 1 spray 10/02/18 12:05 10/05/18 21:19 Chloraseptic - MM 1 spray Q6HPO PRN Administration SORE THROAT Polyethylene Glycol 17 gm 10/02/18 15:00 10/10/18 10:24 Miralax (For Daily Use) - PO Not Given DAILY [facility] Prednisone 30 mg 10/09/18 18:55 10/10/18 10:18 Deltasone - PO 30 mg DAILY [facility] Administration Sodium Chloride 2 spray 10/02/18 12:04 10/10/18 06:14 [place] Nasal [place] - NS 2 spray TID PRN Administration NASAL CONGESTION Impression 1. hyperkalemia 2. CKD 3. CAD 4. COPD 5. hypothyroidism 6. CHF 7. severe aortic stenosis 8. hyponatremia Plan - will give a dose of lasix - cont to taper steroids as tolerated - restrict free water - check urine and plasma osm - will follow Dr Smith
--- NOTE | 2018-10-10 14:08 | PN ---
Progress Note (short form) - Note Progress Note: PULMONARY Resting in NAD on 4 L NC O2. Less dyspneic overall. VSS Constitutional: Yes: NAD Eyes: Yes: WNL HENT: Yes: WNL Neck: Yes: WNL Cardiovascular: Yes: Regular Rate and Rhythm, S1, S2 Respiratory: Yes: Scattered Rhonchi Gastrointestinal: Yes: Normal Bowel Sounds, Soft Extremities: Yes: WNL Edema: Yes MEDS/NOTES/IMAGES REVIEWED - Problems (1) Acute hypoxemic respiratory failure Code(s): J96.01 - ACUTE RESPIRATORY FAILURE WITH HYPOXIA (2) Bilateral lower leg cellulitis Code(s): L03.116 - CELLULITIS OF LEFT LOWER LIMB; L03.115 - CELLULITIS OF RIGHT LOWER LIMB (3) CHF exacerbation Code(s): I50.9 - HEART FAILURE, UNSPECIFIED Qualifiers: Heart failure type: unspecified Qualified Code(s): I50.9 - Heart failure, unspecified (4) COPD (chronic obstructive pulmonary disease) Code(s): J44.9 - CHRONIC OBSTRUCTIVE PULMONARY DISEASE, UNSPECIFIED Qualifiers: COPD type: unspecified COPD Qualified Code(s): J44.9 - Chronic obstructive pulmonary disease, unspecified (5) Pneumonia Code(s): J18.9 - PNEUMONIA, UNSPECIFIED ORGANISM Qualifiers: Pneumonia type: due to unspecified organism Laterality: unspecified laterality Lung location: unspecified part of lung Qualified Code(s): J18.9 - Pneumonia, unspecified organism (6) Acute coronary syndrome Code(s): I24.9 - ACUTE ISCHEMIC HEART DISEASE, UNSPECIFIED (7) Anemia Code(s): D64.9 - ANEMIA, UNSPECIFIED (8) Diabetes Code(s): E11.9 - TYPE 2 DIABETES MELLITUS WITHOUT COMPLICATIONS (9) Tobacco abuse Code(s): Z72.0 - TOBACCO USE (10) Tobacco abuse counseling Code(s): Z71.6 - TOBACCO ABUSE COUNSELING Assessment/Plan IMP ACUTE HYPOXEMIC RESPIRATORY FAILURE IMPROVING CHF SEVERE AORTIC STENOSIS COPD EXACERBATION ASHD S/P STENT ACUTE ON CHRONIC KIDNEY DISEASE PULMONARY HTN ANEMIA HTN DM TOBACCO ABUSE HEMOPTYSIS RESOLVED R APICAL NODULE HYPONATREMIA PLAN LASIX O2/BIPAP NEEDED ABX PREDNISONE OD INHALED BRONCHODILATORS NORMAL TRANSFUSION THRESHOLD MONITOR LYTES,RENAL FUNCTION,H+H,NA Erika BERMEO MD
--- NOTE | 2018-10-10 16:46 | PN ---
Progress Note, Physician Chief Complaint: CHF Acute hypoxemic respiratory failure Anemia History of Present Illness: Previous notes and events reviewed awake and alert NAD denies chest pain, dizziness complain of dyspnea on exertion edema to LUE is improving - Current Medication List Current Medications: Active Medications Acetaminophen (Tylenol -) 650 mg PO Q6H PRN PRN Reason: PAIN OR FEVER Aspirin (Ecotrin -) 81 mg PO DAILY [facility] Last Admin: 10/10/18 10:18 Dose: 81 mg Benzocaine/Menthol (Cepacol Lozenge -) 1 each MM PRN PRN PRN Reason: SORE THROAT Last Admin: 10/08/18 10:07 Dose: 1 each Clopidogrel Bisulfate (Plavix -) 75 mg PO DAILY [facility] Last Admin: 10/10/18 10:18 Dose: 75 mg Diltiazem HCl (Cardizem Injection -) 5 mg IVPUSH Q4H PRN PRN Reason: TACHYCARDIA Duloxetine HCl (Cymbalta -) 20 mg PO DAILY [facility] Last Admin: 10/10/18 10:18 Dose: 20 mg Heparin Sodium (Porcine) (Heparin -) 5,000 unit SQ BID [facility] Last Admin: 10/10/18 10:24 Dose: 5,000 unit Levothyroxine Sodium (Synthroid -) 75 mcg PO DAILY@0700 [facility] Last Admin: 10/10/18 06:13 Dose: 75 mcg Methyl Salicylate (David-Trinh -) 1 applic TP BID [facility] Last Admin: 10/10/18 10:24 Dose: Not Given Pantoprazole Sodium (Protonix -) 40 mg PO DAILY [facility] Last Admin: 10/10/18 10:18 Dose: 40 mg Phenol/Menthol (Chloraseptic -) 1 spray MM Q6HPO PRN PRN Reason: SORE THROAT Last Admin: 10/05/18 21:19 Dose: 1 spray Polyethylene Glycol (Miralax (For Daily Use) -) 17 gm PO DAILY [facility] Last Admin: 10/10/18 10:24 Dose: Not Given Prednisone (Deltasone -) 30 mg PO DAILY [facility] Last Admin: 10/10/18 10:18 Dose: 30 mg Sodium Chloride ([place] -) 2 spray NS TID PRN PRN Reason: NASAL CONGESTION Last Admin: 10/10/18 06:14 Dose: 2 spray - Objective Vital Signs: Vital Signs Temperature 97.8 F 10/10/18 14:30 Pulse Rate 80 10/10/18 14:30 Respiratory Rate 20 10/10/18 10:00 Blood Pressure 164/85 10/10/18 14:30 O2 Sat by Pulse Oximetry (%) 95 10/10/18 09:00 Constitutional: Yes: No Distress, Calm Eyes: Yes: Conjunctiva Clear Cardiovascular: Yes: Regular Rate and Rhythm Respiratory: Yes: Diminished, On Nasal O2 Gastrointestinal: Yes: Normal Bowel Sounds, Soft Musculoskeletal: Yes: Muscle Weakness Extremities: Yes: WNL Edema: Yes Edema: LLE: 2+, RLE: 2+ Neurological: Yes: Alert, Oriented Psychiatric: Yes: Alert, Oriented Labs: CBC, BMP 10/10/18 06:00 10/10/18 06:00 <Emily Dasilva - Last Filed: 10/10/18 16:40> - Current Medication List Current Medications: Active Medications Acetaminophen (Tylenol -) 650 mg PO Q6H PRN PRN Reason: PAIN OR FEVER Last Admin: 10/12/18 09:16 Dose: 650 mg Albuterol Sulfate (Ventolin 0.083% Nebulizer Soln -) 1 amp NEB Q6H PRN PRN Reason: SHORT OF BREATH/WHEEZING Last Admin: 10/12/18 07:53 Dose: 1 amp Aspirin (Ecotrin -) 81 mg PO DAILY [facility] Last Admin: 10/12/18 09:16 Dose: 81 mg Benzocaine/Menthol (Cepacol Lozenge -) 1 each MM PRN PRN PRN Reason: SORE THROAT Last Admin: 10/08/18 10:07 Dose: 1 each Clopidogrel Bisulfate (Plavix -) 75 mg PO DAILY [facility] Last Admin: 10/12/18 09:15 Dose: 75 mg Diltiazem HCl (Cardizem Injection -) 5 mg IVPUSH Q4H PRN PRN Reason: TACHYCARDIA Duloxetine HCl (Cymbalta -) 20 mg PO DAILY [facility] Last Admin: 10/12/18 09:17 Dose: Not Given Levothyroxine Sodium (Synthroid -) 75 mcg PO DAILY@0700 [facility] Last Admin: 10/12/18 06:10 Dose: 75 mcg Methyl Salicylate (David-Trinh -) 1 applic TP BID [facility] Last Admin: 10/12/18 09:17 Dose: Not Given Pantoprazole Sodium (Protonix -) 40 mg PO DAILY [facility] Last Admin: 10/12/18 09:15 Dose: 40 mg Phenol/Menthol (Chloraseptic -) 1 spray MM Q6HPO PRN PRN Reason: SORE THROAT Last Admin: 10/05/18 21:19 Dose: 1 spray Polyethylene Glycol (Miralax (For Daily Use) -) 17 gm PO DAILY [facility] Last Admin: 10/12/18 09:17 Dose: Not Given Prednisone (Deltasone -) 30 mg PO DAILY [facility] Last Admin: 10/12/18 09:15 Dose: 30 mg Sodium Chloride ([place] Nasal [place] -) 2 spray NS TID PRN PRN Reason: NASAL CONGESTION Last Admin: 10/10/18 06:14 Dose: 2 spray - Objective Vital Signs: Vital Signs Temperature 97.7 F 10/12/18 08:14 Pulse Rate 87 10/12/18 08:14 Respiratory Rate 22 H 10/12/18 08:14 Blood Pressure 178/82 H 10/12/18 08:14 O2 Sat by Pulse Oximetry (%) 92 L 10/12/18 08:10 Labs: CBC, BMP 10/12/18 08:00 10/12/18 08:00 <Marcus Costa - Last Filed: 10/12/18 09:19> Problem List - Problems (1) ANASTASIA (acute kidney injury) Code(s): N17.9 - ACUTE KIDNEY FAILURE, UNSPECIFIED (2) Acute diastolic CHF (congestive heart failure) Code(s): I50.31 - ACUTE DIASTOLIC (CONGESTIVE) HEART FAILURE (3) Acute hypoxemic respiratory failure Code(s): J96.01 - ACUTE RESPIRATORY FAILURE WITH HYPOXIA (4) Anemia Code(s): D64.9 - ANEMIA, UNSPECIFIED (5) CAD (coronary artery disease) Code(s): I25.10 - ATHSCL HEART DISEASE OF [place] CORONARY ARTERY W/O ANG PCTRS (6) HTN (hypertension) Code(s): I10 - ESSENTIAL (PRIMARY) HYPERTENSION (7) Lung nodule Code(s): R91.1 - SOLITARY PULMONARY NODULE <Emily Dasilva - Last Filed: 10/10/18 16:40> - Problems (1) ANASTASIA (acute kidney injury) Code(s): N17.9 - ACUTE KIDNEY FAILURE, UNSPECIFIED (2) Acute diastolic CHF (congestive heart failure) Code(s): I50.31 - ACUTE DIASTOLIC (CONGESTIVE) HEART FAILURE (3) Acute hypoxemic respiratory failure Code(s): J96.01 - ACUTE RESPIRATORY FAILURE WITH HYPOXIA (4) Anemia Code(s): D64.9 - ANEMIA, UNSPECIFIED (5) Aortic stenosis Code(s): I35.0 - NONRHEUMATIC AORTIC (VALVE) STENOSIS (6) Bilateral lower leg cellulitis Code(s): L03.116 - CELLULITIS OF LEFT LOWER LIMB; L03.115 - CELLULITIS OF RIGHT LOWER LIMB (7) CAD (coronary artery disease) Code(s): I25.10 - ATHSCL HEART DISEASE OF [place] CORONARY ARTERY W/O ANG PCTRS (8) CHF exacerbation Code(s): I50.9 - HEART FAILURE, UNSPECIFIED Qualifiers: Heart failure type: unspecified Qualified Code(s): I50.9 - Heart failure, unspecified (9) Diastolic CHF Code(s): I50.30 - UNSPECIFIED DIASTOLIC (CONGESTIVE) HEART FAILURE (10) HTN (hypertension) Code(s): I10 - ESSENTIAL (PRIMARY) HYPERTENSION (11) Hypothyroid Code(s): E03.9 - HYPOTHYROIDISM, UNSPECIFIED <Marcus Costa - Last Filed: 10/12/18 09:19> Assessment/Plan -cardio on board -Lasix discontinued -cont with plavix -daily weights -strict I&O -renal on board -Na 127, free guillen restriction, urine osmo and electrolytes -pulm on board -cont with neb tx PRN -prednisone PO -O2 via NC, keep SpO2 >90% -dvt ppx -low sodium diet -cont levothyroxine, will repeat thyroid panel as outpatient -H/H stable, will continue to monitor for downward trend -BNP elev, will monitor for downward trend -pending result [place] of [place] <Emily Dasilva - Last Filed: 10/10/18 16:40> PATIENT SEEN AND EXAMINED AND I AGREE WITH ABOVE NOTE <Marcus Costa - Last Filed: 10/12/18 09:19>
--- NOTE | 2018-10-11 01:38 | PN ---
Progress Note, Physician Chief Complaint: Pt A&Ox3; sitting OOB in chair; still easily fatigued and dyspneic. History of Present Illness: 83 yr old white woman with h/o COPD, diastolic CHF, severe aortic stenosis, ACS s/p stent 2014 (denies hx VT), HTN, HLD, hypothyroidism, hip replacement, current bronchitis, and recently diagnosed leg cellulitis (states she is on amoxicillin for the cellulitis) who p/w worsening wet cough and SOB for the past 2 weeks, particularly worse tonight. She has had chills but denies any measured fever, nausea, vomiting, constipation, n/t/w focally, headache, back pain, neck pain, or other symptoms. Her family expresses concern her legs are so swollen she is unable to lift them or even walk. The patient notes her legs are only painful when she tries to weight bear. - Current Medication List Current Medications: Active Medications Acetaminophen (Tylenol -) 650 mg PO Q6H PRN PRN Reason: PAIN OR FEVER Aspirin (Ecotrin -) 81 mg PO DAILY [facility] Last Admin: 10/10/18 10:18 Dose: 81 mg Benzocaine/Menthol (Cepacol Lozenge -) 1 each MM PRN PRN PRN Reason: SORE THROAT Last Admin: 10/08/18 10:07 Dose: 1 each Clopidogrel Bisulfate (Plavix -) 75 mg PO DAILY [facility] Last Admin: 10/10/18 10:18 Dose: 75 mg Diltiazem HCl (Cardizem Injection -) 5 mg IVPUSH Q4H PRN PRN Reason: TACHYCARDIA Duloxetine HCl (Cymbalta -) 20 mg PO DAILY [facility] Last Admin: 10/10/18 10:18 Dose: 20 mg Heparin Sodium (Porcine) (Heparin -) 5,000 unit SQ BID [facility] Last Admin: 10/10/18 22:49 Dose: 5,000 unit Levothyroxine Sodium (Synthroid -) 75 mcg PO DAILY@0700 [facility] Last Admin: 10/10/18 06:13 Dose: 75 mcg Methyl Salicylate (David-Trinh -) 1 applic TP BID [facility] Last Admin: 10/10/18 22:49 Dose: 1 applic Pantoprazole Sodium (Protonix -) 40 mg PO DAILY [facility] Last Admin: 10/10/18 10:18 Dose: 40 mg Phenol/Menthol (Chloraseptic -) 1 spray MM Q6HPO PRN PRN Reason: SORE THROAT Last Admin: 10/05/18 21:19 Dose: 1 spray Polyethylene Glycol (Miralax (For Daily Use) -) 17 gm PO DAILY [facility] Last Admin: 10/10/18 10:24 Dose: Not Given Prednisone (Deltasone -) 30 mg PO DAILY [facility] Last Admin: 10/10/18 10:18 Dose: 30 mg Sodium Chloride ([place] Nasal [place] -) 2 spray NS TID PRN PRN Reason: NASAL CONGESTION Last Admin: 10/10/18 06:14 Dose: 2 spray - Objective Vital Signs: Vital Signs Temperature 97.5 F L 10/10/18 20:35 Pulse Rate 76 10/10/18 20:35 Respiratory Rate 18 10/10/18 20:35 Blood Pressure 173/65 H 10/10/18 20:35 O2 Sat by Pulse Oximetry (%) 97 10/10/18 20:35 Constitutional: Yes: Anxious, Thin Eyes: Yes: WNL HENT: Yes: WNL Neck: Yes: WNL Cardiovascular: Yes: S1, S2 Respiratory: Yes: Diminished Gastrointestinal: Yes: Soft ...Rectal Exam: Yes: Deferred Genitourinary: No: Anuria Breast(s): Yes: WNL Musculoskeletal: Yes: Muscle Weakness Extremities: Yes: Cool Edema: Yes Edema: LLE: 1+, RLE: 1+ Peripheral Pulses WNL: No Peripheral Pulses: Left Doralis Pedis: 1+, Right Dorsalis Pedis: 1+ Neurological: Yes: Alert, Oriented, Weakness Psychiatric: Yes: Other (anxiety/depression) Labs: CBC, BMP 10/10/18 06:00 10/10/18 06:00 Problem List - Problems (1) Severe aortic stenosis Assessment/Plan: ECHO 09/29/2018: normal LVEF; mild LVH; abnormal diastolic compliance; severe aortic stenosis (), mild AR, moderate pulmonary HTN; severe MAC and aortic valve calcification; moderate LAE. The potential benefits (potential decrease in symptoms and mortality) from TAVR were discussed with pt and family. Presently, worsening renal status makes this option problematic. Pt is against undergoing dialysis. Avoid excessive diuresis/dehydration. Code(s): I35.0 - NONRHEUMATIC AORTIC (VALVE) STENOSIS (2) HTN (hypertension) Code(s): I10 - ESSENTIAL (PRIMARY) HYPERTENSION (3) CAD (coronary artery disease) Assessment/Plan: hx CAD-->coronary stent 2014. EKG: T wave changes: consider lateral ischemia. If TAVR is contemplated, will also have coronary angiogram (both are problematic at present due to worsening renal function). Code(s): I25.10 - ATHSCL HEART DISEASE OF [place] CORONARY ARTERY W/O ANG PCTRS (4) Diastolic CHF Code(s): I50.30 - UNSPECIFIED DIASTOLIC (CONGESTIVE) HEART FAILURE (5) ANASTASIA (acute kidney injury) Assessment/Plan: worsening hyponatremia. As discussed with mop worker, furosemide held, with restart to be determined on a daily basis (problematic holding it from CHF standpoint). Code(s): N17.9 - ACUTE KIDNEY FAILURE, UNSPECIFIED (6) Anemia Assessment/Plan: s/p PRBCs F/u etiology of blood loss. Code(s): D64.9 - ANEMIA, UNSPECIFIED (7) COPD (chronic obstructive pulmonary disease) Assessment/Plan: Quit cigarettes only a few years ago, after many years smoking. CT chest: RUL lung nodule. Code(s): J44.9 - CHRONIC OBSTRUCTIVE PULMONARY DISEASE, UNSPECIFIED Qualifiers: COPD type: unspecified COPD Qualified Code(s): J44.9 - Chronic obstructive pulmonary disease, unspecified (8) Acute diastolic CHF (congestive heart failure) Assessment/Plan: + JVD Markedly elevated BNP. CXR and CT chest: pleural effusion bilaterally. Exacerbated by severe , anemia. Code(s): I50.31 - ACUTE DIASTOLIC (CONGESTIVE) HEART FAILURE (9) Lung nodule Assessment/Plan: RUL apex; r/o malignancy; for f/u studies within 3 months. Code(s): R91.1 - SOLITARY PULMONARY NODULE (10) Coronary atherosclerosis due to calcified coronary lesion of [place] artery Assessment/Plan: dense calcification of coronary arteries on CT. If pt's overall condition stabilizes, and renal status is addressed, would benefit from coronary angiogram and evaluation for TAVR. Code(s): I25.10 - ATHSCL HEART DISEASE OF [place] CORONARY ARTERY W/O ANG PCTRS; I25.84 - CORONARY ATHEROSCLEROSIS DUE TO CALCIFIED CORONARY LESION (11) Acute chest pain Assessment/Plan: EKG: no significant change. TNI 0.03-->0.30-->0.25. Pt receiving bronchodilator Rx; chest discomfort reduced, but not completely resolved. On ASA, clopidogrel, sc heparin. NTG (though caution against excessive preload reduction with severe ). F/u BP serially. Consider anxiolytic. Code(s): R07.9 - CHEST PAIN, UNSPECIFIED (12) Hypothyroid Assessment/Plan: elevated TSH; low free T4. Adjust therapy accordingly. Code(s): E03.9 - HYPOTHYROIDISM, UNSPECIFIED
[2018-10-11] MEDS ORDERED: PT OWN MED DRAWER 7, Y5N ONE (05:55)
[2018-10-11] MEDS: LEVOTHYROXINE NA 75 MCG TABLET (FP) PO SCH (06:02)
--- NOTE | 2018-10-11 10:29 | PN ---
Progress Note, Physician Chief Complaint: CHF Acute hypoxemic respiratory failure Anemia History of Present Illness: Previous notes and events reviewed awake and alert NAD denies chest pain, dizziness complain of dyspnea c/o B/L lower extremity pain, complain of feeling tired - Current Medication List Current Medications: Active Medications Acetaminophen (Tylenol -) 650 mg PO Q6H PRN PRN Reason: PAIN OR FEVER Aspirin (Ecotrin -) 81 mg PO DAILY [facility] Last Admin: 10/10/18 10:18 Dose: 81 mg Benzocaine/Menthol (Cepacol Lozenge -) 1 each MM PRN PRN PRN Reason: SORE THROAT Last Admin: 10/08/18 10:07 Dose: 1 each Clopidogrel Bisulfate (Plavix -) 75 mg PO DAILY [facility] Last Admin: 10/10/18 10:18 Dose: 75 mg Diltiazem HCl (Cardizem Injection -) 5 mg IVPUSH Q4H PRN PRN Reason: TACHYCARDIA Duloxetine HCl (Cymbalta -) 20 mg PO DAILY [facility] Last Admin: 10/10/18 10:18 Dose: 20 mg Heparin Sodium (Porcine) (Heparin -) 5,000 unit SQ BID [facility] Last Admin: 10/10/18 22:49 Dose: 5,000 unit Levothyroxine Sodium (Synthroid -) 75 mcg PO DAILY@0700 [facility] Last Admin: 10/11/18 06:02 Dose: 75 mcg Methyl Salicylate (David-Trinh -) 1 applic TP BID [facility] Last Admin: 10/10/18 22:49 Dose: 1 applic Pantoprazole Sodium (Protonix -) 40 mg PO DAILY [facility] Last Admin: 10/10/18 10:18 Dose: 40 mg Phenol/Menthol (Chloraseptic -) 1 spray MM Q6HPO PRN PRN Reason: SORE THROAT Last Admin: 10/05/18 21:19 Dose: 1 spray Polyethylene Glycol (Miralax (For Daily Use) -) 17 gm PO DAILY [facility] Last Admin: 10/10/18 10:24 Dose: Not Given Prednisone (Deltasone -) 30 mg PO DAILY [facility] Last Admin: 10/10/18 10:18 Dose: 30 mg Sodium Chloride ([place] Nasal [place] -) 2 spray NS TID PRN PRN Reason: NASAL CONGESTION Last Admin: 10/10/18 06:14 Dose: 2 spray - Objective Vital Signs: Vital Signs Temperature 98 F 10/11/18 06:55 Pulse Rate 87 10/11/18 06:55 Respiratory Rate 19 10/11/18 06:55 Blood Pressure 156/84 10/11/18 06:55 O2 Sat by Pulse Oximetry (%) 97 10/10/18 20:35 Constitutional: Yes: Calm, Mild Distress Eyes: Yes: Conjunctiva Clear Cardiovascular: Yes: Regular Rate and Rhythm Respiratory: Yes: Regular, Diminished, On Nasal O2 Gastrointestinal: Yes: Normal Bowel Sounds, Soft Musculoskeletal: Yes: Muscle Weakness Extremities: Yes: Calf Tenderness (B/L), Erythema Edema: Yes Neurological: Yes: Alert, Oriented Psychiatric: Yes: Alert, Oriented Labs: CBC, BMP 10/10/18 06:00 10/10/18 06:00 <Emily Dasilva - Last Filed: 10/11/18 10:55> - Current Medication List Current Medications: Active Medications Acetaminophen (Tylenol -) 650 mg PO Q6H PRN PRN Reason: PAIN OR FEVER Last Admin: 10/12/18 09:16 Dose: 650 mg Albuterol Sulfate (Ventolin 0.083% Nebulizer Soln -) 1 amp NEB Q6H PRN PRN Reason: SHORT OF BREATH/WHEEZING Last Admin: 10/12/18 07:53 Dose: 1 amp Aspirin (Ecotrin -) 81 mg PO DAILY [facility] Last Admin: 10/12/18 09:16 Dose: 81 mg Benzocaine/Menthol (Cepacol Lozenge -) 1 each MM PRN PRN PRN Reason: SORE THROAT Last Admin: 10/08/18 10:07 Dose: 1 each Clopidogrel Bisulfate (Plavix -) 75 mg PO DAILY [facility] Last Admin: 10/12/18 09:15 Dose: 75 mg Diltiazem HCl (Cardizem Injection -) 5 mg IVPUSH Q4H PRN PRN Reason: TACHYCARDIA Duloxetine HCl (Cymbalta -) 20 mg PO DAILY [facility] Last Admin: 10/12/18 09:17 Dose: Not Given Levothyroxine Sodium (Synthroid -) 75 mcg PO DAILY@0700 [facility] Last Admin: 10/12/18 06:10 Dose: 75 mcg Methyl Salicylate (David-Trinh -) 1 applic TP BID [facility] Last Admin: 01/27/19 09:17 Dose: Not Given Pantoprazole Sodium (Protonix -) 40 mg PO DAILY [facility] Last Admin: 10/12/18 09:15 Dose: 40 mg Phenol/Menthol (Chloraseptic -) 1 spray MM Q6HPO PRN PRN Reason: SORE THROAT Last Admin: 10/05/18 21:19 Dose: 1 spray Polyethylene Glycol (Miralax (For Daily Use) -) 17 gm PO DAILY [facility] Last Admin: 10/12/18 09:17 Dose: Not Given Prednisone (Deltasone -) 30 mg PO DAILY [facility] Last Admin: 10/12/18 09:15 Dose: 30 mg Sodium Chloride ([place] Nasal [place] -) 2 spray NS TID PRN PRN Reason: NASAL CONGESTION Last Admin: 10/10/18 06:14 Dose: 2 spray - Objective Vital Signs: Vital Signs Temperature 97.7 F 10/12/18 08:14 Pulse Rate 87 10/12/18 08:14 Respiratory Rate 22 H 10/12/18 08:14 Blood Pressure 178/82 H 10/12/18 08:14 O2 Sat by Pulse Oximetry (%) 92 L 10/12/18 08:10 Labs: CBC, BMP 10/12/18 08:00 10/12/18 08:00 <Marcus Costa - Last Filed: 10/12/18 09:18> Problem List - Problems (1) ANASTASIA (acute kidney injury) Code(s): N17.9 - ACUTE KIDNEY FAILURE, UNSPECIFIED (2) Acute diastolic CHF (congestive heart failure) Code(s): I50.31 - ACUTE DIASTOLIC (CONGESTIVE) HEART FAILURE (3) Acute hypoxemic respiratory failure Code(s): J96.01 - ACUTE RESPIRATORY FAILURE WITH HYPOXIA (4) Anemia Code(s): D64.9 - ANEMIA, UNSPECIFIED (5) CAD (coronary artery disease) Code(s): I25.10 - ATHSCL HEART DISEASE OF [place] CORONARY ARTERY W/O ANG PCTRS (6) HTN (hypertension) Code(s): I10 - ESSENTIAL (PRIMARY) HYPERTENSION (7) Lung nodule Code(s): R91.1 - SOLITARY PULMONARY NODULE <Emily Dasilva - Last Filed: 10/11/18 10:55> - Problems (1) ANASTASIA (acute kidney injury) Code(s): N17.9 - ACUTE KIDNEY FAILURE, UNSPECIFIED (2) Acute diastolic CHF (congestive heart failure) Code(s): I50.31 - ACUTE DIASTOLIC (CONGESTIVE) HEART FAILURE (3) Acute hypoxemic respiratory failure Code(s): J96.01 - ACUTE RESPIRATORY FAILURE WITH HYPOXIA (4) Anemia Code(s): D64.9 - ANEMIA, UNSPECIFIED (5) Aortic stenosis Code(s): I35.0 - NONRHEUMATIC AORTIC (VALVE) STENOSIS (6) Bilateral lower leg cellulitis Code(s): L03.116 - CELLULITIS OF LEFT LOWER LIMB; L03.115 - CELLULITIS OF RIGHT LOWER LIMB (7) CAD (coronary artery disease) Code(s): I25.10 - ATHSCL HEART DISEASE OF [place] CORONARY ARTERY W/O ANG PCTRS (8) CHF exacerbation Code(s): I50.9 - HEART FAILURE, UNSPECIFIED Qualifiers: Heart failure type: unspecified Qualified Code(s): I50.9 - Heart failure, unspecified (9) Diastolic CHF Code(s): I50.30 - UNSPECIFIED DIASTOLIC (CONGESTIVE) HEART FAILURE (10) HTN (hypertension) Code(s): I10 - ESSENTIAL (PRIMARY) HYPERTENSION (11) Hypothyroid Code(s): E03.9 - HYPOTHYROIDISM, UNSPECIFIED <Marcus Costa - Last Filed: 10/12/18 09:18> Assessment/Plan -cardio on board -Lasix discontinued -cont with plavix -daily weights -strict I&O -renal on board -Na 127, free guillen restriction, urine osmo and electrolytes -pulm on board -cont with neb tx PRN -prednisone PO -O2 via NC, keep SpO2 >90% -dvt ppx -low sodium diet -cont levothyroxine, will repeat thyroid panel as outpatient -H/H stable, will continue to monitor for downward trend -BNP elev, will monitor for downward trend -previous B/L lower extremity doppler on 09/29/18 neg, will continue to monitor forworsening pain, Mg level ordered -cont with daily PT, consider SNF for rehab upon discharge <Emily Dasilva - Last Filed: 10/11/18 10:55> PATIENT SEEN AND EXAMINED AND I AGREE WITH THE ABOVE NOTE <Marcus Costa - Last Filed: 10/12/18 09:18>
[2018-10-11] MEDS: HEPARIN NA (PORCINE) 5,000 UNITS/ML 1ML VIAL SQ SCH (10:30)
[2018-10-11] MEDS: CLOPIDOGREL BISULFATE 75 MG TABLET (FP) PO SCH (10:30)
[2018-10-11] MEDS: predniSONE 10 MG TABLET (UD) PO SCH (10:31)
[2018-10-11] MEDS: POLYETHYLENE GLYCOL 3350 119 GM BTL PO SCH (10:31)
[2018-10-11] MEDS: PANTOPRAZOLE 40 MG TABLET (FP) PO SCH (10:31)
[2018-10-11] MEDS: ASPIRIN COATED 81 MG TABLET.EC PO SCH (10:31)
[2018-10-11] MEDS: DULoxetine HCL 20 MG CAPSULE.DR (FP) PO SCH (10:31)
[2018-10-11] MEDS: METHYL SALICYLATE/MENTHOL OINT 30 GM TUBE TP SCH ×2 (10:35→21:07)
[2018-10-11 10:41] LABS: HEMATOCRIT 29.3 % (32.4-45.2); HEMOGLOBIN 10.2 GM/dL (10.7-15.3); MCH 31.6 pg (25.7-33.7); MCHC 34.8 g/dl (32.0-36.0); MEAN CELL VOLUME 90.6 fl (80-96); MEAN PLT VOLUME 9.4 fl (7.5-11.1); PLATELET COUNT 219 K/MM3 (134-434); RBC 3.24 M/mm3 (3.60-5.2); WHITE BLOOD COUNT 13.4 K/mm3 (4.0-10.0)
[2018-10-11 11:28] LABS: ALBUMIN 2.6 g/dl (3.4-5.0); ALK PHOS 89 U/L (45-117); ANION GAP 11 MMOL/L (8-16); BILIRUBIN,TOTAL 0.4 mg/dL (0.2-1); BLOOD UREA NITROGEN 102 mg/dL (7-18); CALCIUM 7.5 mg/dL (8.5-10.1); CHLORIDE 90 mmol/L (98-107); CO2 28 mmol/L (21-32); CREATININE 3.1 mg/dL (0.55-1.3); GLUCOSE,RANDOM 99 mg/dL (74-106); POTASSIUM 4.4 mmol/L (3.5-5.1); SGOT/AST 17 U/L (15-37); SGPT/ALT 26 U/L (13-61); SODIUM 129 mmol/L (136-145); TOT PROT 5.2 g/dl (6.4-8.2)
--- NOTE | 2018-10-11 15:07 | PN ---
Progress Note (short form) - Note Progress Note: PULMONARY Resting in NAD on 4 L NC O2. Less dyspneic overall. VSS Constitutional: Yes: NAD Eyes: Yes: WNL HENT: Yes: WNL Neck: Yes: WNL Cardiovascular: Yes: Regular Rate and Rhythm, S1, S2 Respiratory: Yes: Scattered Rhonchi Gastrointestinal: Yes: Normal Bowel Sounds, Soft Extremities: Yes: WNL Edema: Yes MEDS/NOTES/IMAGES REVIEWED - Problems (1) Acute hypoxemic respiratory failure Code(s): J96.01 - ACUTE RESPIRATORY FAILURE WITH HYPOXIA (2) Bilateral lower leg cellulitis Code(s): L03.116 - CELLULITIS OF LEFT LOWER LIMB; L03.115 - CELLULITIS OF RIGHT LOWER LIMB (3) CHF exacerbation Code(s): I50.9 - HEART FAILURE, UNSPECIFIED Qualifiers: Heart failure type: unspecified Qualified Code(s): I50.9 - Heart failure, unspecified (4) COPD (chronic obstructive pulmonary disease) Code(s): J44.9 - CHRONIC OBSTRUCTIVE PULMONARY DISEASE, UNSPECIFIED Qualifiers: COPD type: unspecified COPD Qualified Code(s): J44.9 - Chronic obstructive pulmonary disease, unspecified (5) Pneumonia Code(s): J18.9 - PNEUMONIA, UNSPECIFIED ORGANISM Qualifiers: Pneumonia type: due to unspecified organism Laterality: unspecified laterality Lung location: unspecified part of lung Qualified Code(s): J18.9 - Pneumonia, unspecified organism (6) Acute coronary syndrome Code(s): I24.9 - ACUTE ISCHEMIC HEART DISEASE, UNSPECIFIED (7) Anemia Code(s): D64.9 - ANEMIA, UNSPECIFIED (8) Diabetes Code(s): E11.9 - TYPE 2 DIABETES MELLITUS WITHOUT COMPLICATIONS (9) Tobacco abuse Code(s): Z72.0 - TOBACCO USE (10) Tobacco abuse counseling Code(s): Z71.6 - TOBACCO ABUSE COUNSELING ACUTE HYPOXEMIC RESPIRATORY FAILURE IMPROVING CHF SEVERE AORTIC STENOSIS COPD EXACERBATION ASHD S/P STENT ACUTE ON CHRONIC KIDNEY DISEASE PULMONARY HTN ANEMIA HTN DM TOBACCO ABUSE HEMOPTYSIS RESOLVED R APICAL NODULE HYPONATREMIA PLAN LASIX O2/BIPAP NEEDED ABX PREDNISONE OD INHALED BRONCHODILATORS NORMAL TRANSFUSION THRESHOLD MONITOR LYTES,RENAL FUNCTION,H+H,NA R ELVIE GOETZ
--- NOTE | 2018-10-11 15:14 | PN ---
Progress Note (short form) - Note Progress Note: RENAL Pt is awake and alert comfortable except she has hoarseness no N/V long time smoker Last Vital Signs Temp Pulse Resp BP Pulse Ox 97.6 F 90 20 187/75 H 96 10/11/18 10:00 10/11/18 10:00 10/11/18 10:00 10/11/18 10:00 10/11/18 09:00 lungs decreased breath sounds cvs s1s2 rr +SARINA abd soft ext +edema skin thin neuro a+ox3 CBC, BMP 10/11/18 10:20 10/11/18 10:20 Current Medications Generic Name Dose Route Start Last Admin Trade Name Freq PRN Reason Stop Dose Admin Acetaminophen 650 mg 09/28/18 21:26 Tylenol - PO Q6H PRN PAIN OR FEVER Aspirin 81 mg 09/29/18 10:00 10/11/18 10:31 Ecotrin - PO 81 mg DAILY HARRY Administration Benzocaine/Menthol 1 each 10/02/18 12:05 10/08/18 10:07 Cepacol Lozenge - MM 1 each PRN PRN Administration SORE THROAT Clopidogrel Bisulfate 75 mg 09/29/18 10:00 10/11/18 10:30 Plavix - PO 75 mg DAILY HARRY Administration Diltiazem HCl 5 mg 10/01/18 10:05 Cardizem Injection - IVPUSH Q4H PRN TACHYCARDIA Duloxetine HCl 20 mg 10/08/18 13:30 10/11/18 10:31 Cymbalta - PO 20 mg DAILY HARRY Administration Levothyroxine Sodium 75 mcg 09/29/18 07:00 10/11/18 06:02 Synthroid - PO 75 mcg DAILY@0700 HARRY Administration Methyl Salicylate 1 applic 10/01/18 22:00 10/11/18 10:35 David-Trinh - TP Not Given BID HARRY Pantoprazole Sodium 40 mg 10/02/18 14:00 10/11/18 10:31 Protonix - PO 40 mg DAILY HARRY Administration Phenol/Menthol 1 spray 10/02/18 12:05 10/05/18 21:19 Chloraseptic - MM 1 spray Q6HPO PRN Administration SORE THROAT Polyethylene Glycol 17 gm 10/02/18 15:00 10/11/18 10:31 Miralax (For Daily Use) - PO Not Given DAILY HARRY Prednisone 30 mg 10/09/18 18:55 10/11/18 10:31 Deltasone - PO 30 mg DAILY HARRY Administration Sodium Chloride 2 spray 10/02/18 12:04 10/10/18 06:14 [place] - NS 2 spray TID PRN Administration NASAL CONGESTION Impression 1. hyperkalemia 2. CKD- proteinuric and hematuric. Does have nephrotic range proteinuria 3. CAD 4. COPD 5. hypothyroidism 6. CHF 7. severe aortic stenosis 8. hyponatremia in part due to hypothyroidism TSH was over 40 Plan await urine and serum osm continue thyroid hormone keep on fluid restriction steroid taper kidneys are small so a biopsy would not likely have a good yield repeat urine protein and creat hemodialysis will need to be considered MV
[2018-10-12] MEDS: ALBUTEROL SO4 0.083% IH SOL 2.5 MG/3 ML VIAL.NEB. NEB PRN ×2 (02:42→07:53)
[2018-10-12] MEDS: LEVOTHYROXINE NA 75 MCG TABLET (FP) PO SCH (06:10)
[2018-10-12 08:32] LABS: HEMATOCRIT 29.6 % (32.4-45.2); HEMOGLOBIN 10.6 GM/dL (10.7-15.3); MCH 32.4 pg (25.7-33.7); MCHC 35.7 g/dl (32.0-36.0); MEAN CELL VOLUME 90.8 fl (80-96); MEAN PLT VOLUME 9.7 fl (7.5-11.1); PLATELET COUNT 242 K/MM3 (134-434); RBC 3.26 M/mm3 (3.60-5.2); RDW 15.1 % (11.6-15.6); WHITE BLOOD COUNT 12.6 K/mm3 (4.0-10.0)
[2018-10-12 09:06] LABS: ALBUMIN 2.6 g/dl (3.4-5.0); ALK PHOS 74 U/L (45-117); ANION GAP 14 MMOL/L (8-16); BILIRUBIN,TOTAL 0.4 mg/dL (0.2-1); BLOOD UREA NITROGEN 102 mg/dL (7-18); CALCIUM 7.3 mg/dL (8.5-10.1); CHLORIDE 90 mmol/L (98-107); CO2 24 mmol/L (21-32); GLUCOSE,RANDOM 69 mg/dL (74-106); MAGNESIUM 1.7 mg/dL (1.8-2.4); POTASSIUM 4.4 mmol/L (3.5-5.1); SGOT/AST 21 U/L (15-37); SGPT/ALT 27 U/L (13-61); SODIUM 128 mmol/L (136-145); TOT PROT 5.3 g/dl (6.4-8.2)
[2018-10-12] MEDS: CLOPIDOGREL BISULFATE 75 MG TABLET (FP) PO SCH (09:15)
[2018-10-12] MEDS: PANTOPRAZOLE 40 MG TABLET (FP) PO SCH (09:15)
[2018-10-12] MEDS: predniSONE 10 MG TABLET (UD) PO SCH (09:15)
[2018-10-12] MEDS: ASPIRIN COATED 81 MG TABLET.EC PO SCH (09:16)
[2018-10-12] MEDS: DULoxetine HCL 20 MG CAPSULE.DR (FP) PO SCH (09:17)
[2018-10-12] MEDS: POLYETHYLENE GLYCOL 3350 119 GM BTL PO SCH (09:17)
[2018-10-12] MEDS: METHYL SALICYLATE/MENTHOL OINT 30 GM TUBE TP SCH ×2 (09:17→21:44)
--- NOTE | 2018-10-12 10:45 | PN ---
Progress Note, Physician Chief Complaint: CHF Acute hypoxemic respiratory failure Anemia History of Present Illness: Previous notes and events reviewed awake and alert NAD denies chest pain, dizziness complain of dyspnea patient became SOB with labored breathing, SpO2 90% on O2, RT at bedside giving and placed patient on Bipap (Ipap 10, Epap 5, O2 40%, rate 17), patient states feeling better breathing with BiPap - Current Medication List Current Medications: Active Medications Acetaminophen (Tylenol -) 650 mg PO Q6H PRN PRN Reason: PAIN OR FEVER Last Admin: 10/12/18 09:16 Dose: 650 mg Albuterol Sulfate (Ventolin 0.083% Nebulizer Soln -) 1 amp NEB Q6H PRN PRN Reason: SHORT OF BREATH/WHEEZING Last Admin: 10/12/18 07:53 Dose: 1 amp Aspirin (Ecotrin -) 81 mg PO DAILY [facility] Last Admin: 10/12/18 09:16 Dose: 81 mg Benzocaine/Menthol (Cepacol Lozenge -) 1 each MM PRN PRN PRN Reason: SORE THROAT Last Admin: 10/08/18 10:07 Dose: 1 each Clopidogrel Bisulfate (Plavix -) 75 mg PO DAILY [facility] Last Admin: 10/12/18 09:15 Dose: 75 mg Diltiazem HCl (Cardizem Injection -) 5 mg IVPUSH Q4H PRN PRN Reason: TACHYCARDIA Duloxetine HCl (Cymbalta -) 20 mg PO DAILY [facility] Last Admin: 10/12/18 09:17 Dose: Not Given Levothyroxine Sodium (Synthroid -) 75 mcg PO DAILY@0700 [facility] Last Admin: 10/12/18 06:10 Dose: 75 mcg Methyl Salicylate (David-Trinh -) 1 applic TP BID [facility] Last Admin: 10/12/18 09:17 Dose: Not Given Pantoprazole Sodium (Protonix -) 40 mg PO DAILY [facility] Last Admin: 10/12/18 09:15 Dose: 40 mg Phenol/Menthol (Chloraseptic -) 1 spray MM Q6HPO PRN PRN Reason: SORE THROAT Last Admin: 10/05/18 21:19 Dose: 1 spray Polyethylene Glycol (Miralax (For Daily Use) -) 17 gm PO DAILY [facility] Last Admin: 10/12/18 09:17 Dose: Not Given Prednisone (Deltasone -) 30 mg PO DAILY [facility] Last Admin: 10/12/18 09:15 Dose: 30 mg Sodium Chloride ([place] -) 2 spray NS TID PRN PRN Reason: NASAL CONGESTION Last Admin: 10/10/18 06:14 Dose: 2 spray - Objective Vital Signs: Vital Signs Temperature 97.7 F 10/12/18 08:14 Pulse Rate 96 H 10/12/18 09:24 Respiratory Rate 22 H 10/12/18 09:24 Blood Pressure 162/72 10/12/18 09:24 O2 Sat by Pulse Oximetry (%) 92 L 10/12/18 08:10 Constitutional: Yes: Calm, Mild Distress Eyes: Yes: Conjunctiva Clear Neck: Yes: Supple Cardiovascular: Yes: Regular Rate and Rhythm Respiratory: Yes: On BiPap, Rhonchi Gastrointestinal: Yes: Normal Bowel Sounds, Soft Musculoskeletal: Yes: Muscle Weakness Extremities: Yes: WNL Edema: Yes Edema: LLE: 2+, RLE: 2+ Neurological: Yes: Alert, Oriented Psychiatric: Yes: Alert, Oriented Labs: CBC, BMP 10/12/18 08:00 10/12/18 08:00 <Emily Dasilva - Last Filed: 10/12/18 10:40> - Current Medication List Current Medications: Active Medications Acetaminophen (Tylenol -) 650 mg PO Q6H PRN PRN Reason: PAIN OR FEVER Last Admin: 10/12/18 09:16 Dose: 650 mg Albuterol Sulfate (Ventolin 0.083% Nebulizer Soln -) 1 amp NEB Q6H PRN PRN Reason: SHORT OF BREATH/WHEEZING Last Admin: 10/13/18 20:40 Dose: 1 amp Aspirin (Ecotrin -) 81 mg PO DAILY [facility] Last Admin: 10/13/18 09:18 Dose: 81 mg Benzocaine/Menthol (Cepacol Lozenge -) 1 each MM PRN PRN PRN Reason: SORE THROAT Last Admin: 10/13/18 10:49 Dose: 1 each Clopidogrel Bisulfate (Plavix -) 75 mg PO DAILY [facility] Last Admin: 10/13/18 09:18 Dose: 75 mg Diltiazem HCl (Cardizem Injection -) 5 mg IVPUSH Q4H PRN PRN Reason: TACHYCARDIA Duloxetine HCl (Cymbalta -) 20 mg PO DAILY [facility] Last Admin: 10/13/18 09:18 Dose: Not Given Guaifenesin (Robitussin -) 10 ml PO Q6H PRN PRN Reason: COUGH Last Admin: 10/13/18 14:13 Dose: 10 ml Levothyroxine Sodium (Synthroid -) 75 mcg PO DAILY@0700 [facility] Last Admin: 10/13/18 06:30 Dose: 75 mcg Methyl Salicylate (David-Trinh -) 1 applic TP BID [facility] Last Admin: 10/13/18 21:49 Dose: Not Given Pantoprazole Sodium (Protonix -) 40 mg PO DAILY [facility] Last Admin: 10/13/18 09:18 Dose: 40 mg Phenol/Menthol (Chloraseptic -) 1 spray MM Q6HPO PRN PRN Reason: SORE THROAT Last Admin: 10/05/18 21:19 Dose: 1 spray Polyethylene Glycol (Miralax (For Daily Use) -) 17 gm PO DAILY [facility] Last Admin: 10/13/18 09:19 Dose: Not Given Prednisone (Deltasone -) 20 mg PO DAILY [facility] Sodium Chloride ([place] -) 2 spray NS TID PRN PRN Reason: NASAL CONGESTION Last Admin: 10/10/18 06:14 Dose: 2 spray - Objective Vital Signs: Vital Signs Temperature 98.3 F 10/14/18 02:00 Pulse Rate 86 10/14/18 02:00 Respiratory Rate 20 10/14/18 02:00 Blood Pressure 119/66 10/14/18 02:00 O2 Sat by Pulse Oximetry (%) 93 L 10/13/18 21:00 Labs: CBC, BMP 10/13/18 07:41 10/13/18 07:41 <IgorAmmir - Last Filed: 10/14/18 05:50> Problem List - Problems (1) ANASTASIA (acute kidney injury) Code(s): N17.9 - ACUTE KIDNEY FAILURE, UNSPECIFIED (2) Acute diastolic CHF (congestive heart failure) Code(s): I50.31 - ACUTE DIASTOLIC (CONGESTIVE) HEART FAILURE (3) Acute hypoxemic respiratory failure Code(s): J96.01 - ACUTE RESPIRATORY FAILURE WITH HYPOXIA (4) Anemia Code(s): D64.9 - ANEMIA, UNSPECIFIED (5) CAD (coronary artery disease) Code(s): I25.10 - ATHSCL HEART DISEASE OF [place] CORONARY ARTERY W/O ANG PCTRS (6) HTN (hypertension) Code(s): I10 - ESSENTIAL (PRIMARY) HYPERTENSION (7) Lung nodule Code(s): R91.1 - SOLITARY PULMONARY NODULE <BrownEmily Justin - Last Filed: 10/12/18 10:40> - Problems (1) ANASTASIA (acute kidney injury) Code(s): N17.9 - ACUTE KIDNEY FAILURE, UNSPECIFIED (2) Acute diastolic CHF (congestive heart failure) Code(s): I50.31 - ACUTE DIASTOLIC (CONGESTIVE) HEART FAILURE (3) Acute hypoxemic respiratory failure Code(s): J96.01 - ACUTE RESPIRATORY FAILURE WITH HYPOXIA (4) Anemia Code(s): D64.9 - ANEMIA, UNSPECIFIED (5) Aortic stenosis Code(s): I35.0 - NONRHEUMATIC AORTIC (VALVE) STENOSIS (6) Bilateral lower leg cellulitis Code(s): L03.116 - CELLULITIS OF LEFT LOWER LIMB; L03.115 - CELLULITIS OF RIGHT LOWER LIMB (7) CAD (coronary artery disease) Code(s): I25.10 - ATHSCL HEART DISEASE OF [place] CORONARY ARTERY W/O ANG PCTRS (8) CHF exacerbation Code(s): I50.9 - HEART FAILURE, UNSPECIFIED Qualifiers: Heart failure type: unspecified Qualified Code(s): I50.9 - Heart failure, unspecified (9) Diastolic CHF Code(s): I50.30 - UNSPECIFIED DIASTOLIC (CONGESTIVE) HEART FAILURE (10) HTN (hypertension) Code(s): I10 - ESSENTIAL (PRIMARY) HYPERTENSION (11) Hypothyroid Code(s): E03.9 - HYPOTHYROIDISM, UNSPECIFIED <Marcus Costa - Last Filed: 10/14/18 05:50> Assessment/Plan -cardio on board -Lasix discontinued -cont with plavix -daily weights -strict I&O -renal on board -Na 128, free guillen restriction, urine osmo and electrolytes ordered -urine protein and urine creatinine ordered -pulm on board -cont with Bipap -VBG ordered -cont with neb tx PRN -prednisone PO -O2 via NC, keep SpO2 >90% -dvt ppx -low sodium diet -cont levothyroxine, will repeat thyroid panel as outpatient -H/H stable, will continue to monitor for downward trend -BNP elev, will monitor for downward trend -previous B/L lower extremity doppler on 09/29/18 neg, will continue to monitor forworsening pain, Mg level ordered -cont with daily PT, consider SNF for rehab upon discharge <Emily Dasilva - Last Filed: 10/12/18 10:40> PATIENT SEEN AND EXAMINED AND I AGREE WITH THE ABOVE NOTE <Marcus Costa - Last Filed: 10/14/18 05:50>
--- NOTE | 2018-10-12 11:26 | PN ---
Progress Note (short form) - Note Progress Note: RENAL Pt is awake currently on Bipap able to speak however Last Vital Signs Temp Pulse Resp BP Pulse Ox 97.7 F 96 H 22 H 162/72 97 10/12/18 08:14 10/12/18 09:24 10/12/18 09:24 10/12/18 09:24 10/12/18 11:16 lungs bilat air entry cvs s1s2 rr +nevaeh abd soft ext +edema neuro a+ox3 CBC, BMP 10/12/18 08:00 10/12/18 08:00 Current Medications Generic Name Dose Route Start Last Admin Trade Name Freq PRN Reason Stop Dose Admin Acetaminophen 650 mg 09/28/18 21:26 10/12/18 09:16 Tylenol - PO 650 mg Q6H PRN Administration PAIN OR FEVER Albuterol Sulfate 1 amp 10/12/18 02:32 10/12/18 07:53 Ventolin 0.083% Nebulizer Soln - NEB 1 amp Q6H PRN Administration SHORT OF BREATH/WHEEZING Aspirin 81 mg 09/29/18 10:00 10/12/18 09:16 Ecotrin - PO 81 mg DAILY HARRY Administration Benzocaine/Menthol 1 each 10/02/18 12:05 10/08/18 10:07 Cepacol Lozenge - MM 1 each PRN PRN Administration SORE THROAT Clopidogrel Bisulfate 75 mg 09/29/18 10:00 10/12/18 09:15 Plavix - PO 75 mg DAILY HARRY Administration Diltiazem HCl 5 mg 10/01/18 10:05 Cardizem Injection - IVPUSH Q4H PRN TACHYCARDIA Duloxetine HCl 20 mg 10/08/18 13:30 10/12/18 09:17 Cymbalta - PO Not Given DAILY HARRY Levothyroxine Sodium 75 mcg 09/29/18 07:00 10/12/18 06:10 Synthroid - PO 75 mcg DAILY@0700 HARRY Administration Methyl Salicylate 1 applic 10/01/18 22:00 10/12/18 09:17 David-Trinh - TP Not Given BID HARRY Pantoprazole Sodium 40 mg 10/02/18 14:00 10/12/18 09:15 Protonix - PO 40 mg DAILY HARRY Administration Phenol/Menthol 1 spray 10/02/18 12:05 01/20/19 21:19 Chloraseptic - MM 1 spray Q6HPO PRN Administration SORE THROAT Polyethylene Glycol 17 gm 10/02/18 15:00 10/12/18 09:17 Miralax (For Daily Use) - PO Not Given DAILY HARRY Prednisone 30 mg 10/09/18 18:55 10/12/18 09:15 Deltasone - PO 30 mg DAILY HARRY Administration Sodium Chloride 2 spray 10/02/18 12:04 10/10/18 06:14 [place] Nasal [place] - NS 2 spray TID PRN Administration NASAL CONGESTION Impression 1. hyperkalemia 2. CKD- proteinuric and hematuric. Does have nephrotic range proteinuria 3. CAD 4. COPD 5. hypothyroidism 6. CHF 7. severe aortic stenosis 8. hyponatremia in part due to hypothyroidism TSH was over 40 Plan await urine and serum osm continue thyroid hormone keep on fluid restriction steroid taper kidneys are small so a biopsy would not likely have a good yield repeat urine protein and creat keep fluid restricted MV
--- NOTE | 2018-10-12 14:28 | PN ---
Progress Note (short form) - Note Progress Note: PULMONARY Nurse reports episode of dyspnea earlier requiring nippv Now on nasal 02 with good o2 sat Awake/alert VSS Constitutional: Yes: NAD Eyes: Yes: WNL HENT: Yes: WNL Neck: Yes: WNL Cardiovascular: Yes: Regular Rate and Rhythm, S1, S2 Respiratory: Yes: Scattered Rhonchi Gastrointestinal: Yes: Normal Bowel Sounds, Soft Extremities: Yes: WNL Edema: Yes labs/meds/notes images reviewed MEDS/NOTES/IMAGES REVIEWED - Problems (1) Acute hypoxemic respiratory failure Code(s): J96.01 - ACUTE RESPIRATORY FAILURE WITH HYPOXIA (2) Bilateral lower leg cellulitis Code(s): L03.116 - CELLULITIS OF LEFT LOWER LIMB; L03.115 - CELLULITIS OF RIGHT LOWER LIMB (3) CHF exacerbation Code(s): I50.9 - HEART FAILURE, UNSPECIFIED Qualifiers: Heart failure type: unspecified Qualified Code(s): I50.9 - Heart failure, unspecified (4) COPD (chronic obstructive pulmonary disease) Code(s): J44.9 - CHRONIC OBSTRUCTIVE PULMONARY DISEASE, UNSPECIFIED Qualifiers: COPD type: unspecified COPD Qualified Code(s): J44.9 - Chronic obstructive pulmonary disease, unspecified (5) Pneumonia Code(s): J18.9 - PNEUMONIA, UNSPECIFIED ORGANISM Qualifiers: Pneumonia type: due to unspecified organism Laterality: unspecified laterality Lung location: unspecified part of lung Qualified Code(s): J18.9 - Pneumonia, unspecified organism (6) Acute coronary syndrome Code(s): I24.9 - ACUTE ISCHEMIC HEART DISEASE, UNSPECIFIED (7) Anemia Code(s): D64.9 - ANEMIA, UNSPECIFIED (8) Diabetes Code(s): E11.9 - TYPE 2 DIABETES MELLITUS WITHOUT COMPLICATIONS (9) Tobacco abuse Code(s): Z72.0 - TOBACCO USE (10) Tobacco abuse counseling Code(s): Z71.6 - TOBACCO ABUSE COUNSELING ACUTE HYPOXEMIC RESPIRATORY FAILURE IMPROVING CHF SEVERE AORTIC STENOSIS COPD EXACERBATION ASHD S/P STENT ACUTE ON CHRONIC KIDNEY DISEASE PULMONARY HTN ANEMIA HTN DM TOBACCO ABUSE HEMOPTYSIS RESOLVED R APICAL NODULE HYPONATREMIA PLAN O2/BIPAP NEEDED ABX PREDNISONE OD INHALED BRONCHODILATORS NORMAL TRANSFUSION THRESHOLD MONITOR LYTES,RENAL FUNCTION,H+H,NA R ELVIE GOETZ
[2018-10-12] MEDS ORDERED: PT OWN MED DRAWER 7, Y5N ONE (21:23)
[2018-10-13] MEDS: ALBUTEROL SO4 0.083% IH SOL 2.5 MG/3 ML VIAL.NEB. NEB PRN ×4 (04:06→20:40)
[2018-10-13] MEDS: LEVOTHYROXINE NA 75 MCG TABLET (FP) PO SCH (06:30)
[2018-10-13 08:58] LABS: HEMATOCRIT 27.2 % (32.4-45.2); HEMOGLOBIN 9.5 GM/dL (10.7-15.3); MCH 31.6 pg (25.7-33.7); MCHC 34.9 g/dl (32.0-36.0); MEAN CELL VOLUME 90.7 fl (80-96); MEAN PLT VOLUME 9.4 fl (7.5-11.1); PLATELET COUNT 216 K/MM3 (134-434); WHITE BLOOD COUNT 11.7 K/mm3 (4.0-10.0)
--- NOTE | 2018-10-13 09:14 | PN ---
Progress Note, Physician History of Present Illness: 83 yr old white woman with h/o COPD, diastolic CHF, severe aortic stenosis, ACS s/p stent 2014 (denies hx NH), HTN, HLD, hypothyroidism, hip replacement, current bronchitis, and recently diagnosed leg cellulitis (states she is on amoxicillin for the cellulitis) who p/w worsening wet cough and SOB for the past 2 weeks, particularly worse tonight. She has had chills but denies any measured fever, nausea, vomiting, constipation, n/t/w focally, headache, back pain, neck pain, or other symptoms. Her family expresses concern her legs are so swollen she is unable to lift them or even walk. The patient notes her legs are only painful when she tries to weight bear. - Current Medication List Current Medications: Active Medications Acetaminophen (Tylenol -) 650 mg PO Q6H PRN PRN Reason: PAIN OR FEVER Last Admin: 10/12/18 09:16 Dose: 650 mg Albuterol Sulfate (Ventolin 0.083% Nebulizer Soln -) 1 amp NEB Q6H PRN PRN Reason: SHORT OF BREATH/WHEEZING Last Admin: 10/13/18 08:12 Dose: 1 amp Aspirin (Ecotrin -) 81 mg PO DAILY [facility] Last Admin: 10/12/18 09:16 Dose: 81 mg Benzocaine/Menthol (Cepacol Lozenge -) 1 each MM PRN PRN PRN Reason: SORE THROAT Last Admin: 10/08/18 10:07 Dose: 1 each Clopidogrel Bisulfate (Plavix -) 75 mg PO DAILY [facility] Last Admin: 10/12/18 09:15 Dose: 75 mg Diltiazem HCl (Cardizem Injection -) 5 mg IVPUSH Q4H PRN PRN Reason: TACHYCARDIA Duloxetine HCl (Cymbalta -) 20 mg PO DAILY [facility] Last Admin: 10/12/18 09:17 Dose: Not Given Levothyroxine Sodium (Synthroid -) 75 mcg PO DAILY@0700 [facility] Last Admin: 10/13/18 06:30 Dose: 75 mcg Methyl Salicylate (David-Trinh -) 1 applic TP BID [facility] Last Admin: 10/12/18 21:44 Dose: Not Given Pantoprazole Sodium (Protonix -) 40 mg PO DAILY [facility] Last Admin: 10/12/18 09:15 Dose: 40 mg Phenol/Menthol (Chloraseptic -) 1 spray MM Q6HPO PRN PRN Reason: SORE THROAT Last Admin: 10/05/18 21:19 Dose: 1 spray Polyethylene Glycol (Miralax (For Daily Use) -) 17 gm PO DAILY [facility] Last Admin: 10/12/18 09:17 Dose: Not Given Prednisone (Deltasone -) 30 mg PO DAILY [facility] Last Admin: 10/12/18 09:15 Dose: 30 mg Sodium Chloride ([place] Nasal [place] -) 2 spray NS TID PRN PRN Reason: NASAL CONGESTION Last Admin: 10/10/18 06:14 Dose: 2 spray - Objective Vital Signs: Vital Signs Temperature 97.8 F 10/13/18 05:00 Pulse Rate 86 10/13/18 05:00 Respiratory Rate 16 10/13/18 05:00 Blood Pressure 140/59 L 10/13/18 05:00 O2 Sat by Pulse Oximetry (%) 93 L 10/13/18 08:34 Eyes: Yes: WNL, Conjunctiva Clear, EOM Intact HENT: Yes: WNL, Atraumatic, Normocephalic Neck: Yes: WNL, Supple, Trachea Midline Cardiovascular: Yes: WNL, Regular Rate and Rhythm, Murmur, S1, S2 Respiratory: Yes: Diminished Gastrointestinal: Yes: WNL, Normal Bowel Sounds Genitourinary: Yes: WNL Musculoskeletal: Yes: WNL Extremities: Yes: WNL Edema: No Integumentary: Yes: WNL Neurological: Yes: WNL, Alert, Oriented ...Motor Strength: WNL Psychiatric: Yes: WNL Labs: Laboratory Last Values WBC 12.6 K/mm3 (4.0-10.0) H 10/12/18 08:00 RBC 3.26 M/mm3 (3.60-5.2) L 10/12/18 08:00 Hgb 10.6 GM/dL (10.7-15.3) L 10/12/18 08:00 Hct 29.6 % (32.4-45.2) L 10/12/18 08:00 MCV 90.8 fl (80-96) 10/12/18 08:00 MCH 32.4 pg (25.7-33.7) 10/12/18 08:00 MCHC 35.7 g/dl (32.0-36.0) 10/12/18 08:00 RDW 15.1 % (11.6-15.6) 10/12/18 08:00 Plt Count 242 K/MM3 (134-434) 10/12/18 08:00 MPV 9.7 fl (7.5-11.1) 10/12/18 08:00 Absolute Neuts (auto) 7.4 K/mm3 (1.5-8.0) 10/09/18 06:45 Neutrophils % 95.4 % (42.8-82.8) H 10/09/18 06:45 Neutrophils % (Manual) 97.0 % (42.8-82.8) H 10/09/18 06:45 Band Neutrophils % 0.0 % 10/09/18 06:45 Lymphocytes % 2.2 % (8-40) L D 10/09/18 06:45 Lymphocytes % (Manual) 2.0 % (8-40) L D 10/09/18 06:45 Monocytes % 2.3 % (3.8-10.2) L 10/09/18 06:45 Monocytes % (Manual) 1 % (3.8-10.2) L 10/09/18 06:45 Eosinophils % 0.0 % (0-4.5) D 10/09/18 06:45 Eosinophils % (Manual) 0.0 % (0-4.5) 10/09/18 06:45 Basophils % 0.1 % (0-2.0) 10/09/18 06:45 Basophils % (Manual) 0.0 % (0-2.0) 10/09/18 06:45 Myelocytes % (Man) 0 % (0-2) 10/09/18 06:45 Promyelocytes % (Man) 0 % (0-2) 10/09/18 06:45 Blast Cells % (Manual) 0 % (0-0) 10/09/18 06:45 Nucleated RBC % 0 % (0-0) 10/09/18 06:45 Metamyelocytes 0 % (0-2) 10/09/18 06:45 Hypochromia 0 10/09/18 06:45 Toxic Granulation 0 10/06/18 07:10 Dohle Bodies 0 10/06/18 07:10 Platelet Estimate Normal 10/09/18 06:45 Platelet Comment Present 09/29/18 05:30 Polychromasia 0 10/09/18 06:45 Poikilocytosis 0 10/09/18 06:45 Basophilic Stippling 0 10/06/18 07:10 Anisocytosis 1+ 10/09/18 06:45 Microcytosis 1+ 10/09/18 06:45 Macrocytosis 1+ 10/09/18 06:45 Spherocytes 0 10/06/18 07:10 Sickle Cells 0 10/06/18 07:10 Target Cells 0 10/06/18 07:10 Tear Drop Cells 0 10/06/18 07:10 Ovalocytes 0 10/06/18 07:10 Stomatocytes 0 10/06/18 07:10 Helmet Cells 0 10/06/18 07:10 [place] Bodies 0 10/06/18 07:10 [place] Rings 0 10/06/18 07:10 [place] Cells 0 10/06/18 07:10 Acanthocytes (Spur) 0 10/06/18 07:10 Rouleaux 1+ 10/07/18 05:30 Fragmented RBCs 0 10/06/18 07:10 Schistocytes 0 10/06/18 07:10 Puncture Site Left radial 09/29/18 10:52 ABG pH 7.27 (7.35-7.45) L 09/29/18 10:52 ABG pCO2 at Pt Temp 32.8 mmHg (35-45) L 09/29/18 10:52 ABG pO2 at Pt Temp 71.2 mmHg (68-100) 09/29/18 10:52 ABG HCO3 14.4 meq/L (22-26) L* 09/29/18 10:52 ABG O2 Sat (Measured) 92.7 % (90-98.9) 09/29/18 10:52 ABG O2 Content 9.6 % vol (15-22) L* 09/29/18 10:52 ABG Base Excess -11.1 meq/l (-2-2) L* 09/29/18 10:52 Abner Test Positive 09/29/18 10:52 VBG pH 7.21 (7.32-7.42) L* 09/28/18 21:20 POC VBG pCO2 43.1 mmHg (38-52) 09/28/18 21:20 POC VBG pO2 63.8 mmHg (28-48) H 09/28/18 21:20 Mixed VBG HCO3 16.7 meq/L (19-25) L 09/28/18 21:20 O2 Delivery Device Nasal cannula 09/29/18 10:52 Oxygen Flow Rate 3l 09/29/18 10:52 Sodium 128 mmol/L (136-145) L 10/12/18 08:00 Potassium 4.4 mmol/L (3.5-5.1) 10/12/18 08:00 Chloride 90 mmol/L (98-107) L 10/12/18 08:00 Carbon Dioxide 24 mmol/L (21-32) 10/12/18 08:00 Anion Gap 14 MMOL/L (8-16) 10/12/18 08:00 BUN 102 mg/dL (7-18) H 10/12/18 08:00 Creatinine 3.0 mg/dL (0.55-1.3) H 10/12/18 08:00 Creat Clearance w eGFR 14.94 (>60) 10/12/18 08:00 Random Glucose 69 mg/dL (74-106) L 10/12/18 08:00 Hemoglobin A1c % 5.4 % (4.2-6.3) 09/28/18 21:20 Serum Osmolality 293 mosm/kg (278-305) 10/10/18 06:00 Calcium 7.3 mg/dL (8.5-10.1) L 10/12/18 08:00 Phosphorus 5.6 mg/dL (2.5-4.9) H 09/28/18 21:20 Magnesium 1.7 mg/dL (1.8-2.4) L 10/12/18 08:00 Iron 87 ug/dL (27-139) 09/30/18 06:18 TIBC 216 ug/dL (250-450) L 09/30/18 06:18 Iron Saturation 40 % (15-55) 09/30/18 06:18 Ferritin 160.9 ng/ml (8-388) 09/30/18 06:18 Total Bilirubin 0.4 mg/dL (0.2-1) 10/12/18 08:00 AST 21 U/L (15-37) 10/12/18 08:00 ALT 27 U/L (13-61) 10/12/18 08:00 Alkaline Phosphatase 74 U/L (45-117) 10/12/18 08:00 Creatine Kinase 54 IU/L (26-192) 10/05/18 06:20 Troponin I 0.08 ng/ml (0.00-0.05) H 10/12/18 08:00 B-Natriuretic Peptide 23646.1 pg/ml (5-450) H 10/12/18 08:00 Total Protein 5.3 g/dl (6.4-8.2) L 10/12/18 08:00 Albumin 2.6 g/dl (3.4-5.0) L 10/12/18 08:00 Triglycerides 108 mg/dL (0-150) 09/29/18 05:30 Cholesterol 212 mg/dL (50-200) H 09/29/18 05:30 Total LDL Cholesterol 116 mg/dL (5-100) H 09/29/18 05:30 HDL Cholesterol 78 mg/dL (40-60) H 09/29/18 05:30 TSH 45.20 uIU/ml (0.358-3.74) H 09/29/18 12:10 Free T4 0.75 ng/dl (0.76-1.46) L 09/30/18 21:45 Urine Color Yellow 09/28/18 22:00 Urine Appearance Cloudy 09/28/18 22:00 Urine pH 5.0 (5.0-8.0) 09/28/18 22:00 Ur Specific [place] 1.016 (1.010-1.035) 09/28/18 22:00 Urine Protein 3+ (NEGATIVE) H 09/28/18 22:00 Urine Glucose (UA) 2+ (NEGATIVE) H 09/28/18 22:00 Urine Ketones Negative (NEGATIVE) 09/28/18 22:00 Urine Blood 1+ (NEGATIVE) H 09/28/18 22:00 Urine Nitrite Negative (NEGATIVE) 09/28/18 22:00 Urine Bilirubin Negative (<2.0 mg/dL) 09/28/18 22:00 Urine Urobilinogen Negative mg/dL (0.2-1.0) 09/28/18 22:00 Ur Leukocyte Esterase Negative (NEGATIVE) 09/28/18 22:00 Urine WBC (Auto) None /hpf (3-5) 09/28/18 22:00 Urine RBC (Auto) 2 /hpf (0-3) 09/28/18 22:00 Urine Bacteria Few /hpf (NONE SEEN) 09/28/18 22:00 Urine Mucus Rare 09/28/18 22:00 Stool Occult Blood Negative (NEGATIVE) 09/30/18 22:30 Influenza A (Rapid) Negative 09/28/18 21:08 Influenza B (Rapid) Negative 09/28/18 21:08 Blood Type O POSITIVE 09/30/18 11:10 Antibody Screen Negative 09/30/18 11:10 Crossmatch See Detail 09/30/18 11:10 Assessment/Plan - Problems (1) Severe aortic stenosis Assessment/Plan: ECHO 09/29/2018: normal LVEF; mild LVH; abnormal diastolic compliance; severe aortic stenosis (), mild AR, moderate pulmonary HTN; severe MAC and aortic valve calcification; moderate LAE. The potential benefits (potential decrease in symptoms and mortality) from TAVR were discussed with pt and family. Presently, worsening renal status makes this option problematic. Pt is against undergoing dialysis. Avoid excessive diuresis/dehydration. Code(s): I35.0 - NONRHEUMATIC AORTIC (VALVE) STENOSIS (2) HTN (hypertension) Code(s): I10 - ESSENTIAL (PRIMARY) HYPERTENSION (3) CAD (coronary artery disease) Assessment/Plan: hx CAD-->coronary stent 2014. EKG: T wave changes: consider lateral ischemia. If TAVR is contemplated, will also have coronary angiogram (both are problematic at present due to worsening renal function). Code(s): I25.10 - ATHSCL HEART DISEASE OF [place] CORONARY ARTERY W/O ANG PCTRS (4) Diastolic CHF Code(s): I50.30 - UNSPECIFIED DIASTOLIC (CONGESTIVE) HEART FAILURE (5) ANASTASIA (acute kidney injury) Assessment/Plan: worsening hyponatremia. As discussed with rn family, furosemide held, with restart to be determined on a daily basis (problematic holding it from CHF standpoint). Code(s): N17.9 - ACUTE KIDNEY FAILURE, UNSPECIFIED (6) Anemia Assessment/Plan: s/p PRBCs F/u etiology of blood loss. Code(s): D64.9 - ANEMIA, UNSPECIFIED (7) COPD (chronic obstructive pulmonary disease) Assessment/Plan: Quit cigarettes only a few years ago, after many years smoking. CT chest: RUL lung nodule. Code(s): J44.9 - CHRONIC OBSTRUCTIVE PULMONARY DISEASE, UNSPECIFIED Qualifiers: COPD type: unspecified COPD Qualified Code(s): J44.9 - Chronic obstructive pulmonary disease, unspecified (8) Acute diastolic CHF (congestive heart failure) Assessment/Plan: + JVD Markedly elevated BNP. CXR and CT chest: pleural effusion bilaterally. Exacerbated by severe , anemia. Code(s): I50.31 - ACUTE DIASTOLIC (CONGESTIVE) HEART FAILURE (9) Lung nodule Assessment/Plan: RUL apex; r/o malignancy; for f/u studies within 3 months. Code(s): R91.1 - SOLITARY PULMONARY NODULE (10) Coronary atherosclerosis due to calcified coronary lesion of [place] artery Assessment/Plan: dense calcification of coronary arteries on CT. If pt's overall condition stabilizes, and renal status is addressed, would benefit from coronary angiogram and evaluation for TAVR. Code(s): I25.10 - ATHSCL HEART DISEASE OF [place] CORONARY ARTERY W/O ANG PCTRS; I25.84 - CORONARY ATHEROSCLEROSIS DUE TO CALCIFIED CORONARY LESION (11) Acute chest pain Assessment/Plan: EKG: no significant change. TNI 0.03-->0.30-->0.25. Pt receiving bronchodilator Rx; chest discomfort reduced, but not completely resolved. On ASA, clopidogrel, sc heparin. NTG (though caution against excessive preload reduction with severe ). F/u BP serially. Consider anxiolytic. Code(s): R07.9 - CHEST PAIN, UNSPECIFIED (12) Hypothyroid Assessment/Plan: elevated TSH; low free T4. Adjust therapy accordingly. Code(s): E03.9 - HYPOTHYROIDISM, UNSPECIFIED
[2018-10-13] MEDS: PANTOPRAZOLE 40 MG TABLET (FP) PO SCH (09:18)
[2018-10-13] MEDS: CLOPIDOGREL BISULFATE 75 MG TABLET (FP) PO SCH (09:18)
[2018-10-13] MEDS: predniSONE 10 MG TABLET (UD) PO SCH (09:18)
[2018-10-13] MEDS: ASPIRIN COATED 81 MG TABLET.EC PO SCH (09:18)
[2018-10-13] MEDS: DULoxetine HCL 20 MG CAPSULE.DR (FP) PO SCH (09:18)
[2018-10-13] MEDS: METHYL SALICYLATE/MENTHOL OINT 30 GM TUBE TP SCH ×2 (09:18→21:49)
[2018-10-13] MEDS: POLYETHYLENE GLYCOL 3350 119 GM BTL PO SCH (09:19)
[2018-10-13 09:22] LABS: ALBUMIN 2.6 g/dl (3.4-5.0); ALK PHOS 69 U/L (45-117); ANION GAP 12 MMOL/L (8-16); BILIRUBIN,TOTAL 0.6 mg/dL (0.2-1); BLOOD UREA NITROGEN 102 mg/dL (7-18); CALCIUM 7.4 mg/dL (8.5-10.1); CHLORIDE 91 mmol/L (98-107); CO2 26 mmol/L (21-32); CREATININE 2.9 mg/dL (0.55-1.3); GLUCOSE,RANDOM 67 mg/dL (74-106); POTASSIUM 4.3 mmol/L (3.5-5.1); SGOT/AST 22 U/L (15-37); SGPT/ALT 26 U/L (13-61); SODIUM 129 mmol/L (136-145)
[2018-10-13 10:16] LABS: MAGNESIUM 1.6 mg/dL (1.8-2.4)
[2018-10-13] MEDS: BENZOCAINE/MENTH/CETYLPYRD CL 1 EACH LOZENGE MM PRN (10:49)
--- NOTE | 2018-10-13 11:51 | PN ---
Progress Note (short form) - Note Progress Note: PULMONARY Still some shortness of breath and +nonproductive cough but better than yesterday. Vital Signs Period Temp Pulse Resp BP Sys/[place] Pulse Ox Last 24 Hr 97.8 F-98.2 F 84-102 16-22 140-172/58-68 93-99 Gen: NAD at rest Heart: RRR, +systolic murmur RUSB Lung: scattered wheezes, rhonchi Abd: soft, nontender Ext: + edema CBC, BMP 10/13/18 07:41 10/13/18 07:41 Active Medications Acetaminophen (Tylenol -) 650 mg PO Q6H PRN PRN Reason: PAIN OR FEVER Last Admin: 10/12/18 09:16 Dose: 650 mg Albuterol Sulfate (Ventolin 0.083% Nebulizer Soln -) 1 amp NEB Q6H PRN PRN Reason: SHORT OF BREATH/WHEEZING Last Admin: 10/13/18 08:12 Dose: 1 amp Aspirin (Ecotrin -) 81 mg PO DAILY [facility] Last Admin: 10/13/18 09:18 Dose: 81 mg Benzocaine/Menthol (Cepacol Lozenge -) 1 each MM PRN PRN PRN Reason: SORE THROAT Last Admin: 10/13/18 10:49 Dose: 1 each Clopidogrel Bisulfate (Plavix -) 75 mg PO DAILY [facility] Last Admin: 10/13/18 09:18 Dose: 75 mg Diltiazem HCl (Cardizem Injection -) 5 mg IVPUSH Q4H PRN PRN Reason: TACHYCARDIA Duloxetine HCl (Cymbalta -) 20 mg PO DAILY [facility] Last Admin: 10/13/18 09:18 Dose: Not Given Levothyroxine Sodium (Synthroid -) 75 mcg PO DAILY@0700 [facility] Last Admin: 10/13/18 06:30 Dose: 75 mcg Methyl Salicylate (David-Trinh -) 1 applic TP BID [facility] Last Admin: 10/13/18 09:18 Dose: Not Given Pantoprazole Sodium (Protonix -) 40 mg PO DAILY [facility] Last Admin: 10/13/18 09:18 Dose: 40 mg Phenol/Menthol (Chloraseptic -) 1 spray MM Q6HPO PRN PRN Reason: SORE THROAT Last Admin: 10/05/18 21:19 Dose: 1 spray Polyethylene Glycol (Miralax (For Daily Use) -) 17 gm PO DAILY [facility] Last Admin: 10/13/18 09:19 Dose: Not Given Prednisone (Deltasone -) 30 mg PO DAILY [facility] Last Admin: 10/13/18 09:18 Dose: 30 mg Sodium Chloride ([place] Nasal [place] -) 2 spray NS TID PRN PRN Reason: NASAL CONGESTION Last Admin: 10/10/18 06:14 Dose: 2 spray A/P Acute on Chronic Diastolic Heart Failure Severe Aortic Stenosis Acute COPD Exacerbation Lung Nodule r/o Pneumonia Pulmonary HTN Hemoptysis Acute on Chronic Renal Failure HTN DM Smoker - lasix as needed - monitor urine output, creatinine - prednisone taper - inhaled bronchodilators - O2 to keep SpO2 >90% - completed antibiotics - will need outpt f/u of lung nodule - DVT prophylaxis
[2018-10-13] MEDS: guaiFENesin 200 MG/10 ML 10 ML UNIT-DOSE CUPS PO PRN (14:13)
[2018-10-13] MEDS ORDERED: predniSONE 20 MG TABLET (UD) PO SCH (15:58)
--- NOTE | 2018-10-13 16:02 | PN ---
Progress Note, Physician Chief Complaint: patient seen and examiend used bipap last night has dyspnea - Current Medication List Current Medications: Active Medications Acetaminophen (Tylenol -) 650 mg PO Q6H PRN PRN Reason: PAIN OR FEVER Last Admin: 10/12/18 09:16 Dose: 650 mg Albuterol Sulfate (Ventolin 0.083% Nebulizer Soln -) 1 amp NEB Q6H PRN PRN Reason: SHORT OF BREATH/WHEEZING Last Admin: 10/13/18 14:17 Dose: 1 amp Aspirin (Ecotrin -) 81 mg PO DAILY [facility] Last Admin: 10/13/18 09:18 Dose: 81 mg Benzocaine/Menthol (Cepacol Lozenge -) 1 each MM PRN PRN PRN Reason: SORE THROAT Last Admin: 10/13/18 10:49 Dose: 1 each Clopidogrel Bisulfate (Plavix -) 75 mg PO DAILY [facility] Last Admin: 10/13/18 09:18 Dose: 75 mg Diltiazem HCl (Cardizem Injection -) 5 mg IVPUSH Q4H PRN PRN Reason: TACHYCARDIA Duloxetine HCl (Cymbalta -) 20 mg PO DAILY [facility] Last Admin: 10/13/18 09:18 Dose: Not Given Guaifenesin (Robitussin -) 10 ml PO Q6H PRN PRN Reason: COUGH Last Admin: 10/13/18 14:13 Dose: 10 ml Levothyroxine Sodium (Synthroid -) 75 mcg PO DAILY@0700 [facility] Last Admin: 10/13/18 06:30 Dose: 75 mcg Methyl Salicylate (David-Trinh -) 1 applic TP BID [facility] Last Admin: 10/13/18 09:18 Dose: Not Given Pantoprazole Sodium (Protonix -) 40 mg PO DAILY [facility] Last Admin: 10/13/18 09:18 Dose: 40 mg Phenol/Menthol (Chloraseptic -) 1 spray MM Q6HPO PRN PRN Reason: SORE THROAT Last Admin: 10/05/18 21:19 Dose: 1 spray Polyethylene Glycol (Miralax (For Daily Use) -) 17 gm PO DAILY [facility] Last Admin: 10/13/18 09:19 Dose: Not Given Prednisone (Deltasone -) 30 mg PO DAILY [facility] Last Admin: 10/13/18 09:18 Dose: 30 mg Sodium Chloride ([place] Nasal [place] -) 2 spray NS TID PRN PRN Reason: NASAL CONGESTION Last Admin: 10/10/18 06:14 Dose: 2 spray - Objective Vital Signs: Vital Signs Temperature 98.2 F 10/13/18 15:12 Pulse Rate 90 10/13/18 15:12 Respiratory Rate 18 10/13/18 15:12 Blood Pressure 165/54 L 10/13/18 15:12 O2 Sat by Pulse Oximetry (%) 93 L 10/13/18 08:34 Constitutional: Yes: Calm, Thin Cardiovascular: Yes: Regular Rate and Rhythm, S1, S2 Respiratory: Yes: On Nasal O2 Gastrointestinal: Yes: Normal Bowel Sounds, Soft Labs: CBC, BMP 10/13/18 07:41 10/13/18 07:41 Problem List - Problems (1) Acute hypoxemic respiratory failure Assessment/Plan: bipap as needed oxygen - check and pre and post to see if she needs home oxygen pulm on board steroids iv to po now on 30mg prednisione today and 20mg from tmw dvtppx Code(s): J96.01 - ACUTE RESPIRATORY FAILURE WITH HYPOXIA (2) CHF exacerbation Assessment/Plan: cannot excessive diuresis her given severe aortic stenosis and given ckd cannot do TAVR , Code(s): I50.9 - HEART FAILURE, UNSPECIFIED Qualifiers: Heart failure type: unspecified Qualified Code(s): I50.9 - Heart failure, unspecified (3) Anemia Assessment/Plan: check iron panel noted h/h ok Code(s): D64.9 - ANEMIA, UNSPECIFIED (4) Hypothyroid Assessment/Plan: tsh is 45 synthroid dose increase from 50 to 75 Code(s): E03.9 - HYPOTHYROIDISM, UNSPECIFIED (5) Hyperkalemia Assessment/Plan: improved Code(s): E87.5 - HYPERKALEMIA (6) ANASTASIA (acute kidney injury) Assessment/Plan: renal eval noted for refusal of HD per family 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
[2018-10-13] MEDS ORDERED: MAGNESIUM SULF 50% (8.12 MEQ/2 ML-1 GM VIAL) IVPB ONE (16:30)
[2018-10-13] MEDS ORDERED: FUROSEMIDE 40 MG TABLET (FP) PO ONE (16:56)
--- NOTE | 2018-10-13 16:56 | PN ---
Progress Note, Physician History of Present Illness: Pt seen and examined at bedside. She still gets shortness of breath with minimal exertion. - Current Medication List Current Medications: Active Medications Acetaminophen (Tylenol -) 650 mg PO Q6H PRN PRN Reason: PAIN OR FEVER Last Admin: 10/12/18 09:16 Dose: 650 mg Albuterol Sulfate (Ventolin 0.083% Nebulizer Soln -) 1 amp NEB Q6H PRN PRN Reason: SHORT OF BREATH/WHEEZING Last Admin: 10/13/18 14:17 Dose: 1 amp Aspirin (Ecotrin -) 81 mg PO DAILY [facility] Last Admin: 10/13/18 09:18 Dose: 81 mg Benzocaine/Menthol (Cepacol Lozenge -) 1 each MM PRN PRN PRN Reason: SORE THROAT Last Admin: 10/13/18 10:49 Dose: 1 each Clopidogrel Bisulfate (Plavix -) 75 mg PO DAILY [facility] Last Admin: 10/13/18 09:18 Dose: 75 mg Diltiazem HCl (Cardizem Injection -) 5 mg IVPUSH Q4H PRN PRN Reason: TACHYCARDIA Duloxetine HCl (Cymbalta -) 20 mg PO DAILY [facility] Last Admin: 10/13/18 09:18 Dose: Not Given Guaifenesin (Robitussin -) 10 ml PO Q6H PRN PRN Reason: COUGH Last Admin: 10/13/18 14:13 Dose: 10 ml Levothyroxine Sodium (Synthroid -) 75 mcg PO DAILY@0700 [facility] Last Admin: 10/13/18 06:30 Dose: 75 mcg Methyl Salicylate (David-Trinh -) 1 applic TP BID [facility] Last Admin: 10/13/18 09:18 Dose: Not Given Pantoprazole Sodium (Protonix -) 40 mg PO DAILY [facility] Last Admin: 10/13/18 09:18 Dose: 40 mg Phenol/Menthol (Chloraseptic -) 1 spray MM Q6HPO PRN PRN Reason: SORE THROAT Last Admin: 10/05/18 21:19 Dose: 1 spray Polyethylene Glycol (Miralax (For Daily Use) -) 17 gm PO DAILY [facility] Last Admin: 10/13/18 09:19 Dose: Not Given Prednisone (Deltasone -) 20 mg PO DAILY [facility] Sodium Chloride ([place] Nasal [place] -) 2 spray NS TID PRN PRN Reason: NASAL CONGESTION Last Admin: 10/10/18 06:14 Dose: 2 spray - Objective Vital Signs: Vital Signs Temperature 98.2 F 10/13/18 15:12 Pulse Rate 90 10/13/18 15:12 Respiratory Rate 18 10/13/18 15:12 Blood Pressure 165/54 L 10/13/18 15:12 O2 Sat by Pulse Oximetry (%) 93 L 10/13/18 08:34 Constitutional: Yes: Calm Eyes: Yes: Conjunctiva Clear HENT: Yes: Atraumatic Cardiovascular: Yes: Murmur, S1, S2 Respiratory: Yes: On Nasal O2 Gastrointestinal: Yes: Soft Musculoskeletal: Yes: Muscle Weakness Edema: Yes Edema: LLE: 2+, RLE: 2+ Neurological: Yes: Oriented Psychiatric: Yes: Oriented Labs: CBC, BMP 10/13/18 07:41 10/13/18 07:41 Problem List - Problems (1) Acute hypoxemic respiratory failure Code(s): J96.01 - ACUTE RESPIRATORY FAILURE WITH HYPOXIA (2) Anemia Code(s): D64.9 - ANEMIA, UNSPECIFIED (3) CHF exacerbation Code(s): I50.9 - HEART FAILURE, UNSPECIFIED Qualifiers: Heart failure type: unspecified Qualified Code(s): I50.9 - Heart failure, unspecified (4) COPD (chronic obstructive pulmonary disease) Code(s): J44.9 - CHRONIC OBSTRUCTIVE PULMONARY DISEASE, UNSPECIFIED Qualifiers: COPD type: unspecified COPD Qualified Code(s): J44.9 - Chronic obstructive pulmonary disease, unspecified (5) Hyperkalemia Code(s): E87.5 - HYPERKALEMIA (6) Tobacco abuse Code(s): Z72.0 - TOBACCO USE Assessment/Plan Current Medications Generic Name Dose Route Start Last Admin Trade Name Freq PRN Reason Stop Dose Admin Acetaminophen 650 mg 09/28/18 21:26 10/12/18 09:16 Tylenol - PO 650 mg Q6H PRN Administration PAIN OR FEVER Albuterol Sulfate 1 amp 10/12/18 02:32 10/13/18 14:17 Ventolin 0.083% Nebulizer Soln - NEB 1 amp Q6H PRN Administration SHORT OF BREATH/WHEEZING Aspirin 81 mg 09/29/18 10:00 10/13/18 09:18 Ecotrin - PO 81 mg DAILY [facility] Administration Benzocaine/Menthol 1 each 10/02/18 12:05 10/13/18 10:49 Cepacol Lozenge - MM 1 each PRN PRN Administration SORE THROAT Clopidogrel Bisulfate 75 mg 09/29/18 10:00 10/13/18 09:18 Plavix - PO 75 mg DAILY HARRY Administration Diltiazem HCl 5 mg 10/01/18 10:05 Cardizem Injection - IVPUSH Q4H PRN TACHYCARDIA Duloxetine HCl 20 mg 10/08/18 13:30 10/13/18 09:18 Cymbalta - PO Not Given DAILY [facility] Guaifenesin 10 ml 10/13/18 13:09 10/13/18 14:13 Robitussin - PO 10 ml Q6H PRN Administration COUGH Levothyroxine Sodium 75 mcg 09/29/18 07:00 10/13/18 06:30 Synthroid - PO 75 mcg DAILY@0700 HARRY Administration Methyl Salicylate 1 applic 10/01/18 22:00 10/13/18 09:18 David-Trinh - TP Not Given BID [facility] Pantoprazole Sodium 40 mg 10/02/18 14:00 10/13/18 09:18 Protonix - PO 40 mg DAILY HARRY Administration Phenol/Menthol 1 spray 10/02/18 12:05 10/05/18 21:19 Chloraseptic - MM 1 spray Q6HPO PRN Administration SORE THROAT Polyethylene Glycol 17 gm 10/02/18 15:00 10/13/18 09:19 Miralax (For Daily Use) - PO Not Given DAILY [facility] Prednisone 20 mg 10/13/18 15:58 Deltasone - PO DAILY [facility] Sodium Chloride 2 spray 10/02/18 12:04 10/10/18 06:14 [place] Berkey Nasal Berkey - NS 2 spray TID PRN Administration NASAL CONGESTION Impression 1. hyperkalemia 2. CKD 3. CAD 4. COPD 5. hypothyroidism 6. CHF 7. severe aortic stenosis 8. hyponatremia Plan - taper steroids - can give po lasix - repeat labs in am - restrict free water - discussed HD and she is refusing - cardio follow up - check urine and plasma osm - will follow Dr Smith
[2018-10-13 23:30] VITALS: BMI 19.8
[2018-10-14] MEDS: LEVOTHYROXINE NA 75 MCG TABLET (FP) PO SCH (06:08)
[2018-10-14] MEDS: ALBUTEROL SO4 0.083% IH SOL 2.5 MG/3 ML VIAL.NEB. NEB PRN (07:55)
[2018-10-14] MEDS: guaiFENesin 200 MG/10 ML 10 ML UNIT-DOSE CUPS PO PRN (08:01)
[2018-10-14 08:58] LABS: ALBUMIN 2.5 g/dl (3.4-5.0); ALK PHOS 70 U/L (45-117); ANION GAP 12 MMOL/L (8-16); BILIRUBIN,TOTAL 0.4 mg/dL (0.2-1); BLOOD UREA NITROGEN 98 mg/dL (7-18); CALCIUM 7.7 mg/dL (8.5-10.1); CHLORIDE 97 mmol/L (98-107); CO2 26 mmol/L (21-32); CREATININE 2.7 mg/dL (0.55-1.3); GLUCOSE,RANDOM 107 mg/dL (74-106); MAGNESIUM 2.1 mg/dL (1.8-2.4); POTASSIUM 4.3 mmol/L (3.5-5.1); SGOT/AST 19 U/L (15-37); SGPT/ALT 24 U/L (13-61); SODIUM 134 mmol/L (136-145); TOT PROT 5.2 g/dl (6.4-8.2)
--- NOTE | 2018-10-14 09:14 | PN ---
Progress Note, Physician - Current Medication List Current Medications: Active Medications Acetaminophen (Tylenol -) 650 mg PO Q6H PRN PRN Reason: PAIN OR FEVER Last Admin: 10/12/18 09:16 Dose: 650 mg Albuterol Sulfate (Ventolin 0.083% Nebulizer Soln -) 1 amp NEB Q6H PRN PRN Reason: SHORT OF BREATH/WHEEZING Last Admin: 10/13/18 20:40 Dose: 1 amp Aspirin (Ecotrin -) 81 mg PO DAILY [facility] Last Admin: 10/13/18 09:18 Dose: 81 mg Benzocaine/Menthol (Cepacol Lozenge -) 1 each MM PRN PRN PRN Reason: SORE THROAT Last Admin: 10/13/18 10:49 Dose: 1 each Clopidogrel Bisulfate (Plavix -) 75 mg PO DAILY [facility] Last Admin: 10/13/18 09:18 Dose: 75 mg Diltiazem HCl (Cardizem Injection -) 5 mg IVPUSH Q4H PRN PRN Reason: TACHYCARDIA Duloxetine HCl (Cymbalta -) 20 mg PO DAILY [facility] Last Admin: 10/13/18 09:18 Dose: Not Given Guaifenesin (Robitussin -) 10 ml PO Q6H PRN PRN Reason: COUGH Last Admin: 10/14/18 08:01 Dose: 10 ml Levothyroxine Sodium (Synthroid -) 75 mcg PO DAILY@0700 [facility] Last Admin: 10/14/18 06:08 Dose: 75 mcg Methyl Salicylate (David-Trinh -) 1 applic TP BID [facility] Last Admin: 10/13/18 21:49 Dose: Not Given Pantoprazole Sodium (Protonix -) 40 mg PO DAILY [facility] Last Admin: 10/13/18 09:18 Dose: 40 mg Phenol/Menthol (Chloraseptic -) 1 spray MM Q6HPO PRN PRN Reason: SORE THROAT Last Admin: 10/05/18 21:19 Dose: 1 spray Polyethylene Glycol (Miralax (For Daily Use) -) 17 gm PO DAILY [facility] Last Admin: 10/13/18 09:19 Dose: Not Given Prednisone (Deltasone -) 20 mg PO DAILY [facility] Sodium Chloride ([place] Nasal [place] -) 2 spray NS TID PRN PRN Reason: NASAL CONGESTION Last Admin: 10/10/18 06:14 Dose: 2 spray - Objective Vital Signs: Vital Signs Temperature 98.8 F 10/14/18 08:47 Pulse Rate 86 10/14/18 08:47 Respiratory Rate 16 10/14/18 08:47 Blood Pressure 156/78 10/14/18 08:47 O2 Sat by Pulse Oximetry (%) 90 L 10/14/18 08:47 Labs: CBC, BMP 10/13/18 07:41 10/14/18 08:10 Assessment/Plan - Problems (1) Acute hypoxemic respiratory failure Assessment/Plan: bipap as needed oxygen - check and pre and post to see if she needs home oxygen pulm on board steroids iv to po now on 20mg Code(s): J96.01 - ACUTE RESPIRATORY FAILURE WITH HYPOXIA (2) CHF exacerbation Assessment/Plan: cannot excessive diuresis her given severe aortic stenosis and given ckd cannot do TAVR , Code(s): I50.9 - HEART FAILURE, UNSPECIFIED Qualifiers: Heart failure type: unspecified Qualified Code(s): I50.9 - Heart failure, unspecified (3) Anemia Assessment/Plan: check iron panel noted h/h ok Code(s): D64.9 - ANEMIA, UNSPECIFIED (4) Hypothyroid Assessment/Plan: tsh is 45 synthroid dose increase from 50 to 75 Code(s): E03.9 - HYPOTHYROIDISM, UNSPECIFIED (5) Hyperkalemia Assessment/Plan: improved Code(s): E87.5 - HYPERKALEMIA (6) ANASTASIA (acute kidney injury) Assessment/Plan: renal eval noted for refusal of HD per family 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
[2018-10-14] MEDS: DULoxetine HCL 20 MG CAPSULE.DR (FP) PO SCH (09:38)
[2018-10-14] MEDS: POLYETHYLENE GLYCOL 3350 119 GM BTL PO SCH (09:38)
[2018-10-14] MEDS: METHYL SALICYLATE/MENTHOL OINT 30 GM TUBE TP SCH ×2 (09:38→22:10)
[2018-10-14] MEDS: ASPIRIN COATED 81 MG TABLET.EC PO SCH (09:43)
[2018-10-14] MEDS: PANTOPRAZOLE 40 MG TABLET (FP) PO SCH (09:43)
[2018-10-14] MEDS: CLOPIDOGREL BISULFATE 75 MG TABLET (FP) PO SCH (09:43)
--- NOTE | 2018-10-14 11:24 | PN ---
Progress Note (short form) - Note Progress Note: PULMONARY Breathing worse today. Back on BiPAP. Also with anxiety, family at bedside. Vital Signs Period Temp Pulse Resp BP Sys/[place] Pulse Ox Last 24 Hr 98.2 F-98.8 F 86-90 16-20 119-165/54-82 90-93 Gen: NAD at rest Heart: RRR, +systolic murmur RUSB Lung: scattered wheezes, rhonchi Abd: soft, nontender Ext: + edema CBC, BMP 10/13/18 07:41 10/14/18 08:10 Active Medications Acetaminophen (Tylenol -) 650 mg PO Q6H PRN PRN Reason: PAIN OR FEVER Last Admin: 10/12/18 09:16 Dose: 650 mg Albuterol Sulfate (Ventolin 0.083% Nebulizer Soln -) 1 amp NEB Q6H PRN PRN Reason: SHORT OF BREATH/WHEEZING Last Admin: 10/13/18 20:40 Dose: 1 amp Aspirin (Ecotrin -) 81 mg PO DAILY [facility] Last Admin: 10/14/18 09:43 Dose: 81 mg Benzocaine/Menthol (Cepacol Lozenge -) 1 each MM PRN PRN PRN Reason: SORE THROAT Last Admin: 10/13/18 10:49 Dose: 1 each Clopidogrel Bisulfate (Plavix -) 75 mg PO DAILY [facility] Last Admin: 10/14/18 09:43 Dose: 75 mg Diltiazem HCl (Cardizem Injection -) 5 mg IVPUSH Q4H PRN PRN Reason: TACHYCARDIA Duloxetine HCl (Cymbalta -) 20 mg PO DAILY [facility] Last Admin: 10/14/18 09:38 Dose: Not Given Guaifenesin (Robitussin -) 10 ml PO Q6H PRN PRN Reason: COUGH Last Admin: 10/14/18 08:01 Dose: 10 ml Levothyroxine Sodium (Synthroid -) 75 mcg PO DAILY@0700 [facility] Last Admin: 10/14/18 06:08 Dose: 75 mcg Methyl Salicylate (David-Trinh -) 1 applic TP BID [facility] Last Admin: 10/14/18 09:38 Dose: Not Given Pantoprazole Sodium (Protonix -) 40 mg PO DAILY [facility] Last Admin: 10/14/18 09:43 Dose: 40 mg Phenol/Menthol (Chloraseptic -) 1 spray MM Q6HPO PRN PRN Reason: SORE THROAT Last Admin: 10/05/18 21:19 Dose: 1 spray Polyethylene Glycol (Miralax (For Daily Use) -) 17 gm PO DAILY [facility] Last Admin: 10/14/18 09:38 Dose: Not Given Prednisone (Deltasone -) 20 mg PO DAILY [facility] Last Admin: 10/14/18 09:43 Dose: 20 mg Sodium Chloride ([place] Nasal [place] -) 2 spray NS TID PRN PRN Reason: NASAL CONGESTION Last Admin: 10/10/18 06:14 Dose: 2 spray A/P Acute on Chronic Diastolic Heart Failure Severe Aortic Stenosis Acute COPD Exacerbation Lung Nodule r/o Pneumonia Pulmonary HTN Hemoptysis Acute on Chronic Renal Failure HTN DM Smoker - lasix as needed - monitor urine output, creatinine - will increase prednisone to 40mg BID - inhaled bronchodilators - O2 to keep SpO2 >90% - will give low dose anxiolytic as needed - completed antibiotics - will need outpt f/u of lung nodule - DVT prophylaxis
[2018-10-14] MEDS ORDERED: predniSONE 20 MG TABLET (UD) PO ONE (12:00)
--- NOTE | 2018-10-14 13:59 | PN ---
Progress Note, Physician History of Present Illness: Pt seen and examined at bedside. She had worsening shortness of breath today. - Current Medication List Current Medications: Active Medications Acetaminophen (Tylenol -) 650 mg PO Q6H PRN PRN Reason: PAIN OR FEVER Last Admin: 10/12/18 09:16 Dose: 650 mg Albuterol Sulfate (Ventolin 0.083% Nebulizer Soln -) 1 amp NEB Q6H PRN PRN Reason: SHORT OF BREATH/WHEEZING Last Admin: 10/14/18 07:55 Dose: 1 amp Aspirin (Ecotrin -) 81 mg PO DAILY [facility] Last Admin: 10/14/18 09:43 Dose: 81 mg Benzocaine/Menthol (Cepacol Lozenge -) 1 each MM PRN PRN PRN Reason: SORE THROAT Last Admin: 10/13/18 10:49 Dose: 1 each Clopidogrel Bisulfate (Plavix -) 75 mg PO DAILY [facility] Last Admin: 10/14/18 09:43 Dose: 75 mg Diltiazem HCl (Cardizem Injection -) 5 mg IVPUSH Q4H PRN PRN Reason: TACHYCARDIA Duloxetine HCl (Cymbalta -) 20 mg PO DAILY [facility] Last Admin: 10/14/18 09:38 Dose: Not Given Guaifenesin (Robitussin -) 10 ml PO Q6H PRN PRN Reason: COUGH Last Admin: 10/14/18 08:01 Dose: 10 ml Levothyroxine Sodium (Synthroid -) 75 mcg PO DAILY@0700 [facility] Last Admin: 10/14/18 06:08 Dose: 75 mcg Methyl Salicylate (David-Trinh -) 1 applic TP BID [facility] Last Admin: 10/14/18 09:38 Dose: Not Given Pantoprazole Sodium (Protonix -) 40 mg PO DAILY [facility] Last Admin: 10/14/18 09:43 Dose: 40 mg Phenol/Menthol (Chloraseptic -) 1 spray MM Q6HPO PRN PRN Reason: SORE THROAT Last Admin: 10/05/18 21:19 Dose: 1 spray Polyethylene Glycol (Miralax (For Daily Use) -) 17 gm PO DAILY [facility] Last Admin: 10/14/18 09:38 Dose: Not Given Prednisone (Deltasone -) 40 mg PO BID [facility] Sodium Chloride ([place] Nas[place] -) 2 spray NS TID PRN PRN Reason: NASAL CONGESTION Last Admin: 10/10/18 06:14 Dose: 2 spray - Objective Vital Signs: Vital Signs Temperature 98.8 F 10/14/18 08:47 Pulse Rate 86 10/14/18 08:47 Respiratory Rate 16 10/14/18 08:47 Blood Pressure 156/78 10/14/18 08:47 O2 Sat by Pulse Oximetry (%) 90 L 10/14/18 09:00 Constitutional: Yes: Anxious Eyes: Yes: Conjunctiva Clear HENT: Yes: Atraumatic Cardiovascular: Yes: S1, S2 Respiratory: Yes: On BiPap, Rhonchi Gastrointestinal: Yes: Soft Genitourinary: Yes: WNL Musculoskeletal: Yes: WNL Edema: Yes Edema: LLE: 1+, RLE: 1+ Neurological: Yes: Oriented Psychiatric: Yes: Oriented Labs: CBC, BMP 10/13/18 07:41 10/14/18 08:10 Problem List - Problems (1) Acute hypoxemic respiratory failure Code(s): J96.01 - ACUTE RESPIRATORY FAILURE WITH HYPOXIA (2) Anemia Code(s): D64.9 - ANEMIA, UNSPECIFIED (3) CHF exacerbation Code(s): I50.9 - HEART FAILURE, UNSPECIFIED Qualifiers: Heart failure type: unspecified Qualified Code(s): I50.9 - Heart failure, unspecified (4) COPD (chronic obstructive pulmonary disease) Code(s): J44.9 - CHRONIC OBSTRUCTIVE PULMONARY DISEASE, UNSPECIFIED Qualifiers: COPD type: unspecified COPD Qualified Code(s): J44.9 - Chronic obstructive pulmonary disease, unspecified (5) Hyperkalemia Code(s): E87.5 - HYPERKALEMIA (6) Tobacco abuse Code(s): Z72.0 - TOBACCO USE Assessment/Plan Current Medications Generic Name Dose Route Start Last Admin Trade Name Freq PRN Reason Stop Dose Admin Acetaminophen 650 mg 09/28/18 21:26 10/12/18 09:16 Tylenol - PO 650 mg Q6H PRN Administration PAIN OR FEVER Albuterol Sulfate 1 amp 10/12/18 02:32 10/14/18 07:55 Ventolin 0.083% Nebulizer Soln - NEB 1 amp Q6H PRN Administration SHORT OF BREATH/WHEEZING Aspirin 81 mg 09/29/18 10:00 10/14/18 09:43 Ecotrin - PO 81 mg DAILY [facility] Administration Benzocaine/Menthol 1 each 10/02/18 12:05 10/13/18 10:49 Cepacol Lozenge - MM 1 each PRN PRN Administration SORE THROAT Clopidogrel Bisulfate 75 mg 09/29/18 10:00 10/14/18 09:43 Plavix - PO 75 mg DAILY [facility] Administration Diltiazem HCl 5 mg 10/01/18 10:05 Cardizem Injection - IVPUSH Q4H PRN TACHYCARDIA Duloxetine HCl 20 mg 10/08/18 13:30 10/14/18 09:38 Cymbalta - PO Not Given DAILY [facility] Guaifenesin 10 ml 10/13/18 13:09 10/14/18 08:01 Robitussin - PO 10 ml Q6H PRN Administration COUGH Levothyroxine Sodium 75 mcg 09/29/18 07:00 10/14/18 06:08 Synthroid - PO 75 mcg DAILY@0700 [facility] Administration Methyl Salicylate 1 applic 10/01/18 22:00 10/14/18 09:38 David-Trinh - TP Not Given BID [facility] Pantoprazole Sodium 40 mg 10/02/18 14:00 10/14/18 09:43 Protonix - PO 40 mg DAILY [facility] Administration Phenol/Menthol 1 spray 10/02/18 12:05 10/05/18 21:19 Chloraseptic - MM 1 spray Q6HPO PRN Administration SORE THROAT Polyethylene Glycol 17 gm 10/02/18 15:00 10/14/18 09:38 Miralax (For Daily Use) - PO Not Given DAILY [facility] Prednisone 40 mg 10/14/18 22:00 Deltasone - PO BID [facility] Sodium Chloride 2 spray 10/02/18 12:04 10/10/18 06:14 [place] Nasal [place] - NS 2 spray TID PRN Administration NASAL CONGESTION Impression 1. hyperkalemia 2. CKD 3. CAD 4. COPD 5. hypothyroidism 6. CHF 7. severe aortic stenosis 8. hyponatremia Plan - steroid dose increased - cont po lasix - monitor renal function - will need to discuss GOC - repeat labs in am - monitor sodium - check urine and plasma osm - will follow Dr Smith
[2018-10-14] MEDS: FUROSEMIDE 40 MG TABLET (FP) PO SCH (14:36)
--- NOTE | 2018-10-14 16:58 | PN ---
Progress Note, Physician Chief Complaint: Pt A&Ox3; c/o chronic fatigue and shortness of breath, and felt worse today. She says she feels better now that she has calmed down and is on BiPap. History of Present Illness: 83 yr old white woman with h/o COPD, diastolic CHF, severe aortic stenosis, ACS s/p stent 2014 (denies hx CT), HTN, HLD, hypothyroidism, hip replacement, current bronchitis, and recently diagnosed leg cellulitis (states she is on amoxicillin for the cellulitis) who p/w worsening wet cough and SOB for the past 2 weeks, particularly worse tonight. She has had chills but denies any measured fever, nausea, vomiting, constipation, n/t/w focally, headache, back pain, neck pain, or other symptoms. Her family expresses concern her legs are so swollen she is unable to lift them or even walk. The patient notes her legs are only painful when she tries to weight bear. - Current Medication List Current Medications: Active Medications Acetaminophen (Tylenol -) 650 mg PO Q6H PRN PRN Reason: PAIN OR FEVER Last Admin: 10/12/18 09:16 Dose: 650 mg Albuterol Sulfate (Ventolin 0.083% Nebulizer Soln -) 1 amp NEB Q6H PRN PRN Reason: SHORT OF BREATH/WHEEZING Last Admin: 10/14/18 07:55 Dose: 1 amp Aspirin (Ecotrin -) 81 mg PO DAILY [facility] Last Admin: 10/14/18 09:43 Dose: 81 mg Benzocaine/Menthol (Cepacol Lozenge -) 1 each MM PRN PRN PRN Reason: SORE THROAT Last Admin: 10/13/18 10:49 Dose: 1 each Clopidogrel Bisulfate (Plavix -) 75 mg PO DAILY [facility] Last Admin: 10/14/18 09:43 Dose: 75 mg Diltiazem HCl (Cardizem Injection -) 5 mg IVPUSH Q4H PRN PRN Reason: TACHYCARDIA Duloxetine HCl (Cymbalta -) 20 mg PO DAILY [facility] Last Admin: 10/14/18 09:38 Dose: Not Given Furosemide (Lasix -) 60 mg PO DAILY [facility] Last Admin: 10/14/18 14:36 Dose: 60 mg Guaifenesin (Robitussin -) 10 ml PO Q6H PRN PRN Reason: COUGH Last Admin: 10/14/18 08:01 Dose: 10 ml Levothyroxine Sodium (Synthroid -) 75 mcg PO DAILY@0700 [facility] Last Admin: 10/14/18 06:08 Dose: 75 mcg Methyl Salicylate (David-Trinh -) 1 applic TP BID [facility] Last Admin: 10/14/18 09:38 Dose: Not Given Pantoprazole Sodium (Protonix -) 40 mg PO DAILY [facility] Last Admin: 10/14/18 09:43 Dose: 40 mg Phenol/Menthol (Chloraseptic -) 1 spray MM Q6HPO PRN PRN Reason: SORE THROAT Last Admin: 10/05/18 21:19 Dose: 1 spray Polyethylene Glycol (Miralax (For Daily Use) -) 17 gm PO DAILY [facility] Last Admin: 10/14/18 09:38 Dose: Not Given Prednisone (Deltasone -) 40 mg PO BID [facility] Sodium Chloride ([place] Nasal [place] -) 2 spray NS TID PRN PRN Reason: NASAL CONGESTION Last Admin: 10/10/18 06:14 Dose: 2 spray - Objective Vital Signs: Vital Signs Temperature 98.7 F 10/14/18 15:00 Pulse Rate 88 10/14/18 15:00 Respiratory Rate 20 10/14/18 15:00 Blood Pressure 158/71 10/14/18 15:00 O2 Sat by Pulse Oximetry (%) 90 L 10/14/18 09:00 Constitutional: Yes: Anxious, Thin Eyes: Yes: WNL HENT: Yes: WNL Neck: Yes: WNL Cardiovascular: Yes: S1, S2 Respiratory: Yes: On BiPap, SOB, Tachypnea Gastrointestinal: Yes: Soft ...Rectal Exam: Yes: Deferred Genitourinary: No: Anuria Breast(s): Yes: WNL Musculoskeletal: Yes: Muscle Weakness Extremities: Yes: Cool Edema: No Peripheral Pulses WNL: Yes Integumentary: Yes: Other (abrasions (chronic) with scabs) Neurological: Yes: Alert, Oriented, Weakness Psychiatric: Yes: Alert, Oriented, Other (anxiety) Labs: CBC, BMP 10/13/18 07:41 10/14/18 08:10 - ....Imaging Chest X-ray: Image Reviewed (mildl improvement) Problem List - Problems (1) Severe aortic stenosis Assessment/Plan: ECHO 09/29/2018: normal LVEF; mild LVH; abnormal diastolic compliance; severe aortic stenosis (), mild AR, moderate pulmonary HTN; severe MAC and aortic valve calcification; moderate LAE. The potential benefits (potential decrease in symptoms and mortality) from TAVR were discussed with pt and family. Presently, worsening renal status makes this option problematic, and pt (and family) continue to be against undergoing dialysis. Avoid excessive diuresis/dehydration. Code(s): I35.0 - NONRHEUMATIC AORTIC (VALVE) STENOSIS (2) HTN (hypertension) Code(s): I10 - ESSENTIAL (PRIMARY) HYPERTENSION (3) CAD (coronary artery disease) Assessment/Plan: hx CAD-->coronary stent 2014. EKG: T wave changes: consider lateral ischemia. CT chest: dense coronary artery calcification. If TAVR is contemplated, will also have coronary angiogram (both are problematic at present due to worsening renal function). Code(s): I25.10 - ATHSCL HEART DISEASE OF [place] CORONARY ARTERY W/O ANG PCTRS (4) Diastolic CHF Code(s): I50.30 - UNSPECIFIED DIASTOLIC (CONGESTIVE) HEART FAILURE (5) ANASTASIA (acute kidney injury) Code(s): N17.9 - ACUTE KIDNEY FAILURE, UNSPECIFIED (6) Anemia Code(s): D64.9 - ANEMIA, UNSPECIFIED (7) COPD (chronic obstructive pulmonary disease) Assessment/Plan: Quit cigarettes only a few years ago, after many years smoking. CT chest: RUL lung nodule; moderate emphysema. Code(s): J44.9 - CHRONIC OBSTRUCTIVE PULMONARY DISEASE, UNSPECIFIED Qualifiers: COPD type: unspecified COPD Qualified Code(s): J44.9 - Chronic obstructive pulmonary disease, unspecified (8) Acute diastolic CHF (congestive heart failure) Assessment/Plan: + JVD Markedly elevated BNP. CXR and CT chest: pleural effusion bilaterally. Exacerbated by severe , anemia. Code(s): I50.31 - ACUTE DIASTOLIC (CONGESTIVE) HEART FAILURE (9) Lung nodule Assessment/Plan: RUL apex; r/o malignancy; for f/u studies within 3 months. Code(s): R91.1 - SOLITARY PULMONARY NODULE (10) Coronary atherosclerosis due to calcified coronary lesion of [place] artery Assessment/Plan: dense calcification of coronary arteries on CT. If pt's overall condition stabilizes, and renal status is addressed, may benefit from coronary angiogram and evaluation for TAVR. Code(s): I25.10 - ATHSCL HEART DISEASE OF [place] CORONARY ARTERY W/O ANG PCTRS; I25.84 - CORONARY ATHEROSCLEROSIS DUE TO CALCIFIED CORONARY LESION (11) Acute chest pain Code(s): R07.9 - CHEST PAIN, UNSPECIFIED (12) Hypothyroid Code(s): E03.9 - HYPOTHYROIDISM, UNSPECIFIED
[2018-10-14] MEDS: predniSONE 20 MG TABLET (UD) PO SCH (22:07)
[2018-10-15] MEDS ORDERED: RANITIDINE HCL 150 MG TABLET (FP) PO ONE (03:32)
[2018-10-15] MEDS ORDERED: METOPROLOL TARTRATE 25 MG TABLET (FP) PO ONE (03:36)
--- NOTE | 2018-10-15 04:17 | HOSP ---
Physical Examination Vital Signs: Vital Signs Temperature 97.9 F 10/15/18 02:13 Pulse Rate 134 H 10/15/18 02:13 Respiratory Rate 20 10/15/18 02:13 Blood Pressure 149/86 10/15/18 02:13 O2 Sat by Pulse Oximetry (%) 95 10/14/18 23:42 Labs: CBC, BMP 10/13/18 07:41 10/14/18 08:10 Hospitalist Encounter Assessment: account retention representative resident was paged patients HR was 145 and was having burning- 25 PO lopressor given and zantac (with relief to the patient) ekg was done showing new -onset a fib with RVR- told nurse to retake pulse after 30 mins as this EKG was done very shortly after lopressor was give symphony account retention representative([employer]) was notified by nurse on 7W as this is a patient of Dr Costa . pateint was assessed after zantac and lopressor was given and patient was resting comfortably in NAD no longer experiencing any burning sensation and denied any palpitations. Visit type - Emergency Visit Emergency Visit: Yes ED Registration Date: 09/28/18 Care time: The patient presented to the Emergency Department on the above date and was hospitalized for further evaluation of their emergent condition. - New Patient This patient is new to me today: Yes Date on this admission: 10/15/18 - Critical Care Critical Care patient: No
--- NOTE | 2018-10-15 04:41 | PN ---
Progress Note (short form) - Note Progress Note: Charles Worrell 10/15/2018@4:34am Episodic Note 83 year old female with history of COPD, diastolic CHF, severe aortic stenosis , ACS s/p stent 2014 (denies hx [place]), HTN, HLD, hypothyroidism, hip replacement, current bronchitis, and recently diagnosed with a leg cellulitis who p/w worsening wet cough and SOB for the past 2 weeks,now on bipap. Called by RN to see patient as she is reporting a burning sensation to chest. EKG done showing new onset atrial fibrillation with RVR heart rate 140's. Patient was seen and examined at bedside. On exam she is in no acute distress. She is on BIPAP with no evidence of hypoxemia. However, she did have an episode of oxygen desaturation earlier overnight. She denies active symptoms of chest pain, dizziness or palpitations. She is hemodynamically stable. She was given one dosage of metoprolol 25 mg and zantac. Assessment/Plan: She has new onset atrial fibrillation. Heart rate are somewhat improved and ranging between 115-120bpm. She does not appear to be fluid overloaded on exam. ECHO 09/29/2018: normal LVEF; mild LVH; abnormal diastolic compliance; severe aortic stenosis (), mild AR, moderate pulmonary HTN; severe MAC and aortic valve calcification; moderate LAE. -If continues to have elevated heart rates and symptomatic she will need to be transferred to telemetry monitoring. -Added metoprolol tartrate 25 mg twice daily for heart rate control. -Continue with oral lasix. Check electrolytes in am. -Check TSH. -Add heparin sq for anticoagulation for stroke prophylaxsis. AJ VASc score is at least 3 for stroke risk. FDC anticoagulation will need to be discussed. -Cardiology (Dr. Strange) following. Visit type - Emergency Visit Emergency Visit: Yes ED Registration Date: 09/28/18 Care time: The patient presented to the Emergency Department on the above date and was hospitalized for further evaluation of their emergent condition. - New Patient This patient is new to me today: Yes Date on this admission: 10/15/18 - Critical Care Critical Care patient: No
[2018-10-15] MEDS: dilTIAZem HCL 30 MG TABLET (FP) PO SCH ×3 (06:17→18:44)
[2018-10-15] MEDS: HEPARIN NA (PORCINE) 5,000 UNITS/ML 1ML VIAL SQ SCH ×2 (06:19→18:52)
[2018-10-15] MEDS: LEVOTHYROXINE NA 75 MCG TABLET (FP) PO SCH (06:32)
[2018-10-15] MEDS ORDERED: METOPROLOL TARTRATE 25 MG TABLET (FP) PO SCH (10:00)
[2018-10-15] MEDS: METHYL SALICYLATE/MENTHOL OINT 30 GM TUBE TP SCH ×2 (10:20→22:17)
[2018-10-15] MEDS: predniSONE 20 MG TABLET (UD) PO SCH ×2 (10:20→22:07)
[2018-10-15] MEDS: PANTOPRAZOLE 40 MG TABLET (FP) PO SCH (10:20)
[2018-10-15] MEDS: ASPIRIN COATED 81 MG TABLET.EC PO SCH (10:21)
[2018-10-15] MEDS: FUROSEMIDE 40 MG TABLET (FP) PO SCH (10:21)
[2018-10-15] MEDS: DULoxetine HCL 20 MG CAPSULE.DR (FP) PO SCH (10:21)
[2018-10-15] MEDS: CLOPIDOGREL BISULFATE 75 MG TABLET (FP) PO SCH (10:21)
[2018-10-15] MEDS: POLYETHYLENE GLYCOL 3350 119 GM BTL PO SCH (10:21)
[2018-10-15] MEDS ORDERED: dilTIAZem HCL 30 MG TABLET (FP) PO ONE (10:45)
--- NOTE | 2018-10-15 12:44 | PN ---
Progress Note, Physician History of Present Illness: Pt seen and examined at bedside. She is awake and appears more comfortable today. She had an episode of SOB yesterday. - Current Medication List Current Medications: Active Medications Acetaminophen (Tylenol -) 650 mg PO Q6H PRN PRN Reason: PAIN OR FEVER Last Admin: 10/12/18 09:16 Dose: 650 mg Albuterol Sulfate (Ventolin 0.083% Nebulizer Soln -) 1 amp NEB Q6H PRN PRN Reason: SHORT OF BREATH/WHEEZING Last Admin: 10/14/18 07:55 Dose: 1 amp Aspirin (Ecotrin -) 81 mg PO DAILY [facility] Last Admin: 10/15/18 10:21 Dose: 81 mg Benzocaine/Menthol (Cepacol Lozenge -) 1 each MM PRN PRN PRN Reason: SORE THROAT Last Admin: 10/13/18 10:49 Dose: 1 each Clopidogrel Bisulfate (Plavix -) 75 mg PO DAILY [facility] Last Admin: 10/15/18 10:21 Dose: 75 mg Diltiazem HCl (Cardizem Injection -) 5 mg IVPUSH Q4H PRN PRN Reason: TACHYCARDIA Diltiazem HCl (Cardizem -) 30 mg PO Q6HPO [facility] Last Admin: 10/15/18 11:13 Dose: Not Given Duloxetine HCl (Cymbalta -) 20 mg PO DAILY [facility] Last Admin: 10/15/18 10:21 Dose: Not Given Furosemide (Lasix -) 60 mg PO DAILY [facility] Last Admin: 10/15/18 10:21 Dose: 60 mg Guaifenesin (Robitussin -) 10 ml PO Q6H PRN PRN Reason: COUGH Last Admin: 10/14/18 08:01 Dose: 10 ml Heparin Sodium (Porcine) (Heparin -) 5,000 unit SQ TID [facility] Last Admin: 10/15/18 06:19 Dose: 5,000 unit Levothyroxine Sodium (Synthroid -) 75 mcg PO DAILY@0700 [facility] Last Admin: 10/15/18 06:32 Dose: 75 mcg Methyl Salicylate (David-Trinh -) 1 applic TP BID [facility] Last Admin: 10/15/18 10:20 Dose: Not Given Pantoprazole Sodium (Protonix -) 40 mg PO DAILY [facility] Last Admin: 01/30/19 10:20 Dose: 40 mg Phenol/Menthol (Chloraseptic -) 1 spray MM Q6HPO PRN PRN Reason: SORE THROAT Last Admin: 10/05/18 21:19 Dose: 1 spray Polyethylene Glycol (Miralax (For Daily Use) -) 17 gm PO DAILY [facility] Last Admin: 10/15/18 10:21 Dose: Not Given Prednisone (Deltasone -) 40 mg PO BID [facility] Last Admin: 10/15/18 10:20 Dose: 40 mg Sodium Chloride ([place] -) 2 spray NS TID PRN PRN Reason: NASAL CONGESTION Last Admin: 10/10/18 06:14 Dose: 2 spray - Objective Vital Signs: Vital Signs Temperature 98.3 F 10/15/18 09:00 Pulse Rate 79 10/15/18 09:00 Respiratory Rate 20 10/15/18 09:00 Blood Pressure 180/90 H 10/15/18 09:00 O2 Sat by Pulse Oximetry (%) 97 10/15/18 05:56 Constitutional: Yes: Calm Eyes: Yes: Conjunctiva Clear HENT: Yes: Atraumatic Neck: Yes: Supple Cardiovascular: Yes: S1, S2 Respiratory: Yes: On Nasal O2, Wheezes Gastrointestinal: Yes: Soft Musculoskeletal: Yes: WNL Edema: Yes Edema: LLE: 1+, RLE: 1+ Neurological: Yes: Oriented Psychiatric: Yes: Oriented Labs: CBC, BMP 10/13/18 07:41 10/14/18 08:10 Problem List - Problems (1) Acute hypoxemic respiratory failure Code(s): J96.01 - ACUTE RESPIRATORY FAILURE WITH HYPOXIA (2) Anemia Code(s): D64.9 - ANEMIA, UNSPECIFIED (3) CHF exacerbation Code(s): I50.9 - HEART FAILURE, UNSPECIFIED Qualifiers: Heart failure type: unspecified Qualified Code(s): I50.9 - Heart failure, unspecified (4) COPD (chronic obstructive pulmonary disease) Code(s): J44.9 - CHRONIC OBSTRUCTIVE PULMONARY DISEASE, UNSPECIFIED Qualifiers: COPD type: unspecified COPD Qualified Code(s): J44.9 - Chronic obstructive pulmonary disease, unspecified (5) Hyperkalemia Code(s): E87.5 - HYPERKALEMIA (6) Tobacco abuse Code(s): Z72.0 - TOBACCO USE Assessment/Plan Current Medications Generic Name Dose Route Start Last Admin Trade Name Freq PRN Reason Stop Dose Admin Acetaminophen 650 mg 09/28/18 21:26 10/12/18 09:16 Tylenol - PO 650 mg Q6H PRN Administration PAIN OR FEVER Albuterol Sulfate 1 amp 10/12/18 02:32 10/14/18 07:55 Ventolin 0.083% Nebulizer Soln - NEB 1 amp Q6H PRN Administration SHORT OF BREATH/WHEEZING Aspirin 81 mg 09/29/18 10:00 10/15/18 10:21 Ecotrin - PO 81 mg DAILY [facility] Administration Benzocaine/Menthol 1 each 10/02/18 12:05 10/13/18 10:49 Cepacol Lozenge - MM 1 each PRN PRN Administration SORE THROAT Clopidogrel Bisulfate 75 mg 09/29/18 10:00 10/15/18 10:21 Plavix - PO 75 mg DAILY [facility] Administration Diltiazem HCl 5 mg 10/01/18 10:05 Cardizem Injection - IVPUSH Q4H PRN TACHYCARDIA Diltiazem HCl 30 mg 10/15/18 06:00 10/15/18 11:13 Cardizem - PO Not Given Q6HPO [facility] Duloxetine HCl 20 mg 10/08/18 13:30 10/15/18 10:21 Cymbalta - PO Not Given DAILY [facility] Furosemide 60 mg 10/14/18 14:00 10/15/18 10:21 Lasix - PO 60 mg DAILY [facility] Administration Guaifenesin 10 ml 10/13/18 13:09 10/14/18 08:01 Robitussin - PO 10 ml Q6H PRN Administration COUGH Heparin Sodium (Porcine) 5,000 unit 10/15/18 06:00 10/15/18 06:19 Heparin - SQ 5,000 unit TID [facility] Administration Levothyroxine Sodium 75 mcg 09/29/18 07:00 10/15/18 06:32 Synthroid - PO 75 mcg DAILY@0700 [facility] Administration Methyl Salicylate 1 applic 10/01/18 22:00 10/15/18 10:20 David-Trinh - TP Not Given BID [facility] Pantoprazole Sodium 40 mg 10/02/18 14:00 10/15/18 10:20 Protonix - PO 40 mg DAILY [facility] Administration Phenol/Menthol 1 spray 10/02/18 12:05 10/05/18 21:19 Chloraseptic - MM 1 spray Q6HPO PRN Administration SORE THROAT Polyethylene Glycol 17 gm 10/02/18 15:00 10/15/18 10:21 Miralax (For Daily Use) - PO Not Given DAILY [facility] Prednisone 40 mg 10/14/18 22:00 10/15/18 10:20 Deltasone - PO 40 mg BID [facility] Administration Sodium Chloride 2 spray 10/02/18 12:04 10/10/18 06:14 [place] - NS 2 spray TID PRN Administration NASAL CONGESTION Impression 1. hyperkalemia 2. CKD 3. CAD 4. COPD 5. hypothyroidism 6. CHF 7. severe aortic stenosis 8. hyponatremia Plan - renal function is improving - cont PO lasix - monitor labs daily - no HD at this point - cardio follow up - steroids with taper as tolerated - steroids can contribute to elevated BUN - monitor sodium - will follow Dr Smith
--- NOTE | 2018-10-15 14:39 | PN ---
Progress Note, Physician History of Present Illness: PULMONARY ALERT,COMFORTABLE,-RESP DISTRESS,ON NASAL CANNULA O2 SAT 94% - Current Medication List Current Medications: Active Medications Acetaminophen (Tylenol -) 650 mg PO Q6H PRN PRN Reason: PAIN OR FEVER Last Admin: 10/12/18 09:16 Dose: 650 mg Albuterol Sulfate (Ventolin 0.083% Nebulizer Soln -) 1 amp NEB Q6H PRN PRN Reason: SHORT OF BREATH/WHEEZING Last Admin: 10/14/18 07:55 Dose: 1 amp Aspirin (Ecotrin -) 81 mg PO DAILY [facility] Last Admin: 10/15/18 10:21 Dose: 81 mg Benzocaine/Menthol (Cepacol Lozenge -) 1 each MM PRN PRN PRN Reason: SORE THROAT Last Admin: 10/13/18 10:49 Dose: 1 each Clopidogrel Bisulfate (Plavix -) 75 mg PO DAILY [facility] Last Admin: 10/15/18 10:21 Dose: 75 mg Diltiazem HCl (Cardizem Injection -) 5 mg IVPUSH Q4H PRN PRN Reason: TACHYCARDIA Diltiazem HCl (Cardizem -) 30 mg PO Q6HPO [facility] Last Admin: 10/15/18 11:13 Dose: Not Given Duloxetine HCl (Cymbalta -) 20 mg PO DAILY [facility] Last Admin: 10/15/18 10:21 Dose: Not Given Furosemide (Lasix -) 60 mg PO DAILY [facility] Last Admin: 10/15/18 10:21 Dose: 60 mg Guaifenesin (Robitussin -) 10 ml PO Q6H PRN PRN Reason: COUGH Last Admin: 10/14/18 08:01 Dose: 10 ml Heparin Sodium (Porcine) (Heparin -) 5,000 unit SQ TID [facility] Last Admin: 10/15/18 06:19 Dose: 5,000 unit Levothyroxine Sodium (Synthroid -) 75 mcg PO DAILY@0700 [facility] Last Admin: 10/15/18 06:32 Dose: 75 mcg Methyl Salicylate (David-Trinh -) 1 applic TP BID [facility] Last Admin: 10/15/18 10:20 Dose: Not Given Pantoprazole Sodium (Protonix -) 40 mg PO DAILY [facility] Last Admin: 10/15/18 10:20 Dose: 40 mg Phenol/Menthol (Chloraseptic -) 1 spray MM Q6HPO PRN PRN Reason: SORE THROAT Last Admin: 10/05/18 21:19 Dose: 1 spray Polyethylene Glycol (Miralax (For Daily Use) -) 17 gm PO DAILY [facility] Last Admin: 10/15/18 10:21 Dose: Not Given Prednisone (Deltasone -) 40 mg PO BID [facility] Last Admin: 10/15/18 10:20 Dose: 40 mg Sodium Chloride ([place] Nas[place] -) 2 spray NS TID PRN PRN Reason: NASAL CONGESTION Last Admin: 10/10/18 06:14 Dose: 2 spray - Objective Vital Signs: Vital Signs Temperature 97.6 F 10/15/18 14:23 Pulse Rate 70 10/15/18 14:23 Respiratory Rate 20 10/15/18 14:23 Blood Pressure 150/56 L 10/15/18 14:23 O2 Sat by Pulse Oximetry (%) 96 10/15/18 09:00 Constitutional: Yes: Calm, Thin Eyes: Yes: WNL HENT: Yes: WNL Neck: Yes: WNL Cardiovascular: Yes: Regular Rate and Rhythm, S1, S2 Respiratory: Yes: Wheezes (FEW SCATTERED WHEEZES) Gastrointestinal: Yes: Normal Bowel Sounds, Soft Extremities: Yes: WNL Edema: Yes Problem List - Problems (1) Acute hypoxemic respiratory failure Code(s): J96.01 - ACUTE RESPIRATORY FAILURE WITH HYPOXIA (2) Bilateral lower leg cellulitis Code(s): L03.116 - CELLULITIS OF LEFT LOWER LIMB; L03.115 - CELLULITIS OF RIGHT LOWER LIMB (3) CHF exacerbation Code(s): I50.9 - HEART FAILURE, UNSPECIFIED Qualifiers: Heart failure type: unspecified Qualified Code(s): I50.9 - Heart failure, unspecified (4) COPD (chronic obstructive pulmonary disease) Code(s): J44.9 - CHRONIC OBSTRUCTIVE PULMONARY DISEASE, UNSPECIFIED Qualifiers: COPD type: unspecified COPD Qualified Code(s): J44.9 - Chronic obstructive pulmonary disease, unspecified (5) Pneumonia Code(s): J18.9 - PNEUMONIA, UNSPECIFIED ORGANISM Qualifiers: Pneumonia type: due to unspecified organism Laterality: unspecified laterality Lung location: unspecified part of lung Qualified Code(s): J18.9 - Pneumonia, unspecified organism (6) Acute coronary syndrome Code(s): I24.9 - ACUTE ISCHEMIC HEART DISEASE, UNSPECIFIED (7) Anemia Code(s): D64.9 - ANEMIA, UNSPECIFIED (8) Diabetes Code(s): E11.9 - TYPE 2 DIABETES MELLITUS WITHOUT COMPLICATIONS (9) Tobacco abuse Code(s): Z72.0 - TOBACCO USE (10) Tobacco abuse counseling Code(s): Z71.6 - TOBACCO ABUSE COUNSELING (11) ANASTASIA (acute kidney injury) Code(s): N17.9 - ACUTE KIDNEY FAILURE, UNSPECIFIED (12) Acute diastolic CHF (congestive heart failure) Code(s): I50.31 - ACUTE DIASTOLIC (CONGESTIVE) HEART FAILURE (13) Aortic stenosis Code(s): I35.0 - NONRHEUMATIC AORTIC (VALVE) STENOSIS Assessment/Plan IMP ACUTE HYPOXEMIC RESPIRATORY FAILURE SLOWLY IMPROVING CHF SEVERE AORTIC STENOSIS COPD EXACERBATION ? PNEUMONIA ASHD S/P STENT ACUTE ON CHRONIC KIDNEY DISEASE PULMONARY HTN ANEMIA HTN DM TOBACCO ABUSE HEMOPTYSIS RESOLVED R APICAL NODULE HYPONATREMIA PLAN LASIX PREDNISONE O2/BIPAP NEEDED MONITOR LYTES,RENAL FUNCTION INHALED BRONCHODILATORS NORMAL TRANSFUSION THRESHOLD DR MCKENZIE Problem List - Problems (1) Acute hypoxemic respiratory failure Code(s): J96.01 - ACUTE RESPIRATORY FAILURE WITH HYPOXIA (2) Bilateral lower leg cellulitis Code(s): L03.116 - CELLULITIS OF LEFT LOWER LIMB; L03.115 - CELLULITIS OF RIGHT LOWER LIMB (3) CHF exacerbation Code(s): I50.9 - HEART FAILURE, UNSPECIFIED Qualifiers: Heart failure type: unspecified Qualified Code(s): I50.9 - Heart failure, unspecified (4) COPD (chronic obstructive pulmonary disease) Code(s): J44.9 - CHRONIC OBSTRUCTIVE PULMONARY DISEASE, UNSPECIFIED Qualifiers: COPD type: unspecified COPD Qualified Code(s): J44.9 - Chronic obstructive pulmonary disease, unspecified (5) Pneumonia Code(s): J18.9 - PNEUMONIA, UNSPECIFIED ORGANISM Qualifiers: Pneumonia type: due to unspecified organism Laterality: unspecified laterality Lung location: unspecified part of lung Qualified Code(s): J18.9 - Pneumonia, unspecified organism (6) Acute coronary syndrome Code(s): I24.9 - ACUTE ISCHEMIC HEART DISEASE, UNSPECIFIED (7) Anemia Code(s): D64.9 - ANEMIA, UNSPECIFIED (8) Diabetes Code(s): E11.9 - TYPE 2 DIABETES MELLITUS WITHOUT COMPLICATIONS (9) Tobacco abuse Code(s): Z72.0 - TOBACCO USE (10) Tobacco abuse counseling Code(s): Z71.6 - TOBACCO ABUSE COUNSELING
--- NOTE | 2018-10-15 14:56 | EKG ---
Test Reason : Blood Pressure : / mmHG Vent. Rate : 077 BPM Atrial Rate : 077 BPM P-R Int : 126 ms QRS Dur : 090 ms QT Int : 374 ms P-R-T Axes : 069 -23 067 degrees QTc Int : 423 ms NORMAL SINUS RHYTHM POSSIBLE LEFT ATRIAL ENLARGEMENT NONSPECIFIC T WAVE ABNORMALITY ABNORMAL ECG WHEN COMPARED WITH ECG OF 15-OCT-2018 03:51, SINUS RHYTHM HAS REPLACED ATRIAL FIBRILLATION VENT. RATE HAS DECREASED BY 69 BPM Confirmed by QUIRINO MCKENNA MD ([id number]) on 10/15/2018 2:55:40 PM Referred By: NITIN MCKENNA Confirmed By:QUIRINO MCKENNA MD
--- NOTE | 2018-10-15 15:01 | EKG ---
Test Reason : Blood Pressure : / mmHG Vent. Rate : 146 BPM Atrial Rate : 153 BPM P-R Int : 000 ms QRS Dur : 082 ms QT Int : 300 ms P-R-T Axes : 000 -28 151 degrees QTc Int : 467 ms ATRIAL FIBRILLATION WITH RAPID VENTRICULAR RESPONSE MINIMAL VOLTAGE CRITERIA FOR LVH, MAY BE NORMAL VARIANT ABNORMAL ECG WHEN COMPARED WITH ECG OF 05-OCT-2018 09:43, ATRIAL FIBRILLATION HAS REPLACED SINUS RHYTHM VENT. RATE HAS INCREASED BY 69 BPM Confirmed by QUIRINO MCKENNA MD ([id number]) on 10/15/2018 3:01:16 PM Referred By: Confirmed By:QUIRINO MCKENNA MD
--- NOTE | 2018-10-15 15:39 | PN ---
Progress Note, Physician Chief Complaint: Acute on Chronic Diastolic Heart Failure Severe Aortic Stenosis Acute COPD Exacerbation Lung Nodule r/o Pneumonia Pulmonary HTN Hemoptysis Acute on Chronic Renal Failure HTN DM Smoker History of Present Illness: Extremely SOB, even when turning in bed, feeling worse today Furosemide held due to hyponatremia On Nasal O2 @ 4 lpm with Spo2 of 93% - Current Medication List Current Medications: Active Medications Acetaminophen (Tylenol -) 650 mg PO Q6H PRN PRN Reason: PAIN OR FEVER Last Admin: 10/12/18 09:16 Dose: 650 mg Albuterol Sulfate (Ventolin 0.083% Nebulizer Soln -) 1 amp NEB Q6H PRN PRN Reason: SHORT OF BREATH/WHEEZING Last Admin: 10/14/18 07:55 Dose: 1 amp Aspirin (Ecotrin -) 81 mg PO DAILY [facility] Last Admin: 10/15/18 10:21 Dose: 81 mg Benzocaine/Menthol (Cepacol Lozenge -) 1 each MM PRN PRN PRN Reason: SORE THROAT Last Admin: 10/13/18 10:49 Dose: 1 each Clopidogrel Bisulfate (Plavix -) 75 mg PO DAILY [facility] Last Admin: 10/15/18 10:21 Dose: 75 mg Diltiazem HCl (Cardizem Injection -) 5 mg IVPUSH Q4H PRN PRN Reason: TACHYCARDIA Diltiazem HCl (Cardizem -) 30 mg PO Q6HPO [facility] Last Admin: 10/15/18 11:13 Dose: Not Given Duloxetine HCl (Cymbalta -) 20 mg PO DAILY [facility] Last Admin: 10/15/18 10:21 Dose: Not Given Furosemide (Lasix -) 60 mg PO DAILY [facility] Last Admin: 10/15/18 10:21 Dose: 60 mg Guaifenesin (Robitussin -) 10 ml PO Q6H PRN PRN Reason: COUGH Last Admin: 10/14/18 08:01 Dose: 10 ml Heparin Sodium (Porcine) (Heparin -) 5,000 unit SQ TID [facility] Last Admin: 10/15/18 06:19 Dose: 5,000 unit Levothyroxine Sodium (Synthroid -) 75 mcg PO DAILY@0700 [facility] Last Admin: 10/15/18 06:32 Dose: 75 mcg Methyl Salicylate (David-Trinh -) 1 applic TP BID [facility] Last Admin: 10/15/18 10:20 Dose: Not Given Pantoprazole Sodium (Protonix -) 40 mg PO DAILY [facility] Last Admin: 10/15/18 10:20 Dose: 40 mg Phenol/Menthol (Chloraseptic -) 1 spray MM Q6HPO PRN PRN Reason: SORE THROAT Last Admin: 10/05/18 21:19 Dose: 1 spray Polyethylene Glycol (Miralax (For Daily Use) -) 17 gm PO DAILY [facility] Last Admin: 10/15/18 10:21 Dose: Not Given Prednisone (Deltasone -) 40 mg PO BID [facility] Last Admin: 10/15/18 10:20 Dose: 40 mg Sodium Chloride ([place] -) 2 spray NS TID PRN PRN Reason: NASAL CONGESTION Last Admin: 10/10/18 06:14 Dose: 2 spray - Objective Vital Signs: Vital Signs Temperature 97.6 F 10/15/18 14:23 Pulse Rate 70 10/15/18 14:23 Respiratory Rate 20 10/15/18 14:23 Blood Pressure 150/56 L 10/15/18 14:23 O2 Sat by Pulse Oximetry (%) 96 10/15/18 09:00 Labs: CBC, BMP 10/13/18 07:41 10/14/18 08:10 Problem List - Problems (1) ANASTASIA (acute kidney injury) Code(s): N17.9 - ACUTE KIDNEY FAILURE, UNSPECIFIED (2) Acute diastolic CHF (congestive heart failure) Code(s): I50.31 - ACUTE DIASTOLIC (CONGESTIVE) HEART FAILURE (3) Anemia Code(s): D64.9 - ANEMIA, UNSPECIFIED (4) COPD (chronic obstructive pulmonary disease) Code(s): J44.9 - CHRONIC OBSTRUCTIVE PULMONARY DISEASE, UNSPECIFIED Qualifiers: COPD type: unspecified COPD Qualified Code(s): J44.9 - Chronic obstructive pulmonary disease, unspecified (5) Pneumonia Code(s): J18.9 - PNEUMONIA, UNSPECIFIED ORGANISM Qualifiers: Pneumonia type: due to unspecified organism Laterality: unspecified laterality Lung location: unspecified part of lung Qualified Code(s): J18.9 - Pneumonia, unspecified organism (6) Severe aortic stenosis Code(s): I35.0 - NONRHEUMATIC AORTIC (VALVE) STENOSIS (7) Hyponatremia Code(s): E87.1 - HYPO-OSMOLALITY AND HYPONATREMIA (8) CAD (coronary artery disease) Code(s): I25.10 - ATHSCL HEART DISEASE OF [place] CORONARY ARTERY W/O ANG PCTRS (9) Hypothyroid Code(s): E03.9 - HYPOTHYROIDISM, UNSPECIFIED (10) Lung nodule Code(s): R91.1 - SOLITARY PULMONARY NODULE
--- NOTE | 2018-10-15 18:20 | PN ---
Progress Note, Physician History of Present Illness: 83 yr old white woman with h/o COPD, diastolic CHF, severe aortic stenosis, ACS s/p stent 2014 (denies hx [place]), HTN, HLD, hypothyroidism, hip replacement, current bronchitis, and recently diagnosed leg cellulitis (states she is on amoxicillin for the cellulitis) who p/w worsening wet cough and SOB for the past 2 weeks, particularly worse tonight. She has had chills but denies any measured fever, nausea, vomiting, constipation, n/t/w focally, headache, back pain, neck pain, or other symptoms. Her family expresses concern her legs are so swollen she is unable to lift them or even walk. The patient notes her legs are only painful when she tries to weight bear. - Current Medication List Current Medications: Active Medications Acetaminophen (Tylenol -) 650 mg PO Q6H PRN PRN Reason: PAIN OR FEVER Last Admin: 10/12/18 09:16 Dose: 650 mg Albuterol Sulfate (Ventolin 0.083% Nebulizer Soln -) 1 amp NEB Q6H PRN PRN Reason: SHORT OF BREATH/WHEEZING Last Admin: 10/14/18 07:55 Dose: 1 amp Apixaban (Eliquis -) 2.5 mg PO BID [facility] Aspirin (Ecotrin -) 81 mg PO DAILY [facility] Last Admin: 10/15/18 10:21 Dose: 81 mg Benzocaine/Menthol (Cepacol Lozenge -) 1 each MM PRN PRN PRN Reason: SORE THROAT Last Admin: 10/13/18 10:49 Dose: 1 each Clopidogrel Bisulfate (Plavix -) 75 mg PO DAILY [facility] Last Admin: 10/15/18 10:21 Dose: 75 mg Diltiazem HCl (Cardizem Injection -) 5 mg IVPUSH Q4H PRN PRN Reason: TACHYCARDIA Diltiazem HCl (Cardizem -) 30 mg PO Q6HPO [facility] Last Admin: 10/15/18 11:13 Dose: Not Given Duloxetine HCl (Cymbalta -) 20 mg PO DAILY [facility] Last Admin: 10/15/18 10:21 Dose: Not Given Furosemide (Lasix -) 60 mg PO DAILY [facility] Last Admin: 10/15/18 10:21 Dose: 60 mg Guaifenesin (Robitussin -) 10 ml PO Q6H PRN PRN Reason: COUGH Last Admin: 10/14/18 08:01 Dose: 10 ml Levothyroxine Sodium (Synthroid -) 75 mcg PO DAILY@0700 [facility] Last Admin: 10/15/18 06:32 Dose: 75 mcg Methyl Salicylate (David-Trinh -) 1 applic TP BID [facility] Last Admin: 10/15/18 10:20 Dose: Not Given Nystatin (Nystatin Oral Suspension -) 500,000 units PO Q6HPO [facility] Pantoprazole Sodium (Protonix -) 40 mg PO DAILY [facility] Last Admin: 10/15/18 10:20 Dose: 40 mg Phenol/Menthol (Chloraseptic -) 1 spray MM Q6HPO PRN PRN Reason: SORE THROAT Last Admin: 10/05/18 21:19 Dose: 1 spray Polyethylene Glycol (Miralax (For Daily Use) -) 17 gm PO DAILY [facility] Last Admin: 10/15/18 10:21 Dose: Not Given Prednisone (Deltasone -) 40 mg PO BID [facility] Last Admin: 10/15/18 10:20 Dose: 40 mg Sodium Chloride ([place] Nasal [place] -) 2 spray NS TID PRN PRN Reason: NASAL CONGESTION Last Admin: 10/10/18 06:14 Dose: 2 spray - Objective Vital Signs: Vital Signs Temperature 97.6 F 10/15/18 14:23 Pulse Rate 70 10/15/18 14:23 Respiratory Rate 20 10/15/18 14:23 Blood Pressure 150/56 L 10/15/18 14:23 O2 Sat by Pulse Oximetry (%) 96 10/15/18 09:00 Eyes: Yes: WNL, Conjunctiva Clear, EOM Intact HENT: Yes: WNL, Atraumatic, Normocephalic Neck: Yes: WNL, Supple, Trachea Midline Cardiovascular: Yes: Regular Rate and Rhythm, Murmur, S1, S2 Respiratory: Yes: Diminished Gastrointestinal: Yes: WNL, Normal Bowel Sounds Genitourinary: Yes: WNL Musculoskeletal: Yes: WNL Extremities: Yes: WNL Edema: No Integumentary: Yes: WNL Neurological: Yes: WNL, Alert, Oriented ...Motor Strength: WNL Psychiatric: Yes: WNL Labs: CBC, BMP 10/13/18 07:41 10/14/18 08:10 Assessment/Plan - Problems (1) Severe aortic stenosis Assessment/Plan: ECHO 09/29/2018: normal LVEF; mild LVH; abnormal diastolic compliance; severe aortic stenosis (), mild AR, moderate pulmonary HTN; severe MAC and aortic valve calcification; moderate LAE. The potential benefits (potential decrease in symptoms and mortality) from TAVR were discussed with pt and family. Presently, worsening renal status makes this option problematic, and pt (and family) continue to be against undergoing dialysis. Avoid excessive diuresis/dehydration. Code(s): I35.0 - NONRHEUMATIC AORTIC (VALVE) STENOSIS (2) HTN (hypertension) Code(s): I10 - ESSENTIAL (PRIMARY) HYPERTENSION (3) CAD (coronary artery disease) Assessment/Plan: hx CAD-->coronary stent 2014. EKG: T wave changes: consider lateral ischemia. CT chest: dense coronary artery calcification. If TAVR is contemplated, will also have coronary angiogram (both are problematic at present due to worsening renal function). Code(s): I25.10 - ATHSCL HEART DISEASE OF [place] CORONARY ARTERY W/O ANG PCTRS (4) Diastolic CHF Code(s): I50.30 - UNSPECIFIED DIASTOLIC (CONGESTIVE) HEART FAILURE (5) ANASTASIA (acute kidney injury) Code(s): N17.9 - ACUTE KIDNEY FAILURE, UNSPECIFIED (6) Anemia Code(s): D64.9 - ANEMIA, UNSPECIFIED (7) COPD (chronic obstructive pulmonary disease) Assessment/Plan: Quit cigarettes only a few years ago, after many years smoking. CT chest: RUL lung nodule; moderate emphysema. Code(s): J44.9 - CHRONIC OBSTRUCTIVE PULMONARY DISEASE, UNSPECIFIED Qualifiers: COPD type: unspecified COPD Qualified Code(s): J44.9 - Chronic obstructive pulmonary disease, unspecified (8) Acute diastolic CHF (congestive heart failure) Assessment/Plan: CXR and CT chest: pleural effusion bilaterally. Exacerbated by severe , anemia. Code(s): I50.31 - ACUTE DIASTOLIC (CONGESTIVE) HEART FAILURE (9) Lung nodule Assessment/Plan: RUL apex; r/o malignancy; for f/u studies within 3 months. Code(s): R91.1 - SOLITARY PULMONARY NODULE (10) Coronary atherosclerosis due to calcified coronary lesion of [place] artery Assessment/Plan: dense calcification of coronary arteries on CT. If pt's overall condition stabilizes, and renal status is addressed, may benefit from coronary angiogram and evaluation for TAVR. Code(s): I25.10 - ATHSCL HEART DISEASE OF [place] CORONARY ARTERY W/O ANG PCTRS; I25.84 - CORONARY ATHEROSCLEROSIS DUE TO CALCIFIED CORONARY LESION (11) Acute chest pain Code(s): R07.9 - CHEST PAIN, UNSPECIFIED (12) Hypothyroid Code(s): E03.9 - HYPOTHYROIDISM, UNSPECIFIED episode of PAF with rvr converted to nsr with lopressor 24 holter to further evaluate cont medical rx
[2018-10-15] MEDS ORDERED: PT OWN MED DRAWER 7, Y5N ONE ×2 (18:54→21:31)
[2018-10-15] MEDS: APIXABAN 2.5 MG TABLET PO SCH (22:07)
[2018-10-16] MEDS ORDERED: PT OWN MED DRAWER 7, Y5N ONE (00:06)
[2018-10-16] MEDS: dilTIAZem HCL 30 MG TABLET (FP) PO SCH ×5 (00:07→23:31)
[2018-10-16] MEDS: NYSTATIN 500,000 UNITS/5 ML SUSPENSION PO SCH ×5 (00:08→23:31)
[2018-10-16] MEDS: LEVOTHYROXINE NA 75 MCG TABLET (FP) PO SCH (06:05)
[2018-10-16 07:23] LABS: ANION GAP 11 MMOL/L (8-16); CALCIUM 7.7 mg/dL (8.5-10.1); CHLORIDE 94 mmol/L (98-107); CO2 27 mmol/L (21-32); CREATININE 3.2 mg/dL (0.55-1.3); GLUCOSE,RANDOM 157 mg/dL (74-106); POTASSIUM 4.4 mmol/L (3.5-5.1); SODIUM 131 mmol/L (136-145)
[2018-10-16 08:36] LABS: BLOOD UREA NITROGEN 114 mg/dL (7-18)
[2018-10-16] MEDS: METHYL SALICYLATE/MENTHOL OINT 30 GM TUBE TP SCH ×2 (10:06→21:22)
[2018-10-16] MEDS: predniSONE 20 MG TABLET (UD) PO SCH (10:06)
[2018-10-16] MEDS: ASPIRIN COATED 81 MG TABLET.EC PO SCH (10:07)
[2018-10-16] MEDS: CLOPIDOGREL BISULFATE 75 MG TABLET (FP) PO SCH (10:07)
[2018-10-16] MEDS: APIXABAN 2.5 MG TABLET PO SCH (10:07)
[2018-10-16] MEDS: POLYETHYLENE GLYCOL 3350 119 GM BTL PO SCH (10:07)
[2018-10-16] MEDS: PANTOPRAZOLE 40 MG TABLET (FP) PO SCH (10:08)
[2018-10-16] MEDS: DULoxetine HCL 20 MG CAPSULE.DR (FP) PO SCH (10:08)
--- NOTE | 2018-10-16 10:53 | PN ---
Progress Note, Physician - Current Medication List Current Medications: Active Medications Acetaminophen (Tylenol -) 650 mg PO Q6H PRN PRN Reason: PAIN OR FEVER Last Admin: 10/12/18 09:16 Dose: 650 mg Albuterol Sulfate (Ventolin 0.083% Nebulizer Soln -) 1 amp NEB Q6H PRN PRN Reason: SHORT OF BREATH/WHEEZING Last Admin: 10/14/18 07:55 Dose: 1 amp Apixaban (Eliquis -) 2.5 mg PO BID [facility] Last Admin: 10/16/18 10:07 Dose: 2.5 mg Aspirin (Ecotrin -) 81 mg PO DAILY [facility] Last Admin: 10/16/18 10:07 Dose: 81 mg Benzocaine/Menthol (Cepacol Lozenge -) 1 each MM PRN PRN PRN Reason: SORE THROAT Last Admin: 10/13/18 10:49 Dose: 1 each Clopidogrel Bisulfate (Plavix -) 75 mg PO DAILY [facility] Last Admin: 10/16/18 10:07 Dose: 75 mg Diltiazem HCl (Cardizem Injection -) 5 mg IVPUSH Q4H PRN PRN Reason: TACHYCARDIA Diltiazem HCl (Cardizem -) 30 mg PO Q6HPO [facility] Last Admin: 10/16/18 06:05 Dose: 30 mg Guaifenesin (Robitussin -) 10 ml PO Q6H PRN PRN Reason: COUGH Last Admin: 10/14/18 08:01 Dose: 10 ml Levothyroxine Sodium (Synthroid -) 75 mcg PO DAILY@0700 [facility] Last Admin: 10/16/18 06:05 Dose: 75 mcg Methyl Salicylate (David-Trinh -) 1 applic TP BID [facility] Last Admin: 10/16/18 10:06 Dose: Not Given Nystatin (Nystatin Oral Suspension -) 500,000 units PO Q6HPO [facility] Last Admin: 10/16/18 06:05 Dose: 500,000 units Pantoprazole Sodium (Protonix -) 40 mg PO DAILY [facility] Last Admin: 10/16/18 10:08 Dose: 40 mg Phenol/Menthol (Chloraseptic -) 1 spray MM Q6HPO PRN PRN Reason: SORE THROAT Last Admin: 10/05/18 21:19 Dose: 1 spray Polyethylene Glycol (Miralax (For Daily Use) -) 17 gm PO DAILY [facility] Last Admin: 10/16/18 10:07 Dose: Not Given Prednisone (Deltasone -) 40 mg PO BID [facility] Last Admin: 10/16/18 10:06 Dose: 40 mg Sodium Chloride ([place] Nasal [place] -) 2 spray NS TID PRN PRN Reason: NASAL CONGESTION Last Admin: 10/10/18 06:14 Dose: 2 spray - Objective Vital Signs: Vital Signs Temperature 97.6 F 10/16/18 10:00 Pulse Rate 70 10/16/18 10:00 Respiratory Rate 18 10/16/18 10:00 Blood Pressure 158/60 10/16/18 10:00 O2 Sat by Pulse Oximetry (%) 94 L 10/15/18 21:00 Constitutional: Yes: Mild Distress Eyes: Yes: WNL HENT: Yes: WNL Neck: Yes: WNL Cardiovascular: Yes: Regular Rate and Rhythm Respiratory: Yes: Diminished Gastrointestinal: Yes: Soft Genitourinary: Yes: WNL Musculoskeletal: Yes: Muscle Weakness Extremities: Yes: WNL Edema: No Peripheral Pulses WNL: Yes Integumentary: Yes: WNL Neurological: Yes: WNL ...Motor Strength: LLE, RLE Psychiatric: Yes: WNL Labs: CBC, BMP 10/13/18 07:41 10/16/18 05:30 Problem List - Problems (1) ANASTASIA (acute kidney injury) Code(s): N17.9 - ACUTE KIDNEY FAILURE, UNSPECIFIED (2) Acute diastolic CHF (congestive heart failure) Code(s): I50.31 - ACUTE DIASTOLIC (CONGESTIVE) HEART FAILURE (3) Acute hypoxemic respiratory failure Code(s): J96.01 - ACUTE RESPIRATORY FAILURE WITH HYPOXIA (4) Anemia Code(s): D64.9 - ANEMIA, UNSPECIFIED (5) Aortic stenosis Code(s): I35.0 - NONRHEUMATIC AORTIC (VALVE) STENOSIS (6) Bilateral lower leg cellulitis Code(s): L03.116 - CELLULITIS OF LEFT LOWER LIMB; L03.115 - CELLULITIS OF RIGHT LOWER LIMB (7) CAD (coronary artery disease) Code(s): I25.10 - ATHSCL HEART DISEASE OF [place] CORONARY ARTERY W/O ANG PCTRS (8) CHF exacerbation Code(s): I50.9 - HEART FAILURE, UNSPECIFIED Qualifiers: Heart failure type: unspecified Qualified Code(s): I50.9 - Heart failure, unspecified (9) Diastolic CHF Code(s): I50.30 - UNSPECIFIED DIASTOLIC (CONGESTIVE) HEART FAILURE (10) HTN (hypertension) Code(s): I10 - ESSENTIAL (PRIMARY) HYPERTENSION (11) Hypothyroid Code(s): E03.9 - HYPOTHYROIDISM, UNSPECIFIED Assessment/Plan PATIENT IMPROVING SLOWLY WEIGHT IS DOWN TO 99LBS START PROSTAT MVI/VIT C/ENSURE SUPPLEMENTS PT EVAL TRANSFER TO [facility] PER CARDIOLOGY FOR CARDIAC WORKUP/SURGERYLASIX/NEBS PREDNISONE TAPER STOP CYMBALTA FOR MOOD CHANGE
--- NOTE | 2018-10-16 12:08 | PN ---
Progress Note, Physician Chief Complaint: Pt A&Ox3; no chest pain or palpitations. Pt's daugther's are at bedside. History of Present Illness: 83 yr old white woman with h/o COPD, diastolic CHF, severe aortic stenosis, ACS s/p stent 2014 (denies hx [place]), HTN, HLD, hypothyroidism, hip replacement, current bronchitis, and recently diagnosed leg cellulitis (states she is on amoxicillin for the cellulitis) who p/w worsening wet cough and SOB for the past 2 weeks, particularly worse tonight. She has had chills but denies any measured fever, nausea, vomiting, constipation, n/t/w focally, headache, back pain, neck pain, or other symptoms. Her family expresses concern her legs are so swollen she is unable to lift them or even walk. The patient notes her legs are only painful when she tries to weight bear. - Current Medication List Current Medications: Active Medications Acetaminophen (Tylenol -) 650 mg PO Q6H PRN PRN Reason: PAIN OR FEVER Last Admin: 10/12/18 09:16 Dose: 650 mg Albuterol Sulfate (Ventolin 0.083% Nebulizer Soln -) 1 amp NEB Q6H PRN PRN Reason: SHORT OF BREATH/WHEEZING Last Admin: 10/14/18 07:55 Dose: 1 amp Apixaban (Eliquis -) 2.5 mg PO BID [facility] Last Admin: 10/16/18 10:07 Dose: 2.5 mg Aspirin (Ecotrin -) 81 mg PO DAILY [facility] Last Admin: 10/16/18 10:07 Dose: 81 mg Benzocaine/Menthol (Cepacol Lozenge -) 1 each MM PRN PRN PRN Reason: SORE THROAT Last Admin: 10/13/18 10:49 Dose: 1 each Clopidogrel Bisulfate (Plavix -) 75 mg PO DAILY [facility] Last Admin: 10/16/18 10:07 Dose: 75 mg Diltiazem HCl (Cardizem Injection -) 5 mg IVPUSH Q4H PRN PRN Reason: TACHYCARDIA Diltiazem HCl (Cardizem -) 30 mg PO Q6HPO [facility] Last Admin: 10/16/18 06:05 Dose: 30 mg Guaifenesin (Robitussin -) 10 ml PO Q6H PRN PRN Reason: COUGH Last Admin: 10/14/18 08:01 Dose: 10 ml Levothyroxine Sodium (Synthroid -) 75 mcg PO DAILY@0700 [facility] Last Admin: 10/16/18 06:05 Dose: 75 mcg Methyl Salicylate (David-Trinh -) 1 applic TP BID [facility] Last Admin: 10/16/18 10:06 Dose: Not Given Nystatin (Nystatin Oral Suspension -) 500,000 units PO Q6HPO [facility] Last Admin: 10/16/18 06:05 Dose: 500,000 units Pantoprazole Sodium (Protonix -) 40 mg PO DAILY [facility] Last Admin: 10/16/18 10:08 Dose: 40 mg Phenol/Menthol (Chloraseptic -) 1 spray MM Q6HPO PRN PRN Reason: SORE THROAT Last Admin: 10/05/18 21:19 Dose: 1 spray Polyethylene Glycol (Miralax (For Daily Use) -) 17 gm PO DAILY [facility] Last Admin: 10/16/18 10:07 Dose: Not Given Prednisone (Deltasone -) 40 mg PO BID [facility] Last Admin: 10/16/18 10:06 Dose: 40 mg Sodium Chloride ([place] Nasal [place] -) 2 spray NS TID PRN PRN Reason: NASAL CONGESTION Last Admin: 10/10/18 06:14 Dose: 2 spray - Objective Vital Signs: Vital Signs Temperature 97.6 F 10/16/18 10:00 Pulse Rate 70 10/16/18 10:00 Respiratory Rate 18 10/16/18 10:00 Blood Pressure 158/60 10/16/18 10:00 O2 Sat by Pulse Oximetry (%) 94 L 10/15/18 21:00 Labs: CBC, BMP 10/13/18 07:41 10/16/18 05:30 Problem List - Problems (1) Severe aortic stenosis Assessment/Plan: ECHO 09/29/2018: normal LVEF; mild LVH; abnormal diastolic compliance; severe aortic stenosis (), mild AR, moderate pulmonary HTN; severe MAC and aortic valve calcification; moderate LAE. The potential benefits (potential decrease in symptoms and mortality) from TAVR were discussed with pt and family. Presently, worsening renal status makes this option problematic, and pt (and family) continue to be against undergoing dialysis. Avoid excessive diuresis/dehydration. Code(s): I35.0 - NONRHEUMATIC AORTIC (VALVE) STENOSIS (2) HTN (hypertension) Code(s): I10 - ESSENTIAL (PRIMARY) HYPERTENSION (3) CAD (coronary artery disease) Code(s): I25.10 - ATHSCL HEART DISEASE OF [place] CORONARY ARTERY W/O ANG PCTRS (4) Diastolic CHF Code(s): I50.30 - UNSPECIFIED DIASTOLIC (CONGESTIVE) HEART FAILURE (5) ANASTASIA (acute kidney injury) Code(s): N17.9 - ACUTE KIDNEY FAILURE, UNSPECIFIED (6) Anemia Code(s): D64.9 - ANEMIA, UNSPECIFIED (7) COPD (chronic obstructive pulmonary disease) Code(s): J44.9 - CHRONIC OBSTRUCTIVE PULMONARY DISEASE, UNSPECIFIED Qualifiers: COPD type: unspecified COPD Qualified Code(s): J44.9 - Chronic obstructive pulmonary disease, unspecified (8) Acute diastolic CHF (congestive heart failure) Code(s): I50.31 - ACUTE DIASTOLIC (CONGESTIVE) HEART FAILURE (9) Lung nodule Code(s): R91.1 - SOLITARY PULMONARY NODULE (10) Coronary atherosclerosis due to calcified coronary lesion of [place] artery Code(s): I25.10 - ATHSCL HEART DISEASE OF [place] CORONARY ARTERY W/O ANG PCTRS; I25.84 - CORONARY ATHEROSCLEROSIS DUE TO CALCIFIED CORONARY LESION (11) Acute chest pain Code(s): R07.9 - CHEST PAIN, UNSPECIFIED (12) Hypothyroid Code(s): E03.9 - HYPOTHYROIDISM, UNSPECIFIED
--- NOTE | 2018-10-16 12:32 | PN ---
Progress Note (short form) - Note Progress Note: PULMONARY Breathing better today. +nonproductive cough. Vital Signs Period Temp Pulse Resp BP Sys/[place] Pulse Ox Last 24 Hr 97.5 F-97.7 F 70-75 16-20 141-161/56-68 94 Gen: NAD at rest Heart: RRR, +systolic murmur RUSB Lung: scattered wheezes, rhonchi Abd: soft, nontender Ext: + edema CBC, BMP 10/13/18 07:41 10/16/18 05:30 Active Medications Acetaminophen (Tylenol -) 650 mg PO Q6H PRN PRN Reason: PAIN OR FEVER Last Admin: 10/12/18 09:16 Dose: 650 mg Albuterol Sulfate (Ventolin 0.083% Nebulizer Soln -) 1 amp NEB Q6H PRN PRN Reason: SHORT OF BREATH/WHEEZING Last Admin: 10/14/18 07:55 Dose: 1 amp Apixaban (Eliquis -) 2.5 mg PO BID [facility] Last Admin: 10/16/18 10:07 Dose: 2.5 mg Aspirin (Ecotrin -) 81 mg PO DAILY [facility] Last Admin: 10/16/18 10:07 Dose: 81 mg Benzocaine/Menthol (Cepacol Lozenge -) 1 each MM PRN PRN PRN Reason: SORE THROAT Last Admin: 10/13/18 10:49 Dose: 1 each Clopidogrel Bisulfate (Plavix -) 75 mg PO DAILY [facility] Last Admin: 10/16/18 10:07 Dose: 75 mg Diltiazem HCl (Cardizem Injection -) 5 mg IVPUSH Q4H PRN PRN Reason: TACHYCARDIA Diltiazem HCl (Cardizem -) 30 mg PO Q6HPO [facility] Last Admin: 10/16/18 12:07 Dose: 30 mg Guaifenesin (Robitussin -) 10 ml PO Q6H PRN PRN Reason: COUGH Last Admin: 10/14/18 08:01 Dose: 10 ml Levothyroxine Sodium (Synthroid -) 75 mcg PO DAILY@0700 [facility] Last Admin: 10/16/18 06:05 Dose: 75 mcg Methyl Salicylate (David-Trinh -) 1 applic TP BID [facility] Last Admin: 10/16/18 10:06 Dose: Not Given Nystatin (Nystatin Oral Suspension -) 500,000 units PO Q6HPO [facility] Last Admin: 10/16/18 12:07 Dose: 500,000 units Pantoprazole Sodium (Protonix -) 40 mg PO DAILY [facility] Last Admin: 10/16/18 10:08 Dose: 40 mg Phenol/Menthol (Chloraseptic -) 1 spray MM Q6HPO PRN PRN Reason: SORE THROAT Last Admin: 10/05/18 21:19 Dose: 1 spray Polyethylene Glycol (Miralax (For Daily Use) -) 17 gm PO DAILY [facility] Last Admin: 10/16/18 10:07 Dose: Not Given Prednisone (Deltasone -) 40 mg PO BID [facility] Last Admin: 10/16/18 10:06 Dose: 40 mg Sodium Chloride ([place] Nasal [place] -) 2 spray NS TID PRN PRN Reason: NASAL CONGESTION Last Admin: 10/10/18 06:14 Dose: 2 spray A/P Acute on Chronic Diastolic Heart Failure Severe Aortic Stenosis Acute COPD Exacerbation Lung Nodule r/o Pneumonia Pulmonary HTN Hemoptysis Acute on Chronic Renal Failure HTN DM Smoker - lasix as needed - monitor urine output, creatinine - will decrease prednisone to daily - inhaled bronchodilators - O2 to keep SpO2 >90% - will give low dose anxiolytic as needed - completed antibiotics - can proceed with cardiac evaluation from pulmonary standpoint - will need outpt f/u of lung nodule - DVT prophylaxis
[2018-10-16] MEDS ORDERED: HEPARIN NA (PORCINE) 5,000 UNITS/ML 1ML VIAL IVPUSH PRN ×2 (12:38)
[2018-10-16] MEDS: HEPARIN INFUSION - 25,000 UNITS/500 ML INFUS.BAG IVPB SCH ×2 (13:46→21:30)
--- NOTE | 2018-10-16 15:34 | PN ---
Progress Note, Physician History of Present Illness: Pt seen and examined at bedside. She is now in tele. Pt may be transferred for TAVR. She does not feels that her breathing is worse. - Current Medication List Current Medications: Active Medications Acetaminophen (Tylenol -) 650 mg PO Q6H PRN PRN Reason: PAIN OR FEVER Last Admin: 10/12/18 09:16 Dose: 650 mg Albuterol Sulfate (Ventolin 0.083% Nebulizer Soln -) 1 amp NEB Q6H PRN PRN Reason: SHORT OF BREATH/WHEEZING Last Admin: 10/14/18 07:55 Dose: 1 amp Aspirin (Ecotrin -) 81 mg PO DAILY [facility] Last Admin: 10/16/18 10:07 Dose: 81 mg Benzocaine/Menthol (Cepacol Lozenge -) 1 each MM PRN PRN PRN Reason: SORE THROAT Last Admin: 10/13/18 10:49 Dose: 1 each Clopidogrel Bisulfate (Plavix -) 75 mg PO DAILY [facility] Last Admin: 10/16/18 10:07 Dose: 75 mg Diltiazem HCl (Cardizem Injection -) 5 mg IVPUSH Q4H PRN PRN Reason: TACHYCARDIA Diltiazem HCl (Cardizem -) 30 mg PO Q6HPO [facility] Last Admin: 10/16/18 12:07 Dose: 30 mg Guaifenesin (Robitussin -) 10 ml PO Q6H PRN PRN Reason: COUGH Last Admin: 10/14/18 08:01 Dose: 10 ml Heparin Sodium (Porcine) (Heparin -) 1,000 unit IVPUSH PRN PRN PRN Reason: Heparin Heparin Sodium (Porcine) (Heparin -) 5,000 unit IVPUSH PRN PRN PRN Reason: Heparin Heparin Sodium/Dextrose (Heparin Infusion -) 25,000 units in 500 mls @ 16 mls/ hr IVPB TITR [facility]; Protocol Last Admin: 10/16/18 13:46 Dose: 800 units/hr, 16 mls/hr Levothyroxine Sodium (Synthroid -) 75 mcg PO DAILY@0700 [facility] Last Admin: 10/16/18 06:05 Dose: 75 mcg Methyl Salicylate (David-Trinh -) 1 applic TP BID [facility] Last Admin: 10/16/18 10:06 Dose: Not Given Nystatin (Nystatin Oral Suspension -) 500,000 units PO Q6HPO [facility] Last Admin: 10/16/18 12:07 Dose: 500,000 units Pantoprazole Sodium (Protonix -) 40 mg PO DAILY [facility] Last Admin: 10/16/18 10:08 Dose: 40 mg Phenol/Menthol (Chloraseptic -) 1 spray MM Q6HPO PRN PRN Reason: SORE THROAT Last Admin: 10/05/18 21:19 Dose: 1 spray Polyethylene Glycol (Miralax (For Daily Use) -) 17 gm PO DAILY [facility] Last Admin: 10/16/18 10:07 Dose: Not Given Prednisone (Deltasone -) 40 mg PO DAILY [facility] Sodium Chloride ([place] Nasal [place] -) 2 spray NS TID PRN PRN Reason: NASAL CONGESTION Last Admin: 10/10/18 06:14 Dose: 2 spray - Objective Vital Signs: Vital Signs Temperature 97.6 F 10/16/18 10:00 Pulse Rate 70 10/16/18 10:00 Respiratory Rate 18 10/16/18 10:00 Blood Pressure 158/60 10/16/18 10:00 O2 Sat by Pulse Oximetry (%) 94 L 10/15/18 21:00 Constitutional: Yes: Calm Eyes: Yes: Conjunctiva Clear HENT: Yes: Atraumatic Cardiovascular: Yes: S1, S2 Respiratory: Yes: On Nasal O2, Wheezes Gastrointestinal: Yes: Soft Genitourinary: Yes: Incontinence Musculoskeletal: Yes: Muscle Weakness Edema: Yes Edema: LLE: 1+, RLE: 1+ Neurological: Yes: Oriented Psychiatric: Yes: Oriented Labs: CBC, BMP 10/13/18 07:41 10/16/18 05:30 Problem List - Problems (1) Acute hypoxemic respiratory failure Code(s): J96.01 - ACUTE RESPIRATORY FAILURE WITH HYPOXIA (2) Anemia Code(s): D64.9 - ANEMIA, UNSPECIFIED (3) CHF exacerbation Code(s): I50.9 - HEART FAILURE, UNSPECIFIED Qualifiers: Heart failure type: unspecified Qualified Code(s): I50.9 - Heart failure, unspecified (4) COPD (chronic obstructive pulmonary disease) Code(s): J44.9 - CHRONIC OBSTRUCTIVE PULMONARY DISEASE, UNSPECIFIED Qualifiers: COPD type: unspecified COPD Qualified Code(s): J44.9 - Chronic obstructive pulmonary disease, unspecified (5) Hyperkalemia Code(s): E87.5 - HYPERKALEMIA (6) Tobacco abuse Code(s): Z72.0 - TOBACCO USE Assessment/Plan Current Medications Generic Name Dose Route Start Last Admin Trade Name Freq PRN Reason Stop Dose Admin Acetaminophen 650 mg 09/28/18 21:26 10/12/18 09:16 Tylenol - PO 650 mg Q6H PRN Administration PAIN OR FEVER Albuterol Sulfate 1 amp 10/12/18 02:32 10/14/18 07:55 Ventolin 0.083% Nebulizer Soln - NEB 1 amp Q6H PRN Administration SHORT OF BREATH/WHEEZING Aspirin 81 mg 09/29/18 10:00 10/16/18 10:07 Ecotrin - PO 81 mg DAILY [facility] Administration Benzocaine/Menthol 1 each 10/02/18 12:05 10/13/18 10:49 Cepacol Lozenge - MM 1 each PRN PRN Administration SORE THROAT Clopidogrel Bisulfate 75 mg 09/29/18 10:00 10/16/18 10:07 Plavix - PO 75 mg DAILY [facility] Administration Diltiazem HCl 5 mg 10/01/18 10:05 Cardizem Injection - IVPUSH Q4H PRN TACHYCARDIA Diltiazem HCl 30 mg 10/15/18 06:00 10/16/18 12:07 Cardizem - PO 30 mg Q6HPO [facility] Administration Guaifenesin 10 ml 10/13/18 13:09 10/14/18 08:01 Robitussin - PO 10 ml Q6H PRN Administration COUGH Heparin Sodium (Porcine) 1,000 unit 10/16/18 12:38 Heparin - IVPUSH PRN PRN Heparin Heparin Sodium (Porcine) 5,000 unit 10/16/18 12:38 Heparin - IVPUSH PRN PRN Heparin Heparin Sodium/Dextrose 25,000 units in 500 mls @ 16 mls/hr 10/16/18 12:45 13:46 Heparin Infusion - IVPB 800 units/hr TITR [facility] 16 mls/hr Administration Protocol 800 UNITS/HR Levothyroxine Sodium 75 mcg 09/29/18 07:00 10/16/18 06:05 Synthroid - PO 75 mcg DAILY@0700 [facility] Administration Methyl Salicylate 1 applic 10/01/18 22:00 10/16/18 10:06 David-Trinh - TP Not Given BID [facility] Nystatin 500,000 units 10/16/18 00:00 10/16/18 12:07 Nystatin Oral Suspension - PO 500,000 units Q6HPO [facility] Administration Pantoprazole Sodium 40 mg 10/02/18 14:00 10/16/18 10:08 Protonix - PO 40 mg DAILY [facility] Administration Phenol/Menthol 1 spray 10/02/18 12:05 10/05/18 21:19 Chloraseptic - MM 1 spray Q6HPO PRN Administration SORE THROAT Polyethylene Glycol 17 gm 10/02/18 15:00 10/16/18 10:07 Miralax (For Daily Use) - PO Not Given DAILY [facility] Prednisone 40 mg 10/17/18 10:00 Deltasone - PO DAILY [facility] Sodium Chloride 2 spray 10/02/18 12:04 10/10/18 06:14 [place] Nasal [place] - NS 2 spray TID PRN Administration NASAL CONGESTION Impression 1. hyperkalemia 2. CKD 3. CAD 4. COPD 5. hypothyroidism 6. CHF 7. severe aortic stenosis 8. hyponatremia Plan - bun may be elevated from higher dose of steroids - repeat labs in am - will continue to monitor renal function - possible transfer for TAVR - pt and family clearly understand risk of CINDY and risk for requiring HD - discussed with family - monitor sodium - hold lasix - repeat cxr in am - will follow Dr Smith
[2018-10-16] MEDS: ALBUTEROL SO4 0.083% IH SOL 2.5 MG/3 ML VIAL.NEB. NEB PRN (20:10)
[2018-10-17 02:56] VITALS: TEMP 97.6
[2018-10-17] MEDS: HEPARIN INFUSION - 25,000 UNITS/500 ML INFUS.BAG IVPB SCH (05:45)
[2018-10-17] MEDS: dilTIAZem HCL 30 MG TABLET (FP) PO SCH (06:06)
[2018-10-17] MEDS: LEVOTHYROXINE NA 75 MCG TABLET (FP) PO SCH (06:06)
[2018-10-17] MEDS: NYSTATIN 500,000 UNITS/5 ML SUSPENSION PO SCH (06:07)
[2018-10-17 07:32] LABS: ALBUMIN 2.2 g/dl (3.4-5.0); ALK PHOS 64 U/L (45-117); ANION GAP 12 MMOL/L (8-16); BILIRUBIN,TOTAL 0.4 mg/dL (0.2-1); CALCIUM 7.5 mg/dL (8.5-10.1); CHLORIDE 94 mmol/L (98-107); CO2 26 mmol/L (21-32); CREATININE 3.6 mg/dL (0.55-1.3); GLUCOSE,RANDOM 170 mg/dL (74-106); POTASSIUM 4.4 mmol/L (3.5-5.1); SGOT/AST 17 U/L (15-37); SGPT/ALT 30 U/L (13-61); SODIUM 131 mmol/L (136-145); TOT PROT 4.8 g/dl (6.4-8.2)
[2018-10-17 07:37] LABS: BLOOD UREA NITROGEN 127 mg/dL (7-18)
[2018-10-17 09:53] LABS: HEMATOCRIT 22.8 % (32.4-45.2); HEMOGLOBIN 7.7 GM/dL (10.7-15.3); MCH 31.1 pg (25.7-33.7); MCHC 33.7 g/dl (32.0-36.0); MEAN CELL VOLUME 92.3 fl (80-96); MEAN PLT VOLUME 10.1 fl (7.5-11.1); PLATELET COUNT 192 K/MM3 (134-434); RBC 2.47 M/mm3 (3.60-5.2); RDW 15.1 % (11.6-15.6); WHITE BLOOD COUNT 12.5 K/mm3 (4.0-10.0)
[2018-10-17] MEDS: METHYL SALICYLATE/MENTHOL OINT 30 GM TUBE TP SCH (09:54)
[2018-10-17] MEDS: POLYETHYLENE GLYCOL 3350 119 GM BTL PO SCH (09:57)
[2018-10-17] MEDS: PANTOPRAZOLE 40 MG TABLET (FP) PO SCH (09:57)
[2018-10-17] MEDS: CLOPIDOGREL BISULFATE 75 MG TABLET (FP) PO SCH (09:57)
[2018-10-17] MEDS: ASPIRIN COATED 81 MG TABLET.EC PO SCH (09:57)
[2018-10-17] MEDS ORDERED: predniSONE 20 MG TABLET (UD) PO SCH (10:00)
--- NOTE | 2018-10-17 11:10 | PN ---
Progress Note, Physician History of Present Illness: pulmonary alert,no distress,to be transferred today to [place] for TAVR - Current Medication List Current Medications: Active Medications Acetaminophen (Tylenol -) 650 mg PO Q6H PRN PRN Reason: PAIN OR FEVER Last Admin: 10/12/18 09:16 Dose: 650 mg Albuterol Sulfate (Ventolin 0.083% Nebulizer Soln -) 1 amp NEB Q6H PRN PRN Reason: SHORT OF BREATH/WHEEZING Last Admin: 10/16/18 20:10 Dose: 1 amp Aspirin (Ecotrin -) 81 mg PO DAILY [facility] Last Admin: 10/17/18 09:57 Dose: 81 mg Benzocaine/Menthol (Cepacol Lozenge -) 1 each MM PRN PRN PRN Reason: SORE THROAT Last Admin: 10/13/18 10:49 Dose: 1 each Clopidogrel Bisulfate (Plavix -) 75 mg PO DAILY [facility] Last Admin: 10/17/18 09:57 Dose: 75 mg Diltiazem HCl (Cardizem Injection -) 5 mg IVPUSH Q4H PRN PRN Reason: TACHYCARDIA Diltiazem HCl (Cardizem -) 30 mg PO Q6HPO [facility] Last Admin: 10/17/18 06:06 Dose: 30 mg Guaifenesin (Robitussin -) 10 ml PO Q6H PRN PRN Reason: COUGH Last Admin: 10/14/18 08:01 Dose: 10 ml Heparin Sodium (Porcine) (Heparin -) 1,000 unit IVPUSH PRN PRN PRN Reason: Heparin Heparin Sodium (Porcine) (Heparin -) 5,000 unit IVPUSH PRN PRN PRN Reason: Heparin Heparin Sodium/Dextrose (Heparin Infusion -) 25,000 units in 500 mls @ 16 mls/ hr IVPB TITR [facility]; Protocol Last Admin: 10/17/18 05:45 Dose: 500 units/hr, 10 mls/hr Levothyroxine Sodium (Synthroid -) 75 mcg PO DAILY@0700 [facility] Last Admin: 10/17/18 06:06 Dose: 75 mcg Methyl Salicylate (David-Trinh -) 1 applic TP BID [facility] Last Admin: 10/17/18 09:54 Dose: Not Given Nystatin (Nystatin Oral Suspension -) 500,000 units PO Q6HPO [facility] Last Admin: 10/17/18 06:07 Dose: 500,000 units Pantoprazole Sodium (Protonix -) 40 mg PO DAILY [facility] Last Admin: 10/17/18 09:57 Dose: 40 mg Phenol/Menthol (Chloraseptic -) 1 spray MM Q6HPO PRN PRN Reason: SORE THROAT Last Admin: 10/05/18 21:19 Dose: 1 spray Polyethylene Glycol (Miralax (For Daily Use) -) 17 gm PO DAILY [facility] Last Admin: 10/17/18 09:57 Dose: Not Given Prednisone (Deltasone -) 40 mg PO DAILY [facility] Last Admin: 10/17/18 09:57 Dose: 40 mg Sodium Chloride ([place] -) 2 spray NS TID PRN PRN Reason: NASAL CONGESTION Last Admin: 10/10/18 06:14 Dose: 2 spray - Objective Vital Signs: Vital Signs Temperature 97.6 F 10/17/18 05:41 Pulse Rate 65 10/17/18 05:41 Respiratory Rate 20 10/17/18 05:41 Blood Pressure 132/46 L 10/17/18 05:41 O2 Sat by Pulse Oximetry (%) 98 10/17/18 00:39 Constitutional: Yes: Calm, Thin Eyes: Yes: WNL HENT: Yes: WNL Neck: Yes: WNL Cardiovascular: Yes: Regular Rate and Rhythm, S1, S2 Respiratory: Yes: Wheezes (FEW RHONCHI) Gastrointestinal: Yes: Normal Bowel Sounds, Soft Extremities: Yes: WNL Labs: CBC, BMP 10/17/18 05:30 10/17/18 05:30 Problem List - Problems (1) Acute hypoxemic respiratory failure Code(s): J96.01 - ACUTE RESPIRATORY FAILURE WITH HYPOXIA (2) Bilateral lower leg cellulitis Code(s): L03.116 - CELLULITIS OF LEFT LOWER LIMB; L03.115 - CELLULITIS OF RIGHT LOWER LIMB (3) CHF exacerbation Code(s): I50.9 - HEART FAILURE, UNSPECIFIED Qualifiers: Heart failure type: unspecified Qualified Code(s): I50.9 - Heart failure, unspecified (4) COPD (chronic obstructive pulmonary disease) Code(s): J44.9 - CHRONIC OBSTRUCTIVE PULMONARY DISEASE, UNSPECIFIED Qualifiers: COPD type: unspecified COPD Qualified Code(s): J44.9 - Chronic obstructive pulmonary disease, unspecified (5) Pneumonia Code(s): J18.9 - PNEUMONIA, UNSPECIFIED ORGANISM Qualifiers: Pneumonia type: due to unspecified organism Laterality: unspecified laterality Lung location: unspecified part of lung Qualified Code(s): J18.9 - Pneumonia, unspecified organism (6) Acute coronary syndrome Code(s): I24.9 - ACUTE ISCHEMIC HEART DISEASE, UNSPECIFIED (7) Anemia Code(s): D64.9 - ANEMIA, UNSPECIFIED (8) Diabetes Code(s): E11.9 - TYPE 2 DIABETES MELLITUS WITHOUT COMPLICATIONS (9) Tobacco abuse Code(s): Z72.0 - TOBACCO USE (10) Tobacco abuse counseling Code(s): Z71.6 - TOBACCO ABUSE COUNSELING (11) ANASTASIA (acute kidney injury) Code(s): N17.9 - ACUTE KIDNEY FAILURE, UNSPECIFIED (12) Acute diastolic CHF (congestive heart failure) Code(s): I50.31 - ACUTE DIASTOLIC (CONGESTIVE) HEART FAILURE (13) Aortic stenosis Code(s): I35.0 - NONRHEUMATIC AORTIC (VALVE) STENOSIS Assessment/Plan IMP ACUTE HYPOXEMIC RESPIRATORY FAILURE IMPROVING CHF SEVERE AORTIC STENOSIS COPD EXACERBATION ? PNEUMONIA ASHD S/P STENT ACUTE ON CHRONIC KIDNEY DISEASE PULMONARY HTN ANEMIA HTN DM TOBACCO ABUSE HEMOPTYSIS RESOLVED R APICAL NODULE HYPONATREMIA PLAN LASIX PREDNISONE TAVR O2/BIPAP NEEDED MONITOR LYTES,RENAL FUNCTION INHALED BRONCHODILATORS DR MCKENZIE Problem List - Problems (1) Acute hypoxemic respiratory failure Code(s): J96.01 - ACUTE RESPIRATORY FAILURE WITH HYPOXIA (2) Bilateral lower leg cellulitis Code(s): L03.116 - CELLULITIS OF LEFT LOWER LIMB; L03.115 - CELLULITIS OF RIGHT LOWER LIMB (3) CHF exacerbation Code(s): I50.9 - HEART FAILURE, UNSPECIFIED Qualifiers: Heart failure type: unspecified Qualified Code(s): I50.9 - Heart failure, unspecified (4) COPD (chronic obstructive pulmonary disease) Code(s): J44.9 - CHRONIC OBSTRUCTIVE PULMONARY DISEASE, UNSPECIFIED Qualifiers: COPD type: unspecified COPD Qualified Code(s): J44.9 - Chronic obstructive pulmonary disease, unspecified (5) Pneumonia Code(s): J18.9 - PNEUMONIA, UNSPECIFIED ORGANISM Qualifiers: Pneumonia type: due to unspecified organism Laterality: unspecified laterality Lung location: unspecified part of lung Qualified Code(s): J18.9 - Pneumonia, unspecified organism (6) Acute coronary syndrome Code(s): I24.9 - ACUTE ISCHEMIC HEART DISEASE, UNSPECIFIED (7) Anemia Code(s): D64.9 - ANEMIA, UNSPECIFIED (8) Diabetes Code(s): E11.9 - TYPE 2 DIABETES MELLITUS WITHOUT COMPLICATIONS (9) Tobacco abuse Code(s): Z72.0 - TOBACCO USE (10) Tobacco abuse counseling Code(s): Z71.6 - TOBACCO ABUSE COUNSELING
[2018-10-17 11:26] VITALS: BP 149/64; PULSE 63
--- NOTE | 2018-10-17 11:38 | DS ---
Physical Examination Vital Signs: Vital Signs Temperature 97.6 F 10/17/18 05:41 Pulse Rate 63 10/17/18 11:25 Respiratory Rate 22 H 10/17/18 11:25 Blood Pressure 149/64 10/17/18 11:25 O2 Sat by Pulse Oximetry (%) 97 10/17/18 11:25 Findings/Remarks: Patient is an 83 y/o female patient with past medical history of COPD, diastolic CHF, severe aortic stenosis, ACS s/p stent 2014, HTN, HLD, hypothyroidism, hip replacement. Patient is being transferred to [facility] today for TAVR. During hospital stay patient developed episode of a-fib and was converted to NSR with lopressor. Patient has been developing worsening renal function and was being followed by renal. Walked into patient room for evaluation and patient was being transferred to [facility]. Patient alert and awake, no acute sign of distress noted. Labs: CBC, BMP 10/17/18 05:30 10/17/18 05:30 Laboratory Results - last 24 hr 10/16/18 10/17/18 10/17/18 19:45 02:50 05:30 WBC RBC Hgb Hct MCV MCH MCHC RDW Plt Count MPV PTT (Actin FS) 122.8 H 115.8 H Sodium 131 L Potassium 4.4 Chloride 94 L Carbon Dioxide 26 Anion Gap 12 BUN 127 H* Creatinine 3.6 H Creat Clearance w eGFR 12.11 Random Glucose 170 H Calcium 7.5 L Total Bilirubin 0.4 AST 17 ALT 30 Alkaline Phosphatase 64 Total Protein 4.8 L Albumin 2.2 L 10/17/18 05:30 WBC 12.5 H RBC 2.47 L Hgb 7.7 L Hct 22.8 L D MCV 92.3 MCH 31.1 MCHC 33.7 RDW 15.1 Plt Count 192 MPV 10.1 PTT (Actin FS) Sodium Potassium Chloride Carbon Dioxide Anion Gap BUN Creatinine Creat Clearance w eGFR Random Glucose Calcium Total Bilirubin AST ALT Alkaline Phosphatase Total Protein Albumin Discharge Summary Reason For Visit: ACUTE ON CHRONIC CONGESTIVE HEART FAILURE, Hospital Course: see progress notes Laboratory Results - last 24 hr 10/16/18 10/17/18 10/17/18 19:45 02:50 05:30 WBC RBC Hgb Hct MCV MCH MCHC RDW Plt Count MPV PTT (Actin FS) 122.8 H 115.8 H Sodium 131 L Potassium 4.4 Chloride 94 L Carbon Dioxide 26 Anion Gap 12 BUN 127 H* Creatinine 3.6 H Creat Clearance w eGFR 12.11 Random Glucose 170 H Calcium 7.5 L Total Bilirubin 0.4 AST 17 ALT 30 Alkaline Phosphatase 64 Total Protein 4.8 L Albumin 2.2 L 10/17/18 05:30 WBC 12.5 H RBC 2.47 L Hgb 7.7 L Hct 22.8 L D MCV 92.3 MCH 31.1 MCHC 33.7 RDW 15.1 Plt Count 192 MPV 10.1 PTT (Actin FS) Sodium Potassium Chloride Carbon Dioxide Anion Gap BUN Creatinine Creat Clearance w eGFR Random Glucose Calcium Total Bilirubin AST ALT Alkaline Phosphatase Total Protein Albumin Condition: Guarded - Instructions Diet, Activity, Other Instructions: Patient to follow up with PMD 3-4 days when discharged from tertiary care facility Follow up with [facility] when discharged Follow up with [facility] when discharged 1L fluid restriction Low Na diet Referrals: Marcus Costa MD [Primary Care Provider] - Ralph Madsen MD [Staff Physician] - Erica Smith MD [Staff Physician] - Ryan Strange MD [Staff Physician] - Disposition: TRANSFER ACUTE CARE/OTHER HOSP - Home Medications Comprehensive Discharge Medication List: Ambulatory Orders Aspirin [ASA -] 81 mg PO DAILY 11/04/14 Amlodipine Besylate 10 mg PO DAILY 05/04/16 Clopidogrel Bisulfate [Plavix -] 75 mg PO DAILY 05/04/16 L.acidoph,Paracasei, B.lactis [Probiotic] 1 each PO DAILY 05/04/16 Cephalexin [Keflex] 250 mg PO TID 09/28/18 Cholecalciferol (Vitamin D3) [Vitamin D3 -] 50,000 unit PO WEEKLY 09/28/18 Ferrous Sulfate [Feosol] 325 mg PO BID 09/28/18 Levothyroxine [Synthroid -] 50 mcg PO DAILY 09/28/18
== END 2018-10-17 11:16 | disposition short-term general hospital (02) | DRG 291 ==
LOC: JER 20:28 → JERBED 21:28 → J4W 23:55 → J6S 10-08 11:53 → J7W 10-14 18:32 → J4W 10-15 18:34
PROVIDERS: ADMIT Family Medicine; ATTEND Family Medicine
DX: I13.0 Hypertensive heart and chronic kidney disease with heart failure and stage 1 through stage 4 chronic kidney disease, or unspecified chronic kidney disease (principal); J96.01 Acute respiratory failure with hypoxia; I50.33 Acute on chronic diastolic (congestive) heart failure; J18.9 Pneumonia, unspecified organism; N17.9 Acute kidney failure, unspecified; E87.2 Acidosis; L03.116 Cellulitis of left lower limb; L03.115 Cellulitis of right lower limb; J44.1 Chronic obstructive pulmonary disease with (acute) exacerbation; R04.2 Hemoptysis; E87.1 Hypo-osmolality and hyponatremia; E78.5 Hyperlipidemia, unspecified; E03.9 Hypothyroidism, unspecified; Z88.0 Allergy status to penicillin; I25.10 Atherosclerotic heart disease of native coronary artery without angina pectoris; E87.5 Hyperkalemia; I27.20 Pulmonary hypertension, unspecified; D64.9 Anemia, unspecified; Z72.0 Tobacco use; I35.0 Nonrheumatic aortic (valve) stenosis; N18.9 Chronic kidney disease, unspecified; R91.1 Solitary pulmonary nodule
CPT/HCPCS: 36415; 36430; 36511; 36600; 71045-TC-FY; 71046-TC-FY; 71250-TC; 76775-TC; 76856-TC; 80048; 80053; 80061; 81003; 81015; 82272; 82550; 82728; 82803; 83036; 83540; 83550; 83721; 83735; 83880; 83930; 84100; 84439; 84443; 84484; 85025; 85027; 85730; 86850; 86900; 86901; 86922; 87040; 87086; 87804; 93005; 93010; 93306-TC; 93970-TC; 93971; 94640; 94660; 97116-GP; 97161-GP; 99283-25; J1644; P9038; P9058